=== PATIENT | female | born 1995 | race Caucasian/White ===

== ENCOUNTER 2023-03-01 12:13 | Emergency (ER) | payer OTHER ==
--- OUTSIDE RECORDS SUMMARY | 2023-03-01 12:23 | XMS REPORT | Continuity of Care Document ---
:1995 Author Organization [facility] t Address [address] [place] [address] [address] [place] [address] Care Team Providers Name Role Phone Mabel Cottrell CNM Primary Care Physician [phone] MEG BAIRD Attending Clinician Unavailable Nurse, [facility] Attending Clinician Unavailable Unknown, Attending Attending Clinician Unavailable Meg Hoover Attending Clinician UNKNOWN, ATTENDING Attending Clinician Unavailable CANDIDO GAYTAN Attending Clinician Unavailable Candido Gaytan PA-C Attending Clinician Doctor Unassigned, [place] Attending Clinician Unavailable Mabel Cottrell CNM Attending Clinician MABEL COTTRELL Attending Clinician Unavailable Myra Morales Attending Clinician ELIZABETH YOU Attending Clinician Unavailable Elizabeth Townsend Attending Clinician MYRA WOO Attending Clinician Unavailable GELACIO FINNEGAN Attending Clinician Unavailable MICHELLE HELLER Attending Clinician Unavailable MICHELLE HELLER Attending Clinician Unavailable Visit/Fp, [facility] Nurse Attending Clinician Unavailable Edda Nesbitt MD Attending Clinician [phone] Roshan Saldana MD Attending Clinician ROSHAN SALDANA Attending Clinician Unavailable ROSHAN SALDANA Attending Clinician Unavailable Jailene Ireland MD, Mary Attending Clinician [phone] Zuri Milligan DO Attending Clinician Abram Vance MD Attending Clinician EDDA NESBITT Attending Clinician Unavailable Henrietta CHILD WELFARE COUNSELOR, Kassy Attending Clinician KASSY SHRESTHA Attending Clinician Unavailable Ultrasound, Ang-Mfm Attending Clinician Unavailable Elier Phillips DO Attending Clinician APRIL GUERRA Attending Clinician Unavailable Charlie AKERS, April Jensen Attending Clinician Provider, [facility] Temp Attending Clinician Unavailable Lab, Ang - Db Attending Clinician Unavailable LYNDSAY LEE Attending Clinician Unavailable LYNDSAY LEE Attending Clinician Unavailable Tatum Barros RN Attending Clinician Unavailable HYACINTH ROMERO Attending Clinician Unavailable Hyacinth Romero DO Attending Clinician Leonid AKERS, Judit Attending Clinician JUDIT JAQUEZ Attending Clinician Unavailable GELACIO BHAGAT Attending Clinician Unavailable Gelacio Bhagat PA-C Attending Clinician Preet Santiago OD Attending Clinician PREET SANTIAGO Attending Clinician Unavailable Ultrasound, Adc Mfm Attending Clinician Unavailable MARY CRUMP Attending Clinician Unavailable Only, Ang Db Test Attending Clinician Unavailable Vinnie Ceron MD Attending Clinician VINNIE CERON Attending Clinician Unavailable ELIZABETH REEVES Attending Clinician Unavailable Elizabeth Hernandez Attending Clinician MADELIN CORTES Attending Clinician Unavailable Marquise Pratt Attending Clinician Madelin Cortes NP Attending Clinician Meghna Greenberg Attending Clinician MEGHNA BOSE Attending Clinician Unavailable Roshan Saldana MD Admitting Clinician ROSHAN SALDANA Admitting Clinician Unavailable EDDA NESBITT Admitting Clinician Unavailable Edda Nesbitt MD Admitting Clinician [phone] APRIL GUERRA Admitting Clinician Unavailable April Guerra MD Admitting Clinician MARQUISE STONE Admitting Clinician Unavailable Payers Payer Name Policy Type Policy Number Effective Date Expiration Date [facility] [id number] 2022 CHOICE [place] ST[place] 00:00:00 Problems Condition Condition Condition Status Onset Resolution Last Treating Co mments Source Name Details Category Date Date Treatment Clinician Date Severe Severe Disease Active 2021-09 Univers preeclamps preeclamps 1-28 it y [place] 00 [facility] 35 weeks 35 weeks Disease Active 2021-09 Unive rs gestation gestation 1-27 ity of of of 00:00: [place] 00 [facility] Obesity Obesity Disease Active 2021-09 Univers (BMI (BMI 1-22 ity of 30-39.9) 30-39.9) 00:00: [place] [facility] Other Other Disease Active 2021-09 Univers headache headache 1-21 ity of syndrome syndrome 00:00: [place] [facility] History of History of Disease Active 2021-09 U nivers gestationa gestationa 1-21 it y of l l 00:00: [place] hypertensi hypertensi 00 Me dical on on Branch Pre-existi Pre-existi Disease Active U nivmiriam ng ng 7-22 [place] of essential essential 00:[place] hypert[place] 00 Me dical on during on during Bran ch , , antepartum antepartum Unspecifie Unspecifie Disease Active U nivers d d 6-03 [place] [facility] High risk High risk Disease Active Uni vers , , 5-06 [place] y of antepartum ante[place] [facility] [place] History of History of Disease Active U nivers stillbirth stillbirth 5-06 it y of 00:00: [place] [facility] Nausea Nausea Disease Active 2022-0 Univers 5-06 ity of 00:00: [place] [address] Medical Branch Allergies, Adverse Reactions, Alerts Allergy Allergy Status Severity Reaction(s) Onset Inactive Treating Comm ents Source Name Type Date Date Clinician No Known DA Active U [facility] 01-26 [place] 00:[facility] [address] No Known DA Active U [facility] Allergie 01-26 [place] 00:[facility]: [facility] 00 are [facility] NO KNOWN Drug Active Univers ALLERGIE Class ity of S [facility] Social History Social Habit Start Date Stop Date Quantity Comments Source ASSERTION 2021-12-10 [place] of 00:00:00 [place] [facility] [place] History SDOH University o f Alcohol Frequency [place] [facility] History SDOH University o f Alcohol Std [place] [facility] Drinks [facility] History SDOH University o f Alcohol Binge [place] [facility] [place] History of Passive smoker University of tobacco use [facility] Alcohol intake 2023-02-28 2023-02-28 Ex-drinker [facility] 00:00:00 00:00:00 (finding) [facility] Exposure to 2023-01-18 2023-01-28 Not sure [facility] SARS-CoV-2 00:00:00 17:55:00 [facility] (event) Branch Tobacco use and 2022-08-05 2022-08-05 Smokeless tobacco Un iversity of exposure 00:00:00 00:00:00 non-user [facility] Tobacco Comment 2022-03-28 2022-03-28 quit 6y ago Universi ty of 00:00:00 00:00:00 [facility] Alcohol Comment 2022-01-10 2022-01-10 quit when found Univ ersity of 00:00:00 00:00:00 out was [facility] dical [place] Sex Ass[birth year] At [birth year] Universit y of 00:00:00 00:00:00 [facility] Smoking Status Start Date Stop Date Source Tobacco smoking [facility] [place] consumption unknown [facility] Bran [place] Ex-smoker 2022-08-05 00:00:00 2022-08-05 University o f [place] 00:00:00 Medical Branch Medications Ordered Filled Start Stop Current Ordering Indication Dosage Frequency Signature Comments Components Source Medication Medication Date Date Medication? Clinician (SIG) Name Name famotidine Yes [id number] 40mg Take 1 Univers 40 mg 5-24 tablet by ity of tablet 00:00: mouth in [place] 00 the Medical morning. Branch pantoprazol 2022-0 Yes [id number] 40mg Take 1 Univers e 5-24 tablet by ity of (PROTONIX) 00:00: mouth in [place] 40 mg EC 00 the Medical tablet morning. Branch bromphenira 3-0 Yes [id number] 5mL Take 5 mL Univers mine-pseudo 5-24 by mouth 3 it y of ephedrine-D 00:00: (three) [place] M (BROMFED 00 times Medical DM) 2-30-10 daily as Bran ch mg/5 mL needed for syrup Cough. famotidine 2022-0 Yes [id number] 40mg Take 1 Univers 40 mg 5-24 tablet by ity of tablet 00:00: mouth in [place] 00 the Medical morning. Branch pantoprazol 2022-0 Yes [id number] 40mg Take 1 Univers e 5-24 tablet by ity of (PROTONIX) 00:00: mouth in [place] 40 mg EC 00 the Medical tablet morning. Branch bromphenira 2022-0 Yes [id number] 5mL Take 5 mL Univers mine-pseudo 5-24 by mouth 3 it y of ephedrine-D 00:00: (three) [place] M (BROMFED 00 times Medical DM) 2-30-10 daily as Bran ch mg/5 mL needed for syrup Cough. famotidine 2022-0 Yes [id number] 40mg Take 1 Univers 40 mg 5-24 tablet by ity of tablet 00:00: mouth in [place] 00 the Medical morning. Branch pantoprazol 2022-0 Yes [id number] 40mg Take 1 Univers e 5-24 tablet by ity of (PROTONIX) 00:00: mouth in [place] 40 mg EC 00 the Medical tablet morning. Branch bromphenira 3-0 Yes [id number] 5mL Take 5 mL Univers mine-pseudo 5-24 by mouth 3 it y of ephedrine-D 00:00: (three) [place] M (BROMFED 00 times Medical DM) 2-30-10 daily as Bran ch mg/5 mL needed for syrup Cough. labetaloL 3-0 Yes [id number] 200mg Take 1 Univers 200 mg 1-18 tablet by ity of tablet 00:00: mouth [place] 00 every 12 Medical (twelve) Branch hours. 2022-0 Yes [id number] 1{tbl} Take 1 Univers vitamin 1-18 tablet by ity of w/FA tablet 00:00: mouth [place] 00 the Medical morning. Branch labetaloL 2022-0 Yes [id number] 200mg Take 1 Univers 200 mg 1-18 tablet by ity of tablet 00:00: mouth [place] 00 every 12 Medical (twelve) Branch hours. 2022-0 Yes [id number] 1{tbl} Take 1 Univers vitamin 1-18 tablet by ity of w/FA tablet 00:00: mouth [place] 00 the Medical morning. Branch buPROPion 2022-0 Yes [id number] 150mg Take 1 Univers XL 1-18 tablet by ity of (WELLBUTRIN 00:00: mouth [place] XL) 150 mg 00 every Medical 24 hr morning. Branch tablet labetaloL 2022-0 Yes [id number] 200mg Take 1 Univers 200 mg 1-18 tablet by ity of tablet 00:00: mouth [place] 00 every 12 Medical (twelve) Branch hours. 2022-0 Yes [id number] 1{tbl} Take 1 Univers vitamin 1-18 tablet by ity of w/FA tablet 00:00: mouth [place] 00 the Medical morning. Branch buPROPion 2022-0 Yes [id number] 150mg Take 1 Univers XL 1-18 tablet by ity of (WELLBUTRIN 00:00: mouth [place] XL) 150 mg 00 every Medical 24 hr morning. Branch tablet labetaloL 2022-0 Yes [id number] 200mg Take 1 Univers 200 mg 1-18 tablet by ity of tablet 00:00: mouth [place] 00 every 12 Medical (twelve) Branch hours. 2022-0 Yes [id number] 1{tbl} Take 1 Univers vitamin 1-18 tablet by ity of w/FA tablet 00:00: [place] 00 the Medical morning. Branch buPROPion 2022-0 Yes [id number] 150mg Take 1 Univers XL 1-18 tablet by ity of (WELLBUTRIN 00:00: mouth [place] XL) 150 mg 00 every Medical 24 hr morning. Branch tablet labetaloL 2022-0 Yes [id number] 200mg Take 1 Univers 200 mg 1-18 tablet by ity of tablet 00:00: mouth [place] 00 every 12 Medical (twelve) Branch hours. 2022-0 Yes [id number] 1{tbl} Take 1 Univers vitamin 1-18 tablet by ity of w/FA tablet 00:00: mouth [place] 00 the Medical morning. Branch buPROPion 2022-0 Yes [id number] 150mg Take 1 Univers XL 1-18 tablet by ity of (WELLBUTRIN 00:00: mouth [place] XL) 150 mg 00 every Medical 24 hr morning. Branch tablet labetaloL 2022-0 Yes [id number] 200mg Take 1 Univers 200 mg 1-18 tablet by ity of tablet 00:00: mouth [place] 00 every 12 Medical (twelve) Branch hours. 2022-0 Yes [id number] 1{tbl} Take 1 Univers vitamin 1-18 tablet by ity of w/FA tablet 00:00: mouth [place] 00 the Medical morning. Branch buPROPion 2022-0 Yes [id number] 150mg Take 1 Univers XL 1-18 tablet by ity of (WELLBUTRIN 00:00: mouth [place] XL) 150 mg 00 every Medical 24 hr morning. Branch tablet labetaloL 2022-0 Yes [id number] 200mg Take 1 Univers 200 mg 1-18 tablet by ity of tablet 00:00: mouth [place] 00 every 12 Medical (twelve) Branch hours. 2022-0 Yes [id number] 1{tbl} Take 1 Univers vitamin 1-18 tablet by ity of w/FA tablet 00:00: mouth [place] 00 the Medical morning. Branch buPROPion 2022-0 Yes [id number] 150mg Take 1 Univers XL 1-18 tablet by ity of (WELLBUTRIN 00:00: mouth [place] XL) 150 mg 00 every Medical 24 hr morning. Branch tablet labetaloL 2022-0 Yes [id number] 200mg Take 1 Univers 200 mg 1-18 tablet by ity of tablet 00:00: mouth [place] 00 every 12 Medical (twelve) Branch hours. 2022-0 Yes [id number] 1{tbl} Take 1 Univers vitamin 1-18 tablet by ity of w/FA tablet 00:00: mouth [place] 00 the Medical morning. Branch buPROPion 2022-0 Yes [id number] 150mg Take 1 Univers XL 1-18 tablet by ity of (WELLBUTRIN 00:00: mouth [place] XL) 150 mg 00 every Medical 24 hr morning. Branch tablet labetaloL 2022-0 Yes [id number] 200mg Take 1 Univers 200 mg 1-18 tablet by ity of tablet 00:00: mouth [place] 00 every 12 Medical (twelve) Branch hours. 2022-0 Yes [id number] 1{tbl} Take 1 Univers vitamin 1-18 tablet by ity of w/FA tablet 00:00: mouth [place] 00 the Medical morning. Branch buPROPion 2022-0 Yes [id number] 150mg Take 1 Univers XL 1-18 tablet by ity of (WELLBUTRIN 00:00: mouth [place] XL) 150 mg 00 every Medical 24 hr morning. Branch tablet labetaloL Yes [id number] 200mg Take 1 Univers 200 mg 1-18 tablet by ity of tablet 00:00: mouth [place] 00 every 12 Medical (twelve) Branch hours. 2022-0 Yes [id number] 1{tbl} Take 1 Univers vitamin 1-18 tablet by ity of w/FA tablet 00:00: mouth [place] 00 the Medical morning. Branch buPROPion Yes [id number] 150mg Take 1 Univers XL 1-18 tablet by ity of (WELLBUTRIN 00:00: mouth [place] XL) 150 mg 00 every Medical 24 hr morning. Branch tablet labetaloL 0 Yes [id number] 200mg Take 1 Univers 200 mg 1-18 tablet by ity of tablet 00:00: mouth [place] 00 every 12 Medical (twelve) Branch hours. 2022-0 Yes [id number] 1{tbl} Take 1 Univers vitamin 1-18 tablet by ity of w/FA tablet 00:00: mouth [place] 00 the Medical morning. Branch buPROPion 2022-0 Yes [id number] 150mg Take 1 Univers XL 1-18 tablet by ity of (WELLBUTRIN 00:00: mouth [place] XL) 150 mg 00 every Medical 24 hr morning. Branch tablet 2022-0 Yes [id number] 1{tbl} Take 1 Univers vitamin 1-18 tablet by ity of w/FA tablet 00:00: mouth [place] 00 the Medical morning. Branch 2022-0 Yes [id number] 1{tbl} Take 1 Univers vitamin 1-18 tablet by ity of w/FA tablet 00:00: mouth in [place] 00 the Medical morning. Branch [facility] Yes [id number] 1{tbl} Take 1 Univers vitamin 1-18 tablet by ity of w/FA tablet 00:00: mouth [place] 00 the Medical morning. Branch [facility] Yes [id number] 1{tbl} Take 1 Univers vitamin 1-18 tablet by ity of w/FA tablet 00:00: mouth in [place] 00 the Medical morning. Branch [facility] Yes [id number] 1{tbl} Take 1 Univers vitamin 1-18 tablet by ity of w/FA tablet 00:00: mouth in [place] 00 the Medical morning. Branch [facility] Yes [id number] 1{tbl} Take 1 Univers vitamin 1-18 tablet by ity of w/FA tablet 00:00: mouth [place] 00 the Medical morning. [facility] Yes [id number] 1{tbl} Take 1 Univers vitamin 1-18 tablet by ity of w/FA tablet 00:00: mouth [place] 00 the Medical morning. [facility] 0 Yes [id number] 1{tbl} Take 1 Univers vitamin 1-18 tablet by ity of w/FA tablet 00:00: mouth [place] 00 the Medical morning. [facility] Yes [id number] 1{tbl} Take 1 Univers vitamin 1-18 tablet by ity of w/FA tablet 00:00: mouth [place] 00 the Medical morning. Branch labetaloL 2022- No [id number] 200mg Take 1 Univers 200 mg 1-18 -28 tablet by ity of tablet 00:00: 00:00 mouth [place] 00 :00 every 12 Medical (twelve) Branch hours. buPROPion 2022- No [id number] 150mg Take 1 Univers XL 1-18 -28 tablet by ity of (WELLBUTRIN 00:00: 00:[place] XL[place] 150 mg 00 :00 every Medical 24 hr morning. Branch tablet labetaloL 2022- No [id number] 200mg Take 1 Univers 200 mg 1-18 -28 tablet by ity of tablet 00:00: 00:00 mouth [place] 00 :00 every 12 Medical (twelve) Branch hours. buPROPion 2022- No [id number] 150mg Take 1 Univers XL 09-24 tablet by ity of (WELLBUTRIN 00:00: 00:[place] XL[place] 150 mg 00 :00 every Medical 24 hr morning. [place] tablet labetaloL 2022- No [id number] 200mg Take 1 Univers 200 mg 09-24 tablet by ity of tablet 00:00: 00:00 mouth [place] 00 :00 every 12 Medical (twelve) Branch hours. buPROPion 2022- No [id number] 150mg Take 1 Univers XL 09-24 tablet by ity of (WELLBUTRIN 00:00: 00:[place] XL[place] 150 mg 00 :00 every Medical 24 hr morning. [place] tablet norethindro 2021-09 Yes [id number] 1{tbl} Take 1 Univers ne 0.35 mg 2-24 tablet by ity of tablet 00:00: mouth in [place] 00 the Medical morning. [place] norethindro 2021-09 Yes [id number] 1{tbl} Take 1 Univers ne 0.35 mg 2-24 tablet by ity of tablet 00:00: mouth in [place] 00 the Medical morning. Branch norethindro 2021-09 Yes [id number] 1{tbl} Take 1 Univers ne 0.35 mg 2-24 tablet by ity of tablet 00:00: mouth in [place] 00 the Medical morning. [place] norethindro 2021-09 Yes [id number] 1{tbl} Take 1 Univers ne 0.35 mg 2-24 tablet by ity of tablet 00:00: mouth in [place] 00 the Medical morning. [place] norethindro 2021-09 Yes [id number] 1{tbl} Take 1 Univers ne 0.35 mg 2-24 tablet by ity of tablet 00:00: mouth in [place] 00 the Medical morning. Branch norethindro 2021-09 Yes [id number] 1{tbl} Take 1 Univers ne 0.35 mg 2-24 tablet by ity of tablet 00:00: mouth in [place] 00 the Medical morning. [place] garciandro 2021-09 Yes [id number] 1{tbl} Take 1 Univers ne 0.35 mg 2-24 tablet by ity of tablet 00:00: mouth in [place] 00 the Medical morning. [place] colesro 2021-09 Yes [id number] 1{tbl} Take 1 Univers ne 0.35 mg 2-24 tablet by ity of tablet 00:00: mouth in [place] the Medical morning. [place] colesro 2021-09 Yes [id number] 1{tbl} Take 1 Univers ne 0.35 mg 2-24 tablet by ity of tablet 00:00: mouth in [place] 00 the Medical morning. [place] colesro 2021-09 Yes [id number] 1{tbl} Take 1 Univers ne 0.35 mg 2-24 tablet by ity of tablet 00:00: mouth in [place] the Medical morning. [place] colesro 2021-09 Yes [id number] 1{tbl} Take 1 Univers ne 0.35 mg 2-24 tablet by ity of tablet 00:00: mouth in [place] the Medical morning. [place] colesro 2021-09 Yes [id number] 1{tbl} Take 1 Univers ne 0.35 mg 2-24 tablet by ity of tablet 00:00: mouth in [place] the Medical morning. [place] colesro 2021-09 Yes [id number] 1{tbl} Take 1 Univers ne 0.35 mg 2-24 tablet by ity of tablet 00:00: mouth in [place] the Medical morning. [place] colesro 2021-09 Yes [id number] 1{tbl} Take 1 Univers ne 0.35 mg 2-24 tablet by ity of tablet 00:00: mouth in [place] the Medical morning. [place] garciandro 2021-09 Yes [id number] 1{tbl} Take 1 Univers ne 0.35 mg 2-24 tablet by ity of tablet 00:00: mouth in [place] 00 the Medical morning. [place] garciandro 2021-09 Yes [id number] 1{tbl} Take 1 Univers ne 0.35 mg 2-24 tablet by ity of tablet 00:00: mouth in [place] 00 the Medical morning. [place] garciandro 2021-09 Yes [id number] 1{tbl} Take 1 Univers ne 0.35 mg 2-24 tablet by ity of tablet 00:00: mouth in [place] 00 the Medical morning. Branch norethindro 2021-09 Yes [id number] 1{tbl} Take 1 Univers ne 0.35 mg 2-24 tablet by ity of tablet 00:00: mouth in [place] 00 the Medical morning. Branch norethindro 2021-09 Yes [id number] 1{tbl} Take 1 Univers ne 0.35 mg 2-24 tablet by ity of tablet 00:00: mouth in [place] 00 the Medical morning. Branch norethindro 2021-09 Yes [id number] 1{tbl} Take 1 Univers ne 0.35 mg 2-24 tablet by ity of tablet 00:00: mouth in [place] 00 the Medical morning. Branch norethindro 2021-09 Yes [id number] 1{tbl} Take 1 Univers ne 0.35 mg 2-24 tablet by ity of tablet 00:00: mouth in [place] 00 the Medical morning. Branch sulfamethox 2021-09- No [id number] 1{tbl} Take 1 Univers azole-trime 2-24 09-10 tablet by it y of thoprim 00:00: 05:59 mouth in [place] 800-160 mg 00 :00 the Medical per tablet morning Branch and 1 tablet in the evening. Do all this for 10 days. buPROPion 2021-09 Yes [id number] 150mg Take 1 Univers XL 2-15 tablet by ity of (WELLBUTRIN 00:00: mouth [place] XL) 150 mg 00 every Medical 24 hr morning. Branch tablet buPROPion 2021-09 Yes [id number] 150mg Take 1 Univers XL 2-15 tablet by ity of (WELLBUTRIN 00:00: mouth [place] XL) 150 mg 00 every Medical 24 hr morning. Branch tablet buPROPion 2021-09 Yes [id number] 150mg Take 1 Univers XL 2-15 tablet by ity of (WELLBUTRIN 00:00: mouth [place] XL) 150 mg 00 every Medical 24 hr morning. Branch tablet acetaminoph 2021-09- No Take by Nabor kumar en (TYLENOL 10-09 mouth. ity o f ORAL) 06:00: 00:00 [place] 12 :00 Medical Branch acetaminoph 2021-09- No Take by Un stacy en (TYLENOL 10-09 mouth. ity o f ORAL) 06:00: 00:00 [place] 12 :00 Medical Branch labetaloL 2021-09- No 40mg 40 mg, Unive rs (NORMODYNE) 10-09 Slow IV ity of injection 01:00: 00:15 [place], [place] 40 mg 00 :00 ONCE, 1 Medical dose, On Branch [facility] 08/07/22 at 1900, Routine labetaloL 2021-09 Yes 200mg 200 mg, Univ ers (NORMODYNE) 2- Oral, ity of tablet 200 00:45: Q12H, [place] mg 00 First dose Medical on [facility] 08/07/22 at 1845, Until Discontinu ed, Routine labetaloL 2021-09 Yes 200mg 200 mg, Univ ers (NORMODYNE) 2 Oral, ity of tablet 200 00:45: Q12H, [place] mg 00 First dose Medical on [facility] 08/07/22 at 1845, Until Discontinu ed, Routine labetaloL 2021-09- No 20mg 20 mg, Unive rs (NORMODYNE) 10-09 Slow IV ity of injection 00:15: 23:44 [place], [place] 20 mg 00 :00 ONCE, 1 Medical dose, On Branch [facility] 08/07/22 at 1815, Routine 2021-09 Yes [id number] 1{tbl} Take 1 Univers vitamin 2-02 tablet by ity of w/FA tablet 00:00: mouth [place] 00 the Medical morning. Branch docusate 2021-09 Yes [id number] 200mg Take 2 U nivers 100 mg 2-02 capsules ity of capsule 00:00: by mouth 00 once daily Medical as needed Branch for Constipati on. ferrous 2021-09 Yes [id number] 325mg Take 1 Un stacy sulfate 325 2-02 tablet by ity of mg (65 mg 00:00: mouth [place] iron) 00 the Medical tablet morning Branch and 1 tablet in the evening. ibuprofen 2021-09 Yes [id number] 600mg Take 1 Univers 600 mg 2-02 tablet by ity of tablet 00:00: mouth [place] 00 every 6 Medical (six) Branch hours as needed (Pain). Take with food or milk. 2021-09 Yes [id number] 1{tbl} Take 1 Univers vitamin 2-02 tablet by ity of w/FA tablet 00:00: mouth in [place] 00 the Medical morning. Branch docusate 2021-09 Yes [id number] 200mg Take 2 U nivers 100 mg 2-02 capsules ity of capsule 00:00: by mouth [place] 00 once daily Medical as needed Branch for Constipati on. ferrous 2021-09 Yes [id number] 325mg Take 1 Un stacy sulfate 325 2-02 tablet by ity of mg (65 mg 00:00: [place] iron) 00 the Medical tablet morning Branch and 1 tablet in the evening. ibuprofen 2021-09 Yes [id number] 600mg Take 1 Univers 600 mg 2-02 tablet by ity of tablet 00:00: mouth [place] 00 every 6 Medical (six) Branch hours as needed (Pain). Take with food or milk. 2021-09 Yes [id number] 1{tbl} Take 1 Univers vitamin 2-02 tablet by ity of w/FA tablet 00:00: mouth in [place] 00 the Medical morning. Branch docusate 2021-09 Yes [id number] 200mg Take 2 U nivers 100 mg 2-02 capsules ity of capsule 00:00: by mouth [place] 00 once daily Medical as needed Branch for Constipati on. ferrous 2021-09 Yes [id number] 325mg Take 1 Un stacy sulfate 325 2-02 tablet by ity of mg (65 mg 00:00: [place] iron) 00 the Medical tablet morning Branch and 1 tablet in the evening. ibuprofen 2021-09 Yes [id number] 600mg Take 1 Univers 600 mg 2-02 tablet by ity of tablet 00:00: mouth [place] 00 every 6 Medical (six) Branch hours as needed (Pain). Take with food or milk. 2021-09 Yes [id number] 1{tbl} Take 1 Univers vitamin 2-02 tablet by ity of w/FA tablet 00:00: mouth [place] 00 the Medical morning. Branch docusate 2021-09 Yes [id number] 200mg Take 2 U nivers 100 mg 2-02 capsules ity of capsule 00:00: by mouth [place] 00 once daily Medical as needed Branch for Constipati on. ferrous 2021-09 Yes [id number] 325mg Take 1 Un stacy sulfate 325 2-02 tablet by ity of mg (65 mg 00:00: [place] iron[place] 00 the Medical tablet morning Branch and 1 tablet in the evening. ibuprofen 2021-09 Yes [id number] 600mg Take 1 Univers 600 mg 2-02 tablet by ity of tablet 00:00: mouth [place] 00 every 6 Medical (six) Branch hours as needed (Pain). Take with food or milk. 2021-09 Yes [id number] 1{tbl} Take 1 Univers vitamin 2-02 tablet by ity of w/FA tablet 00:00: mouth in [place] 00 the Medical morning. Branch docusate 2021-09 Yes [id number] 200mg Take 2 U nivers 100 mg 2-02 capsules ity of capsule 00:00: by mouth [place] 00 once daily Medical as needed Branch for Constipati on. ferrous 2021-09 Yes [id number] 325mg Take 1 Un stacy sulfate 325 2-02 tablet by ity of mg (65 mg 00:00: [place] iron) 00 the Medical tablet morning Branch and 1 tablet in the evening. ibuprofen 2021-09 Yes [id number] 600mg Take 1 Univers 600 mg 2-02 tablet by ity of tablet 00:00: mouth [place] 00 every 6 Medical (six) Branch hours as needed (Pain). Take with food or milk. 2021-09 Yes [id number] 1{tbl} Take 1 [facility] vitamin 2-02 tablet by ity of w/FA tablet 00:00: mouth in [place] 00 the Medical morning. Branch docusate 2021-09 Yes [id number] 200mg Take 2 [facility] nivers 100 mg 2-02 capsules ity of capsule 00:00: by mouth [place] 00 once daily Medical as needed Branch for Constipati on. ferrous 2021-09 Yes [id number] 325mg Take 1 [facility] sulfate 325 2-02 tablet by ity of mg (65 mg 00:00: [place] iron[place] 00 the Medical tablet morning Branch and 1 tablet in the evening. ibuprofen 2021-09 Yes [id number] 600mg Take 1 [facility] 600 mg 2-02 tablet by ity of tablet 00:00: mouth [place] 00 every 6 Medical (six) Branch hours as needed (Pain). Take with food or milk. docusate 2021-09 Yes [id number] 200mg Take 2 [facility] nivers 100 mg 2-02 capsules ity of capsule 00:00: by mouth [place] 00 once daily Medical as needed Branch for Constipati on. ferrous 2021-09 Yes [id number] 325mg Take 1 [facility] sulfate 325 2-02 tablet by ity of mg (65 mg 00:00: [place] iron[place] 00 the Medical tablet morning Branch and 1 tablet in the evening. ibuprofen 2021-09 Yes [id number] 600mg Take 1 [facility] 600 mg 2-02 tablet by ity of tablet 00:00: mouth [place] 00 every 6 Medical (six) Branch hours as needed (Pain). Take with food or milk. docusate 2021-09 Yes [id number] 200mg Take 2 [facility] n[facility] 100 mg 2-02 capsules ity of capsule 00:00: by mouth [place] 00 once daily Medical as needed Branch for Constipati on. ferrous 2021-09 Yes [id number] 325mg Take 1 [facility] sulfate 325 2-02 tablet by ity of mg (65 mg 00:00: [place] iron[place] 00 the Medical tablet morning Branch and 1 tablet in the evening. ibuprofen 2021-09 Yes [id number] 600mg Take 1 [facility] 600 mg 2-02 tablet by ity of tablet 00:00: mouth [place] 00 every 6 Medical (six) Branch hours as needed (Pain). Take with food or milk. docusate 2021-09 Yes [id number] 200mg Take 2 [facility] nivers 100 mg 2-02 capsules ity of capsule 00:00: by mouth [place] 00 once daily Medical as needed Branch for Constipati on. ferrous 2021-09 Yes [id number] 325mg Take 1 [facility] sulfate 325 2-02 tablet by ity of mg (65 mg 00:00: [place] iron[place] 00 the Medical tablet morning Branch and 1 tablet in the evening. ibuprofen 2021-09 Yes [id number] 600mg Take 1 [facility] 600 mg 2-02 tablet by ity of tablet 00:00: mouth [place] 00 every 6 Medical (six) Branch hours as needed (Pain). Take with food or milk. docusate 2021-09 Yes [id number] 200mg Take 2 [facility] n[facility] 100 mg 2-02 capsules ity of capsule 00:00: by mouth [place] 00 once daily Medical as needed Branch for Constipati on. ferrous 2021-09 Yes [id number] 325mg Take 1 [facility] sulfate 325 2-02 tablet by [facility]y of mg (65 mg 00:00: [place] iron[place] 00 the Medical tablet morning Branch and 1 tablet in the evening. ibuprofen 2021-09 Yes [id number] 600mg Take 1 [facility] 600 mg 2-02 tablet by ity of tablet 00:00: mouth [place] 00 every 6 Medical (six) Branch hours as needed (Pain). Take with food or milk. docusate 2021-09 Yes [id number] 200mg Take 2 [facility] 100 mg 2-02 capsules ity of capsule 00:00: by mouth [place] 00 once daily Medical as needed Branch for Constipati on. ferrous 2021-09 Yes [id number] 325mg Take 1 [facility] sulfate 325 2-02 tablet by [facility] of mg (65 mg 00:00: [place] iron[place] 00 the Medical tablet morning Branch and 1 tablet in the evening. ibuprofen 2021-09 Yes [id number] 600mg Take 1 [facility] 600 mg 2-02 tablet by ity of tablet 00:00: mouth [place] 00 every 6 Medical (six) Branch hours as needed (Pain). Take with food or milk. docusate 2021-09 Yes [id number] 200mg Take 2 [facility] n[facility] 100 mg 2-02 capsules ity of capsule 00:00: by mouth [place] 00 once daily Medical as needed Branch for Constipati on. ferrous 2021-09 Yes [id number] 325mg Take 1 [facility] sulfate 325 2-02 tablet by [facility]y of mg (65 mg 00:00: [place] iron[place] 00 the Medical tablet morning Branch and 1 tablet in the evening. ibuprofen 2021-09 Yes [id number] 600mg Take 1 [facility] 600 mg 2-02 tablet by ity of tablet 00:00: mouth [place] 00 every 6 Medical (six) Branch hours as needed (Pain). Take with food or milk. docusate 2021-09 Yes [id number] 200mg Take 2 [facility] 100 mg 2-02 capsules ity of capsule 00:00: by mouth [place] 00 once daily Medical as needed Branch for Constipati on. ferrous 2021-09 Yes [id number] 325mg Take 1 [facility] sulfate 325 2-02 tablet by ity of mg (65 mg 00:00: [place] iron[place] 00 the Medical tablet morning Branch and 1 tablet in the evening. ibuprofen 2021-09 Yes [id number] 600mg Take 1 [facility] 600 mg 2-02 tablet by ity of tablet 00:00: mouth [place] 00 every 6 Medical (six) Branch hours as needed (Pain). Take with food or milk. docusate 2021-09 Yes [id number] 200mg Take 2 [facility] n[facility] 100 mg 2-02 capsules ity of capsule 00:00: by mouth [place] 00 once daily Medical as needed Branch for Constipati on. ferrous 2021-09 Yes [id number] 325mg Take 1 [facility] sulfate 325 2-02 tablet by [facility]y of mg (65 mg 00:00: [place] iron[place] 00 the Medical tablet morning Branch and 1 tablet in the evening. ibuprofen 2021-09 Yes [id number] 600mg Take 1 [facility] 600 mg 2-02 tablet by ity of tablet 00:00: mouth [place] 00 every 6 Medical (six) Branch hours as needed (Pain). Take with food or milk. docusate 2021-09 Yes [id number] 200mg Take 2 [facility] n[facility] 100 mg 2-02 capsules ity of capsule 00:00: by mouth [place] 00 once daily Medical as needed Branch for Constipati on. ferrous 2021-09 Yes [id number] 325mg Take 1 [facility] sulfate 325 2-02 tablet by [facility]y of mg (65 mg 00:00: [place] iron[place] 00 the Medical tablet morning Branch and 1 tablet in the evening. ibuprofen 2021-09 Yes [id number] 600mg Take 1 [facility] 600 mg 2-02 tablet by ity of tablet 00:00: mouth [place] 00 every 6 Medical (six) Branch hours as needed (Pain). Take with food or milk. docusate 2021-09 Yes [id number] 200mg Take 2 [facility] 100 mg 2-02 capsules ity of capsule 00:00: by mouth [place] 00 once daily Medical as needed Branch for Constipati on. ferrous 2021-09 Yes [id number] 325mg Take 1 [facility] sulfate 325 2-02 tablet by [facility]y of mg (65 mg 00:00: [place] iron[place] 00 the Medical tablet morning Branch and 1 tablet in the evening. ibuprofen 2021-09 Yes [id number] 600mg Take 1 [facility] 600 mg 2-02 tablet by ity of tablet 00:00: mouth [place] 00 every 6 Medical (six) Branch hours as needed (Pain). Take with food or milk. docusate 2021-09- No [id number] 200mg Take 2 [facility] 100 mg 2-02 04-26 capsules ity of capsule 00:00: 00:00 by mouth [place] 00 :00 once daily Medical as needed Branch for Constipati on. ferrous 2021-09- No [id number] 325mg Take 1 U nivers sulfate 325 -10 11-26 tablet by it y of mg (65 mg 00:00: 00:00 mouth in [place] iron) 00 :00 the Medical tablet morning Branch and 1 tablet in the evening. ibuprofen 2021-09- No [id number] 600mg Take 1 [facility] 600 mg 2- 04-26 tablet by ity of tablet 00:00: 00:00 mouth [place] 00 :00 every 6 Medical (six) Branch hours as needed (Pain). Take with food or milk. docusate 2021-09- No [id number] 200mg Take 2 [facility] 100 mg 2-02 -26 capsules ity of capsule 00:00: 00:00 by mouth [place] 00 :00 once daily Medical as needed Branch for Constipati on. ferrous 2021-09- No [id number] 325mg Take 1 U nivers sulfate 325 -10 11- tablet by it y of mg (65 mg 00:00: 00:00 mouth in [place] iron) 00 :00 the Medical tablet morning Branch and 1 tablet in the evening. ibuprofen 2021-09- No [id number] 600mg Take 1 [facility] 600 mg 2-02 04-26 tablet by ity of tablet 00:00: 00:00 mouth [place] 00 :00 every 6 Medical (six) Branch hours as needed (Pain). Take with food or milk. docusate 2021-09- No [id number] 200mg Take 2 [facility] 100 mg 2-02 04-26 capsules ity of capsule 00:00: 00:00 by mouth [place] 00 :00 once daily Medical as needed Branch for Constipati on. ferrous 2021-09- No [id number] 325mg Take 1 U nivers sulfate 325 10-09 tablet by it y of mg (65 mg 00:00: 00:00 mouth in [place] iron) 00 :00 the Medical tablet morning Branch and 1 tablet in the evening. ibuprofen 2021-09- No [id number] 600mg Take 1 [facility] 600 mg 10-09 tablet by ity of tablet 00:00: 00:00 mouth [place] 00 :00 every 6 Medical (six) Branch hours as needed (Pain). Take with food or milk. 2021-09- No [id number] 1{tbl} Take 1 [facility] vitamin -09-24 tablet by ity of w/FA tablet 00:00: 00:00 mouth in [place] 00 :00 the Medical morning. Branch labetaloL 2021-09- No [id number] 200mg Take 1 [facility] 200 mg 2- tablet by ity of tablet 00:00: 05:59 mouth [place] 00 :00 every 12 Medical (twelve) Branch hours for 30 days. labetaloL 2021-09- No [id number] 200mg Take 1 [facility] 200 mg 2-10 08- tablet by ity of tablet 00:00: 05:59 mouth [place] 00 :00 every 12 Medical (twelve) Branch hours for 30 days. labetaloL 2021-09- No [id number] 200mg Take 1 [facility] 200 mg 2-10 08- tablet by ity of tablet 00:00: 05:59 mouth [place] 00 :00 every 12 Medical (twelve) Branch hours for 30 days. labetaloL 2021-09- No [id number] 200mg Take 1 [facility] 200 mg 2-10 08- tablet by ity of tablet 00:00: 05:59 mouth [place] 00 :00 every 12 Medical (twelve) Branch hours for 30 days. labetaloL 2021-09- No [id number] 200mg Take 1 [facility] 200 mg 2-10 08- tablet by ity of tablet 00:00: 05:59 mouth [place] 00 :00 every 12 Medical (twelve) Branch hours for 30 days. labetaloL 2021-09- No [id number] 200mg Take 1 [facility] 200 mg 2- 01-02 tablet by ity of tablet 00:00: 05:59 mouth [place] 00 :00 every 12 Medical (twelve) Branch hours for 30 days. HYDROcodone 2021-09 No [id number] 1{tbl} Take 1 U nivers -acetaminop 10-0910 tablet by it y of hen 5-325 00:00: 05:59 mouth [place] mg tablet 00 :00 every 6 Medical (six) Branch hours as needed (Pain scale above 4) for up to 7 days. Do not exceed 3 grams of acetaminop hen in 24 hours. Indication s: acute pain bacitracin 2021-09 No [id number] Apply to [facility] 500 10-09 affected ity of unit/gram 00:00: 05:59 area(s) as [place] ointment 00 :00 needed for Medic al Rash for Branch up to 7 days. HYDROcodone 2021-09 No [id number] 1{tbl} Take 1 U nivers -acetaminop 10-0910 tablet by it y of hen 5-325 00:00: 05:59 mouth [place] mg tablet 00 :00 every 6 Medical (six) Branch hours as needed (Pain scale above 4) for up to 7 days. Do not exceed 3 grams of acetaminop hen in 24 hours. Indication s: acute pain bacitracin 2021-09 No [id number] Apply to [place] [address] 10-09 affected ity of unit/gram 00:00: 05:59 area(s) as [place] ointment 00 :00 needed for Medic al Rash for Branch up to 7 days. HYDROcodone 2021-09 No [id number] 1{tbl} Take 1 U nivers -acetaminop 10-0910 tablet by it y of hen 5-325 00:00: 05:59 mouth [place] mg tablet 00 :00 every 6 Medical (six) Branch hours as needed (Pain scale above 4) for up to 7 days. Do not exceed 3 grams of acetaminop hen in 24 hours. Indication s: acute pain bacitracin 2021-09 No [id number] Apply to [facility] 500 10-09 affected ity of unit/gram 00:00: 05:59 area(s) as [place] ointment 00 :00 needed for Medic al Rash for Branch up to 7 days. HYDROcodone 2021-09- No [id number] 1{tbl} Take 1 U nivers -acetaminop 10-09 tablet by it y of hen 5-325 00:00: 05:59 mouth [place] mg tablet 00 :00 every 6 Medical (six) Branch hours as needed (Pain scale above 4) for up to 7 days. Do not exceed 3 grams of acetaminop hen in 24 hours. Indication s: acute pain bacitracin 2021-09- No [id number] Apply to [facility] 500 10-09 affected ity of unit/gram 00:00: 05:59 area(s) as [place] ointment 00 :00 needed for Medic al Rash for Branch up to 7 days. metroNIDAZO 2021-09- No [id number] 500mg Take 2 [facility] LE 250 mg 10-09 tablets by ity of tablet 00:00: 05:59 mouth [place] 00 :00 every 12 Medical (twelve) Branch hours for 3 days. metroNIDAZO 2021-09- No [id number] 500mg Take 2 [facility] LE 250 mg 10-09 tablets by ity of tablet 00:00: 05:59 mouth [place] 00 :00 every 12 Medical (twelve) Branch hours for 3 days. bacitracin- 2021-09 Yes Topical Uni vers polymyxin 2-01 (Apply To ity o f b-nystatin- 16:07: Affected [place] zinc oxide 02 Areas), Medica l 1:1:1 PRN, Branch (COMPOUNDED Starting ) ointment on [place] 08/07/22 at 1007, Until Discontinu ed, Routine, Wound care bacitracin- 2021-09 Yes Topical Uni vers polymyxin 2-01 (Apply To ity o f b-nystatin- 16:07: Affected [place] zinc oxide 02 Areas), Medica l 1:1:1 PRN, Branch (COMPOUNDED Starting ) ointment on [facility] 08/07/22 at 1007, Until Discontinu ed, Routine, Wound care polyethylen 2021-09 Yes 17g 17 g, Unive rs e glycol 2-01 Oral, ity of 3350 powder 15:00: DAILY, [place] 17 g 00 First dose Medical on [facility] Branch 08/07/22 at 0900, Until Discontinu ed, Routine polyethylen 2021-09 Yes 17g 17 g, Unive rs e glycol 10-08 Oral, ity of 3350 powder 15:00: DAILY, [place] 17 g 00 First dose Medical on [facility] Branch 08/07/22 at 0900, Until Discontinu ed, Routine hydroCHLORO 2021-09- No 50mg 50 mg, Uni vers thiazide 10-08 Oral, ity of (ESIDRIX) 15:00: 16:05 DAILY, [place] tablet 50 00 :33 First dose Medi antonio mg on [facility] Branch 08/07/22 at 0900, Until Discontinu ed, Routine famotidine 2021-09 Yes 20mg 20 mg, Unive rs (PEPCID AC) 10-08 Oral, BID, it y of tablet 20 02:00: First dose [place] mg 00 on Thu [facility] 08/06/22 Branch at 2000, Until Discontinu ed, Routine famotidine 2021-09 Yes 20mg 20 mg, Unive rs (PEPCID AC) 2 Oral, BID, it y of tablet 20 02:00: First dose [place] mg 00 on Thu [facility] 08/06/22 Branch at 2000, Until Discontinu ed, Routine rho(D) 2021-09 Yes 300ug 300 mcg, Univer s immune 1-30 Intramuscu ity of globulin 18:02: lar, ONCE, [place] as (RHOGAM) 55 For 1 Medical syringe 300 dose, Branch mcg Conditiona l, Routine rho(D) 2021-09 Yes 300ug 300 mcg, Univer s immune -30 Intramuscu ity of globulin 18:02: lar, ONCE, [place] (RHOGAM) 55 For 1 Medical syringe 300 dose, Branch mcg Conditiona l, Routine diphenhydrA 2021-09 Yes 25mg 25 mg, Univ ers MINE 130 Slow IV ity of (BENADRYL) 18:02: Push, [place] injection 49 Q6HPRN, Medical 25 mg Starting Branch on Thu08/06/22 at 1202, Until Discontinu ed, Routine, Itching diphenhydrA 2021-09 Yes 25mg 25 mg, Univ ers MINE 1-30 Oral, ity of (BENADRYL) 18:02: Q6HPRN, [place] tablet 25 49 Starting Medica l mg on Wed Branch 08/06/22 at 1202, Until Discontinu ed, Routine, Sleep, Itching ondansetron 2021-09 Yes 4mg 4 mg, Slow Univers (ZOFRAN 1-30 IV Push, ity of (PF)) 18:02: Q8HPRN, [place] injection 4 49 Starting Medi antonio mg on Thu Branch 08/06/22 at 1202, Until Discontinu ed, Routine, Nausea and Vomiting (N/V) bisacodyL 2021-09 Yes 10mg 10 mg, Univer s (DULCOLAX) 1-30 Rectal, ity of suppository 18:02: QDAILYPRN, [place] 10 mg 49 Starting Medical on Thu Branch 08/06/22 at 1202, Until Discontinu ed, Routine, Constipati on docusate 2021-09 Yes 200mg 200 mg, Unive rs (COLACE) 1-30 Oral, ity of capsule 200 18:02: QDAILYPRN, [place] mg 49 Starting Medical on Thu Branch 08/06/22 at 1202, Until Discontinu ed, Routine, Constipati on magnesium 2021-09 Yes 30mL 30 mL, Univer s hydroxide 1-30 Oral, ity of (MILK OF 18:02: QDAILYPRN, [place] MAGNESIA) 49 Starting Medica l 400 mg/5 mL on Thu Branch suspension 08/06/22 30 mL at 1202, Until Discontinu ed, Routine, Constipati on lactated 2021-09 Yes 1000mL at 125 Unive rs ringers IV 1-30 mL/hr, ity of infusion 18:02: 1,000 mL, [place] 1,000 mL 49 IV Medical Infusion, Branch PRN, 1 dose, Starting on Thu08/06/22 at 1202, Until Discontinu ed, Routine diphenhydrA 2021-09 Yes 25mg 25 mg, Univ ers MINE 1-30 Slow IV ity of (BENADRYL) 18:02: Push, [place] injection 49 Q6HPRN, Medical 25 mg Starting Branch on Thu08/06/22 at 1202, Until Discontinu ed, Routine, Itching diphenhydrA 2021-09 Yes 25mg 25 mg, Univ ers MINE 1-30 Oral, ity of (BENADRYL) 18:02: Q6HPRN, [place] tablet 25 49 Starting Medica l mg on Thu Branch 08/06/22 at 1202, Until Discontinu ed, Routine, Sleep, Itching ondansetron 2021-09 Yes 4mg 4 mg, Slow Univers (ZOFRAN 1-30 IV Push, ity of (PF)) 18:02: Q8HPRN, [place] injection 4 49 Starting Medi antonio mg on Thu Branch 08/06/22 at 1202, Until Discontinu ed, Routine, Nausea and Vomiting (N/V) bisacodyL 2021-09 Yes 10mg 10 mg, Univer s (DULCOLAX) 1-30 Rectal, ity of suppository 18:02: QDAILYPRN, [place] 10 mg 49 Starting Medical on Thu Branch 08/06/22 at 1202, Until Discontinu ed, Routine, Constipati on docusate 2021-09 Yes 200mg 200 mg, Unive rs (COLACE) 1-30 Oral, ity of capsule 200 18:02: QDAILYPRN, [place] mg 49 Starting Medical on Thu Branch 08/06/22 at 1202, Until Discontinu ed, Routine, Constipati on magnesium 2021-09 Yes 30mL 30 mL, Univer s hydroxide 1-30 Oral, ity of (MILK OF 18:02: QDAILYPRN, [place] MAGNESIA) 49 Starting Medica l 400 mg/5 mL on Thu Branch suspension 08/06/22 30 mL at 1202, Until Discontinu ed, Routine, Constipati on lactated 2021-09 Yes 1000mL at 125 Unive rs ringers IV 1-30 mL/hr, ity of infusion 18:02: 1,000 mL, [place] 1,000 mL 49 IV Medical Infusion, Branch PRN, 1 dose, Starting on Thu08/06/22 at 1202, Until Discontinu ed, Routine ibuprofen 2021-09 Yes 600mg 600 mg, Univ ers (IBU) 1-30 Oral, Q6H, ity of tablet 600 12:00: First dose [place] mg 00 on Thu Medical 08/06/22 Branch at 0600, Until Discontinu ed, Routine ibuprofen 2021-09 Yes 600mg 600 mg, Univ ers (IBU) 1-30 Oral, Q6H, ity of tablet 600 12:00: First dose [place] mg 00 on Thu Medical 08/06/22 Branch at 0600, Until Discontinu ed, Routine HYDROcodone 2021-09 Yes 2{tbl} 2 tablet, [facility] -acetaminop 1-30 Oral, ity of hen (NORCO 11:32: Q6HPRN, [place] 5) 5-325 mg 21 Starting Medi antonio tablet 2 on Wed Branch tablet 08/06/22 at 0532, Until Discontinu ed, Routine, Pain (scale 7-10), Alternate with Ibuprofen HYDROcodone 2021-09 Yes 1{tbl} 1 tablet, Univers -acetaminop 1-30 Oral, ity of hen (NORCO 11:32: Q6HPRN, [place] 5) 5-325 mg 21 Starting Medi antonio tablet 1 on Thu Branch tablet 08/06/22 at 0532, Until Discontinu ed, Routine, Pain (scale 4-6), Alternate with Ibuprofen HYDROcodone 2021-09 Yes 2{tbl} 2 tablet, [facility] -acetaminop 1-30 Oral, ity of hen (NORCO 11:32: Q6HPRN, [place] 5) 5-325 mg 21 Starting Medi antonio tablet 2 on Thu Branch tablet 08/06/22 at 0532, Until Discontinu ed, Routine, Pain (scale 7-10), Alternate with Ibuprofen HYDROcodone 2021-09 Yes 1{tbl} 1 tablet, Univers -acetaminop 1-30 Oral, ity of hen (NORCO 11:32: Q6HPRN, [place] 5) 5-325 mg 21 Starting Medi antonio tablet 1 on Wed Branch tablet 08/06/22 at 0532, Until Discontinu ed, Routine, Pain (scale 4-6), Alternate with Ibuprofen simethicone 2021-09 Yes 160mg 160 mg, Un stacy (GAS RELIEF 1-30 Oral, ity of (SIMETHICON 07:55: PC+HSPRN, [place] E)) 49 Starting Medical chewable on Thu Branch tablet 160 08/06/22 mg at 0155, Until Discontinu ed, Routine, Gas simethicone 2021-09 Yes 160mg 160 mg, Un stacy (GAS RELIEF 1-30 Oral, ity of (SIMETHICON 07:55: PC+HSPRN, [place] E)) 49 Starting Medical chewable on Thu Branch tablet 160 08/06/22 mg at 0155, Until Discontinu ed, Routine, Gas ePHEDrine 2021-09- No Slow IV Univ ers (AKOVAZ) 10-05 Push, ONCE ity of injection 16:12: 16:13 INTRA [place] 00 :47 PROCEDURE, Medical Starting Branch on Thu08/05/22 at 1012, Until Thu08/05/22 at 1013, Routine, Intra-op ePHEDrine 2021-09- No Slow IV Univ ers (AKOVAZ) 10-05 Push, ONCE ity of injection 16:12: 16:13 INTRA [place] 00 :47 PROCEDURE, Medical Starting Branch on Thu08/05/22 at 1012, Until Thu08/05/22 at 1013, Routine, Intra-op ePHEDrine 2021-09- No Slow IV Univ ers (AKOVAZ) 10-05 Push, ONCE ity of injection 16:12: 16:13 INTRA [place] 00 :47 PROCEDURE, Medical Starting Branch on Thu08/05/22 at 1012, Until Thu08/05/22 at 1013, Routine, Intra-op ePHEDrine 2021-09- No Slow IV Univ ers (AKOVAZ) 10-05 Push, ONCE ity of injection 16:12: 16:13 INTRA [place] : PROCEDURE, Medical Starting Branch on Thu08/05/22 at 1012, Until Thu08/05/22 at 1013, Routine, Intra-op albumin 2021-09- No IV Univers (ALBUTEIN 5 10-05 Infusion, it y of %) 5 % 16:08: 16:13 CONTINUOUS [place] injection 00 :22 PRN, Medical Starting Branch on Thu08/05/22 at 1008, Until Thu08/05/22 at 1013, Intra-op albumin 2021-09- No IV Univers (ALBUTEIN 5 10-05 Infusion, it y of %) 5 % 16:08: 16:13 CONTINUOUS [place] injection 00 :22 PRN, Medical Starting Branch on Thu08/05/22 at 1008, Until Thu08/05/22 at 1013, Intra-op albumin 2021-09- No IV Univers (ALBUTEIN 5 10-05 Infusion, it y of %) 5 % 16:08: 16:13 CONTINUOUS [place] injection 00 :22 PRN, Medical Starting Branch on Thu08/05/22 at 1008, Until Thu08/05/22 at 1013, Intra-op albumin 2021-09- No IV Univers (ALBUTEIN 5 10-05 Infusion, it y of %) 5 % 16:08: 16:13 CONTINUOUS [place] injection 00 :22 PRN, Medical Starting Branch on Thu08/05/22 at 1008, Until Thu08/05/22 at 1013, Intra-op HYDROcodone 2021-09- No 1{tbl} 1 tablet, Univers -acetaminop 10-05 Oral, ity of hen (NORCO 16:01: 03:11 Q6HPRN, 1 [place] 5) 5-325 mg 20 :00 dose, Medical tablet 1 Starting Branch tablet on Thu08/05/22 at 1001, Until Discontinu ed, Routine, Pain (scale 4-6) oxytocin 2021-09- No 300mL/h 300 mL/hr, Univers (PITOCIN) 10-05 IV ity of 30 units in 16:01: 18:02 Infusion, [place] NS 500 mL 08 :51 SEE-INSTRU [facility] IV infusion CTIONS, Branc h Starting on Thu08/05/[address] art at 300 mL/hr for 1 hr then 150 mL/hr for 1 hr. & nbsp; For post delivery uterotonic
ondansetron 2021-09- No Slow IV Un stacy (ZOFRAN 10-05 Push, ONCE ity o f (PF)) 15:39: 16:03 INTRA [place] injection 00 :47 PROCEDURE, Medi antonio Starting Branch on Thu08/05/22 at 0939, Until Thu08/05/22 at 1003, Routine, Intra-op famotidine 2021-09- No Slow IV Uni vers (PEPCID 10-05 Push, ONCE ity o f (PF)) 15:39: 16:03 INTRA [place] injection 00 :47 PROCEDURE, Medi antonio Starting Branch on e 08/05/22 at 0939, Until Thu08/05/22 at 1003, Routine, Intra-op dexamethaso 2021-09- No IV Push, U nivers ne 10-05 ONCE INTRA ity of (DECADRON 15:39: 16:03 PROCEDURE, [place] PHOSPHATE) 00 :47 Starting Medic al injection on Tue Branch 08/05/22 at 0939, Until 08/05/22 at 1003, Routine, Intra-op ondansetron 2021-09- No Slow IV Un stacy (ZOFRAN 10-05 Push, ONCE ity o f (PF)) 15:39: 16:03 INTRA [place] injection 00 :47 PROCEDURE, Medi antonio Starting Branch on e 08/05/22 at 0939, Until Thu08/05/22 at 1003, Routine, Intra-op famotidine 2021-09- No Slow IV Uni vers (PEPCID 10-05 Push, ONCE ity o f (PF)) 15:39: 16:03 INTRA [place] injection 00 :47 PROCEDURE, Medi antonio Starting Branch on e 08/05/22 at 0939, Until Thu08/05/22 at 1003, Routine, Intra-op dexamethaso 2021-09- No IV Push, U nivers ne 10-05 ONCE INTRA ity of (DECADRON 15:39: 16:03 PROCEDURE, [place] PHOSPHATE) 00 :47 Starting Medic al injection on Tue Branch 08/05/22 at 0939, Until 08/05/22 at 1003, Routine, Intra-op ondansetron 2021-09- No Slow IV Un stacy (ZOFRAN 10-05 Push, ONCE ity o f (PF)) 15:39: 16:03 INTRA [place] injection 00 :47 PROCEDURE, Medi antonio Starting Branch on e 08/05/22 at 0939, Until Thu08/05/22 at 1003, Routine, Intra-op famotidine 2021-09- No Slow IV Uni vers (PEPCID 10-05 Push, ONCE ity o f (PF)) 15:39: 16:03 INTRA [place] injection 00 :47 PROCEDURE, Medi antonio Starting Branch on e 08/05/22 at 0939, Until Thu08/05/22 at 1003, Routine, Intra-op dexamethaso 2021-09- No IV Push, U nivers ne 10-05 ONCE INTRA ity of (DECADRON 15:39: 16:03 PROCEDURE, [place] PHOSPHATE) 00 :47 Starting Medic al injection on Tue Branch 08/05/22 at 0939, Until 08/05/22 at 1003, Routine, Intra-op ondansetron 2021-09- No Slow IV Un stacy (ZOFRAN 10-05 Push, ONCE ity o f (PF)) 15:39: 16:03 INTRA [place] injection 00 :47 PROCEDURE, Medi antonio Starting Branch on e 08/05/22 at 0939, Until Thu08/05/22 at 1003, Routine, Intra-op famotidine 2021-09- No Slow IV Uni vers (PEPCID 10-05 Push, ONCE ity o f (PF)) 15:39: 16:03 INTRA [place] injection 00 :47 PROCEDURE, Medi antonio Starting Branch on e 08/05/22 at 0939, Until Thu08/05/22 at 1003, Routine, Intra-op dexamethaso 2021-09- No IV Push, U nivers ne 10-05 ONCE INTRA ity of (DECADRON 15:39: 16:03 PROCEDURE, [place] PHOSPHATE) 00 :47 Starting Medic al injection on Tue Branch 08/05/22 at 0939, Until 08/05/22 at 1003, Routine, Intra-op morpHINE PF 2021-09- No Epidural, Univers (DURAMORPH- 10-05 ONCE INTRA i ty of PF) 15:17: 16:03 PROCEDURE, [place] injection 00 :47 Starting Medica l on Tue Branch 08/05/22 at 0917, Until Thu08/05/22 at 1003, Routine, Intra-op morpHINE PF 2021-09- No Epidural, Univers (DURAMORPH- 10-05 ONCE INTRA i ty of PF) 15:17: 16:03 PROCEDURE, [place] injection 00 :47 Starting Medica l on Tue Branch 08/05/22 at 0917, Until Thu08/05/22 at 1003, Routine, Intra-op morpHINE PF 2021-09- No Epidural, Univers (DURAMORPH- 10-05 ONCE INTRA i ty of PF) 15:17: 16:03 PROCEDURE, [place] injection 00 :47 Starting Medica l on Tue Branch 08/05/22 at 0917, Until Thu08/05/22 at 1003, Routine, Intra-op morpHINE PF 2021-09- No Epidural, Univers (DURAMORPH- 10-05 ONCE INTRA i ty of PF) 15:17: 16:03 PROCEDURE, [place] injection 00 :47 Starting Medica l on Tue Branch 08/05/22 at 0917, Until Thu08/05/22 at 1003, Routine, Intra-op FENTanyl PF 2021-09- No Intravenou Univers (SUBLIMAZE - 11-29 s, ONCE ity o f (PF)) 15:16: 16:03 INTRA [place] injection 00 :47 PROCEDURE, Medi antonio Starting Branch on Thu08/05/22 at 0916, Until Thu08/05/22 at 1003, Routine, Intra-op FENTanyl PF 2021-09- No Intravenou Univers (SUBLIMAZE - 11-29 s, ONCE ity o f (PF)) 15:16: 16:03 INTRA [place] injection 00 :47 PROCEDURE, Medi antonio Starting Branch on Thu08/05/22 at 0916, Until Thu08/05/22 at 1003, Routine, Intra-op FENTanyl PF 2021-2021- No Intravenou Univers (SUBLIMAZE 1- 11-29 s, ONCE ity o f (PF)) 15:16: 16:03 INTRA [place] injection 00 :47 PROCEDURE, Medi antonio Starting Branch on Thu08/05/22 at 0916, Until Thu08/05/22 at 1003, Routine, Intra-op FENTanyl PF 2021-09- No Intravenou Univers (SUBLIMAZE 10-05 s, ONCE ity o f (PF)) 15:16: 16:03 INTRA [place] injection 00 :47 PROCEDURE, [facility] Starting Branch on Thu08/05/22 at 0916, Until Thu08/05/22 at 1003, Routine, Intra-op phenylephri 2021-09- No Intravenou Univers ne 10-05 s, ity of (VAZCULEP) 15:14: 16:03 CONTINUOUS [place] injection 00 :47 PRN, Medical Starting Branch on Thu08/05/22 at 0914, Until Thu08/05/22 at 1003, Routine, Intra-op phenylephri 2021-09- No Intravenou Univers ne 10-05 s, ity of (VAZCULEP) 15:14: 16:03 CONTINUOUS [place] injection 00 :47 PRN, Medical Starting Branch on Thu08/05/22 at 0914, Until Thu08/05/22 at 1003, Routine, Intra-op phenylephri 2021-09- No Intravenou Univers ne 10-05 s, ity of (VAZCULEP) 15:14: 16:03 CONTINUOUS [place] injection 00 :47 PRN, Medical Starting Branch on Thu08/05/22 at 0914, Until Thu08/05/22 at 1003, Routine, Intra-op phenylephri 2021-09- No Intravenou Univers ne 10-05 s, ity of (VAZCULEP) 15:14: 16:03 CONTINUOUS [place] injection 00 :47 PRN, Medical Starting Branch on Thu08/05/22 at 0914, Until Thu08/05/22 at 1003, Routine, Intra-op lidocaine-e 2021-09- No Epidural, Univers pinephrine 10-05 ONCE INTRA it y of (XYLOCAINE 15:11: 16:03 PROCEDURE, [place] W/EPINEPHRI 00 :[address] [facility] NE) 2 on Thu %-1:200,000 08/05/22 injection at 0911, Until Thu08/05/22 at 1003, Routine, Intra-op lidocaine-e 2021-09- No Epidural, Univers pinephrine 10-05 ONCE INTRA it y of (XYLOCAINE 15:11: 16:03 PROCEDURE, [place] W/EPINEPHRI 00 :47 Starting Medi antonio NE) 2 on Tue Branch %-1:200,000 08/05/22 injection at 0911, Until Thu08/05/22 at 1003, Routine, Intra-op lidocaine-e 2021-09- No Epidural, Univers pinephrine 10-05 ONCE INTRA it y of (XYLOCAINE 15:11: 16:03 PROCEDURE, [place] W/EPINEPHRI 00 :47 Starting [facility] antonio NE) 2 on Tue Branch %-1:200,000 08/05/22 injection at 0911, Until Thu08/05/22 at 1003, Routine, Intra-op lidocaine-e 2021-09- No Epidural, Univers pinephrine 10-05 ONCE INTRA it y of (XYLOCAINE 15:11: 16:03 PROCEDURE, [place] W/EPINEPHRI 00 :47 Starting [facility] antonio NE) 2 on Tue Branch %-1:200,000 08/05/22 injection at 0911, Until Thu08/05/22 at 1003, Routine, Intra-op ePHEDrine 2021-09- No Slow IV Univ ers 25 mg/5 mL 10-05 Push, ONCE it y of (5 mg/mL) 15:08: 16:03 INTRA [place] syringe 00 :47 PROCEDURE, Medica l Starting Branch on Thu08/05/22 at 0908, Until Thu08/05/22 at 1003, Routine, Intra-op ePHEDrine 2021-09- No Slow IV Univ ers 25 mg/5 mL 10-05 Push, ONCE it y of (5 mg/mL) 15:08: 16:03 INTRA [place] syringe 00 :47 PROCEDURE, Medica l Starting Branch on Thu08/05/22 at 0908, Until Thu08/05/22 at 1003, Routine, Intra-op ePHEDrine 2021-09- No Slow IV Univ ers 25 mg/5 mL 10-05 Push, ONCE it y of (5 mg/mL) 15:08: 16:03 INTRA [place] syringe 00 :47 PROCEDURE, Medica l Starting Branch on Thu08/05/22 at 0908, Until Thu08/05/22 at 1003, Routine, Intra-op ePHEDrine 2021-09- No Slow IV Univ ers 25 mg/5 mL 10-05 Push, ONCE it y of (5 mg/mL) 15:08: 16:03 INTRA [place] syringe 00 :47 PROCEDURE, Medica l Starting Branch on Thu08/05/22 at 0908, Until Thu08/05/22 at 1003, Routine, Intra-op chloroproca 2021-09- No Caudal Uni vers ine 10-05 Block, ity of (NESACAINE- 15:03: 16:03 ONCE INTRA [place] MPF) 30 00 :47 PROCEDURE, Medica l mg/mL (3 %) Starting Bran ch injection on Thu08/05/22 at 0903, Until Thu08/05/22 at 1003, Routine, Intra-op chloroproca 2021-09- No Caudal Uni vers ine 10-05 Block, ity of (NESACAINE- 15:03: 16:03 ONCE INTRA [place] MPF) 30 00 :47 PROCEDURE, Medica l mg/mL (3 %) Starting Bran ch injection on Thu08/05/22 at 0903, Until Thu08/05/22 at 1003, Routine, Intra-op chloroproca 2021-09- No Caudal Uni vers ine 10-05 Block, ity of (NESACAINE- 15:03: 16:03 ONCE INTRA [place] MPF) 30 00 :47 PROCEDURE, Medica l mg/mL (3 %) Starting Bran ch injection on Thu08/05/22 at 0903, Until Thu08/05/22 at 1003, Routine, Intra-op chloroproca 2021-09- No Caudal Uni vers ine 10-05 Block, ity of (NESACAINE- 15:03: 16:03 ONCE INTRA [place] MPF) 30 00 :47 PROCEDURE, Medica l mg/mL (3 %) Starting Bran ch injection on Thu08/05/22 at 0903, Until Thu08/05/22 at 1003, Routine, Intra-op azithromyci 2021-09- No 500mg 500 mg, IV Univers n 10-05 Piggyback, ity of (ZITHROMAX) 15:02: 15:01 O.R. [place] 500 mg in 43 :43 HOLDING Medical NaCl 0.9% ONCE, Branch (NS) 250 mL Starting VIAL-MATE on Tue IV 08/05/22 piggyback at 0902, Until Thu08/06/22 at 09, Administer over 60 Minutes, 250 mL
Reas on for Anti-Infec tive: Surgical Prophylaxi s
Epps rgical Prophylaxi s: PHOTOGRAPHER AERIAL
Duration of therapy: within 24 hours of surgery
Reason for Anti-Infec tive: Surgical Prophylaxi s azithromyci 2021-09- No 500mg 500 mg, IV Univers n 10-05 Piggyback, ity of (ZITHROMAX) 15:02: 15:01 O.R. [place] 500 mg in 43 :43 HOLDING Medical NaCl 0.9% ONCE, Branch (NS) 250 mL Starting VIAL-MATE on Tue IV 08/05/22 piggyback at 0902, Until Thu08/06/22 at 0901, Administer over 60 Minutes, 250 mL
Reas on for Anti-Infec tive: Surgical Prophylaxi s
Epps rgical Prophylaxi s: PHOTOGRAPHER AERIAL
Duration of therapy: within 24 hours of surgery
Reason for Anti-Infec tive: Surgical Prophylaxi s azithromyci 2021-09- No 500mg 500 mg, IV Univers n 10-05 Piggyback, ity of (ZITHROMAX) 15:02: 15:01 O.R. [place] 500 mg in 43 :43 HOLDING Medical NaCl 0.9% ONCE, Branch (NS) 250 mL Starting VIAL-MATE on Tue IV 08/05/22 piggyback at 0902, Until Thu08/06/22 at 0901, Administer over 60 Minutes, 250 mL
Reas on for Anti-Infec tive: Surgical Prophylaxi s
Epps rgical Prophylaxi s: PHOTOGRAPHER AERIAL
Duration of therapy: within 24 hours of surgery
Reason for Anti-Infec tive: Surgical Prophylaxi s azithromyci 2021-09 No 500mg 500 mg, IV Univers n 10-05 Piggyback, ity of (ZITHROMAX) 15:02: 15:01 O.R. [place] 500 mg in 43 :43 HOLDING Medical NaCl 0.9% ONCE, Branch (NS) 250 mL Starting VIAL-MATE on Thu IV 08/05/22 piggyback at 0902, Until Thu08/06/22 at 0901, Administer over 60 Minutes, 250 mL
Reas on for Anti-Infec tive: Surgical Prophylaxi s
Peps rgical Prophylaxi s: PHOTOGRAPHER AERIAL
Duration of therapy: within 24 hours of surgery
Reason for Anti-Infec tive: Surgical Prophylaxi s ceFAZolin 2021-09 No 2000mg 2 g (2,000 Univers in 0.9% 10-05 mg), IV ity of sodium 15:02: 15:01 [place]back, [place] chloride 28 :28 O.R. Medical (ANCEF) 2 HOLDING Branch gram/100 mL ONCE, RTU 2 g Starting on Thu08/05/22 at 0902, Until Thu08/06/22 at 0901, Administer over 30 Minutes, 100 mL
Reas on for Anti-Infec tive: Surgical Prophylaxi s
Surgi antonio Prophylaxi s: PHOTOGRAPHER AERIAL
Duration of therapy: within 24 hours of surgery ceFAZolin 2021-09 No 2000mg 2 g (2,000 Univers in 0.9% 10-05 1130 mg), IV ity of sodium 15:02: 15:01 [place]back, [place] chloride 28 :28 O.[facility]. Medical (ANCEF) 2 HOLDING Branch gram/100 mL ONCE, RTU 2 g Starting on Thu08/05/22 at 0902, Until Thu08/06/22 at 0901, Administer over 30 Minutes, 100 mL
Reas on for Anti-Infec tive: Surgical Prophylaxi s
Surgi antonio Prophylaxi s: PHOTOGRAPHER AERIAL
Duration of therapy: within 24 hours of surgery ceFAZolin 2022-1 2022- No 2000mg 2 g (2,000 Univers in 0.9% 10-05 11-30 mg), IV ity of sodium 15:02: 15:01 [place]back, [place] chloride 28 :28 O.[facility]. Medical (ANCEF) 2 HOLDING Branch gram/100 mL ONCE, RTU 2 g Starting on Thu08/05/22 at 0902, Until Thu08/06/22 at 0901, Administer over 30 Minutes, 100 mL
Reas on for Anti-Infec tive: Surgical Prophylaxi s
Surgi antonio Prophylaxi s: PHOTOGRAPHER AERIAL
Duration of therapy: within 24 hours of surgery ceFAZolin 2021-09- No 2000mg 2 g (2,000 Univers in 0.9% 10-05 11-30 mg), IV ity of sodium 15:02: 15:01 Piggyback, [place] chloride 28 :28 O[facility]. Medical (ANCEF) 2 HOLDING Branch gram/100 mL ONCE, RTU 2 g Starting on Thu08/05/22 at 0902, Until Thu08/06/22 at 0901, Administer over 30 Minutes, 100 mL
Reas on for Anti-Infec tive: Surgical Prophylaxi s
Surgi antonio Prophylaxi s: PHOTOGRAPHER AERIAL
Duration of therapy: within 24 hours of surgery lactated 2021-09- No IV Univers ringers IV 10-05 Infusion, ity of infusion 15:00: 16:03 CONTINUOUS [place] 00 :[place] PRN, Medical Starting Branch on Thu08/05/22 at 0900, Until Thu08/05/22 at 1003, Routine, Intra-op lactated 2021-09- No IV Univers ringers IV 10-05 Infusion, ity of infusion 15:00: 16:03 CONTINUOUS [place] 00 :47 PRN, Medical Starting Branch on Thu08/05/22 at 0900, Until Thu08/05/22 at 1003, Routine, Intra-op lactated 2021-09- No IV Univers ringers IV 10-05 Infusion, ity of infusion 15:00: 16:03 CONTINUOUS [place] 00 :47 PRN, Medical Starting Branch on Thu08/05/22 at 0900, Until Thu08/05/22 at 1003, Routine, Intra-op lactated 2021-09- No IV Univers ringers IV 10-05 Infusion, ity of infusion 15:00: 16:03 CONTINUOUS [place] 00 :[place] PRN, Medical Starting Branch on Thu08/05/22 at 0900, Until Thu08/05/22 at 1003, Routine, Intra-op ropivacaine 2021-09- No Epidural, Univers 0.2 % 10-05 CONTINUOUS ity of (NAROPIN 13:31: 16:03 PRN, [place] ()) 00 :47 Starting Medical epidural on Tue Branch infusion 08/05/22 at 0731, Until Thu08/05/22 at 1003, Routine, Intra-op ropivacaine 2021-09- No Epidural, Univers 0.2 % 10-05 CONTINUOUS ity of (NAROPIN 13:31: 16:03 PRN, [place] ()) 00 :47 Starting Medical epidural on Tue Branch infusion 08/05/22 at 0731, Until Thu08/05/22 at 1003, Routine, Intra-op ropivacaine 2021-09- No Epidural, Univers 0.2 % 10-05 CONTINUOUS ity of (NAROPIN 13:31: 16:03 PRN, [place] ()) 00 :47 Starting Medical epidural on Tue Branch infusion 08/05/22 at 0731, Until Thu08/05/22 at 1003, Routine, Intra-op ropivacaine 2021-09- No Epidural, Univers 0.2 % 10-05 CONTINUOUS ity of (NAROPIN 13:31: 16:03 PRN, [place] ()) 00 :47 Starting Medical epidural on Tue Branch infusion 08/05/22 at 0731, Until Thu08/05/22 at 1003, Routine, Intra-op lidocaine-e 2021-09- No Intraderma Univers pinephrine 10-05 l, ONCE ity o f (XYLOCAINE 13:29: 16:03 INTRA [place] W/EPINEPHRI 00 :47 PROCEDURE, Pr dical NE) 1.5 Starting Branch %-1:200,000 on e injection 08/05/22 at 0729, Until 08/05/22 at 1003, Routine, Intra-op lidocaine-e 2021-09- No Intraderma Univers pinephrine 10-05 l, ONCE ity o f (XYLOCAINE 13:29: 16:03 INTRA [place] W/EPINEPHRI 00 :47 PROCEDURE, Me dical NE) 1.5 Starting Branch %-1:200,000 on Tue injection 08/05/22 at 0729, Until 08/05/22 at 1003, Routine, Intra-op lidocaine-e 2021-09- No Intraderma Univers pinephrine 10-05 l, ONCE ity o f (XYLOCAINE 13:29: 16:03 INTRA [place] W/EPINEPHRI 00 :47 PROCEDURE, Me dical NE) 1.5 Starting Branch %-1:200,000 on Tue injection 08/05/22 at 0729, Until 08/05/22 at 1003, Routine, Intra-op lidocaine-e 2021-09- No Intraderma Univers pinephrine 10-05 l, ONCE ity o f (XYLOCAINE 13:29: 16:03 INTRA [place] W/EPINEPHRI 00 :47 PROCEDURE, Me dical NE) 1.5 Starting Branch %-1:200,000 on Tue injection 08/05/22 at 0729, Until 08/05/22 at 1003, Routine, Intra-op lactated 2021-09- No 500mL at 999 Unive rs ringers IV 10-05 mL/hr, 500 it y of infusion 12:45: 13:05 mL, IV [place] 500 mL 00 :03 Infusion, Medical ONCE, 1 Branch dose, On 08/05/22 at 0645, Routine sodium 2021-09- No 30mL 30 mL, Univers citrate-cit 10-05 Oral, ity of charles acid 11:58: 12:43 PRE-PROCED [place] (BICITRA) 45 :00 URE ONCE, Medic al 500-334 1 dose, Branch mg/5 mL Starting solution 30 on Tue mL 08/05/22 at 0558, Until 08/05/22 at 0643, Routine, Surgery/Pr ocedure ondansetron 2021-09 No 4mg 4 mg, Slow Univers (ZOFRAN 10-05 IV Push, ity of (PF)) 11:38: 11:47 ONCE, On [place] injection 4 00 :00 Tue Medical mg 08/05/22 Branch at 0545, For 1 dose
Do ses of ondansetro n 16 mg and above need to be administer ed via IV piggyback. For Dose >=24mg ECG monitoring is advisable.
famotidine 2021-09 No 20mg 20 mg, Univ ers (PEPCID AC) 10-05 Oral, ity of tablet 20 11:26: 11:34 ONCE, 1 [place] mg 00 :00 dose, On [facility] 08/05/22 at 0530, Routine butorphanol 2021-09 No 1mg 1 mg, Univ ers (STADOL) 10-05 Intravenou ity of injection 1 09:30: 08:36 s, ONCE, 1 [place] mg 00 :00 dose, On [facility] 08/05/22 at 0330, Routine ondansetron 2021-09 No 4mg 4 mg, Slow Univers (ZOFRAN 10-05 IV Push, ity of (PF)) 05:45: 04:56 ONCE, On [place] injection 4 00 :00 [facility] Medical mg 08/04/22 Branch at 2345, For 1 dose
Do ses of ondansetro n 16 mg and above need to be administer ed via IV piggyback. For Dose >=24mg ECG monitoring is advisable.
oxytocin 2021-09 Yes 2mU/min at 2-40 Uni vers (PITOCIN) 1-29 mL/hr, IV ity o f 30 units in 02:30: Infusion, [place] NS 500 mL 57 TITRATE, Medica l IV infusion Starting Bran ch on Thu08/04/22 at 2030, Until Discontinu ed, TEVIN oxytocin 2021-09 Yes 2mU/min at 2-40 Uni vers (PITOCIN) 1-29 mL/hr, IV ity o f 30 units in 02:30: Infusion, [place] NS 500 mL 57 TITRATE, Medica l IV infusion Starting Bran ch on Thu08/04/22 at 2030, Until Discontinu ed, TEVIN oxytocin 2021-09 Yes 2mU/min at 2-40 Uni vers (PITOCIN) 1-29 mL/hr, IV ity o f 30 units in 02:30: Infusion, [place] NS 500 mL 57 TITRATE, Medica l IV infusion Starting Bran ch on Thu08/04/22 at 2030, Until Discontinu ed, TEVIN oxytocin 2021-09 Yes 2mU/min at 2-40 Uni vers (PITOCIN) 1-29 mL/hr, IV ity o f 30 units in 02:30: Infusion, [place] NS 500 mL 57 TITRATE, Medica l IV infusion Starting Bran ch on Thu08/04/22 at 2030, Until Discontinu ed, TEVIN oxytocin 2021-09- No 2mU/min at 2-40 Un stacy (PITOCIN) 10-05 11-30 mL/hr, IV ity of 30 units in 02:30: 18:02 Infusion, [place] NS 500 mL 57 :51 TITRATE, Medica l IV infusion Starting Bran ch on Thu08/04/22 at 2030, Until Thu08/06/22 at 1202, TEVIN D5W 0.45% 2021-09- No 1000mL at 75 Univ ers NaCl 10-05 11-30 mL/hr, ity of (1/2NS) IV 01:30: 18:02 1,000 mL, [place] infusion 00 :51 IV Medical 1,000 mL Infusion, Branch CONTINUOUS , Starting on Thu08/04/22 at 1930, Until Thu08/06/22 at 1202, TEVIN magnesium 2021-09- No 2g/h 2 g/hr (50 U nivers sulfate in 10-05 11-30 mL/hr), IV it y of water for 01:30: 18:02 Infusion, [place] injection 00 :51 CONTINUOUS Medi antonio 20 gram/500 , Starting Br anch mL (4 %) IV on Thu infusion 08/04/22 at 1930, Until Thu08/06/22 at 1202, TEVIN ondansetron 2021-09- No 4mg 4 mg, Univ ers (ZOFRAN) 1-28 11-28 Oral, ity of tablet 4 mg 21:00: 20:44 ONCE, 1 [place] 00 :00 dose, On Medical [facility] Branch 08/04/22 at 1500, Routine caffeine 2021-09 No 200mg 200 mg, Univ ers tablet 200 10-04 Oral, ity of mg 19:45: 19:03 ONCE, 1 [place] 00 :00 dose, On Medical [facility] Branch 08/04/22 at 1345, Routine acetaminoph 2021-09 No 1000mg 1,000 mg, Univers en 10-04 Oral, ity of (TYLENOL) 19:30: 19:03 ONCE, 1 [place] tablet 00 :00 dose, On Medical 1,[address] [facility] 08/04/22 at 1330, Routine ondansetron 2021-09 No 4mg 4 mg, Slow Univers (ZOFRAN 10-04 IV Push, ity of (PF)) 15:15: 14:52 ONCE, On [place] injection 4 00 :00 [facility] Medical mg 08/04/22 Branch at 0915, For 1 dose
Do ses of ondansetro n 16 mg and above need to be administer ed via IV piggyback. For Dose >=24mg ECG monitoring is advisable.
magnesium 2021-09 No 2g 2 g, IV Univ ers sulfate in 10-04 Piggyback, it y of water 2 15:00: 16:00 Administer Eduard as gram/50 mL 00 :00 over 60 Medica l (4 %) Minutes, Branch infusion 2 ONCE, 1 g dose, On Thu08/04/22 at 0900, Routine metroNIDAZO 2021-09 No 500mg 500 mg, U nivers LE (FLAGYL) 10-04 12 Oral, ity of tablet 500 14:00: 13:59 Q12H, 14 [place] mg 00 :00 doses, Medical First dose Branch on Thu08/04/22 at 0800, Last dose on [place] 08/10/22 at 2000, Routine
Reason for Anti-Infec tive: Documented Infection< br>Documen abhi Infection Site: Pelvic
Duration of Therapy: 7 days metroNIDAZO 2022-1 2022- No 500mg 500 mg, U nivers ALVERTO (FLAGYL) 10-04 1205 Oral, ity of tablet 500 14:00: 13:59 Q12H, 14 [place] mg 00 :00 doses, Medical First dose Branch on [facility] 08/04/22 at 0800, Last dose on [place] 08/10/22 at 2000, Routine
Reason for Anti-Infec tive: Documented Infection< br>Documen abhi Infection Site: Pelvic
Duration of Therapy: 7 days proCHLORper 2021-09- No 10mg 10 mg, Uni vers azine 10-04 Oral, ity of (COMPAZINE) 06:03: 06:43 ONCE, 1 [place] tablet 10 00 :00 dose, On Medica l mg [facility] 08/04/22 at 0015, Routine metoclopram 2021-09 No 10mg 10 mg, Uni vers ana cristina HCl 10-04 Oral, ity of (REGLAN) 02:30: 01:55 ONCE, 1 [place] tablet 10 00 :00 dose, On Medica l mg [facility] 08/03/22 at 2030, Routine diphenhydrA 2021-09- No 25mg 25 mg, Uni vers MINE 10-04 Oral, ity of (BENADRYL) 02:30: 01:55 ONCE, 1 [place] tablet 25 00 :00 dose, On Medica l mg [facility] 08/03/22 at 2030, Routine caffeine 2021-09 No 200mg 200 mg, Univ ers tablet 200 10-04 Oral, ity of mg 01:45: 00:35 ONCE, 1 [place] 00 :00 dose, On Medical [facility] 08/03/22 at 1945, Routine acetaminoph 2021-09- No 1000mg 1,000 mg, Univers en 10-04 Oral, ity of (TYLENOL) 00:45: 23:55 ONCE, 1 [place] tablet 00 :00 dose, On Medical 1,000 mg [facility] 08/03/22 at 1845, Routine acetaminoph 2021-09 Yes Take by Uni vers en (TYLENOL 10-03 mouth. ity of ORAL) 19:41: [place] 09 [facility] acetaminoph 2021-09 Yes Take by Uni vers en (TYLENOL 1-27 mouth. ity of ORAL) 19:41: [place] [facility] acetaminoph 2021-09 Yes Take by Uni vers en (TYLENOL 1-27 mouth. ity of ORAL) 19:41: [place] [facility] acetaminoph 2021-09 Yes Take by Uni vers en (TYLENOL 1-27 mouth. ity of ORAL) 19:41: [address] metoclopram 2021-09- No 10mg 10 mg, IV Univers ana cristina HCl 09-27 Piggyback, ity o f (REGLAN) 10 20:35: 00:11 ONCE, 1 [place] mg in NaCl 00 :22 dose, On Medic al 0.9% (NS) [facility] piggyback 07/28/22 at 1445, 50 mL diphenhydrA 2021-09- No 25mg 25 mg, Uni vers MINE 09-27 Intravenou ity of (BENADRYL) 20:35: 21:02 s, ONCE, 1 [place] injection 00 :00 dose, On Medica l [address] [facility] 07/28/22 at 1445, Routine lactated 2021-09- No 500mL at 999 Unive rs ringers IV 09-27 1121 mL/hr, 500 it y of infusion 20:34: 21:01 mL, [place] 500 mL 00 :41 Intravenou Medical s, ONCE, 1 Branch dose, On 07/28/22 at 1445, Routine acetaminoph 2021-09 Yes Take by Uni vers en (TYLENOL 1-21 mouth. ity of ORAL) 18:48: [address] acetaminoph 2021-09 Yes Take by Uni vers en (TYLENOL 1-21 mouth. ity of ORAL) 13:13: [place] 20 [facility] acetaminoph 2021-09 Yes Take by Uni vers en (TYLENOL 1-21 mouth. ity of ORAL) 13:13: [address] metroNIDAZO 2021-09- No [id number] 500mg Take 2 Univers LE 250 mg 09-27 tablets by ity of tablet 00:00: 00:00 mouth [place] 00 :00 every 12 Medical ([facility]) Branch hours for 7 days. metroNIDAZO 2021-09- No [id number] 500mg Take 2 Univers LE 250 mg 1-21 12-02 tablets by ity of tablet 00:00: 00:00 mouth [place] 00 :00 every 12 Medical (twelve) Branch hours for 7 days. metroNIDAZO 2021-09- No [id number] 500mg Take 2 Univers LE 250 mg 1-21 11-29 tablets by ity of tablet 00:00: 05:59 mouth [place] 00 :00 every 12 Medical (twelve) Branch hours for 7 days. Budesonide 2021-09 Yes [id number] 1{spray Use 1 Univers (RHINOCORT 1-11 } [place] in ity o f ALLERGY) 32 00:00: each [place] mcg/actuati 00 nostril in Me dical on nasal the Branch spray morning. dextrometho 2021-09 Yes [id number] 5mL Take 5 mL Univers rphan-guaif 1-11 by mouth ity of enesin 00:00: every 6 [place] 10-100 mg/5 00 (six) Medical mL solution hours as Bran ch needed for Cough. Budesonide 2021-09 Yes [id number] 1{spray Use 1 Univers (RHINOCORT 1-11 } [place] in ity o f ALLERGY) 32 00:00: each [place] mcg/actuati 00 nostril in Me dical on nasal the Branch spray morning. dextrometho 2021-09 Yes [id number] 5mL Take 5 mL Univers rphan-guaif 1-11 by mouth ity of enesin 00:00: every 6 [place] 10-100 mg/5 00 (six) Medical mL solution hours as Bran ch needed for Cough. Budesonide 2021-09 Yes [id number] 1{spray Use 1 Univers (RHINOCORT 1-11 } [place] in ity o f ALLERGY) 32 00:00: each [place] mcg/actuati 00 nostril in Me dical on nasal the Branch spray morning. dextrometho 2021-09 Yes [id number] 5mL Take 5 mL Univers rphan-guaif 1-11 by mouth ity of enesin 00:00: every 6 [place] 10-100 mg/5 00 (six) Medical mL solution hours as Bran ch needed for Cough. Budesonide 2021-09 Yes [id number] 1{spray Use 1 Univers (RHINOCORT 1-11 } [place] in ity o f ALLERGY) 32 00:00: each [place] mcg/actuati 00 nostril in Me dical on nasal the Branch spray morning. dextrometho 2021-09 Yes [id number] 5mL Take 5 mL Univers rphan-guaif 1-11 by mouth ity of enesin 00:00: every 6 [place] 10-100 mg/5 00 (six) Medical mL solution hours as Bran ch needed for Cough. Budesonide 2021-09 Yes [id number] 1{spray Use 1 Univers (RHINOCORT 1-11 } [place] in ity o f ALLERGY) 32 00:00: each [place] mcg/actuati 00 nostril in Me dical on nasal the Branch spray morning. dextrometho 2021-09 Yes [id number] 5mL Take 5 mL Univers rphan-guaif 1-11 by mouth ity of enesin 00:00: every 6 [place] 10-100 mg/5 00 (six) Medical mL solution hours as Bran ch needed for Cough. Budesonide 2021-09 Yes [id number] 1{spray Use 1 Univers (RHINOCORT 1-11 } [place] in ity o f ALLERGY) 32 00:00: each [place] mcg/actuati 00 nostril in Me dical on nasal the Branch spray morning. dextrometho 2021-09 Yes [id number] 5mL Take 5 mL Univers rphan-guaif 1-11 by mouth ity of enesin 00:00: every 6 [place] 10-100 mg/5 00 (six) Medical mL solution hours as Bran ch needed for Cough. Budesonide 2021-09 Yes [id number] 1{spray Use 1 Univers (RHINOCORT 1-11 } [place] in ity o f ALLERGY) 32 00:00: each [place] mcg/actuati 00 nostril in Me dical on nasal the Branch spray morning. dextrometho 2021-09 Yes [id number] 5mL Take 5 mL Univers rphan-guaif 1-11 by mouth ity of enesin 00:00: every 6 [place] 10-100 mg/5 00 (six) Medical mL solution hours as Bran ch needed for Cough. Budesonide 2021-09 Yes [id number] 1{spray Use 1 Univers (RHINOCORT 1-11 } [place] in ity o f ALLERGY) 32 00:00: each [place] mcg/actuati 00 nostril in Me dical on nasal the [place] spray morning. dextrometho 2021-09 Yes [id number] 5mL Take 5 mL [facility] 1-11 by mouth ity of enesin 00:00: every 6 [place] 10-100 mg/5 00 (six) Medical mL solution hours as Bran ch needed for Cough. Budesonide 2021-09 Yes [id number] 1{spray Use 1 [facility] (RHINOCORT 1-11 } [place] in ity o f ALLERGY) 32 00:00: each [place] mcg/actuati 00 nostril in Me dical on nasal the [place] spray morning. dextrometho 2021-09 Yes [id number] 5mL Take 5 mL [facility] 1-11 by mouth ity of enesin 00:00: every 6 [place] 10-100 mg/5 00 (six) Medical mL solution hours as Bran ch needed for Cough. Budesonide 2021-09 Yes [id number] 1{spray Use 1 [facility] (RHINOCORT 1-11 } [place] in ity o f ALLERGY) 32 00:00: each [place] mcg/actuati 00 nostril in Me dical on nasal the [place] spray morning. dextrometho 2021-09 Yes [id number] 5mL Take 5 mL [facility] 1-11 by mouth ity of enesin 00:00: every 6 [place] 10-100 mg/5 00 (six) Medical mL solution hours as Bran ch needed for Cough. Budesonide 2021-09 Yes [id number] 1{spray Use 1 [facility] (RHINOCORT 1-11 } [place] in ity o f ALLERGY) 32 00:00: each [place] mcg/actuati 00 nostril in Me dical on nasal the Branch spray morning. dextrometho 2021-09 Yes [id number] 5mL Take 5 mL [facility] rphan-guaif 1-11 by mouth ity of enesin 00:00: every 6 [place] 10-100 mg/5 00 (six) Medical mL solution hours as Bran ch needed for Cough. Budesonide 2021-09 Yes [id number] 1{spray Use 1 [facility] (RHINOCORT 1-11 } [place] in ity o f ALLERGY) 32 00:00: each [place] mcg/actuati 00 nostril in Me dical on nasal the Branch spray morning. dextrometho 2021-09 Yes [id number] 5mL Take 5 mL [facility] rphan-[facility] 1-11 by mouth ity of enesin 00:00: every 6 [place] 10-100 mg/5 00 (six) Medical mL solution hours as Bran ch needed for Cough. Budesonide 2021-09 Yes [id number] 1{spray Use 1 [facility] (RHINOCORT 1-11 } [place] in ity o f ALLERGY) 32 00:00: each [place] mcg/actuati 00 nostril in Me dical on nasal the Branch spray morning. dextrometho 2021-09 Yes [id number] 5mL Take 5 mL [facility] rphan-[facility]aif 1-11 by mouth ity of enesin 00:00: every 6 [place] 10-100 mg/5 00 (six) Medical mL solution hours as Bran ch needed for Cough. Budesonide 2021-09 Yes [id number] 1{spray Use 1 [facility] (RHINOCORT 1-11 } [place] ity o f ALLERGY) 32 00:00: each [place] mcg/actuati 00 nostril in Me dical on nasal the Branch spray morning. dextrometho 2021-09 Yes [id number] 5mL Take 5 mL [facility] rphan-[facility] 1-11 by mouth ity of enesin 00:00: every 6 [place] 10-100 mg/5 00 (six) Medical mL solution hours as Bran ch needed for Cough. Budesonide 2021-09 Yes [id number] 1{spray Use 1 [facility] (RHINOCORT 1-11 } [place] in ity o f ALLERGY) 32 00:00: each [place] mcg/actuati 00 nostril in Me dical on nasal the Branch spray morning. dextrometho 2021-09 Yes [id number] 5mL Take 5 mL [facility] rphan-[facility] 1-11 by mouth ity of enesin 00:00: every 6 [place] 10-100 mg/5 00 (six) Medical mL solution hours as Bran ch needed for Cough. Budesonide 2021-09 Yes [id number] 1{spray Use 1 [facility] (RHINOCORT 1-11 } [place] in ity o f ALLERGY) 32 00:00: each [place] mcg/actuati 00 nostril in Me dical on nasal the Branch spray morning. dextrometho 2021-09 Yes [id number] 5mL Take 5 mL [facility] rphan-[facility] 1-11 by mouth ity of enesin 00:00: every 6 [place] 10-100 mg/5 00 (six) Medical mL solution hours as Bran ch needed for Cough. Budesonide 2021-09 Yes [id number] 1{spray Use 1 [facility] (RHINOCORT 1-11 } [place] in ity o f ALLERGY) 32 00:00: each [place] mcg/actuati 00 nostril in Me dical on nasal the Branch spray morning. dextrometho 2021-09 Yes [id number] 5mL Take 5 mL [facility] rphan[facility] 1-11 by mouth ity of enesin 00:00: every 6 [place] 10-100 mg/5 00 (six) Medical mL solution hours as Bran ch needed for Cough. Budesonide 2021-09 Yes [id number] 1{spray Use 1 [facility] (RHINOCORT 1-11 } [place] in ity o f ALLERGY) 32 00:00: each [place] mcg/actuati 00 nostril in Me dical on nasal the Branch spray morning. dextrometho 2021-09 Yes [id number] 5mL Take 5 mL [facility] rphan[facility] 1-11 by mouth ity of enesin 00:00: every 6 [place] 10-100 mg/5 00 (six) Medical mL solution hours as Bran ch needed for Cough. Budesonide 2021-09 Yes [id number] 1{spray Use 1 [facility] (RHINOCORT 1-11 } [place] in ity o f ALLERGY) 32 00:00: each [place] mcg/actuati 00 nostril in Me dical on nasal the Branch spray morning. dextrometho 2021-09 Yes [id number] 5mL Take 5 mL [facility] rphan[facility] 1-11 by mouth ity of enesin 00:00: every 6 [place] 10-100 mg/5 00 (six) Medical mL solution hours as Bran ch needed for Cough. Budesonide 2021-09 Yes [id number] 1{spray Use 1 [facility] (RHINOCORT 1-11 } [place] in ity o f ALLERGY) 32 00:00: each [place] mcg/actuati 00 nostril in Me dical on nasal the Branch spray morning. dextrometho 2021-09 Yes [id number] 5mL Take 5 mL [facility] rphan-[facility] 1-11 by mouth ity of enesin 00:00: every 6 [place] 10-100 mg/5 00 (six) Medical mL solution hours as Bran ch needed for Cough. Budesonide 2021-09 Yes [id number] 1{spray Use 1 [facility] (RHINOCORT 1-11 } [place] in ity o f ALLERGY) 32 00:00: each [place] mcg/actuati 00 nostril in Me dical on nasal the Branch spray morning. dextrometho 2021-09 Yes [id number] 5mL Take 5 mL [facility] rphan[facility] 1-11 by mouth ity of enesin 00:00: every 6 [place] 10-100 mg/5 00 (six) Medical mL solution hours as Bran ch needed for Cough. Budesonide 2021-09 Yes [id number] 1{spray Use 1 [facility] (RHINOCORT 1-11 } [place] in ity o f ALLERGY) 32 00:00: each [place] mcg/actuati 00 nostril in Me dical on nasal the Branch spray morning. dextrometho 2021-09 Yes [id number] 5mL Take 5 mL [facility] rphan[facility] 1-11 by mouth ity of enesin 00:00: every 6 [place] 10-100 mg/5 00 (six) Medical mL solution hours as Bran ch needed for Cough. Budesonide 2021-09 Yes [id number] 1{spray Use 1 [facility] (RHINOCORT 1-11 } [place] in ity o f ALLERGY) 32 00:00: each [place] mcg/actuati 00 nostril in Me dical on nasal the Branch spray morning. dextrometho 2021-09 Yes [id number] 5mL Take 5 mL [facility] rphan[facility] 1-11 by mouth ity of enesin 00:00: every 6 [place] 10-100 mg/5 00 (six) Medical mL solution hours as Bran ch needed for Cough. Budesonide 2021-09 Yes [id number] 1{spray Use 1 [facility] (RHINOCORT 1-11 } [place] in ity o f ALLERGY) 32 00:00: each [place] mcg/actuati 00 nostril in Me dical on nasal the Branch spray morning. dextrometho 2021-09 Yes [id number] 5mL Take 5 mL [facility] rphan-[facility] -11 by mouth ity of enesin 00:00: every 6 [place] 10-100 mg/5 00 (six) Medical mL solution hours as Bran ch needed for Cough. Budesonide 2021-09- No [id number] 1{spray Use 1 [facility] (RHINOCORT 09-17 } [place] ity of ALLERGY) 32 00:00: 00:00 each [place] mcg/actuati 00 :00 nostril in Me dical on nasal the Branch spray morning. dextrometho 2021-09- No [id number] 5mL Take 5 mL [facility] rphan[facility] 09-17 by mouth ity of enesin 00:00: 00:00 every 6 [place] 10-100 mg/5 00 :00 (six) Medical mL solution hours as Bran ch needed for Cough. Budesonide 2021-09- No [id number] 1{spray Use 1 [facility] (RHINOCORT 09-17 } [place] ity of ALLERGY) 32 00:00: 00:00 each [place] mcg/actuati 00 :00 nostril in Me dical on nasal the Branch spray morning. dextrometho 2021-09- No [id number] 5mL Take 5 mL [facility] rphan[facility] 09-17 by mouth ity of enesin 00:00: 00:00 every 6 [place] 10-100 mg/5 00 :00 (six) Medical mL solution hours as Bran ch needed for Cough. Budesonide 2021-09- No [id number] 1{spray Use 1 [facility] (RHINOCORT 09-17 } [place] in ity of ALLERGY) 32 00:00: 00:00 each [place] mcg/actuati 00 :00 nostril in Me dical on nasal the Branch spray morning. dextrometho 2021-09- No [id number] 5mL Take 5 mL [facility] rphan[facility] 09-17 by mouth ity of enesin 00:00: 00:00 every 6 [place] 10-100 mg/5 00 :00 (six) Medical mL solution hours as Bran ch needed for Cough. oseltamivir 2021-09- No [id number] 75mg Take 1 [facility] (TAMIFLU) 09-15 capsule by ity of 75 mg 00:00: 05:59 mouth in [place] capsule 00 :00 the Medical morning Branch and 1 capsule in the evening. Do all this for 5 days. oseltamivir 2021-09- No [id number] 75mg Take 1 [facility] (TAMIFLU) 09-15 capsule by ity of 75 mg 00:00: 05:59 mouth in [place] capsule 00 :00 the [facility] morning Branch and 1 capsule in the evening. Do all this for 5 days. oseltamivir 2021-09- No [id number] 75mg Take 1 [facility] (TAMIFLU) 09-15 capsule by ity of 75 mg 00:00: 05:59 mouth in [place] capsule 00 :00 the [facility] morning [place] and 1 capsule in the evening. Do all this for 5 days. acetaminoph 2021-09 Yes Take by Uni vers en (TYLENOL 0-29 mouth. ity of ORAL) 13:24: [address] acetaminoph 2021-09 Yes Take by Uni vers en (TYLENOL 0-29 mouth. ity of ORAL) 13:24: [address] acetaminoph 2021-09 Yes Take by [facility] vers en (TYLENOL 0-29 mouth. ity of ORAL) 13:24: [address] acetaminoph 2021-09 Yes Take by [facility] vers en (TYLENOL 0-29 mouth. ity of ORAL) 13:24: [address] acetaminoph 2021-09 Yes Take by Uni vers en (TYLENOL 0-29 mouth. ity of ORAL) 13:24: [address] fluconazole 2021-09- No [id number] 150mg Take 1 [facility] (DIFLUCAN) 0-13 10-14 tablet by ity of 150 mg 00:00: 04:59 mouth [place] tablet 00 :00 now for 1 Medical dose. Branch fluconazole 2021-09- No [id number] 150mg Take 1 [facility] (DIFLUCAN) 0-13 10-14 tablet by ity of 150 mg 00:00: 04:59 mouth [place] tablet 00 :00 now for 1 Medical dose. [place] PNV 67-iron Yes 1{capsu Take 1 U nivers ps-folate 9-27 le} capsule by ity of no.1-dha 00:00: mouth at [place] (VITAFOL 00 bedtime. Medical ULTRA) 29 Branch mg iron- 1 mg-200 mg Cap PNV 67-iron 2022-0 Yes 1{capsu Take 1 U nivers ps-folate 9-27 le} capsule by ity of no.1-dha 00:00: mouth at [place] (VITAFOL 00 bedtime. Medical ULTRA) 29 Branch mg iron- 1 mg-200 mg Cap PNV 67-iron 2022-0 Yes 1{capsu Take 1 U nivers ps-folate 9-27 le} capsule by ity of no.1-dha 00:00: mouth at [place] (VITAFOL bedtime. Medical ULTRA) 29 Branch mg iron- 1 mg-200 mg Cap PNV 67-iron 2-0 Yes 1{capsu Take 1 U nivers ps-folate 9-27 le} capsule by ity of no.1-dha 00:00: mouth at [place] (VITAFOL bedtime. Medical ULTRA) 29 Branch mg iron- 1 mg-200 mg Cap PNV 67-iron 2-0 Yes 1{capsu Take 1 U nivers ps-folate 9-27 le} capsule by ity of no.1-dha 00:00: mouth at [place] (VITAFOL bedtime. Medical ULTRA) 29 Branch mg iron- 1 mg-200 mg Cap PNV 67-iron 2-0 Yes 1{capsu Take 1 U nivers ps-folate 9-27 le} capsule by ity of no.1-dha 00:00: mouth at [place] (VITAFOL 00 bedtime. Medical ULTRA) 29 Branch mg iron- 1 mg-200 mg Cap PNV 67-iron 2-0 Yes 1{capsu Take 1 U nivers ps-folate 9-27 le} capsule by ity of no.1-dha 00:00: mouth at [place] (VITAFOL 00 bedtime. Medical ULTRA) 29 Branch mg iron- 1 mg-200 mg Cap PNV 67-iron 2022-0 Yes 1{capsu Take 1 U nivers ps-folate 9-27 le} capsule by ity of no.1-dha 00:00: mouth at [place] (VITAFOL 00 bedtime. Medical ULTRA) 29 Branch mg iron- 1 mg-200 mg Cap PNV 67-iron 2022-0 Yes 1{capsu Take 1 U nivers ps-folate 9-27 le} capsule by ity of no.1-dha 00:00: mouth at [place] (VITAFOL 00 bedtime. Medical ULTRA) 29 Branch mg iron- 1 mg-200 mg Cap PNV 67-iron 2022-0 Yes 1{capsu Take 1 U nivers ps-folate 9-27 le} capsule by ity of no.1-dha 00:00: mouth at [place] (VITAFOL 00 bedtime. Medical ULTRA) 29 Branch mg iron- 1 mg-200 mg Cap PNV 67-iron 2022-0 Yes 1{capsu Take 1 U nivers ps-folate 9-27 le} capsule by ity of no.1-dha 00:00: mouth at [place] (VITAFOL 00 bedtime. Medical ULTRA) 29 Branch mg iron- 1 mg-200 mg Cap PNV 67-iron 2022-0 Yes 1{capsu Take 1 U nivers ps-folate 9-27 le} capsule by ity of no.1-dha 00:00: mouth at [place] (VITAFOL 00 bedtime. Medical ULTRA) 29 Branch mg iron- 1 mg-200 mg Cap PNV 67-iron 2-0 Yes 1{capsu Take 1 U nivers ps-folate 9-27 le} capsule by ity of no.1-dha 00:00: mouth at [place] (VITAFOL 00 bedtime. Medical ULTRA) 29 Branch mg iron- 1 mg-200 mg Cap PNV 67-iron 2022-0 Yes 1{capsu Take 1 U nivers ps-folate 9-27 le} capsule by ity of no.1-dha 00:00: mouth at [place] (VITAFOL 00 bedtime. Medical ULTRA) 29 Branch mg iron- 1 mg-200 mg Cap PNV 67-iron 2022-0 Yes 1{capsu Take 1 U nivers ps-folate 9-27 le} capsule by ity of no.1-dha 00:00: mouth at [place] (VITAFOL 00 bedtime. Medical ULTRA) 29 Branch mg iron- 1 mg-200 mg Cap PNV 67-iron 2022-0 Yes 1{capsu Take 1 U nivers ps-folate 9-27 le} capsule by ity of no.1-dha 00:00: mouth at [place] (VITAFOL 00 bedtime. Medical ULTRA) 29 Branch mg iron- 1 mg-200 mg Cap PNV 67-iron Yes 1{capsu Take 1 U nivers ps-folate 06-03 le} capsule by ity of no.1-dha 00:00: mouth at [place] (VITAFOL 00 bedtime. Medical ULTRA) 29 Branch mg iron- 1 mg-200 mg Cap PNV 67-iron 2021- No 1{capsu Take 1 Univers ps-folate 06-03 le} capsule by ity of no.1-dha 00:00: 00:00 mouth at [facility] (VITAFOL 00 :00 bedtime. Medical ULTRA) 29 Branch mg iron- 1 mg-200 mg Cap PNV 67-iron 2021- No 1{capsu Take 1 Univers ps-folate 06-03 le} capsule by ity of no.1-dha 00:00: 00:00 mouth at [facility] (VITAFOL 00 :00 bedtime. Medical ULTRA) 29 Branch mg iron- 1 mg-200 mg Cap magnesium 2021- No 2g 2 g, IV Univ ers sulfate in 05-20 Piggyback, it y of water 2 02:45: 03:51 Administer Eduard as gram/50 mL 00 :00 over 60 Medica l (4 %) Minutes, Branch infusion 2 ONCE, 1 g dose, On 05/19/22 at 2145, TEVIN proMETHazin 0 2021- No 25mg 25 mg, Uni vers e 05-20 Oral, ity of (PHENERGAN) 00:15: 00:07 [place]CE, [place] 25 00 :00 dose, On Medica l mg Mon Branch 05/19/22 at 1915, TEVIN proMETHazin 2021-0 Yes [id number] 25mg Take 1 Univers e 25 mg 9-12 tablet by ity of tablet 00:00: mouth [place] 00 every 6 Medical (six) Branch hours as needed for Nausea and Vomiting (N/V). proMETHazin 2021-0 Yes [id number] 25mg Take 1 Univers e 25 mg 9-12 tablet by ity of tablet 00:00: mouth [place] 00 every 6 Medical (six) Branch hours as needed for Nausea and Vomiting (N/V). proMETHazin 2022-0 Yes [id number] 25mg Take 1 Univers e 25 mg 9-12 tablet by ity of tablet 00:00: mouth [place] 00 every 6 Medical (six) Branch hours as needed for Nausea and Vomiting (N/V). proMETHazin 2022-0 Yes [id number] 25mg Take 1 Univers e 25 mg 9-12 tablet by ity of tablet 00:00: mouth [place] 00 every 6 Medical (six) Branch hours as needed for Nausea and Vomiting (N/V). proMETHazin 2022-0 Yes [id number] 25mg Take 1 Univers e 25 mg 9-12 tablet by ity of tablet 00:00: mouth [place] 00 every 6 Medical (six) Branch hours as needed for Nausea and Vomiting (N/V). proMETHazin 2022-0 Yes [id number] 25mg Take 1 Univers e 25 mg 9-12 tablet by ity of tablet 00:00: mouth [place] 00 every 6 Medical (six) Branch hours as needed for Nausea and Vomiting (N/V). proMETHazin 2022-0 Yes [id number] 25mg Take 1 Univers e 25 mg 9-12 tablet by ity of tablet 00:00: mouth [place] 00 every 6 Medical (six) Branch hours as needed for Nausea and Vomiting (N/V). proMETHazin 2022-0 Yes [id number] 25mg Take 1 Univers e 25 mg 9-12 tablet by ity of tablet 00:00: mouth [place] 00 every 6 Medical (six) Branch hours as needed for Nausea and Vomiting (N/V). proMETHazin 2022-0 Yes [id number] 25mg Take 1 Univers e 25 mg 9-12 tablet by ity of tablet 00:00: mouth [place] 00 every 6 Medical (six) Branch hours as needed for Nausea and Vomiting (N/V). proMETHazin 2022-0 Yes [id number] 25mg Take 1 Univers e 25 mg 9-12 tablet by ity of tablet 00:00: mouth [place] 00 every 6 Medical (six) Branch hours as needed for Nausea and Vomiting (N/V). proMETHazin 2022-0 Yes [id number] 25mg Take 1 Univers e 25 mg 9-12 tablet by ity of tablet 00:00: mouth [place] 00 every 6 Medical (six) Branch hours as needed for Nausea and Vomiting (N/V). proMETHazin 2021-0 Yes [id number] 25mg Take 1 Univers e 25 mg 9-12 tablet by ity of tablet 00:00: mouth [place] 00 every 6 Medical (six) Branch hours as needed for Nausea and Vomiting (N/V). proMETHazin 2021-0 Yes [id number] 25mg Take 1 Univers e 25 mg 9-12 tablet by ity of tablet 00:00: mouth [place] 00 every 6 Medical (six) Branch hours as needed for Nausea and Vomiting (N/V). proMETHazin 2021-0 Yes [id number] 25mg Take 1 Univers e 25 mg 9-12 tablet by ity of tablet 00:00: mouth [place] 00 every 6 Medical (six) Branch hours as needed for Nausea and Vomiting (N/V). proMETHazin 2021-0 Yes [id number] 25mg Take 1 Univers e 25 mg 9-12 tablet by ity of tablet 00:00: mouth [place] 00 every 6 Medical (six) Branch hours as needed for Nausea and Vomiting (N/V). proMETHazin 2021-0 Yes [id number] 25mg Take 1 Univers e 25 mg 9-12 tablet by ity of tablet 00:00: mouth [place] 00 every 6 Medical (six) Branch hours as needed for Nausea and Vomiting (N/V). proMETHazin 2021-0 Yes [id number] 25mg Take 1 Univers e 25 mg 9-12 tablet by ity of tablet 00:00: mouth [place] 00 every 6 Medical (six) Branch hours as needed for Nausea and Vomiting (N/V). proMETHazin 2021-0 Yes [id number] 25mg Take 1 Univers e 25 mg 9-12 tablet by ity of tablet 00:00: mouth [place] 00 every 6 Medical (six) Branch hours as needed for Nausea and Vomiting (N/V). proMETHazin 2-0 202- No [id number] 25mg Take 1 Univers e 25 mg 9-12 12-02 tablet by ity of tablet 00:00: 00:00 mouth [place] 00 :00 every 6 Medical (six) Branch hours as needed for Nausea and Vomiting (N/V). proMETHazin 2021-0 2022- No [id number] 25mg Take 1 Univers e 25 mg 9-12 12-02 tablet by ity of tablet 00:00: 00:00 mouth [place] 00 :00 every 6 Medical (six) Branch hours as needed for Nausea and Vomiting (N/V). PNV 2021-0 2021- No Take by Univers no.95/radha 05-09 mouth. ity o f us 09:39: 00:00 [place] fum/folic 15 :00 Medical ac Branch ( ORAL) silver 2021-0 Yes [id number] Apply to Uni vers sulfADIAZIN 9-01 area(s) 2 ity of E 00:00: (two) [place] (SILVADENE) 00 times Medical 1 % cream daily. Branch silver 2022-0 Yes [id number] Apply to Uni vers sulfADIAZIN 9-01 area(s) 2 ity of E 00:00: (two) [place] (SILVADENE) 00 times Medical 1 % cream daily. Branch silver 2022-0 Yes [id number] Apply to Uni vers sulfADIAZIN 9-01 area(s) 2 ity of E 00:00: (two) [place] (SILVADENE) 00 times Medical 1 % cream daily. Branch silver 2022-0 Yes [id number] Apply to Uni vers sulfADIAZIN 9-01 area(s) 2 ity of E 00:00: (two) [place] (SILVADENE) 00 times Medical 1 % cream daily. Branch silver 2022-0 Yes [id number] Apply to Uni vers sulfADIAZIN 9-01 area(s) 2 ity of E 00:00: (two) [place] (SILVADENE) 00 times Medical 1 % cream daily. Branch silver 2022-0 Yes [id number] Apply to Uni vers sulfADIAZIN 9-01 area(s) 2 ity of E 00:00: (two) [place] (SILVADENE) 00 times Medical 1 % cream daily. Branch silver 2022-0 Yes [id number] Apply to Uni vers sulfADIAZIN 9-01 area(s) 2 ity of E 00:00: (two) [place] (SILVADENE) 00 times Medical 1 % cream daily. Branch silver 2022-0 Yes [id number] Apply to Uni vers sulfADIAZIN 9-01 area(s) 2 ity of E 00:00: (two) [place] (SILVADENE) 00 times Medical 1 % cream daily. Branch silver 2022-0 Yes [id number] Apply to Uni vers sulfADIAZIN 9- area(s) 2 ity of E 00:00: (two) [place] (SILVADENE) 00 times Medical 1 % cream daily. Branch silver Yes [id number] Apply to Uni vers sulfADIAZIN - area(s) 2 ity of E 00:00: (two) [place] (SILVADENE) 00 times Medical 1 % cream daily. Branch silver 2021- No [id number] Apply to Un stacy sulfADIAZIN 05-08- area(s) 2 it y of E 00:00: 00:00 (two) [place] (SILVADENE) 00 :00 times Medical 1 % cream daily. Branch PNV Yes Take by Univers no.95/radha 8-01 mouth. ity of us 22:41: [address] ( ORAL) acetaminoph Yes Take by Uni vers en (TYLENOL 8-01 mouth. ity of ORAL) 22:41: [address] PNV Yes Take by Univers no.95/radha 8-01 mouth. ity of us 22:41: [address] Branch ( ORAL) acetaminoph Yes Take by Uni vers en (TYLENOL 8-01 mouth. ity of ORAL) 22:41: [address] acetaminoph Yes Take by Uni vers en (TYLENOL 8-01 mouth. ity of ORAL) 22:41: [address] acetaminoph Yes Take by Uni vers en (TYLENOL 8-01 mouth. ity of ORAL) 22:41: [address] acetaminoph Yes Take by Uni vers en (TYLENOL 8-01 mouth. ity of ORAL) 22:41: [address] acetaminoph Yes Take by Uni vers en (TYLENOL 8-01 mouth. ity of ORAL) 22:41: [address] acetaminoph Yes Take by Uni vers en (TYLENOL 8-01 mouth. ity of ORAL) 22:41: [address] acetaminoph Yes Take by Uni vers en (TYLENOL 8-01 mouth. ity of ORAL) 22:41: [address] acetaminoph Yes Take by Uni vers en (TYLENOL 8-01 mouth. ity of ORAL) 22:41: [address] Branch acetaminoph Yes Take by Uni vers en (TYLENOL 8-01 mouth. ity of ORAL) 22:41: [address] acetaminoph Yes Take by Uni vers en (TYLENOL 8-01 mouth. ity of ORAL) 22:41: [address] Branch metroNIDAZO Yes [id number] 500mg Take 1 Univers LE (FLAGYL) 8- tablet by ity of 500 mg 00:00: mouth [place] tablet 00 every 12 Medical (twelve) Branch hours. metroNIDAZO Yes [id number] 500mg Take 1 [facility] LE (FLAGYL) 8- tablet by ity of 500 mg 00:00: mouth [place] tablet 00 every 12 Medical (twelve) Branch hours. metroNIDAZO 2021- No [id number] 500mg Take 1 [facility] LE (FLAGYL) 8-05-09 tablet by it y of 500 mg 00:00: 00:00 mouth [place] tablet 00 :00 every 12 Medical (twelve) Branch hours. VITAFOL 2021- No 1{capsu Take 1 Univ ers ULTRA 29 mg 03-31 le} capsule by i ty of iron- 1 00:00: 00:00 mouth at [place] mg-200 mg 00 :00 bedtime. Medica l Cap Branch PNV Yes [id number] Take 1 Univers 102-iron-fo - TAB-CAP/M2 it y of late-dha 00:00: by mouth [place] (VITAFOL FE 00 at Medical PLUS) 90 mg bedtime. Bran ch iron- 1 mg-200 mg Cap PNV Yes [id number] Take 1 [facility] 102-iron-fo - TAB-CAP/M2 it y of late-dha 00:00: by mouth [place] (VITAFOL FE 00 at Medical PLUS) 90 mg bedtime. Bran ch iron- 1 mg-200 mg Cap PNV 2021- No [id number] Take 1 Univer s 102-iron-fo 03-28 TAB-CAP/M2 i ty of late-dha 00:00: 00:00 [place] (VITAFOL FE 00 :00 at Medical PLUS) 90 mg bedtime. Bran ch iron- 1 mg-200 mg Cap polycarboph 2021-0 Yes [id number] 625mg Take 1 Univers il 6-27 tablet by ity of (FIBERCON) 00:00: mouth [place] 625 mg 00 daily. Medical tablet Branch sennosides 2021-0 Yes [id number] 8.6mg Take 1 Univers (SENNA LAX) 6-27 tablet by ity of 8.6 mg 00:00: mouth [place] tablet 00 daily. Medical Branch polyethylen 2021-0 Yes [id number] 17g Take 17 g Univers e glycol 6-27 by mouth ity of 3350 17 00:00: daily. [place] gram/dose 00 Medical powder Branch polycarboph 2021-0 Yes [id number] 625mg Take 1 Univers il 6-27 tablet by ity of (FIBERCON) 00:00: mouth [place] 625 mg 00 daily. Medical tablet Branch sennosides 2021-0 Yes [id number] 8.6mg Take 1 Univers (SENNA LAX) 6-27 tablet by ity of 8.6 mg 00:00: mouth [place] tablet 00 daily. Medical Branch polyethylen 2021-0 Yes [id number] 17g Take 17 g Univers e glycol 6-27 by mouth ity of 3350 17 00:00: daily. [place] gram/dose 00 Medical powder Branch polycarboph 2021-0 Yes [id number] 625mg Take 1 Univers il 6-27 tablet by ity of (FIBERCON) 00:00: mouth [place] 625 mg 00 daily. Medical tablet Branch sennosides 2021-0 Yes [id number] 8.6mg Take 1 Univers (SENNA LAX) 6-27 tablet by ity of 8.6 mg 00:00: mouth [place] tablet 00 daily. Medical Branch polyethylen 2021-0 Yes [id number] 17g Take 17 g Univers e glycol 6-27 by mouth ity of 3350 17 00:00: daily. [place] gram/dose 00 Medical powder Branch polycarboph 2021-0 Yes [id number] 625mg Take 1 Univers il 6-27 tablet by ity of (FIBERCON) 00:00: mouth [place] 625 mg 00 daily. Medical tablet Branch sennosides 2021-0 Yes [id number] 8.6mg Take 1 Univers (SENNA LAX) 6-27 tablet by ity of 8.6 mg 00:00: mouth [place] tablet 00 daily. Medical Branch polyethylen 2021-0 Yes [id number] 17g Take 17 g Univers e glycol 6-27 by mouth ity of 3350 17 00:00: daily. [place] gram/dose 00 Medical powder Branch polycarboph 2021-0 Yes [id number] 625mg Take 1 Univers il 6-27 tablet by ity of (FIBERCON) 00:00: mouth [place] 625 mg 00 daily. Medical tablet Branch sennosides 2021-0 Yes [id number] 8.6mg Take 1 Univers (SENNA LAX) 6-27 tablet by ity of 8.6 mg 00:00: mouth [place] tablet 00 daily. Medical Branch polyethylen 0 Yes [id number] 17g Take 17 g Univers e glycol 6-27 by mouth ity of 3350 17 00:00: daily. [place] gram/dose 00 Medical powder Branch polycarboph 2021-0 Yes [id number] 625mg Take 1 Univers il 6-27 tablet by ity of (FIBERCON) 00:00: mouth [place] 625 mg 00 daily. Medical tablet Branch sennosides Yes [id number] 8.6mg Take 1 Univers (SENNA LAX) 6-27 tablet by ity of 8.6 mg 00:00: mouth [place] tablet 00 daily. Medical Branch polyethylen 2021-0 Yes [id number] 17g Take 17 g Univers e glycol 6-27 by mouth ity of 3350 17 00:00: daily. [place] gram/dose 00 Medical powder Branch polycarboph 2021-0 Yes [id number] 625mg Take 1 Univers il 6-27 tablet by ity of (FIBERCON) 00:00: mouth [place] 625 mg 00 daily. Medical tablet Branch sennosides 2021-0 Yes [id number] 8.6mg Take 1 Univers (SENNA LAX) 6-27 tablet by ity of 8.6 mg 00:00: mouth [place] tablet 00 daily. Medical Branch polyethylen 2021-0 Yes [id number] 17g Take 17 g Univers e glycol 6-27 by mouth ity of 3350 17 00:00: daily. [place] gram/dose 00 Medical powder Branch polycarboph 2021-0 Yes [id number] 625mg Take 1 Univers il 6-27 tablet by ity of (FIBERCON) 00:00: mouth [place] 625 mg 00 daily. Medical tablet Branch sennosides 0 Yes [id number] 8.6mg Take 1 Univers (SENNA LAX) 6-27 tablet by ity of 8.6 mg 00:00: mouth [place] tablet 00 daily. Medical Branch polyethylen 0 Yes [id number] 17g Take 17 g Univers e glycol 6-27 by mouth ity of 3350 17 00:00: daily. [place] gram/dose 00 Medical powder Branch polycarboph 2021-0 Yes [id number] 625mg Take 1 Univers il 6-27 tablet by ity of (FIBERCON) 00:00: mouth [place] 625 mg 00 daily. Medical tablet Branch sennosides Yes [id number] 8.6mg Take 1 Univers (SENNA LAX) 6-27 tablet by ity of 8.6 mg 00:00: mouth [place] tablet 00 daily. Medical Branch polyethylen 0 Yes [id number] 17g Take 17 g Univers e glycol 6-27 by mouth ity of 3350 17 00:00: daily. [place] gram/dose 00 Medical powder Branch polycarboph Yes [id number] 625mg Take 1 [facility] 6-27 tablet by ity of (FIBERCON) 00:00: mouth [place] 625 mg 00 daily. Medical tablet Branch sennosides Yes [id number] 8.6mg Take 1 Univers (SENNA LAX) 6-27 tablet by ity of 8.6 mg 00:00: mouth [place] tablet 00 daily. Medical Branch polyethylen 2021-0 Yes [id number] 17g Take 17 g Univers e glycol 6-27 by mouth ity of 3350 17 00:00: daily. [place] gram/dose 00 Medical powder Branch polycarboph 0 Yes [id number] 625mg Take 1 [facility] 6-27 tablet by ity of (FIBERCON) 00:00: mouth [place] 625 mg 00 daily. Medical tablet Branch sennosides 0 Yes [id number] 8.6mg Take 1 Univers (SENNA LAX) 6-27 tablet by ity of 8.6 mg 00:00: mouth [place] tablet 00 daily. Medical Branch polyethylen 2021-0 Yes [id number] 17g Take 17 g Univers e glycol 6-27 by mouth ity of 3350 17 00:00: daily. [place] gram/dose 00 Medical powder Branch polycarboph 2021- No [id number] 625mg Take 1 [facility] il 6-27 10-29 tablet by ity of (FIBERCON) 00:00: 00:00 mouth [place] 625 mg 00 :00 daily. Medical tablet Branch sennosides 2021- No [id number] 8.6mg Take 1 Univers (SENNA LAX) 6-27 10-29 tablet by it y of 8.6 mg 00:00: 00:00 mouth [place] tablet 00 :00 daily. Medical Branch polyethylen 2021- No [id number] 17g Take 17 g Univers e glycol 6-27 10-29 by mouth ity of 3350 17 00:00: 00:00 daily. [place] gram/dose 00 :00 Medical powder Branch metoclopram Yes [id number] 10mg Take 1 Univers ana cristina HCl 10 6-03 tablet by ity of mg tablet 00:00: mouth [place] 00 every 6 Medical (six) Branch hours as needed for Nausea and Vomiting (N/V). metoclopram Yes [id number] 10mg Take 1 [facility] ana cristina HCl 10 6-03 tablet by ity of mg tablet 00:00: mouth [place] 00 every 6 Medical (six) Branch hours as needed for Nausea and Vomiting (N/V). metoclopram 2021- No [id number] 10mg Take 1 [facility] ana cristina HCl 10 6-03 09-02 tablet by ity of mg tablet 00:00: 00:00 mouth [place] 00 :00 every 6 Medical (six) Branch hours as needed for Nausea and Vomiting (N/V). pyridoxine, Yes [id number] 25mg Take 1 Univers VITAMIN 5-06 tablet by ity of B-6, 00:00: mouth [place] (VITAMIN 00 every 6 Medical B-6) 25 mg (six) Branch tablet hours as needed for Nausea and Vomiting (N/V). pyridoxine, Yes [id number] 25mg Take 1 [facility] VITAMIN 5-06 tablet by ity of B-6, 00:00: mouth [place] (VITAMIN 00 every 6 Medical B-6) 25 mg (six) Branch tablet hours as needed for Nausea and Vomiting (N/V). pyridoxine, Yes [id number] 25mg Take 1 [facility] VITAMIN 5-06 tablet by ity of B-6, 00:00: mouth [place] (VITAMIN 00 every 6 Medical B-6) 25 mg (six) Branch tablet hours as needed for Nausea and Vomiting (N/V). pyridoxine, 0 Yes [id number] 25mg Take 1 [facility] VITAMIN 5-06 tablet by ity of B-6, 00:00: mouth [place] (VITAMIN 00 every 6 Medical B-6) 25 mg (six) Branch tablet hours as needed for Nausea and Vomiting (N/V). pyridoxine, 0 Yes [id number] 25mg Take 1 [facility] VITAMIN 5-06 tablet by ity of B-6, 00:00: mouth [place] (VITAMIN 00 every 6 Medical B-6) 25 mg (six) Branch tablet hours as needed for Nausea and Vomiting (N/V). pyridoxine, Yes [id number] 25mg Take 1 [facility] VITAMIN 5-06 tablet by ity of B-6, 00:00: mouth [place] (VITAMIN 00 every 6 Medical B-6) 25 mg (six) Branch tablet hours as needed for Nausea and Vomiting (N/V). pyridoxine, Yes [id number] 25mg Take 1 [facility] VITAMIN 5-06 tablet by ity of B-6, 00:00: mouth [place] (VITAMIN 00 every 6 Medical B-6) 25 mg (six) Branch tablet hours as needed for Nausea and Vomiting (N/V). pyridoxine, Yes [id number] 25mg Take 1 [facility] VITAMIN 5-06 tablet by ity of B-6, 00:00: mouth [place] (VITAMIN 00 every 6 Medical B-6) 25 mg (six) Branch tablet hours as needed for Nausea and Vomiting (N/V). pyridoxine, 0 Yes [id number] 25mg Take 1 [facility] VITAMIN 5-06 tablet by ity of B-6, 00:00: mouth [place] (VITAMIN 00 every 6 Medical B-6) 25 mg (six) Branch tablet hours as needed for Nausea and Vomiting (N/V). pyridoxine, Yes [id number] 25mg Take 1 [facility] VITAMIN 5-06 tablet by ity of B-6, 00:00: mouth [place] (VITAMIN 00 every 6 Medical B-6) 25 mg (six) Branch tablet hours as needed for Nausea and Vomiting (N/V). pyridoxine, 0 Yes [id number] 25mg Take 1 [facility] VITAMIN 5-06 tablet by ity of B-6, 00:00: mouth [place] (VITAMIN 00 every 6 Medical B-6) 25 mg (six) Branch tablet hours as needed for Nausea and Vomiting (N/V). pyridoxine, 0 Yes [id number] 25mg Take 1 [facility] VITAMIN 5-06 tablet by ity of B-6, 00:00: mouth [place] (VITAMIN 00 every 6 Medical B-6) 25 mg (six) Branch tablet hours as needed for Nausea and Vomiting (N/V). pyridoxine, Yes [id number] 25mg Take 1 [facility] VITAMIN 5-06 tablet by ity of B-6, 00:00: mouth [place] (VITAMIN 00 every 6 Medical B-6) 25 mg (six) Branch tablet hours as needed for Nausea and Vomiting (N/V). pyridoxine, Yes [id number] 25mg Take 1 Univers VITAMIN 5-06 tablet by ity of B-6, 00:00: mouth [place] (VITAMIN 00 every 6 Medical B-6) 25 mg (six) Branch tablet hours as needed for Nausea and Vomiting (N/V). pyridoxine, Yes [id number] 25mg Take 1 Univers VITAMIN 5-06 tablet by ity of B-6, 00:00: mouth [place] (VITAMIN 00 every 6 Medical B-6) 25 mg (six) Branch tablet hours as needed for Nausea and Vomiting (N/V). doxylamine Yes [id number] 25mg Take 1 Univers (UNISOM, 5-06 tablet by ity of DOXYLAMINE, 00:00: [place] 25 mg 00 bedtime as Medica l tablet needed for Branch Nausea and Vomiting (N/V). pyridoxine, Yes [id number] 25mg Take 1 [facility] VITAMIN 5-06 tablet by ity of B-6, 00:00: mouth [place] (VITAMIN 00 every 6 Medical B-6) 25 mg (six) Branch tablet hours as needed for Nausea and Vomiting (N/V). doxylamine 0 Yes [id number] 25mg Take 1 [facility] (UNISOM, 5-06 tablet by ity of DOXYLAMINE, 00:[place]: [place] 25 mg 00 bedtime as Medica l tablet needed for Branch Nausea and Vomiting (N/V). pyridoxine, 0 Yes [id number] 25mg Take 1 [facility] VITAMIN 5-06 tablet by ity of B-6, 00:00: mouth [place] (VITAMIN 00 every 6 Medical B-6) 25 mg (six) Branch tablet hours as needed for Nausea and Vomiting (N/V). pyridoxine, 0 Yes [id number] 25mg Take 1 [facility] VITAMIN 5-06 tablet by ity of B-6, 00:00: mouth [place] (VITAMIN 00 every 6 Medical B-6) 25 mg (six) Branch tablet hours as needed for Nausea and Vomiting (N/V). pyridoxine, 0 Yes [id number] 25mg Take 1 Univers VITAMIN 5-06 tablet by ity of B-6, 00:00: mouth [place] (VITAMIN 00 every 6 Medical B-6) 25 mg (six) Branch tablet hours as needed for Nausea and Vomiting (N/V). pyridoxine, 0 Yes [id number] 25mg Take 1 Univers VITAMIN 5-06 tablet by ity of B-6, 00:00: mouth [place] (VITAMIN 00 every 6 Medical B-6) 25 mg (six) Branch tablet hours as needed for Nausea and Vomiting (N/V). pyridoxine, 0 Yes [id number] 25mg Take 1 Univers VITAMIN 5-06 tablet by ity of B-6, 00:00: mouth [place] (VITAMIN 00 every 6 Medical B-6) 25 mg (six) Branch tablet hours as needed for Nausea and Vomiting (N/V). pyridoxine, 0 Yes [id number] 25mg Take 1 Univers VITAMIN 5-06 tablet by ity of B-6, 00:00: mouth [place] (VITAMIN 00 every 6 Medical B-6) 25 mg (six) Branch tablet hours as needed for Nausea and Vomiting (N/V). pyridoxine, 0 Yes [id number] 25mg Take 1 Univers VITAMIN 5-06 tablet by ity of B-6, 00:00: mouth [place] (VITAMIN 00 every 6 Medical B-6) 25 mg (six) Branch tablet hours as needed for Nausea and Vomiting (N/V). pyridoxine, 2021- No [id number] 25mg Take 1 Univers VITAMIN 01-10 tablet by ity of B-6, 00:00: 00:00 mouth [place] (VITAMIN 00 :00 every 6 Medical B-6) 25 mg (six) Branch tablet hours as needed for Nausea and Vomiting (N/V). pyridoxine, 2021- No [id number] 25mg Take 1 Univers VITAMIN 01-10 tablet by ity of B-6, 00:00: 00:00 mouth [place] (VITAMIN 00 :00 every 6 Medical B-6) 25 mg (six) Branch tablet hours as needed for Nausea and Vomiting (N/V). doxylamine 2021- No [id number] 25mg Take 1 Univers (UNISOM, 01-10 tablet by ity o f DOXYLAMINE, 00:00: 00:00 [place] 25 mg 00 :00 bedtime as Medica l tablet needed for Branch Nausea and Vomiting (N/V). Immunizations Ordered Filled Immunization Date Status Comments [facility] e Immunization Name Name TDAP 2022-07-03 Completed University of 00:00:00 [facility] TDAP 2022-07-03 Completed University of 00:00:00 [facility] TDAP 2022-07-03 Completed University of 00:00:00 [facility] TDAP 2022-07-03 Completed University of 00:00:00 [facility] TDAP 2022-07-03 Completed University of 00:00:00 [facility] TDAP 2022-07-03 Completed University of 00:00:00 [facility] TDAP 2022-07-03 Completed University of 00:00:00 [facility] TDAP 2022-07-03 Completed University of 00:00: [facility] TDAP 2022-07-03 Completed University of 00:00:00 [facility] TDAP 2022-07-03 Completed University of 00:00:00 [facility] TDAP 2022-07-03 Completed University of 00:00:00 [facility] TDAP 2022-07-03 Completed [facility] of 00:00:00 [place] [facility] TDAP 2022-07-03 Completed University of 00:00:00 [facility] TDAP 2022-07-03 Completed University of 00:00:00 [place] [facility] TDAP 2022-07-03 Completed University of 00:00:00 [place] [facility] TDAP 2022-07-03 Completed University of 00:00:00 [facility] TDAP 2022-07-03 Completed University of 00:00:00 [place] [facility] TDAP 2022-07-03 Completed University of 00:00:00 [place] [facility] TDAP 2022-07-03 Completed University of 00:00:00 [place] [facility] TDAP 2022-07-03 Completed University of 00:00:00 [place] [facility] TDAP 2022-07-03 Completed University of 00:00:00 [place] [facility] TDAP 2022-07-03 Completed University of 00:00:00 [facility] Branch TDAP 2022-07-03 Completed University of 00:00:00 [facility] TDAP 2022-07-03 Completed University of 00:00:00 [facility] TDAP 2022-07-03 Completed University of 00:00:00 [facility] TDAP 2022-07-03 Completed University of 00:00:00 [facility] TDAP 2022-07-03 Completed University of 00:00:00 [facility] TDAP 2022-07-03 Completed University of 00:00:00 [facility] TDAP 2022-07-03 Completed University of 00:00:00 [facility] TDAP 2022-07-03 Completed University of 00:00:00 [facility] Branch TDAP 2022-07-03 Completed University of 00:00:00 [facility] Branch TDAP 2022-07-03 Completed University of 00:00:00 [facility] TDAP 2022-07-03 Completed University of 00:00:00 [facility] Branch TDAP 2022-07-03 Completed University of 00:00:00 [place] [facility] TDAP 2022-07-03 Completed University of 00:00:00 [facility] TDAP 2022-07-03 Completed University of 00:00:00 [facility] TDAP 2022-07-03 Completed [facility] of 00:00:00 [place] [facility] [place] TDAP 2022-07-03 Completed University of 00:00: [facility] TDAP 2022-07-03 Completed University of :00: [facility] TDAP 2022-07-03 Completed University of :00:00 [facility] Vital Signs Vital Name Observation Time Observation Value Comments Source Systolic blood 2023-02-28 117 mm[Hg] University of pressure 23:50:00 [facility] Diastolic blood 2023-02-28 80 mm[Hg] University o f pressure 23:50:00 [facility] Heart rate 2023-02-28 87 /min University of :50:00 [facility] Body temperature 2023-02-28 36.44 [place] University of :50:00 [facility] Respiratory rate 2023-02-28 14 /min University of :50:00 [facility] Body height 2023-02-28 160 cm University of :50:00 [facility] Body weight 2023-02-28 91.627 kg University of :50:00 [facility] BMI 2023-02-28 35.78 kg/m2 University of 23:50:00 [facility] Oxygen saturation 2023-02-28 96 /min University of in Arterial blood 23:50:00 [place] [facility] [place] by Pulse oximetry Branch Systolic blood 2023-01-28 128 mm[Hg] University of pressure 23:09:00 [facility] Diastolic blood 2023-01-28 101 mm[Hg] University o f pressure 23:09:00 [facility] Heart rate 2023-01-28 92 /min University of :01:00 [facility] Body temperature 2023-01-28 36.78 [place] University of 23:01:00 [facility] Respiratory rate 2023-01-28 18 /min University of 23:01:00 [facility] Body height 2023-01-28 160 cm University of 23:01:00 [facility] Body weight 2023-01-28 91.627 kg University of 23:01:00 [facility] BMI 2023-01-28 35.78 kg/m2 University of 23:01:00 [facility] Oxygen saturation 2023-01-28 97 /min University of in Arterial blood 23:01:00 [place] [facility] by Pulse oximetry Branch Systolic blood 2022-12-31 130 mm[Hg] University of pressure 14:55:00 [facility] Diastolic blood 2022-12-31 90 mm[Hg] University o f pressure 14:55:00 [facility] Heart rate 2022-12-31 84 /min University of 14:55:00 [facility] Body temperature 2022-12-31 36.83 [place] University of 14:54:00 [facility] Respiratory rate 2022-12-31 18 /min University of 14:54:00 [facility] Body height 2022-12-31 157.5 cm University of 14:54:00 [facility] Body weight 2022-12-31 90.861 kg University of 14:54:00 [facility] BMI 2022-12-31 36.64 kg/m2 University of 14:54:00 [facility] Systolic blood 2022-11-23 108 mm[Hg] University of pressure 18:08:00 [facility] Diastolic blood 2022-11-23 76 mm[Hg] University o f pressure 18:08:00 [facility] Heart rate 2022-11-23 99 /min University of 18:08:00 [facility] Body temperature 2022-11-23 37.06 [place] University of 18:08:00 [facility] Respiratory rate 2022-11-23 17 /min University of 18:08:00 [facility] Body weight 2022-11-23 91.037 kg University of 18:08:00 [facility] BMI 2022-11-23 36.71 kg/m2 University of 18:08:00 [facility] Oxygen saturation 2022-11-23 97 /min [facility] in Arterial blood 18:08:00 [facility] Pulse oximetry [place] Systolic blood 2022-08-29 127 mm[Hg] University of pressure 21:15:00 [facility] Diastolic blood 2022-08-29 73 mm[Hg] University o f pressure 21:15:00 [facility] Heart rate 2022-08-29 84 /min University of 21:15:00 [facility] Body temperature 2022-08-29 35.22 [place] University of 21:15:00 [facility] Body height 2022-08-29 157.5 cm University of 21:15:00 [facility] Body weight 2022-08-29 86.456 kg University of 21:15:00 [facility] BMI 2022-08-29 34.86 kg/m2 University of 21:15:00 [facility] Systolic blood 2022-08-21 126 mm[Hg] University of pressure 15:36:00 [facility] Diastolic blood 2022-08-21 84 mm[Hg] University o f pressure 15:36:00 [facility] Heart rate 2022-08-21 83 /min University of 15:36:00 [facility] Body temperature 2022-08-21 35.78 [place] University of 15:36:00 [facility] Respiratory rate 2022-08-21 18 /min University of 15:36:00 [facility] Body height 2022-08-21 157.5 cm University of 15:36:00 [facility] Body weight 2022-08-21 85.503 kg University of 15:36:00 [facility] BMI 2022-08-21 34.48 kg/m2 University of 15:36:00 [facility] Systolic blood 2022-08-12 132 mm[Hg] University of pressure 15:30:00 [facility] Diastolic blood 2022-08-12 88 mm[Hg] University o f pressure 15:30:00 [facility] Heart rate 2022-08-12 76 /min University of 15:24:00 [facility] Body temperature 2022-08-12 36.56 [place] [facility] of 15:24:00 [facility] Respiratory rate 2022-08-12 18 /min University of 15:24:00 [facility] Body height 2022-08-12 157.5 cm University of 15:24:00 [facility] Body weight 2022-08-12 88.089 kg University of 15:24:00 [facility] BMI 2022-08-12 35.52 kg/m2 University of 15:24:00 [facility] Systolic blood 2022-08-08 153 mm[Hg] Dr. Da Silva at University of pressure 22:12:00 bedside [facility] Diastolic blood 2022-08-08 105 mm[Hg] Dr. Da Silva at [place] o f pressure 22:12:00 bedside [facility] Heart rate 2022-08-08 84 /min University of 22:12:00 [facility] Oxygen saturation 2022-08-08 97 /min [facility] in Arterial blood 22:12:00 [facility] by Pulse oximetry [place] Body temperature 2022-08-08 36.72 [place] University of 17:50:00 [facility] Respiratory rate 2022-08-08 18 /min University of 17:50:00 [place] [facility] Body weight 2022-08-04 93.895 kg University of 20:00:00 [facility] BMI 2022-08-04 36.68 kg/m2 University of 20:00:00 [facility] Body height 2022-08-03 160 cm University of 23:45:00 [facility] Branch Systolic blood 2022-08-05 124 mm[Hg] University of pressure 23:15:00 [facility] Branch Diastolic blood 2022-08-05 72 mm[Hg] University o f pressure 23:15:00 [facility] Branch Heart rate 2022-08-05 104 /min University of 23:15:00 [facility] Oxygen saturation 2022-08-05 100 /min University of in Arterial blood 23:15:00 [facility] antonio by Pulse oximetry Branch Body temperature 2022-08-05 36.28 [place] University of 23:02:00 [facility] Respiratory rate 2022-08-05 20 /min University of 23:02:00 [facility] Body weight 2022-08-04 93.895 kg University of 20:00:00 [facility] BMI 2022-08-04 36.68 kg/m2 University of 20:00:00 [facility] Body height 2022-08-03 160 cm University of 23:45:00 [facility] Heart rate 2022-07-29 91 /min University of 00:27:00 [facility] Oxygen saturation 2022-07-29 99 /min University of in Arterial blood 00:27:00 [place] [facility] by Pulse oximetry Branch Systolic blood 2022-07-29 131 mm[Hg] University of pressure 00:00:00 [place] [facility] Diastolic blood 2022-07-29 78 mm[Hg] University o f pressure 00:00:00 [facility] Body temperature 2022-07-28 36.89 [place] University of 19:33:00 [facility] Respiratory rate 2022-07-28 18 /min University of 19:33:00 [facility] Body weight 2022-07-28 93.9 kg University of 19:00:00 [facility] BMI 2022-07-28 36.67 kg/m2 University of 19:00:00 [facility] Systolic blood 2022-07-19 133 mm[Hg] University of pressure 16:22:00 [place] [facility] Diastolic blood 2022-07-19 84 mm[Hg] University o f pressure 16:22:00 [facility] Branch Heart rate 2022-07-19 90 /min University of 16:21:00 [place] [facility] Body temperature 2022-07-19 37 [place] [facility] of 16:21:00 [place] [facility] Respiratory rate 2022-07-19 17 /min University of 16:21:00 [facility] Branch Body height 2022-07-19 160 cm University of 16:21:00 [place] [facility] Body weight 2022-07-19 93.94 kg University of 16:21:00 [facility] Branch BMI 2022-07-19 36.69 kg/m2 University of 16:21:00 [facility] Branch Oxygen saturation 2022-07-19 100 /min University of in Arterial blood 16:21:00 [place] [facility] by Pulse oximetry Branch Systolic blood 2022-07-18 120 mm[Hg] University of pressure 19:43:00 [facility] Branch Diastolic blood 2022-07-18 79 mm[Hg] University o f pressure 19:43:00 [facility] Heart rate 2022-07-18 85 /min University of 19:43:00 [facility] Body temperature 2022-07-18 36.22 [place] [facility] of 19:43:00 [facility] Body height 2022-07-18 160 cm University of 19:43:00 [facility] Body weight 2022-07-18 92.897 kg University of 19:43:00 [facility] BMI 2022-07-18 36.28 kg/m2 University of 19:43:00 [facility] Heart rate 2022-07-05 84 /min University of 18:00:00 [place] [facility] Oxygen saturation 2022-07-05 100 /min University of in Arterial blood 18:00:00 [place] [facility] by Pulse oximetry Branch Systolic blood 2022-07-05 117 mm[Hg] b/p cuff changed Universit y of pressure 17:00:00 to appropriate [place] [facility] cuff Branch Diastolic blood 2022-07-05 64 mm[Hg] b/p cuff changed Universi ty of pressure 17:00:00 to appropriate [place] [facility] cuff Branch Body temperature 2022-07-05 36.89 [place] [facility] of 17:00:00 [facility] Respiratory rate 2022-07-05 17 /min University of 17:00:00 [place] [facility] Body height 2022-07-05 160 cm University of 16:02:00 [facility] Body weight 2022-07-05 92.307 kg University of 16:02:00 [facility] BMI 2022-07-05 36.05 kg/m2 University of 16:02:00 [facility] Systolic blood 2022-07-03 137 mm[Hg] University of pressure 18:32:00 [facility] Branch Diastolic blood 2022-07-03 88 mm[Hg] University o f pressure 18:32:00 [facility] Heart rate 2022-07-03 89 /min University of 18:32:00 [facility] Body temperature 2022-07-03 36.61 [place] University of 18:32:00 [facility] Respiratory rate 2022-07-03 16 /min University of 18:32:00 [facility] Body height 2022-07-03 160 cm University of 18:32:00 [facility] Body weight 2022-07-03 92.352 kg University of 18:32:00 [facility] BMI 2022-07-03 36.07 kg/m2 University of 18:32:00 [facility] Systolic blood 2022-06-19 123 mm[Hg] University of pressure 19:04:00 [facility] Diastolic blood 2022-06-19 69 mm[Hg] University o f pressure 19:04:00 [facility] Heart rate 2022-06-19 90 /min University of 19:04:00 [facility] Body temperature 2022-06-19 36.17 [place] [facility] of 19:04:00 [facility] Body height 2022-06-19 160 cm University of 19:04:00 [facility] Body weight 2022-06-19 91.627 kg University of 19:04:00 [facility] BMI 2022-06-19 35.78 kg/m2 University of 19:04:00 [facility] Systolic blood 2022-05-20 130 mm[Hg] University of pressure 03:15:08 [facility] Branch Diastolic blood 2022-05-20 80 mm[Hg] University o f pressure 03:15:08 [facility] Heart rate 2022-05-20 88 /min University of 03:15:08 [facility] Respiratory rate 2022-05-20 16 /min University of 03:15:08 [facility] Oxygen saturation 2022-05-20 100 /min [place] of in Arterial blood 03:15:08 [facility] by Pulse oximetry Branch Body temperature 2022-05-19 37.11 [place] [facility] of 22:46:00 [place] [facility] [place] Body height 2022-05-19 160 cm University of 22:46:00 [facility] Body weight 2022-05-19 90.719 kg University of 22:46:00 [facility] BMI 2022-05-19 35.43 kg/m2 University of 22:46:00 [facility] Systolic blood 2022-05-19 120 mm[Hg] University of pressure 22:52:00 [facility] Diastolic blood 2022-05-19 88 mm[Hg] University o f pressure 22:52:00 [facility] Heart rate 2022-05-19 95 /min University of 22:52:00 [facility] Body temperature 2022-05-19 37.06 [place] University of 22:52:00 [facility] Respiratory rate 2022-05-19 18 /min University of 22:52:00 [facility] Body height 2022-05-19 160 cm University of 22:52:00 [facility] Body weight 2022-05-19 90.765 kg University of 22:52:00 [facility] BMI 2022-05-19 35.45 kg/m2 University of 22:52:00 [facility] Oxygen saturation 2022-05-19 98 /min [place] of in Arterial blood 22:52:00 [facility] by Pulse oximetry Branch Systolic blood 2022-05-09 107 mm[Hg] University of pressure 14:37:00 [facility] Diastolic blood 2022-05-09 71 mm[Hg] University o f pressure 14:37:00 [facility] Heart rate 2022-05-09 76 /min University of 14:37:00 [facility] Body temperature 2022-05-09 36.89 Lata University of 14:37:00 [facility] Respiratory rate 2022-05-09 18 /min University of 14:37:00 [facility] Body height 2022-05-09 160 cm University of 14:37:00 [facility] Body weight 2022-05-09 89.313 kg University of 14:37:00 [facility] BMI 2022-05-09 34.88 kg/m2 University of 14:37:00 [facility] Oxygen saturation 2022-05-09 99 /min [facility] in Arterial blood 14:37:00 [facility] by Pulse oximetry Branch Systolic blood 2022-05-08 124 mm[Hg] University of pressure 21:11:00 [facility] Diastolic blood 2022-05-08 84 mm[Hg] [place] o f pressure 21:11:00 [facility] Heart rate 2022-05-08 77 /min [facility] 21:11:00 [facility] Body temperature 2022-05-08 36.94 Lata [facility] 21:11:00 [facility] Respiratory rate 2022-05-08 20 /min University 21:11:00 [facility] Body height 2022-05-08 160 cm [facility] 21:11:00 [facility] Body weight 2022-05-08 89.858 kg [facility] 21:11:00 [facility] BMI 2022-05-08 35.09 kg/m2 [facility] 21:11:00 [facility] Oxygen saturation 2022-05-08 99 /min [facility] in Arterial blood 21:11:00 [facility] by Pulse oximetry [place] Body weight 2022-05-01 87.091 kg [facility] 19:57:00 [facility] BMI 2022-05-01 34.01 kg/m2 [facility] 19:57:00 [facility] Procedures Procedure Date / Time Performing Clinician Source Performed ASSIGNMENT OF BENEFITS 2023-01-28 22:56:18 Doctor Unassigned, [facility] [place] [facility] AUTHORIZATION FOR RELEASE 2023-01-02 05:01:00 Doctor Unassigned, [facility] [place] [facility] POCT MOLECULAR STREP 2022-11-23 18:05:00 Unknown, Attending [facility] MEDICATION CORRESPONDENCE 2022-11-10 06:01:00 Doctor Lalyigned, [facility] [place] [facility] SGOT (ASPARTATE AMINO 2022-08-08 00:34:00 [facility] Medical Branch CREATININE 2022-08-08 00:34:00 Azra Eugene [facility] ALANINE AMINO 2022-08-08 00:34:00 Azra Eugene [facility] TRANSFERASE(SGPT Medical [place] LACTATE DEHYDROGENASE 2022-08-08 00:34:00 [facility] URIC ACID 2022-08-08 00:34:00 Azra Eugene [facility] CBC WITH DIFF 2022-08-08 00:34:00 Azra Eugene [facility] SGOT (ASPARTATE AMINO 2022-08-08 00:34:00 Azra Eugene [facility] TRANSFER) Medical Branch CREATININE 2022-08-08 00:34:00 Azra Eugene [facility] ALANINE AMINO 2022-08-08 00:34:00 Azra Eugene [facility] TRANSFERASE(SGPT [facility] LACTATE DEHYDROGENASE 2022-08-08 00:34:00 [facility] URIC ACID 2022-08-08 00:34:00 Azra Eugene [facility] CBC WITH DIFF 2022-08-08 00:34:00 Valorie Azra [facility] CBC WITH DIFF 2022-08-06 11:23:00 [facility] WITH DIFF 2022-08-06 11:23:00 [facility] HEMOGLOBIN 2022-08-05 17:49:00 Trevor [facility] HEMOGLOBIN 2022-08-05 17:49:00 Trevor [facility] VENOUS CORD GAS 2022-08-05 15:20:00 Jai [facility] VENOUS CORD GAS 2022-08-05 15:20:00 Stacy Vergarashua [facility] SECTION 2022-08-05 14:48:00 Jailene Ireland [facility] SECTION 2022-08-05 14:48:00 Jailene Ireland [facility] CREATININE 2022-08-05 14:46:00 Brandi Espinal [facility] MAGNESIUM 2022-08-05 14:46:00 Brandi Espinal [facility] CREATININE 2022-08-05 14:46:00 Brandi Espinal [facility] MAGNESIUM 2022-08-05 14:46:00 Brandi Espinal [facility] CENTRAL NEURAXIAL BLOCK 2022-08-05 13:31:[address] [facility] URINALYSIS 2022-08-05 04:09:00 [facility]22-08-05 04:09:00 Jose [facility] SGOT (ASPARTATE AMINO 2022-08-05 03:05:00 Radha Garcia [facility]) Medical Branch CREATININE 2022-08-05 03:05:00 Jose [facility] ALANINE AMINO 2022-08-05 03:05[facility]00 [facility] LACTATE DEHYDROGENASE 2022-08-05 03:05:00 [facility] 2022-08-05 03:05:00 Jose [facility] CBC WITH DIFF 2022-08-05 03:05:00 Jose [facility] HEPATITIS B SURFACE 2022-08-05 03:05:00 Radha Garcia [facility] ANTIGEN [facility] HIV 1/2 AG-AB WITH REFLEX 2022-08-05 03:05:00 Radha Garcia [facility] GALV ONLY - SYPHILIS 2022-08-05 03:05:00 Radha Garcia [facility] IGG/IGM Medical Branch SGOT (ASPARTATE AMINO 2022-08-05 03:05:00 Radha Garcia [facility]) Medical Branch CREATININE 2022-08-05 03:05:00 Radha Garcia [facility] ALANINE AMINO 2022-08-05 03:05:00 Jose [facility] TRANSFERASE([facility] LACTATE DEHYDROGENASE 2022-08-05 03:05:00 Jose Radha [facility] URIC ACID 2022-08-05 03:05:00 Jose Radha [facility] CBC WITH DIFF 2022-08-05 03:05:00 Radha Garcia [facility] HEPATITIS B SURFACE 2022-08-05 03:05:00 Radha Garcia [facility] ANTIGEN Medical Branch HIV 1/2 AG-AB WITH REFLEX 2022-08-05 03:05:00 Radha Garcia Un [facility] GALV ONLY - SYPHILIS 2022-08-05 03:05:00 Radha Garcia [facility] IGG/IGM Medical [place] NON-STRESS TEST 2022-08-04 19:56:30 Antonio Hearn [facility] GALV ONLY - INFLUENZA A B 2022-08-04 00:38:00 Leona Pérez Un [facility] RSV PCR [facility] GALV ONLY - INFLUENZA A B 2022-08-04 00:38:00 Leona Pérez Un [facility] RSV PCR [facility] SGOT (ASPARTATE AMINO 2022-08-04 00:03:00 Rogelio [facility]) Medical Branch CREATININE 2022-08-04 00:03:00 Rogelio [facility] ALANINE AMINO 2022-08-04 00:03:00 Rogelio [facility] TRANSFERASE([facility] Medical [place] LACTATE DEHYDROGENASE 2022-08-04 00:03:00 Rogelio [facility] URIC ACID 2022-08-04 00:03:00 [facility] WITH DIFF 2022-08-04 00:03:00 Rogelio [facility] URINALYSIS 2022-08-04 00:03:00 Rogelio [facility] PROTEIN CREAT RATIO URINE 2022-08-04 00:03:00 Pinky Mercado [facility] RANDOM [facility] SGOT (ASPARTATE AMINO 2022-08-04 00:03:00 Rogelio [facility] TRANSFER) Medical Branch CREATININE 2022-08-04 00:03:00 Rogelio [facility] ALANINE AMINO 2022-08-04 00:03:00 Rogelio [facility] TRANSFERASE([facility] Medical [place] LACTATE DEHYDROGENASE 2022-08-04 00:03:00 Rogelio [facility] URIC ACID 2022-08-04 00:03:00 Pinky Mercado [facility] CBC WITH DIFF 2022-08-04 00:03:00 Rogelio [facility] URINALYSIS 2022-08-04 00:03:00 Rogelio [facility] PROTEIN CREAT RATIO URINE 2022-08-04 00:03:00 Pinky Mercado [facility] HB ABO GROUPING 2022-08-03 23:56:00 Rogelio [facility] RHO (D) IMMUNE GLOBULIN 2022-08-03 23:56:00 [facility] 2022-08-03 23:56:00 Rogelio [facility] RHO (D) IMMUNE GLOBULIN 2022-08-03 23:56:00 [facility] SGOT (ASPARTATE AMINO 2022-07-28 19:45:00 Avinash Roman [facility] TRANSFER) [facility] CREATININE 2022-07-28 19:45:00 Abel [facility] ALANINE AMINO 2022-07-28 19:45:00 Abel [facility] TRANSFERASE(PT [facility] LACTATE DEHYDROGENASE 2022-07-28 19:45:00 Abel [facility] URIC ACID 2022-07-28 19:45:00 Abel [facility] CBC WITH DIFF 2022-07-28 19:45:00 Abel [facility] URINALYSIS 2022-07-28 19:45:00 Abel [facility] PROTEIN CREAT RATIO URINE 2022-07-28 19:45:00 Avinash Roman [facility] HB ABO GROUPING 2022-07-28 19:42:00 Abel [facility] CONSENT/REFUSAL FOR 2022-07-28 06:01:00 Doctor Unassigned, [facility] DIAGNOSIS AND TREATMENT [place] [facility] CONSENT/REFUSAL FOR 2022-07-28 06:01:00 Doctor [facility]avia [facility] DIAGNOSIS AND TREATMENT [place] [facility] [place] POCT MOLECULAR FLU 2022-07-19 16:31:00 Unknown, [facility]ending [facility] POCT URINALYSIS GLUCOSE & 2022-07-18 19:45:00 Michelle Heller [facility] PROTEIN [facility] CONSENT/REFUSAL FOR 2022-07-05 15:50:20 Doctor Tavia [facility] DIAGNOSIS AND TREATMENT [place] [facility] [place] ASSIGNMENT OF BENEFITS 2022-07-05 15:50:07 Doctor T[facility], [facility] [place] TDAP VACCINE, >11 YRS, IM 2022-07-03 18:53:15 Michelle Heller [facility] POCT URINALYSIS GLUCOSE & 2022-07-03 18:36:00 Michelle Heller [facility] CONSENT/REFUSAL FOR 2022-05-19 22:24:50 Doctor Squires [facility] DIAGNOSIS AND TREATMENT [place] [facility] POCT URINALYSIS W/O 2022-05-09 00:00:00 April Guerra [facility] SPECIFIC GRAVITY Medical Branch L&D VISIT (NON-DELIVERED) 2022-04-07 05:01:00 Doctor Squires [facility] [place] [facility] [place] CPS / APS / FPS 2022-01-02 05:01:00 Doctor Squires, [facility] [place] [facility] Encounters Start End Encounter Admission Attending Care Care Encounter Source Date/Time Date/Time Type Type Clinicians Facility Department ID 2021-01-26 Inpatient HCANW HCANW [id number] [facility] 22:33:41 92 [facility] are [facility] 2023-02-28 2023-02-28 Outpatient R SALMA BAIRD [facility] [id number] Univers 18:15:00 18:33:57 MEG carter [facility] Medical Branch 2023-02-28 2023-02-28 Nurse Nurse, [facility] 1.2.840.114 [id number] Univers 18:15:00 18:33:57 Visit Unknown, Attending [place] [id number] Meg Burr 4.2.7.2.686 [place] HILARIO?BLEA [phone] [address] MEDICAL OFFICE [facility] 2023-02-28 2023-02-28 Outpatient R UNKNOWN, [facility] [id number] Univers 18:00:00 18:00:00 ATTENDING ity [facility] 2023-01-28 2023-01-28 Outpatient R LUCILA [facility] [id number] Univers 17:40:00 18:33:58 CANDIDO ity [facility] 2023-01-28 2023-01-28 Urgent Lucila [facility] 1.2.840.11 [id number] Univers 17:40:00 18:33:58 Care Unknown, Attending HEALTH 350.1.13.10 ity of [place] 4.2.7.2.686 Eduard as HILARIO?BLEA [phone] [address] OFFICE [facility] 2023-01-28 2023-01-28 Orders Doctor GELACIO 1.2.840.114 [id number] Univers 00:00:00 00:00:00 Only Unassigned, SAMUEL 350.1.13.10 ity of [place] [facility] 4.2.7.2.686 Eduard as [phone] [address] 2023-01-28 2023-01-28 [facility] 1.2.790.729 [id number] Univers 00:00:00 00:00:00 [facility] 350.1.13.10 it y of [place] 4.2.7.2.686 Eduard as HILARIO?BLEA [phone] [address] MEDICAL OFFICE [facility] 2023-01-05 2023-01-05 Telephone [facility] 1.2.840.114 [id number] Univers 00:00:00 00:00:00 Mabel Ahn PHOTOGRAPHER AERIAL 350.1.13.10 i ty of [facility] 4.2.7.2.686 Eduard as MATERNAL [phone] Med ical & CHILD [address] [place] [address] 2023-01-02 2023-01-[address] [facility] 1.2.840.114 [id number] Univers 00:00:00 00:00:00 Mabel A PHOTOGRAPHER AERIAL 350.1.13.10 i ty of REGIONAL 4.2.7.2.686 Eduard as MATERNAL [phone] [facility] ical & CHILD [address] [place] [address] 2023-01-02 2023-01-02 Orders Doctor GELACIO 1.2.840.114 [id number] Univers 00:00:00 00:00:00 Only Unassigned, SAMUEL 350.1.13.10 ity of [place] [facility] 4.2.7.2.686 Eduard as [phone] [address] 2022-12-31 2022-12-31 Outpatient R RONIT [facility] [id number] Univers 09:30:00 10:16:59 MABEL ity [facility] 2022-12-31 2022-12-[address] [facility] 1.2.840.114 [id number] Univers 09:30:00 10:16:59 Visit Mabel Ahn PHOTOGRAPHER AERIAL 350.1.13.10 i ty of [facility] 4.2.7.2.686 Eduard as MATERNAL [phone] [facility] & CHILD [address] [place] [address] 2022-12-18 2022-12-18 Telephone CARLTON Woo 1.2.840.114 [id number] Univers 00:00:00 00:00:00 [facility] 350.1.13.10 i ty of [phone] [address] 2022-12-16 2022-12-16 Refill CARLTON Woo 1.2.657.512 [id number] Univers 00:00:00 00:00:00 Myra Y HEALTH 350.1.13.10 i ty [place] [id number] [address] 2022-12-03 2022-12-03 Telephone CARLTON Woo 1.2.840.114 [id number] Univers 00:00:00 00:00:00 Myra Y HEALTH 350.1.13.10 i ty of [place] [id number] [facility] 113 Branch 2022-11-23 2022-11-23 Outpatient R KEMAL [facility] [id number] Univers 13:00:00 13:22:57 ELIZABETH ity [facility] 2022-11-23 2022-11-23 Urgent Kemal Elizabeth [facility] 1.2.840.114 1 [id number] Univers 13:00:00 13:22:57 Care Unknown, Attending HEALTH 350.1.13.10 ity of [place] 4.2.7.2.686 Eduard as HILARIO?BLEA [phone] Pr dical [address] MEDICAL OFFICE BUILDING 2022-11-10 2022-11-10 Telephone CARLTON Woo 1.2.840.114 [id number] Univers 00:00:00 00:00:00 [facility] 350.1.13.10 i ty of [facility] 4.2.7.2.[place] [id number] [facility] 113 Branch 2022-11-10 2022-11-10 Orders Doctor GELACIO 1.2.840.114 [id number] Univers 00:00:00 00:00:00 Only Unassigned, SAMUEL 350.1.13.10 ity of [place] [facility] 4.2.7.2.686 Eduard as [phone] [facility] 009 Branch 2022-09-24 2022-09-24 Refill GELACIO Woo 1.2.840.114 [id number] Univers 00:00:00 00:00:00 [facility] SAMUEL 350.1.13.10 it y of HOSPITAL 4.2.7.2.686 Eduard as [id number] [facility] 044 Branch 2022-09-19 2022-09-19 Outpatient R CHILO [facility] [id number] Univers 14:30:00 15:03:34 MYRA ity [facility] 2022-08-29 2022-08-29 Outpatient R CHILO [facility] [id number] Univers 15:15:00 16:16:09 MYRA ity [facility] 2022-08-29 2022-08-29 Routine CARLTON Woo 1.2.846.875 [id number] Univers 15:15:00 16:16:09 Myra Esquivel [facility] 350.1.13.10 ity of Visit CLINICS [place] [id number] [address] 2022-08-21 2022-08-21 Outpatient R MICHELLE HELLER [facility] [id number] Univers 09:45:00 10:25:52 MICHELLE HELLER emma [facility] 2022-08-21 2022-08-21 Routine Jason [facility] 1.2.840.114 [id number] Univers 09:45:00 10:25:52 Michelle Bradshaw [facility] 350.1.13.10 ity of Visit CLINICS [place] [id number] [address] 2022-08-15 2022-08-15 Telephone SNEHA Heller 1.2.840.114 [id number] Univers 00:00:00 00:00:00 Michelle Esquivel [facility] 350.1.13.10 ity of CL[place] [id number] [address] 2022-08-12 2022-08-12 Nurse Visit/Fp, [facility] Nurse UNIVERSI T 1.2.840.114 [id number] Univers 09:30:00 10:33:47 Visit Myra Woo [facility] 350.1.13.10 ity of CL[place] [id number] [address] 2022-08-12 2022-08-12 [facility] [id number] Univers 09:30:00 09:30:00 [facility] 2022-08-03 2022-08-08 Hospital Edda Nesbitt 1 .2.840.114 [id number] Univers 17:29:00 18:17:00 Encounter Roshan Saldana 350.1.13.10 ity of HOSPITAL 4.2.7.2.686 Eduard as [id number] [place] [address] Branch 2022-08-03 2022-08-08 Inpatient P ROSHAN SALDANA [facility] HODAN 1 [id number] Univers 17:29:00 18:17:00 ROSHAN SALDANA ity [facility] 2022-08-05 2022-08-05 Surgery Lopez GELACIO 1.2.840.114 [id number] Univers 15:15:00 17:47:00 Parkernimisha BAKER 350.1.13.10 ity [facility] 4.2.7.2.686 Eduard as [id number] [facility] 013 [place] 2022-08-05 2022-08-05 Anesthesia MilliganJose lathamupa GELACIO 1.2.840.11 [id number] Univers 06:44:00 10:00:00 Event Pinky Breecharly [facility]13.10 [facility] 4.2.7.2.686 Eduard as [id number] [address] 2022-07-29 2022-07-29 [facility] [id number] Univers 14:00:00 14:00:00 [facility] 2022-07-28 2022-07-28 Outpatient X [facility] HODAN [id number] Univers 13:13:00 18:48:00 [facility] 2022-07-28 2022-07-28 [facility] GELACIO Nesbitt 1.2.840.114 [id number] Univers 13:13:00 18:48:00 Encounter Edda BAKER 350.1.13.10 [facility] 4.2.7.2.686 [place] [id number] [facility] 140 Branch 2022-07-28 2022-07-28 Telephone Chilo [facility] 1.2.840.114 [id number] Univers 00:00:00 00:00:00 Myra HEALTH 350.1.13.10 i ty [facility] [place]2.7.2.[place] [id number] [facility] 113 Branch 2022-07-28 2022-07-28 Telephone CARLTON Woo 1.2.840.114 [id number] Univers 00:00:00 00:00:00 Myra Y HEALTH 350.1.13.10 i ty of [place] [id number] [address] 2022-07-19 2022-07-19 Urgent K[address] Shrestha [facility] 1.2.840.11 [id number] Univers 10:20:00 10:40:00 Care Unknown, Attending HEALTH 350.1.13.10 ity of [place] 4.2.7.2.686 Eduard as HILARIO?BLEA [id number] [address] MEDICAL OFFICE BUILDING 2022-07-19 2022-07-19 Outpatient R HENRIETTA [facility] [id number] Univers 10:20:00 10:20:00 KASSY carter [facility] 2022-07-18 2022-07-18 Outpatient R MICHELLE HELLER [facility] [id number] Univers 13:15:00 14:38:09 MICHELLE HELLER [facility] 2022-07-18 2022-07-18 Routine Jason [facility] 1.2.840.114 [id number] Univers 13:15:00 14:38:09 Michelle Esquivel [facility] 350.1.13.10 ity of Visit CLINICS [place] [id number] [address] 2022-07-16 2022-07-16 Telephone SNEHA HellerIT 1.2.840.114 [id number] Univers 00:00:00 00:00:00 Michelle Esquivel [facility] 350.1.13.10 ity of CLINICS 4[place] [id number] [address] 2022-07-07 2022-07-07 Squeezer Operator Ultrasound, Ang[facility] 1.2 .840.114 [id number] Univers 14:00:00 14:30:00 Visit Elier Phillips PHOTOGRAPHER AERIAL 350.1.13.10 ity of REGIONAL 4.2.7.2.686 Eduard as MATERNAL [id number] Med ical & CHILD [address] [place] [address] 2022-07-07 2022-07-07 Outpatient Haroldo PHILLIPS [facility] [id number] Univers 14:00:00 14:00:00 ELIER ity of [facility] 2022-07-05 2022-07-05 Outpatient X APRIL GUERRA [facility] HODAN [id number] Univers 11:08:00 13:10:00 ity of [facility] 2022-07-05 2022-07-05 Emergency April Guerra [facility] 1.2.840.114 [id number] Univers 11:08:00 13:10:00 Cam [facility] 350.1.13.10 i ty of [place] 4.2.7.2.[place] [id number] [facility] 083 Branch 2022-07-05 2022-07-05 Orders Doctor GELACIO 1.2.840.114 [id number] Univers 00:00:00 00:00:00 Only Unassigned, SAMUEL 350.1.13.10 ity of [place] [facility] 4.2.7.2.686 Eduard as [id number] [facility] 009 Branch 2022-07-03 2022-07-03 Outpatient R MICHELLE HELLER [facility] [id number] Univers 13:15:00 14:03:33 MICHELLE HELLER [facility] 2022-07-03 2022-07-03 Routine Provider, [facility]IVERS[facility] 1.2.840.114 [id number] Univers 13:15:00 14:03:33 Michelle Heller . [facility] 350.1.13.1 0 ity of Visit CLINICS 4[place].2.[place] [id number] [facility] 113 Branch 2022-06-19 2022-06-19 Outpatient R CHILO [facility] [id number] Univers 14:00:00 14:46:46 MYRA ity [facility] 2022-06-19 2022-06-19 Routine SNEHA WooIT 1.2.434.499 [id number] Univers 14:00:00 14:46:46 Myra Y HEALTH 350.1.13.10 ity of Visit CLINICS 4[place] [id number] [facility] 113 Branch 2022-06-18 2022-06-18 Squeezer Operator Lab, Ang - Db [facility] 1.2.840.1 14 [id number] Univers 08:30:00 09:02:54 Visit April Guerra [facility] 350.1.13.10 ity [facility] 4.2.7.2.686 Eduard as HILARIO?BLEA [id number] Pr dical KNEY [address] MEDICAL OFFICE BUILDING 2022-06-18 2022-06-18 Outpatient R APRIL UGERRA [facility] [id number] Univers 08:30:00 08:30:00 ity [facility] 2022-06-09 2022-06-09 Outpatient R [facility] B [id number] Univers 10:30:00 10:30:00 LYNDSAY LEE [facility] 2022-06-06 2022-06-06 Outpatient R [facility] [id number] Univers 11:00:00 11:00:00 [facility] 2022-06-03 2022-06-[address] [facility] 1.2.840.114 [id number] Univers 00:00:00 00:00:00 Secure Msg Tatum [place] [id number] [id number] [facility] [id number] Pr dicsandra [facility] 134 [facility] 2022-05-19 2022-05-19 Emergency X [facility] ERT [id number] Univers 17:48:00 23:08:00 HYACINTH [facility] 2022-05-19 2022-05-19 [facility] [id number] Univers 17:48:00 23:08:00 Hyacinth [place] [id number] i ty [facility] [id number] [id number] [facility] [address] [place] 2022-05-19 2022-05-19 Nurse Nurse, [facility] [id number] Univers 17:15:00 17:35:00 Visit Judit Jaquez [facility] [facility] 350.1.13.10 ity of [place] 4.2.7.2.686 Eduard as HILARIO?BLEA [phone] [address] MEDICAL OFFICE [facility] 2022-05-19 2022-05-19 Outpatient R LEONID [facility] [id number] Univers 17:15:00 17:15:00 [facility] 2022-05-19 2022-05-19 Outpatient R LEONID [facility] [id number] Univers 16:40:00 16:40:00 JUDITSSM [facility] 2022-05-09 2022-05-09 Outpatient R APRIL GUERRA [facility] [id number] Univers 09:15:00 10:03:30 ity [facility] 2022-05-09 2022-05-09 Routine Charlie [facility] 1.2.840.114 [id number] Univers 09:15:00 10:03:30 Cam G[place] 350.1.13.10 i ty of [place] [id number] [address] 2022-05-09 2022-05-09 Outpatient R CHARLIE APRIL [facility] [id number] Univers 09:15:[facility] 2022-05-08 Outpatient R OLAYINKA [facility] [id number] Univers 16:00:00 16:52:29 GELACIO [facility] 2022-05-08 2022-05-08 [facility] 1.2.840.114 [id number] Univers 16:00:00 16:52:29 Care [facility] 350.1.13.10 it y of [place] 4.2.7.2.686 Eduard as HILARIO?BLEA [phone] [address] MEDICAL OFFICE [facility] 2022-05-01 2022-05-01 Office [facility] 1.2.840.114 [id number] Univers 14:45:00 15:00:00 Visit Preet BENZ 350.1.13.10 ity [facility] [place] [phone] [facility] PRIMARY & [address] SPECIALTY CARE 2022-05-01 2022-05-01 Outpatient R PAMELA [facility] [id number] Univers 14:45:00 14:45:00 PREET milanboo [facility] 2022-04-11 2022-04-11 Outpatient R JEANNIETRISTONKIMMIELYDIA LYNDSAY [facility] B [id number] Univers 13:00:00 13:32:02 JESUS LYNDSAY carter [facility] 2022-04-11 2022-04-11 Routine [facility] 1.2.840.114 [id number] Univers 13:00:00 13:32:02 Lyndsay GARHT 350.1.13.10 i ty of Visit WOMEN'S 4.2.7.2.686 [facility] [id number] [place] [address] [address] 2022-04-11 2022-04-11 Telephone [facility] 1.2.840.11 [id number] Univers 00:00:00 00:00:00 Lyndsay LIANG 350.1.13.10 it y [place] [facility] [id number] [place] [address] [address] 2022-04-08 2022-04-08 Squeezer Operator Ultrasound, [facility] 1.2 .840.114 [id number] Univers 13:00:00 14:00:00 Visit aMry Crump 350.1 .13.10 ity [facility] 4.2.7.2.686 [facility] PROFESS [id number] Pr dical [place] [address] [address] [facility] 2022-04-08 2022-04-08 Outpatient P JAILENE [facility] [id number] Univers 13:00:00 13:00:00 KERVIN it y of MARY Mcgowan [facility] 2022-04-07 2022-04-07 Outpatient X APRIL GUERRA [facility] HODAN [id number] Univers 17:50:00 20:33:00 ity [facility] 2022-04-07 2022-04-07 Emergency April Guerra [facility] 1.2.840.114 [id number] Univers 17:50:00 20:33:00 Cam KIANNA 350.1.13.10 i ty of [place] 4.2.7.2.686 [facility] [id number] [facility] [address] 2022-04-07 2022-04-07 Orders Doctor GELACIO 1.2.840.114 [id number] Univers 00:00:00 00:00:00 Only Unassigned, SAMUEL 350.1.13.10 ity of [place] [facility] 4.2.7.2.686 Eduard [id number] [facility] [address] 2022-03-28 2022-03-28 Outpatient R APRIL GUERRA [facility] [id number] Univers 09:30:00 09:47:29 ity of [facility] 2022-03-28 2022-03-28 Routine April Guerra [facility] 1.2.840.114 [id number] Univers 09:30:00 09:47:29 Cam [place] 350.1.13.10 i ty of Visit [facility] 4.2.7.2.686 [facility] [id number] [facility] [address] 2022-03-28 2022-03-28 Telephone April Guerra [facility] 1.2.840.114 [id number] Univers 00:00:00 00:00:00 Mikey HUTCHISON 350.1.13.10 i ty of [place] 4.2.7.2.686 [facility] PROFESSIO [phone] Pr dical NAL [address] [place] [address] 2022-03-28 2022-03-[address] [facility] 1.2.840.114 [id number] Univers 00:00:00 00:00:00 Secure Msg Tatum KIANNA 350.1.13.10 ity of [place].2.[place] [id number] Pr dical NAL [address] [place] [address] 2022-03-14 2022-03-14 Squeezer Operator Lab, [place] - Juma [facility] 1.2.840.1 14 [id number] Univers 13:45:00 14:00:00 Visit Lyndsay Lee [facility] 350.1.13.1 0 ity of April Guerra 4.2.7.2.686 [place] HILARIO?BLEA [id number] Me zenaida KELLEY [address] MEDICAL OFFICE [facility] 2022-03-14 2022-03-14 Outpatient R APRIL GUERRA [facility] [id number] Univers 12:15:00 13:15:17 ity of [facility] 2022-03-14 2022-03-14 Routine April Guerra [facility] 1.2.840.114 [id number] Univers 12:15:00 13:15:17 Cam [place] 350.1.13.10 i ty of [place] [id number] [address] 2022-03-14 2022-03-14 Outpatient R APRIL GUERRA [facility] [id number] Univers 11:00:00 11:00:00 ity of [facility] 2022-03-14 2022-03-14 [facility] [id number] Univers 11:00:00 11:00:00 ity of [facility] 2022-03-14 2022-03-14 [facility] 1.2.840.11 4 [id number] Univers 00:00:00 00:00:00 Lyndsay LIANG 350.1.13.10 it y [place] [id number] [address] 2022-03-03 2022-03-03 Laboratory Only, Ang Db Test [facility] 1.2.8 40.114 [id number] Univers 12:30:00 12:45:00 Only Lyndsay Lee HEALTH 350.1.13.1 0 ity of [place] 4.2.7.2.686 Eduard as HILARIO?BLEA [id number] Pr zenaida KELLEY [address] MEDICAL OFFICE [facility] 2022-03-03 2022-03-03 Outpatient R LYNDSAY LEE [facility] B [id number] Univers 11:30:00 12:03:49 TRILYNDSAY LANG ity of [facility] 2022-03-03 2022-03-03 Routine [facility] 1.2.840.114 [id number] Univers 11:30:00 12:03:49 Lyndsay LIANG 350.1.13.10 i ty of [place] [id number] [facility] [address] 2022-03-03 2022-03-03 Outpatient R JEANNIELYNDSAY LANG [facility] B [id number] Univers 11:30:00 12:03:49 [facility] ity of [facility] 2022-03-03 2022-03-[address] [facility] 1.2.840.114 [id number] Univers 00:00:00 00:00:00 Secure Msg Tatum KIANNA 350.1.13.10 ity of [place].2.[place].2.[place] [id number] Pr zenaida [facility] 2022-02-25 2022-02-25 Squeezer Operator Lab, Ang - Db [facility] 1.2.840.1 14 [id number] Univers 10:45:00 11:00:00 Visit GuerraApril [facility] 350.1.13.10 ity of [place] 4.2.7.2.686 Eduard as HILARIO?BLEA [id number] Pr dical [facility] [address] MEDICAL OFFICE BUILDING 2022-02-25 2022-02-25 Outpatient R APRIL GUERRA [facility] [id number] Univers 10:45:00 10:45:00 ity of [facility] 2022-02-25 2022-02-25 Outpatient R [facility] [id number] Univers 10:30:00 10:30:00 ity of [facility] 2022-02-25 2022-02-25 Orders Doctor BRIZUELA 1.2.840.114 [id number] Univers 00:00:00 00:00:00 Only Unassigned, SAMUEL 350.1.13.10 ity of [place] [facility] 4.2.7.2.686 Eduard as [id number] [facility] [address] 2022-02-24 2022-02-24 Squeezer Operator Lab, Ang - Db [facility] 1.2.840.1 14 [id number] Univers 09:30:00 09:45:00 Visit Vinnie Ceron [facility] 350.1.13.10 ity [facility] 4.2.7.2.686 [place] as HILARIO?BLEA [id number] Pr zenaida MORRISON [address] MEDICAL OFFICE [facility] 2022-02-24 2022-02-24 Outpatient R CERON [facility] [id number] Univers 09:30:00 09:30:00 VINNIE carter [facility] 2022-02-24 2022-02-24 Telephone April Guerra [facility] 1.2.840.114 [id number] Univers 00:00:00 00:00:00 Mikey LIANG 350.1.13.10 it y [place] [id number] [address] 2022-02-22 2022-02-22 Outpatient R LALA [facility] [id number] Univers 20:20:00 20:56:22 ELIZABETH carter o f [facility] 2022-02-22 2022-02-22 Urgent Elizabeth Reeves [facility] 1.2.840 .114 [id number] Univers 20:20:00 20:56:22 Care Meg Baird [facility] 350.1.13.10 ity of [place] 4.2.7.2.686 Eduard as HILARIO?BLEA [id number] Pr lupillosandra [facility] [address] MEDICAL OFFICE [facility] 2022-02-07 2022-02-07 Routine Jesus [facility] 1.2.840.114 [id number] Univers 13:30:00 13:59:23 Lyndsay LIANG 350.1.13.10 i ty of [place].2.[place] [id number] [address] 2022-02-07 2022-02-07 Outpatient R LYNDSAY LEE [facility] B [id number] Univers 13:30:00 13:59:23 LYNDSAY LEE itboo [facility] 2022-02-07 2022-02-07 Outpatient R LYNDSAY LEE [facility] B [id number] Univers 13:30:00 13:30:00 LYNDSAY LEE boo [facility] 2022-01-19 2022-01-19 Emergency X SEBASTIAN [facility] ERT [id number] Univers 20:34:00 23:51:00 MADELIN ity [facility] 2022-01-19 2022-01-19 Emergency Marquise Stone S [facility] 1.2.840.1 14 [id number] Univers 20:34:00 23:51:00 Madelin Cortes KIANNA 350.1.13.10 ity of [place] 4.2.7.2.686 [facility] [id number] [address] 2022-01-14 2022-01-14 Emergency [facility] 1.2.232.404 [id number] Univers 11:59:00 14:57:00 Meghna HUTCHISON 350.1.13.10 i ty of [place] 4.2.7.2.686 [facility] [id number] [address] 2022-01-14 2022-01-14 Emergency X [facility] ERT [id number] Univers 11:59:00 14:57:00 MEGHNA [facility] 2022-01-14 2022-01-14 Squeezer Operator Lab, Ang - Juma [facility] 1.2.840.1 14 [id number] Univers 09:00:00 10:21:55 Visit April Guerra [facility] 350.1.13.10 [facility] 4.2.7.2.686 [place] as HILARIO?BLEA [id number] [facility] [address] MEDICAL OFFICE BUILDING 2022-01-14 2022-01-14 Outpatient R [facility] [id number] Univers 09:00:00 [facility] 2022-01-14 Outpatient R APRIL GUERRA [facility] [id number] Univers 09:00:00 09:00[facility] 2022-[facility]-14 2022-01-14 Telephone April Guerra [facility] 1.2.840.114 [id number] Univers 00:00:00 00:00:00 Mikey LIANG 350.1.13.10 it y [place] [id number] [address] 2022-01-12 2022-01-12 RICARDO Rodriguez 1.2.947.496 [id number] Univers 00:00:00 00:00:00 Management Candido PEDIATRIC 350.1.13.10 [place].2.[place] [id number] [address] 2022-01-10 2022-01-10 Outpatient Gilbert GUERRA [facility] [id number] Univers 11:00:00 12:14:47 ity [facility] 2022-01-10 2022-01-10 Outpatient Gilbert GUERRA [facility] [id number] Univers 11:00:00 12:14:47 ity [facility] 2022-01-10 2022-01-10 Initial Charlie [facility] 1.2.840.114 [id number] Univers 11:00:00 12:14:47 Mikey LIANG 350.1.13.10 i ty of Visit [place] 4[place].2.[place] [id number] [address] 2022-01-10 2022-01-10 Orders Doctor GELACIO 1.2.840.114 [id number] Univers 00:00:00 00:00:00 Only Unassigned, SAMUEL 350.1.13.10 ity of [place] [facility] 4.2.7.2.686 Eduard as [id number] [address] 2022-01-02 2022-01-02 Orders Doctor GELACIO 1.2.840.114 [id number] Univers 00:00:00 00:00:00 Only Unassigned, SAMUEL 350.1.13.10 ity of [place] [facility] 4.2.7.2.686 Eduard as [id number] [address] Results Test Description Test Time Test Comments Results Result Comments Source POCT MOLECULAR STREP 2022-11-23 18:12:21 Test Item Value Reference Range Interpretation Comme nts POCT Molecular Strep (test code = 82848-2) Negative Negative Lab Interpretation (test code = 22652-8) Normal [facility] Eyuqnsvhvldca0273-02-21 01:28:17 Test Item Value Reference Range Interpretation Comments LDH (test code = 2764323397) 252 U/L 120-246 H Lab Interpretation (test code = Abnormal 51058-8) [facility] Uavnoepwvzsny0266-58-48 01:28:17 Test Item Value Reference Range Interpretation Comments LDH (test code = 5454312505) 252 U/L 120-246 H Lab Interpretation (test code = Abnormal 01970-0) [facility] Ipagh8336-31-39 01:27:37 Test Item Value Reference Range Interpretation Comments URIC ACID (test code = 7511832532) 3.7 mg/dL 2.9-6.0 Lab Interpretation (test code = Normal 61906-6) [facility] (Asparate Amino Transfer)2022-08-08 01:27:37 Test Item Value Reference Range Interpretation Comments AST(SGOT) (test code = 0898125298) 34 U/L 13-40 Lab Interpretation (test code = Normal 79561-6) [facility] Dxhte4616-10-50 01:27:37 Test Item Value Reference Range Interpretation Comments URIC ACID (test code = 1061006885) 3.7 mg/dL 2.9-6.0 Lab Interpretation (test code = Normal 08163-0) [facility] (Asparate Amino Transfer)2022-08-08 01:27:37 Test Item Value Reference Range Interpretation Comments AST(SGOT) (test code = 9926993039) 34 U/L 13-40 Lab Interpretation (test code = Normal 96589-6) [facility] Grqkrhyyfs0138-09-27 01:27:36 Test Item Value Reference Range Interpretation Comments CREATININE (test code 0.56 mg/dL 0.50-1.04 = 3803976890) eGFR (test code = mL/min/1.73m2 3917008727) REBECCA (test code = REBECCA) Association of Glomerular Filtration Rate (GFR) and Staging of Kidney Disease* + + +- +| GFR (mL/min/1.73 m2) ?| With Kidney Damage ?| ?Without Kidney Damage+ ------+ ----+ ------+| ?>90 ?| ?Stage one ?| ? Normal ?+ -+ + -+| ?60-89 ?| ?Stage two ?| ? Decreased GFR ? + + +- +| ?30-59 ?| ?Stage three ?| ? Stage three ? + + +- +| ?15-29 ?| ?Stage four ? | ? Stage four ?+ -+ + -+| ?<15 (or dialysis) ? ?| ?Stage five ? | ? Stage five ?+ -+ + -+ *Each stage assumes the associated GFR level has been in effect for at least three months. ?Stages 1 to 5, with or without kidney disease, indicate chronic kidney disease. Notes: Determination of stages one and two (with eGFR >59mL/min/1.73 m2) requires estimation of kidney damage for at least three months as defined by structural or functional abnormalities of the kidney, manifested by either:Pathological abnormalities or Markers of kidney damage (including abnormalities in the composition of the blood or urine or abnormalities in imaging tests). [facility] Dallas[facility] Amino Transferase (SGPT)2022-08-08 01:27:36 Test Item Value Reference Range Interpretation Comments ALTv (test code = 1742-6) 20 U/L 5-35 Lab Interpretation (test code = Normal 79799-1) [facility] Vhjkaildfq9432-56-44 01:27:36 Test Item Value Reference Range Interpretation Comments CREATININE (test code 0.56 mg/dL 0.50-1.04 = 9799031071) eGFR (test code = mL/min/1.73m2 8348709753) REBECCA (test code = REBECCA) Association of Glomerular Filtration Rate (GFR) and Staging of Kidney Disease* + + +- +| GFR (mL/min/1.73 m2) ?| With Kidney Damage ?| ?Without Kidney Damage+ ------+ ----+ ------+| ?>90 ?| ?Stage one ?| ? Normal ?+ -+ + -+| ?60-89 ?| ?Stage two ?| ? Decreased GFR ? + + +- +| ?30-59 ?| ?Stage three ?| ? Stage three ? + + +- +| ?15-29 ?| ?Stage four ? | ? Stage four ?+ -+ + -+| ?<15 (or dialysis) ? ?| ?Stage five ? | ? Stage five ?+ -+ + -+ *Each stage assumes the associated GFR level has been in effect for at least three months. ?Stages 1 to 5, with or without kidney disease, indicate chronic kidney disease. Notes: Determination of stages one and two (with eGFR >59mL/min/1.73 m2) requires estimation of kidney damage for at least three months as defined by structural or functional abnormalities of the kidney, manifested by either:Pathological abnormalities or Markers of kidney damage (including abnormalities in the composition of the blood or urine or abnormalities in imaging tests). [facility] Amino Transferase (SGPT)2022-08-08 01:27:36 Test Item Value Reference Range Interpretation Comments ALTv (test code = 1742-6) 20 U/L 5-35 Lab Interpretation (test code = Normal 32953-8) [facility] with Ixqqruuiannc2905-69-62 01:16:35 Test Item Value Reference Range Interpretation Comments WBC (test code = See_Comment [Automated 7890-2) message] The sy stem which generated this result transmitted reference range : 4.30 - 11.10 10*3/?L. The reference range was not used to interpret this result as normal/abnormal . RBC (test code = See_Comment L [Automated 863-8) message] The sy stem which generated this result transmitted reference range : 3.93 - 5.25 10*6/?L. The reference range was not used to interpret this result as normal/abnormal . HGB (test code = 10.8 g/dL 11.6-15.0 L 718-7) HCT (test code = 31.2 % 35.7-45.2 L 4544-3) MCV (test code = 87.9 fL 80.6-95.5 787-2) MCH (test code = 30.4 pg 25.9-32.8 785-6) MCHC (test code = 34.6 g/dL 31.6-35.1 786-4) RDW-SD (test code = 41.1 fL 39.0-49.9 40062-4) RDW-CV (test code = 13.0 % 12.0-15.5 788-0) PLT (test code = See_Comment [Automated 777-3) message] The sy stem which generated this result transmitted reference range : 166 - 358 10*3/ ?L. The reference r janet was not used to interpret this result as normal/abnormal . MPV (test code = 9.2 fL 9.5-12.9 L 38332-8) NRBC/100 WBC (test See_Comment [Automat ed code = 6561764665) message] The system which generated this result transmitted reference range : 0.0 - 10.0 /100 WBCs. The refer ence range was not u sed to interpret th is result as normal/abnormal . NRBC x10^3 (test code See_Comment [Auto mated = 3935360699) message] The s ystem which generated this result transmitted reference range : 10*3/?L. The reference range was not used to interpret this result as normal/abnormal . GRAN MAT (NEUT) % 62.6 % (test code = 770-8) IMM GRAN % (test code 0.40 % = 3195552987) LYMPH % (test code = 31.2 % 736-9) MONO % (test code = 4.5 % 5905-5) EOS % (test code = 0.9 % 713-8) BASO % (test code = 0.4 % 706-2) GRAN MAT x10^3(ANC) 4.85 10*3/uL 1.88-7.09 (test code = 5355001794) IMM GRAN x10^3 (test 0.03 10*3/uL 0.00-0.06 code = 5720076864) LYMPH x10^3 (test code 2.42 10*3/uL 1.32-3.29 = 731-0) MONO x10^3 (test code 0.35 10*3/uL 0.33-0.92 = 742-7) EOS x10^3 (test code = 0.07 10*3/uL 0.03-0.39 711-2) BASO x10^3 (test code 0.03 10*3/uL 0.01-0.07 = 704-7) Lab Interpretation Abnormal (test code = 16691-7) [facility] with Ebuywiytzvki3248-24-83 01:16:35 Test Item Value Reference Range Interpretation Comments WBC (test code = See_Comment [Automated 6690-2) message] The sy stem which generated this result transmitted reference range : 4.30 - 11.10 10*3/?L. The reference range was not used to interpret this result as normal/abnormal . RBC (test code = See_Comment L [Automated 789-8) message] The sy stem which generated this result transmitted reference range : 3.93 - 5.25 10*6/?L. The reference range was not used to interpret this result as normal/abnormal . HGB (test code = 10.8 g/dL 11.6-15.0 L 718-7) HCT (test code = 31.2 % 35.7-45.2 L 4544-3) MCV (test code = 87.9 fL 80.6-95.5 787-2) MCH (test code = 30.4 pg 25.9-32.8 785-6) MCHC (test code = 34.6 g/dL 31.6-35.1 786-4) RDW-SD (test code = 41.1 fL 39.0-49.9 65297-4) RDW-CV (test code = 13.0 % 12.0-15.5 788-0) PLT (test code = See_Comment [Automated 777-3) message] The sy stem which generated this result transmitted reference range : 166 - 358 10*3/ ?L. The reference r janet was not used to interpret this result as normal/abnormal . MPV (test code = 9.2 fL 9.5-12.9 L 92422-8) NRBC/100 WBC (test See_Comment [Automat ed code = 7639407870) message] The system which generated this result transmitted reference range : 0.0 - 10.0 /100 WBCs. The refer ence range was not u sed to interpret th is result as normal/abnormal . NRBC x10^3 (test code See_Comment [Auto mated = 8695302650) message] The s ystem which generated this result transmitted reference range : 10*3/?L. The reference range was not used to interpret this result as normal/abnormal . GRAN MAT (NEUT) % 62.6 % (test code = 770-8) IMM GRAN % (test code 0.40 % = 1024909240) LYMPH % (test code = 31.2 % 736-9) MONO % (test code = 4.5 % 5905-5) EOS % (test code = 0.9 % 713-8) BASO % (test code = 0.4 % 706-2) GRAN MAT x10^3(ANC) 4.85 10*3/uL 1.88-7.09 (test code = 1511489675) IMM GRAN x10^3 (test 0.03 10*3/uL 0.00-0.06 code = 5274652345) LYMPH x10^3 (test code 2.42 10*3/uL 1.32-3.29 = 731-0) MONO x10^3 (test code 0.35 10*3/uL 0.33-0.92 = 742-7) EOS x10^3 (test code = 0.07 10*3/uL 0.03-0.39 711-2) BASO x10^3 (test code 0.03 10*3/uL 0.01-0.07 = 704-7) Lab Interpretation Abnormal (test code = 61172-8) [facility] (D) IMMUNE [id number] 18:04:09 Test Item Value Reference Range Interpretation Comments RHIG CANDIDATE? No- see comment Patient i s not a (test code = candidate for R hIg- 5055) Patient is Rh Positive.Perfor med at [facility] Laboratory Services - [facility] Blood [address] [place] [id number] Free: [phone] A No. [id number] [facility] (D) IMMUNE [id number] 18:04:09 Test Item Value Reference Range Interpretation Comments RHIG CANDIDATE? No- see comment Patient i s not a (test code = candidate for R hIg- 5055) Patient is Rh Positive.Perfor med at [facility] Laboratory Services - [facility] Blood [address] [place], [place] [address]boo [place], [place] [id number] Free: [phone] A No. [id number] [facility] 18:01:13 Test Item Value Reference Range Interpretation Comments HGB (test code = 718-7) 10.9 g/dL 11.6-15.0 L Lab Interpretation (test code = Abnormal 26063-3) [facility] 18:01:13 Test Item Value Reference Range Interpretation Comments HGB (test code = 718-7) 10.9 g/dL 11.6-15.0 L Lab Interpretation (test code = Abnormal 24865-6) [facility] Cord [id number] 15:39:58 Test Item Value Reference Range Interpretation Comments VENOUS BASE EXCESS, CORD mEq/L (test code = 2997825294) VENOUS PH, CORD (test 7.25-7.45 code = 1162958913) VENOUS PC02, CORD (test See_Comment [Au tomated message] code = 7504741048) The syste m which generated this result transmitted ref erence range: 27 - 49 mmHg. The reference r janet was not used to interpret this result as normal/abnor mal. VENOUS PO2, CORD (test See_Comment L [Aut omated message] code = [id number]) The syste m which generated this result transmitted ref erence range: 17 - 41 mmHg. The reference r janet was not used to interpret this result as normal/abnor mal. VENOUS BICARBONATE, CORD See_Comment [A utomated message] (test code = 1666060949) The system which generated this result transmitted ref erence range: 12 - 29 mEq/L. The reference r janet was not used to interpret this result as normal/abnor mal. Lab Interpretation (test Abnormal code = 28581-0) [facility] Cord [id number] 15:39:58 Test Item Value Reference Range Interpretation Comments VENOUS BASE EXCESS, CORD mEq/L (test code = 3239457916) VENOUS PH, CORD (test 7.25-7.45 code = 6894874740) VENOUS PC02, CORD (test See_Comment [Au tomated message] code = 1538709203) The syste m which generated this result transmitted ref erence range: 27 - 49 mmHg. The reference r janet was not used to interpret this result as normal/abnor mal. VENOUS PO2, CORD (test See_Comment L [Aut omated message] code = 9832900163) The syste m which generated this result transmitted ref erence range: 17 - 41 mmHg. The reference r janet was not used to interpret this result as normal/abnor mal. VENOUS BICARBONATE, CORD See_Comment [A utomated message] (test code = 2764016684) The system which generated this result transmitted ref erence range: 12 - 29 mEq/L. The reference r janet was not used to interpret this result as normal/abnor mal. Lab Interpretation (test Abnormal code = 06933-1) [facility] Test Item Value Reference Range Interpretation Comments MAGNESIUM (test code = 7.2 mg/dL 1.7-2.4 H Sligh t hemolysis 7717699282) Lab Interpretation (test Abnormal code = 46859-0) [facility]2022-11-29 15:39:43 Test Item Value Reference Range Interpretation Comments MAGNESIUM (test code = 7.2 mg/dL 1.7-2.4 H Sligh t hemolysis 4033443120) Lab Interpretation (test Abnormal code = 31800-5) [facility] ONLY - SYPHILIS [id number] 15:38:51 Test Item Value Reference Range Interpretation Comments Syphilis IgG/IgM (test Non-reactive Non-reactive code = 39607-6) REBECCA (test code = REBECCA) Non-reactive - No serologic evidence of T. pallidum infection. Cannot exclude incubating or early syphilis. Submit a second specimen in 2-4 weeks if syphilis is clinically suspected. Equivocal - Further testing to follow. Reactive - Further testing to follow. Lab Interpretation (test Normal code = 69847-3) [facility] ONLY - SYPHILIS [id number] 15:38:51 Test Item Value Reference Range Interpretation Comments Syphilis IgG/IgM (test Non-reactive Non-reactive code = 00263-3) REBECCA (test code = REBECCA) Non-reactive - No serologic evidence of T. pallidum infection. Cannot exclude incubating or early syphilis. Submit a second specimen in 2-4 weeks if syphilis is clinically suspected. Equivocal - Further testing to follow. Reactive - Further testing to follow. Lab Interpretation (test Normal code = 47178-8) [facility] Cord [id number] 15:37:29 Test Item Value Reference Range Interpretation Comments BASE EXCESS, CORD mEq/L (test code = 9666626451) AC PH, CORD (BEAKER) 7.18-7.38 (test code = 8998824845) PC02, CORD (test code See_Comment [Auto mated message] The = 4998975522) system which g enerated this result transmit bahi reference range : 32 - 66 mmHg. The refer ence range was not used to interpret this result as normal/abnormal . PO2, CORD (test code See_Comment [Autom ated message] The = 3141434008) system which g enerated this result transmit abhi reference range : 10 - 30 mmHg. The refer ence range was not used to interpret this result as normal/abnormal . BICARBONATE, CORD See_Comment [Automate d message] The (test code = system which ge nerated this 8937939318) result transmit abhi reference range : 17 - 27 mEq/L. The refe rence range was not used to interpret this result as normal/abnormal . [facility] Cord [id number] 15:37:29 Test Item Value Reference Range Interpretation Comments BASE EXCESS, CORD mEq/L (test code = 3748978138) AC PH, CORD (BEAKER) 7.18-7.38 (test code = 1243189129) PC02, CORD (test code See_Comment [Auto mated message] The = 1861968403) system which g enerated this result transmit abhi reference range : 32 - 66 mmHg. The refer ence range was not used to interpret this result as normal/abnormal . PO2, CORD (test code See_Comment [Autom ated message] The = 2056680062) system which g enerated this result transmit abhi reference range : 10 - 30 mmHg. The refer ence range was not used to interpret this result as normal/abnormal . BICARBONATE, CORD See_Comment [Automate d message] The (test code = system which ge nerated this 9080949338) result transmit abhi reference range : 17 - 27 mEq/L. The refe rence range was not used to interpret this result as normal/abnormal . [facility] Test Item Value Reference Range Interpretation Comments CREATININE (test code 0.60 mg/dL 0.50-1.04 = 0207578756) eGFR (test code = mL/min/1.73m2 6820363564) REBECCA (test code = REBECCA) Association of Glomerular Filtration Rate (GFR) and Staging of Kidney Disease* + + +- +| GFR (mL/min/1.73 m2) ?| With Kidney Damage ?| ?Without Kidney Damage+ ------+ ----+ ------+| ?>90 ?| ?Stage one ?| ? Normal ?+ -+ + -+| ?60-89 ?| ?Stage two ?| ? Decreased GFR ? + + +- +| ?30-59 ?| ?Stage three ?| ? Stage three ? + + +- +| ?15-29 ?| ?Stage four ? | ? Stage four ?+ -+ + -+| ?<15 (or dialysis) ? ?| ?Stage five ? | ? Stage five ?+ -+ + -+ *Each stage assumes the associated GFR level has been in effect for at least three months. ?Stages 1 to 5, with or without kidney disease, indicate chronic kidney disease. Notes: Determination of stages one and two (with eGFR >59mL/min/1.73 m2) requires estimation of kidney damage for at least three months as defined by structural or functional abnormalities of the kidney, manifested by either:Pathological abnormalities or Markers of kidney damage (including abnormalities in the composition of the blood or urine or abnormalities in imaging tests). [facility] 15:21[facility]07 Test Item Value Reference Range Interpretation Comments CREATININE (test code 0.60 mg/dL 0.50-1.04 = 2403937168) eGFR (test code = mL/min/1.73m2 7478226581) REBECCA (test code = REBECCA) Association of Glomerular Filtration Rate (GFR) and Staging of Kidney Disease* + + +- +| GFR (mL/min/1.73 m2) ?| With Kidney Damage ?| ?Without Kidney Damage+ ------+ ----+ ------+| ?>90 ?| ?Stage one ?| ? Normal ?+ -+ + -+| ?60-89 ?| ?Stage two ?| ? Decreased GFR ? + + +- +| ?30-59 ?| ?Stage three ?| ? Stage three ? + + +- +| ?15-29 ?| ?Stage four ? | ? Stage four ?+ -+ + -+| ?<15 (or dialysis) ? ?| ?Stage five ? | ? Stage five ?+ -+ + -+ *Each stage assumes the associated GFR level has been in effect for at least three months. ?Stages 1 to 5, with or without kidney disease, indicate chronic kidney disease. Notes: Determination of stages one and two (with eGFR >59mL/min/1.73 m2) requires estimation of kidney damage for at least three months as defined by structural or functional abnormalities of the kidney, manifested by either:Pathological abnormalities or Markers of kidney damage (including abnormalities in the composition of the blood or urine or abnormalities in imaging tests). [facility] 1/2 AG-AB WITH [id number] 05:44:06 Test Item Value Reference Range Interpretation Comments HIV Negative Negative Semi-quantitative (test code = 78120-5) REBECCA (test code = Non-reactive for HIV-1 REBECCA) antigen and HIV-1/HIV-2 antibodies. ?No laboratory evidence of HIV infection. ?Repeat in 2-4 weeks if acute HIV infection is suspected. [facility] 1/2 AG-AB WITH [id number] 05:44:06 Test Item Value Reference Range Interpretation Comments HIV Negative Negative Semi-quantitative (test code = 22113-8) REBECCA (test code = Non-reactive for HIV-1 REBECCA) antigen and HIV-1/HIV-2 antibodies. ?No laboratory evidence of HIV infection. ?Repeat in 2-4 weeks if acute HIV infection is suspected. [facility] B SURFACE [id number] 04:32:36 Test Item Value Reference Range Interpretation Comments HBsAg Semi-Quantitative (test code = Negative Negative 5195-3) [facility] B SURFACE [id number] 04:32:36 Test Item Value Reference Range Interpretation Comments HBsAg Semi-Quantitative (test code = Negative Negative 5195-3) [facility]2022-08-05 04:00:53 Test Item Value Reference Range Interpretation Comments LDH (test code = 8475312537) 181 U/L 120-246 Lab Interpretation (test code = Normal 96662-8) [facility]2022-08-05 04:00:53 Test Item Value Reference Range Interpretation Comments LDH (test code = 1249762618) 181 U/L 120-246 Lab Interpretation (test code = Normal 57743-8) [facility] Dallas[facility] [id number] 03:57:36 Test Item Value Reference Range Interpretation Comments URIC ACID (test code = 6683365437) 3.2 mg/dL 2.9-6.0 Lab Interpretation (test code = Normal 75098-1) [facility] Dallas[facility] Fzskm8379-22-67 03:57:36 Test Item Value Reference Range Interpretation Comments CREATININE (test code 0.58 mg/dL 0.50-1.04 = 2816881290) eGFR (test code = mL/min/1.73m2 5721659128) REBECCA (test code = REBECCA) Association of Glomerular Filtration Rate (GFR) and Staging of Kidney Disease* + + +- +| GFR (mL/min/1.73 m2) ?| With Kidney Damage ?| ?Without Kidney Damage+ ------+ ----+ ------+| ?>90 ?| ?Stage one ?| ? Normal ?+ -+ + -+| ?60-89 ?| ?Stage two ?| ? Decreased GFR ? + + +- +| ?30-59 ?| ?Stage three ?| ? Stage three ? + + +- +| ?15-29 ?| ?Stage four ? | ? Stage four ?+ -+ + -+| ?<15 (or dialysis) ? ?| ?Stage five ? | ? Stage five ?+ -+ + -+ *Each stage assumes the associated GFR level has been in effect for at least three months. ?Stages 1 to 5, with or without kidney disease, indicate chronic kidney disease. Notes: Determination of stages one and two (with eGFR >59mL/min/1.73 m2) requires estimation of kidney damage for at least three months as defined by structural or functional abnormalities of the kidney, manifested by either:Pathological abnormalities or Markers of kidney damage (including abnormalities in the composition of the blood or urine or abnormalities in imaging tests). [facility] (Asparate Amino Transfer)2022-08-05 03:57:36 Test Item Value Reference Range Interpretation Comments AST(SGOT) (test code = 1148061507) 24 U/L 13-40 Lab Interpretation (test code = Normal 49044-1) [facility] Dallas[facility] Acid Usnlh1468-98-93 03:57:36 Test Item Value Reference Range Interpretation Comments URIC ACID (test code = 1469725250) 3.2 mg/dL 2.9-6.0 Lab Interpretation (test code = Normal 53597-0) [facility] Dallas[facility] Vqlws4661-81-08 03:57:36 Test Item Value Reference Range Interpretation Comments CREATININE (test code 0.58 mg/dL 0.50-1.04 = 6640792094) eGFR (test code = mL/min/1.73m2 5680302318) REBECCA (test code = REBECCA) Association of Glomerular Filtration Rate (GFR) and Staging of Kidney Disease* + + +- +| GFR (mL/min/1.73 m2) ?| With Kidney Damage ?| ?Without Kidney Damage+ ------+ ----+ ------+| ?>90 ?| ?Stage one ?| ? Normal ?+ -+ + -+| ?60-89 ?| ?Stage two ?| ? Decreased GFR ? + + +- +| ?30-59 ?| ?Stage three ?| ? Stage three ? + + +- +| ?15-29 ?| ?Stage four ? | ? Stage four ?+ -+ + -+| ?<15 (or dialysis) ? ?| ?Stage five ? | ? Stage five ?+ -+ + -+ *Each stage assumes the associated GFR level has been in effect for at least three months. ?Stages 1 to 5, with or without kidney disease, indicate chronic kidney disease. Notes: Determination of stages one and two (with eGFR >59mL/min/1.73 m2) requires estimation of kidney damage for at least three months as defined by structural or functional abnormalities of the kidney, manifested by either:Pathological abnormalities or Markers of kidney damage (including abnormalities in the composition of the blood or urine or abnormalities in imaging tests). [facility] (Asparate Amino Transfer)2022-08-05 03:57:36 Test Item Value Reference Range Interpretation Comments AST(SGOT) (test code = 9459742386) 24 U/L 13-40 Lab Interpretation (test code = Normal 51576-9) [facility] Dallas[facility]anine Amino Transferase (SGPT)2022-08-05 03:57:35 Test Item Value Reference Range Interpretation Comments ALTv (test code = 1742-6) 19 U/L 5-35 Lab Interpretation (test code = Normal 71783-2) [facility] Dallas[facility] Amino Transferase (SGPT)2022-08-05 03:57:35 Test Item Value Reference Range Interpretation Comments ALTv (test code = 1742-6) 19 U/L 5-35 Lab Interpretation (test code = Normal 73574-2) [facility] with [id number] 03:29:13 Test Item Value Reference Range Interpretation Comments WBC (test code = See_Comment [Automated 9157-2) message] The sy stem which generated this result transmitted reference range : 4.30 - 11.10 10*3/?L. The reference range was not used to interpret this result as normal/abnormal . RBC (test code = See_Comment [Automated 705-4) message] The sy stem which generated this result transmitted reference range : 3.93 - 5.25 10*6/?L. The reference range was not used to interpret this result as normal/abnormal . HGB (test code = 12.4 g/dL 11.6-15.0 718-7) HCT (test code = 35.8 % 35.7-45.2 4544-3) MCV (test code = 88.0 fL 80.6-95.5 787-2) MCH (test code = 30.5 pg 25.9-32.8 785-6) MCHC (test code = 34.6 g/dL 31.6-35.1 786-4) RDW-SD (test code = 41.1 fL 39.0-49.9 79765-0) RDW-CV (test code = 12.9 % 12.0-15.5 788-0) PLT (test code = See_Comment [Automated 777-3) message] The sy stem which generated this result transmitted reference range : 166 - 358 10*3/ ?L. The reference r janet was not used to interpret this result as normal/abnormal . MPV (test code = 9.6 fL 9.5-12.9 55633-3) NRBC/100 WBC (test See_Comment [Automat ed code = 7177008553) message] The system which generated this result transmitted reference range : 0.0 - 10.0 /100 WBCs. The refer ence range was not u sed to interpret th is result as normal/abnormal . NRBC x10^3 (test code See_Comment [Auto mated = 9410629077) message] The s ystem which generated this result transmitted reference range : 10*3/?L. The reference range was not used to interpret this result as normal/abnormal . GRAN MAT (NEUT) % 60.5 % (test code = 770-8) IMM GRAN % (test code 0.30 % = 5269408763) LYMPH % (test code = 33.6 % 736-9) MONO % (test code = 5.0 % 5905-5) EOS % (test code = 0.3 % 713-8) BASO % (test code = 0.3 % 706-2) GRAN MAT x10^3(ANC) 4.46 10*3/uL 1.88-7.09 (test code = 0315117364) IMM GRAN x10^3 (test 0.00-0.06 code = 6559851641) LYMPH x10^3 (test code 2.48 10*3/uL 1.32-3.29 = 731-0) MONO x10^3 (test code 0.37 10*3/uL 0.33-0.92 = 742-7) EOS x10^3 (test code = 0.03-0.39 L 711-2) BASO x10^3 (test code 0.01-0.07 = 704-7) Lab Interpretation Abnormal (test code = 29183-0) [facility] with Iyfwvxgjuiqm5622-69-30 03:29:13 Test Item Value Reference Range Interpretation Comments WBC (test code = See_Comment [Automated 6690-2) message] The sy stem which generated this result transmitted reference range : 4.30 - 11.10 10*3/?L. The reference range was not used to interpret this result as normal/abnormal . RBC (test code = See_Comment [Automated 789-8) message] The sy stem which generated this result transmitted reference range : 3.93 - 5.25 10*6/?L. The reference range was not used to interpret this result as normal/abnormal . HGB (test code = 12.4 g/dL 11.6-15.0 718-7) HCT (test code = 35.8 % 35.7-45.2 4544-3) MCV (test code = 88.0 fL 80.6-95.5 787-2) MCH (test code = 30.5 pg 25.9-32.8 785-6) MCHC (test code = 34.6 g/dL 31.6-35.1 786-4) RDW-SD (test code = 41.1 fL 39.0-49.9 97575-6) RDW-CV (test code = 12.9 % 12.0-15.5 788-0) PLT (test code = See_Comment [Automated 777-3) message] The sy stem which generated this result transmitted reference range : 166 - 358 10*3/ ?L. The reference r janet was not used to interpret this result as normal/abnormal . MPV (test code = 9.6 fL 9.5-12.9 50953-5) NRBC/100 WBC (test See_Comment [Automat ed code = 8716469499) message] The system which generated this result transmitted reference range : 0.0 - 10.0 /100 WBCs. The refer ence range was not u sed to interpret th is result as normal/abnormal . NRBC x10^3 (test code See_Comment [Auto mated = 5295778475) message] The s ystem which generated this result transmitted reference range : 10*3/?L. The reference range was not used to interpret this result as normal/abnormal . GRAN MAT (NEUT) % 60.5 % (test code = 770-8) IMM GRAN % (test code 0.30 % = 2691026696) LYMPH % (test code = 33.6 % 736-9) MONO % (test code = 5.0 % 5905-5) EOS % (test code = 0.3 % 713-8) BASO % (test code = 0.3 % 706-2) GRAN MAT x10^3(ANC) 4.46 10*3/uL 1.88-7.09 (test code = 0894185250) IMM GRAN x10^3 (test 0.00-0.06 code = 4786238396) LYMPH x10^3 (test code 2.48 10*3/uL 1.32-3.29 = 731-0) MONO x10^3 (test code 0.37 10*3/uL 0.33-0.92 = 742-7) EOS x10^3 (test code = 0.03-0.39 L 711-2) BASO x10^3 (test code 0.01-0.07 = 704-7) Lab Interpretation Abnormal (test code = 01009-9) [facility] Isxyn3650-72-46 00:56:23 Test Item Value Reference Range Interpretation Comments URIC ACID (test code = 0653722987) 2.8 mg/dL 2.9-6.0 L Lab Interpretation (test code = Abnormal 40714-1) [facility] Dallas[facility]um Coogyuhdem5137-19-12 00:56:23 Test Item Value Reference Range Interpretation Comments CREATININE (test code = 0.47 mg/dL 0.50-1.04 L 4285061427) eGFR (test code = mL/min/1.73m2 6219119539) REBECCA (test code = REBECCA) Association of Glomerular Filtration Rate (GFR) and Staging of Kidney Disease* + --+ --+ ------+| GFR (mL/min/1.73 m2) ?| With Kidney Damage ?| ?Without Kidney Damage+ --------+ --------+ +| ?>90 ?| ?Stage one ?| ? Normal ?+ ---+ ---+ -------+| ?60-89 ?| ?Stage two ?| ? Decreased GFR ? + --+ --+ ------+| ?30-59 ?| ?Stage three ?| ? Stage three ? + --+ --+ ------+| ?15-29 ?| ?Stage four ? | ? Stage four ?+ ---+ ---+ -------+| ?<15 (or dialysis) ? ?| ?Stage five ? | ? Stage five ?+ ---+ ---+ -------+ *Each stage assumes the associated GFR level has been in effect for at least three months. ?Stages 1 to 5, with or without kidney disease, indicate chronic kidney disease. Notes: Determination of stages one and two (with eGFR >59mL/min/1.73 m2) requires estimation of kidney damage for at least three months as defined by structural or functional abnormalities of the kidney, manifested by either:Pathological abnormalities or Markers of kidney damage (including abnormalities in the composition of the blood or urine or abnormalities in imaging tests). Lab Interpretation Abnormal (test code = 42166-8) [facility] (Asparate Amino Transfer)2022-08-04 00:56:23 Test Item Value Reference Range Interpretation Comments AST(SGOT) (test code = 6459060288) 25 U/L 13-40 Lab Interpretation (test code = Normal 33384-2) [facility] DallasAlanine Amino Transferase (SGPT)2022-08-04 00:56:23 Test Item Value Reference Range Interpretation Comments ALTv (test code = 1742-6) 19 U/L 5-35 Lab Interpretation (test code = Normal 87467-8) [facility] DallasLactate Qbozvjbubtzsi2885-18-78 00:56:23 Test Item Value Reference Range Interpretation Comments LDH (test code = 7790324235) 298 U/L 120-246 H Slight hemolysis Lab Interpretation (test Abnormal code = 87165-4) [facility] Guanl5380-03-67 00:56:23 Test Item Value Reference Range Interpretation Comments URIC ACID (test code = 9780846689) 2.8 mg/dL 2.9-6.0 L Lab Interpretation (test code = Abnormal 01288-0) [facility] Agkkngomte9828-96-94 00:56:23 Test Item Value Reference Range Interpretation Comments CREATININE (test code = 0.47 mg/dL 0.50-1.04 L 0016916297) eGFR (test code = mL/min/1.73m2 2233813438) REBECCA (test code = REBECCA) Association of Glomerular Filtration Rate (GFR) and Staging of Kidney Disease* + --+ --+ ------+| GFR (mL/min/1.73 m2) ?| With Kidney Damage ?| ?Without Kidney Damage+ --------+ --------+ +| ?>90 ?| ?Stage one ?| ? Normal ?+ ---+ ---+ -------+| ?60-89 ?| ?Stage two ?| ? Decreased GFR ? + --+ --+ ------+| ?30-59 ?| ?Stage three ?| ? Stage three ? + --+ --+ ------+| ?15-29 ?| ?Stage four ? | ? Stage four ?+ ---+ ---+ -------+| ?<15 (or dialysis) ? ?| ?Stage five ? | ? Stage five ?+ ---+ ---+ -------+ *Each stage assumes the associated GFR level has been in effect for at least three months. ?Stages 1 to 5, with or without kidney disease, indicate chronic kidney disease. Notes: Determination of stages one and two (with eGFR >59mL/min/1.73 m2) requires estimation of kidney damage for at least three months as defined by structural or functional abnormalities of the kidney, manifested by either:Pathological abnormalities or Markers of kidney damage (including abnormalities in the composition of the blood or urine or abnormalities in imaging tests). Lab Interpretation Abnormal (test code = 99590-5) [facility]Asparate Amino Transfer)2022-08-04 00:56:23 Test Item Value Reference Range Interpretation Comments AST(SGOT) (test code = 1866350703) 25 U/L 13-40 Lab Interpretation (test code = Normal 34751-2) [facility] DallasAl[facility] Amino Transferase (SGPT)2022-08-04 00:56:23 Test Item Value Reference Range Interpretation Comments ALTv (test code = 1742-6) 19 U/L 5-35 Lab Interpretation (test code = Normal 74851-5) [facility] DallasLactate Aolybmdkfcmrl3573-57-66 00:56:23 Test Item Value Reference Range Interpretation Comments LDH (test code = 4668111264) 298 U/L 120-246 H Slight hemolysis Lab Interpretation (test Abnormal code = 39944-4) [facility] DallasType and Screen - ONCE NLPU2990-53-98 00:46:44 Test Item Value Reference Range Interpretation Comments ABO & RH (test code B POSITIVE Performe d at [facility] = 20) [facility] [place] [address]39[address]Kbik Free: [phone] A No. [id number] IAT (test code = Negative Performed a t [facility] 1185) [facility] [address] [place] [address] s [address]Lycf Free: [phone] A No. [id number] [facility] DallasType [facility] Screen - ONCE AYVK9173-38-32 00:46:44 Test Item Value Reference Range Interpretation Comments ABO & RH (test code B POSITIVE Performe d at [facility] = 20) [facility] [address] [place] [address] s 47[address]Uglp Free: [phone] A No. [id number] IAT (test code = Negative Performed a t [facility] 1185) [facility] [address] [place] [address] s [address]Tzhy Free: [phone] A No. [id number] [facility] DallasCBC with Qvimnpyonetq3963-35-43 00:30:21 Test Item Value Reference Range Interpretation Comments WBC (test code = See_Comment [Automated 6690-2) message] The sy stem which generated this result transmitted reference range : 4.30 - 11.10 10*3/?L. The reference range was not used to interpret this result as normal/abnormal . RBC (test code = See_Comment [Automated 789-8) message] The sy stem which generated this result transmitted reference range : 3.93 - 5.25 10*6/?L. The reference range was not used to interpret this result as normal/abnormal . HGB (test code = 13.4 g/dL 11.6-15.0 718-7) HCT (test code = 39.6 % 35.7-45.2 4544-3) MCV (test code = 88.6 fL 80.6-95.5 787-2) MCH (test code = 30.0 pg 25.9-32.8 785-6) MCHC (test code = 33.8 g/dL 31.6-35.1 786-4) RDW-SD (test code = 41.1 fL 39.0-49.9 25354-5) RDW-CV (test code = 12.9 % 12.0-15.5 788-0) PLT (test code = See_Comment [Automated 777-3) message] The sy stem which generated this result transmitted reference range : 166 - 358 10*3/ ?L. The reference r janet was not used to interpret this result as normal/abnormal . MPV (test code = 9.6 fL 9.5-12.9 67490-9) NRBC/100 WBC (test See_Comment [Automat ed code = 5658603643) message] The system which generated this result transmitted reference range : 0.0 - 10.0 /100 WBCs. The refer ence range was not u sed to interpret th is result as normal/abnormal . NRBC x10^3 (test code See_Comment [Auto mated = [id number]) message] The s ystem which generated this result transmitted reference range : 10*3/?L. The reference range was not used to interpret this result as normal/abnormal . GRAN MAT (NEUT) % 67.8 % (test code = 770-8) IMM GRAN % (test code 0.50 % = 2973008089) LYMPH % (test code = 27.5 % 736-9) MONO % (test code = 3.9 % 5905-5) EOS % (test code = 0.1 % 713-8) BASO % (test code = 0.2 % 706-2) GRAN MAT x10^3(ANC) 5.62 10*3/uL 1.88-7.09 (test code = 9450866338) IMM GRAN x10^3 (test 0.04 10*3/uL 0.00-0.06 code = 2158063830) LYMPH x10^3 (test code 2.28 10*3/uL 1.32-3.29 = 731-0) MONO x10^3 (test code 0.32 10*3/uL 0.33-0.92 L = 742-7) EOS x10^3 (test code = 0.03-0.39 L 711-2) BASO x10^3 (test code 0.01-0.07 = 704-7) Lab Interpretation Abnormal (test code = 87218-0) [facility] with [id number] 00:30:21 Test Item Value Reference Range Interpretation Comments WBC (test code = See_Comment [Automated 8290-2) message] The sy stem which generated this result transmitted reference range : 4.30 - 11.10 10*3/?L. The reference range was not used to interpret this result as normal/abnormal . RBC (test code = See_Comment [Automated 979-8) message] The sy stem which generated this result transmitted reference range : 3.93 - 5.25 10*6/?L. The reference range was not used to interpret this result as normal/abnormal . HGB (test code = 13.4 g/dL 11.6-15.0 718-7) HCT (test code = 39.6 % 35.7-45.2 4544-3) MCV (test code = 88.6 fL 80.6-95.5 787-2) MCH (test code = 30.0 pg 25.9-32.8 785-6) MCHC (test code = 33.8 g/dL 31.6-35.1 786-4) RDW-SD (test code = 41.1 fL 39.0-49.9 34378-5) RDW-CV (test code = 12.9 % 12.0-15.5 788-0) PLT (test code = See_Comment [Automated 777-3) message] The sy stem which generated this result transmitted reference range : 166 - 358 10*3/ ?L. The reference r janet was not used to interpret this result as normal/abnormal . MPV (test code = 9.6 fL 9.5-12.9 24160-2) NRBC/100 WBC (test See_Comment [Automat ed code = 7727671666) message] The system which generated this result transmitted reference range : 0.0 - 10.0 /100 WBCs. The refer ence range was not u sed to interpret th is result as normal/abnormal . NRBC x10^3 (test code See_Comment [Auto mated = 8245390318) message] The s ystem which generated this result transmitted reference range : 10*3/?L. The reference range was not used to interpret this result as normal/abnormal . GRAN MAT (NEUT) % 67.8 % (test code = 770-8) IMM GRAN % (test code 0.50 % = 3088366794) LYMPH % (test code = 27.5 % 736-9) MONO % (test code = 3.9 % 5905-5) EOS % (test code = 0.1 % 713-8) BASO % (test code = 0.2 % 706-2) GRAN MAT x10^3(ANC) 5.62 10*3/uL 1.88-7.09 (test code = 1672621261) IMM GRAN x10^3 (test 0.04 10*3/uL 0.00-0.06 code = 7591284470) LYMPH x10^3 (test code 2.28 10*3/uL 1.32-3.29 = 731-0) MONO x10^3 (test code 0.32 10*3/uL 0.33-0.92 L = 742-7) EOS x10^3 (test code = 0.03-0.39 L 711-2) BASO x10^3 (test code 0.01-0.07 = 704-7) Lab Interpretation Abnormal (test code = 95705-6) [facility] - ONCE [id number] 20:31:10 Test Item Value Reference Range Interpretation Comments ABO & RH (test code B POSITIVE Performe d at [facility] = 20) Laboratory Serv [facility] [address]Ykni Free: [phone] A No. [id number] IAT (test code = Negative Performed a t [facility] 1185) [facility] [address]Kutu Free: [phone] A No. [id number] [facility] DallasU[facility] Acid [id number] 20:29:13 Test Item Value Reference Range Interpretation Comments URIC ACID (test code = 1791525056) 3.2 mg/dL 2.9-6.0 Lab Interpretation (test code = Normal 60873-4) [facility] [id number] 20:29:13 Test Item Value Reference Range Interpretation Comments CREATININE (test code 0.53 mg/dL 0.50-1.04 = 5743480699) eGFR (test code = mL/min/1.73m2 7809874014) REBECCA (test code = REBECCA) Association of Glomerular Filtration Rate (GFR) and Staging of Kidney Disease* + + +- +| GFR (mL/min/1.73 m2) ?| With Kidney Damage ?| ?Without Kidney Damage+ ------+ ----+ ------+| ?>90 ?| ?Stage one ?| ? Normal ?+ -+ + -+| ?60-89 ?| ?Stage two ?| ? Decreased GFR ? + + +- +| ?30-59 ?| ?Stage three ?| ? Stage three ? + + +- +| ?15-29 ?| ?Stage four ? | ? Stage four ?+ -+ + -+| ?<15 (or dialysis) ? ?| ?Stage five ? | ? Stage five ?+ -+ + -+ *Each stage assumes the associated GFR level has been in effect for at least three months. ?Stages 1 to 5, with or without kidney disease, indicate chronic kidney disease. Notes: Determination of stages one and two (with eGFR >59mL/min/1.73 m2) requires estimation of kidney damage for at least three months as defined by structural or functional abnormalities of the kidney, manifested by either:Pathological abnormalities or Markers of kidney damage (including abnormalities in the composition of the blood or urine or abnormalities in imaging tests). [facility] DallasSGOT (Asparate Amino Transfer)2022-07-28 20:29:13 Test Item Value Reference Range Interpretation Comments AST(SGOT) (test code = 6022981847) 17 U/L 13-40 Lab Interpretation (test code = Normal 17159-5) [facility] DallasAlanine Amino Transferase (SGPT)2022-07-28 20:29:13 Test Item Value Reference Range Interpretation Comments ALTv (test code = 1742-6) 15 U/L 5-35 Lab Interpretation (test code = Normal 84315-8) [facility] DallasLactate Rmndckziclicc2083-07-07 20:28:32 Test Item Value Reference Range Interpretation Comments LDH (test code = 6099083292) 175 U/L 120-246 Lab Interpretation (test code = Normal 46544-3) [facility] DallasCBC with [id number] 20:13:32 Test Item Value Reference Range Interpretation Comments WBC (test code = See_Comment [Automated 1690-2) message] The sy stem which generated this result transmitted reference range : 4.30 - 11.10 10*3/?L. The reference range was not used to interpret this result as normal/abnormal . RBC (test code = See_Comment [Automated 009-8) message] The sy stem which generated this result transmitted reference range : 3.93 - 5.25 10*6/?L. The reference range was not used to interpret this result as normal/abnormal . HGB (test code = 12.3 g/dL 11.6-15.0 718-7) HCT (test code = 35.9 % 35.7-45.2 4544-3) MCV (test code = 89.3 fL 80.6-95.5 787-2) MCH (test code = 30.6 pg 25.9-32.8 785-6) MCHC (test code = 34.3 g/dL 31.6-35.1 786-4) RDW-SD (test code = 41.1 fL 39.0-49.9 71321-3) RDW-CV (test code = 12.6 % 12.0-15.5 788-0) PLT (test code = See_Comment [Automated 777-3) message] The sy stem which generated this result transmitted reference range : 166 - 358 10*3/ ?L. The reference r janet was not used to interpret this result as normal/abnormal . MPV (test code = 9.5 fL 9.5-12.9 58861-6) NRBC/100 WBC (test See_Comment [Automat ed code = 3369873153) message] The system which generated this result transmitted reference range : 0.0 - 10.0 /100 WBCs. The refer ence range was not u sed to interpret th is result as normal/abnormal . NRBC x10^3 (test code See_Comment [Auto mated = 1596535968) message] The s ystem which generated this result transmitted reference range : 10*3/?L. The reference range was not used to interpret this result as normal/abnormal . GRAN MAT (NEUT) % 70.6 % (test code = 770-8) IMM GRAN % (test code 0.60 % = 9218569112) LYMPH % (test code = 25.2 % 736-9) MONO % (test code = 3.5 % 5905-5) EOS % (test code = 0.0 % 713-8) BASO % (test code = 0.1 % 706-2) GRAN MAT x10^3(ANC) 4.84 10*3/uL 1.88-7.09 (test code = 0150251263) IMM GRAN x10^3 (test 0.04 10*3/uL 0.00-0.06 code = 5066529435) LYMPH x10^3 (test code 1.73 10*3/uL 1.32-3.29 = 731-0) MONO x10^3 (test code 0.24 10*3/uL 0.33-0.92 L = 742-7) EOS x10^3 (test code = 0.03-0.39 L 711-2) BASO x10^3 (test code 0.01-0.07 = 704-7) Lab Interpretation Abnormal (test code = 25778-7) [facility] MOLECULAR [id number] 16:43:05 Test Item Value Reference Range Interpretation Comments POCT Molecular FluA (test code = Negative Negative 82720-0) POCT Molecular FluB (test code = Negative Negative 05000-6) Lab Interpretation (test code = Normal 52788-1) [facility] URINALYSIS GLUCOSE & PROTEIN 2022-07-18 19:45:00 Test Item Value Reference Range Interpretation Comments POCT U PROT (test code = 3259) trace Negative - Negative POCT U GLU (test code = 3256) negative Negative - Negative Lab Interpretation (test code = Abnormal 55071-5) [facility] URINALYSIS GLUCOSE & PROTEIN 2022-07-03 18:36:00 Test Item Value Reference Range Interpretation Comments POCT U PROT (test code = 3259) trace Negative - Negative POCT U GLU (test code = 3256) negative Negative - Negative Lab Interpretation (test code = Abnormal 03471-7) [facility] URINALYSIS W/O SPECIFIC [id number] 14:44:00 Test Item Value Reference Range Interpretation Comments POCT PH U (test code = 3254) n/a 5-8 POCT U LEUK EST (test code = n/a Negative - Negative 3263) POCT U NIT (test code = 3262) n/a Negative - Negative POCT U PROT (test code = 3259) negative Negative - Negative POCT U GLU (test code = 3256) negative Negative - Negative POCT U KETONE (test code = 3258) n/a Negative - Negative POCT U BLD (test code = 3257) n/a Negative - Negative [facility] DallasCoron[facility] 2018 nCoV [id number] 03:56:00 Test Item Value Reference Range Interpretation Comments Coronavirus 2019 Negative Negative This test h as been nCoV Bedside (test authorize d by FDA under code = [id number]) an EUA for use byauthorized laboratories. T his test has been author ized only for the detecti on ofnucleic acid from SARS-CoV-2, not for any other viruses orpathogens. Th is test is only authorized for the duration of thedeclaration that circumstances e xist justifying theauthorizatio n of emergency use o f in vitro diagnostic test sfor the detection and/o r diagnosis of CO VID-19 under Acqsrzl32 4(b)(1) of the Act, 21 U.S .C 360bbb-3(b)(1), unless theauthorizatio n is terminated or r evoked sooner. Specime n Source: Nasopharyngeal (HAT BRIM AND CROWN LAMINATING OPERATOR) Swab This test has b een authorized by Gladis HENRY under an EUA for use by[facility] [facility] laboratories. T his test has been author ized only for the detecti on ofnucleic acid (PCR) from SARS-CoV-2, not from any other viruses o r pathogens. This test is only authorized for the duration of thedeclaration that circumstances e xist justifying theauthorizatio n of emergency use o f in vitro diagnostic test sfor the detection and/o r diagnosis of CO VID-19 under Ocgurdu29 4(b)(1) of the Act, 21 U.S .C 360bbb-3(b)(1), unless theauthorizatio n is terminated or r evoked sooner. Spec Comments: UBASIC METABOLIC [id number] 02:17:00 Test Item Value Reference Range Interpretation Comments SODIUM (test code 135 mmol/L 135-145 N = NA) POTASSIUM (test 3.5 mmol/L 3.6-5.0 L code = K) CHLORIDE (test 103 mmol/L 101-111 N code = CL) CARBON DIOXIDE 23 mmol/L 21-31 N (test code = CO2) GLUCOSE (test code 96 mg/dl 70-100 N = GLU) BLOOD UREA 13 mg/dl 6-20 N NITROGEN (test code = BUN) GLOMERULAR >=60 max >60 The estimated FILTRATION RATE estimate glomerular (test code = GFR) filtration rate is computed usingpatient ra ce, age (>18), sex, and serum creatinin e. If anyof the neede d data elements a re missing the Laboratory edwina ot compute an estimation of t he glomerular filtration rate . CREATININE (test 0.73 mg/dL 0.44-1.03 N code = CREAT) CALCIUM (test code 8.7 mg/dL 8.5-10.5 N = CA) LIVER FUNCTION [id number] 02:17:00 Test Item Value Reference Range Interpretation Comments TOTAL PROTEIN (test code = PROT) 7.8 g/dL 6.7-8.2 N ALBUMIN (test code = ALB) 4.6 g/dL 3.2-5.5 N BILIRUBIN TOTAL (test code = 0.70 mg/dL 0.2-1.3 N BILT) BILIRUBIN DIRECT (test code = < 0.1 mg/dL 0.00-0.20 N BILD) SGOT/AST (test code = AST) 21 U/L 10-42 N SGPT/ALT (test code = ALT) 24 U/L 10-60 N ALKALINE PHOSPHATASE (test code = 32 U/L 42-121 L ALKP) [id number] 02:17:00 Test Item Value Reference Range Interpretation Comments LIPASE (test code = LIP) 34 IU/L 22-51 N HCG [id number] 02:17:00 Test Item Value Reference Range Interpretation Comments HCG SERUM (test < 0.5 mIU/ml Interpretive Data:HCG code = HCG) Quant BhCG Refe rence Ranges <5.0 mIU /ml Non- Ap prox. Gestational Age Reference Range (hCG in mIU/mL) 0.2-1.0 weeks 5-50 1-2 weeks 50-500 2-3 weeks 100-5 ,000 3-4 weeks 500-10,00 0 4-5 weeks 1,000-50, 000 5-6 weeks 10,000-1 00,000 6-8 weeks 15,00 0-200,000 8-12 weeks 10,000-100,000 A test result that is inconsistent wi th the clinical pictur eand patient history should be interpreted with caution. This t est is not intended fo r use as a surrogate mar anibal jeter in e diagnosis of mo nitoring the treatment o fcancer patients UA RFLX MICR CULT IF [id number] 02:12:00 Test Item Value Reference Range Interpretation Comments UA COLOR (test code = YELLOW YELLOW COLU) UA APPEARANCE (test HAZY CLEAR code = APPU) UA GLUCOSE DIPSTICK NEGATIVE NEGATIVE (test code = DGLUU) UA BILIRUBIN DIPSTICK NEGATIVE NEGATIVE (test code = BILU) UA KETONE DIPSTICK NEGATIVE NEGATIVE (test code = KETU) UA SPECIFIC GRAVITY 1.013 1.001-1.030 (test code = SGU) UA BLOOD DIPSTICK (test 2+ NEGATIVE code = KIP) UA PH DIPSTICK (test 7.0 5.0-9.0 code = KENN) UA PROTEIN DIPSTICK NEGATIVE NEGATIVE (test code = PROU) UA UROBILINOGEN 2.0 See_Comment A [Automated message] DIPSTICK (test code = The sy stem which URO) generated this result transmitted ref erence range: <=1.0. T he reference range was not used to int erpret this result as normal/abnormal . UA NITRITE DIPSTICK NEGATIVE NEGATIVE (test code = BARRY) UA ASCORBIC ACID NEGATIVE DIPSTICK (test code = AAU) UA LEUKOCYTE ESTERASE 1+ NEGATIVE A DIPSTICK (test code = LEUU) UA WBC (test code = 0-5 /HPF 0-5 WBCUR) UA RBC (test code = 0-5 /HPF 0-5 RBCU) UA EPITHELIAL CELLS FEW /LPF NONE-FEW (test code = EPIU) UA BACTERIA (test code None /HPF NONE SEEN = BACU) UA MUCUS (test code = 1+ /LPF NONE SEEN MUCU) UA AMORPHOUS SEDIMENT FEW /HPF NONE SEEN (test code = AMORU) Indication for culture: Suprapubic PainSpecimen Description: CLEAN CATCHBASIC METABOLIC [id number] 02:06:00 Test Item Value Reference Range Interpretation Comments SODIUM (test code 135 mmol/L 135-145 N = NA) POTASSIUM (test 3.5 mmol/L 3.6-5.0 L code = K) CHLORIDE (test 103 mmol/L 101-111 N code = CL) CARBON DIOXIDE 23 mmol/L 21-31 N (test code = CO2) GLUCOSE (test code 96 mg/dl 70-100 N = GLU) BLOOD UREA 13 mg/dl 6-20 N NITROGEN (test code = BUN) GLOMERULAR >=60 max >60 The estimated FILTRATION RATE estimate glomerular (test code = GFR) filtration rate is computed usingpatient ra ce, age (>18), sex, and serum creatinin e. If anyof the neede d data elements a re missing the Laboratory edwina ot compute an estimation of t he glomerular filtration rate . CREATININE (test 0.73 mg/dL 0.44-1.03 N code = CREAT) CALCIUM (test code 8.7 mg/dL 8.5-10.5 N = CA) LIVER FUNCTION [id number] 02:06:00 Test Item Value Reference Range Interpretation Comments TOTAL PROTEIN (test code = PROT) 7.8 g/dL 6.7-8.2 N ALBUMIN (test code = ALB) 4.6 g/dL 3.2-5.5 N BILIRUBIN TOTAL (test code = BILT) mg/dL 0.2-1.3 BILIRUBIN DIRECT (test code = BILD) mg/dL 0.00-0.20 SGOT/AST (test code = AST) U/L 10-42 SGPT/ALT (test code = ALT) U/L 10-60 ALKALINE PHOSPHATASE (test code = U/L 42-121 ALKP) [id number] 02:06:00 Test Item Value Reference Range Interpretation Comments LIPASE (test code = LIP) 34 IU/L 22-51 N BASIC METABOLIC [id number] 02:05:00 Test Item Value Reference Range Interpretation Comments SODIUM (test code 135 mmol/L 135-145 N = NA) POTASSIUM (test 3.5 mmol/L 3.6-5.0 L code = K) CHLORIDE (test 103 mmol/L 101-111 N code = CL) CARBON DIOXIDE 23 mmol/L 21-31 N (test code = CO2) GLUCOSE (test code 96 mg/dl 70-100 N = GLU) BLOOD UREA 13 mg/dl 6-20 N NITROGEN (test code = BUN) GLOMERULAR >=60 max >60 The estimated FILTRATION RATE estimate glomerular (test code = GFR) filtration rate is computed usingpatient ra ce, age (>18), sex, and serum creatinin e. If anyof the neede d data elements a re missing the Laboratory edwina ot compute an estimation of t he glomerular filtration rate . CREATININE (test 0.73 mg/dL 0.44-1.03 N code = CREAT) CALCIUM (test code 8.7 mg/dL 8.5-10.5 N = CA) LIVER FUNCTION [id number] 02:05:00 Test Item Value Reference Range Interpretation Comments TOTAL PROTEIN (test code = PROT) g/dL 6.7-8.2 ALBUMIN (test code = ALB) g/dL 3.2-5.5 BILIRUBIN TOTAL (test code = BILT) mg/dL 0.2-1.3 BILIRUBIN DIRECT (test code = BILD) mg/dL 0.00-0.20 SGOT/AST (test code = AST) U/L 10-42 SGPT/ALT (test code = ALT) U/L 10-60 ALKALINE PHOSPHATASE (test code = U/L 42-121 ALKP) [id number] 02:05:00 Test Item Value Reference Range Interpretation Comments LIPASE (test code = LIP) IU/L 22-51 HCG SERUM [id number] 02:05:00 Test Item Value Reference Range Interpretation Comments HCG SERUM QUAL NEGATIVE NEGATIVE This is a milo litative (test code = HCGQL) screenin g test.The quantitative Bh cg may be helpful.Weakly positive results should be repeated in 48 hours. CBC W/AUTO [id number] 02:00:00 Test Item Value Reference Range Interpretation Comments WHITE BLOOD CELL (test code = 10.5 x10 3/uL 3.2-11.5 N WBC) RED BLOOD CELL (test code = 4.58 x10(6)/m 3.70-5.10 N RBC) HEMOGLOBIN (test code = HGB) 13.9 g/dL 12.0-15.0 N HEMATOCRIT (test code = HCT) 42.8 % 35.7-44.8 N MEAN CELL VOLUME (test code = 93 fL 80-100 N MCV) MEAN CELL HGB (test code = MCH) 30.3 pg 26.2-33.8 N MEAN CELL HGB CONCENTRATION 32.5 g/dL 30.0-34.0 N (test code = MCHC) RED CELL DISTRIBUTION WIDTH 11.4 % 11.3-14.5 N (test code = RDW) PLATELET COUNT (test code = 312 x10 3/uL 130-408 N PLT) MEAN PLATELET VOLUME (test code 9.1 fL 8.6-12.6 N = MPV) NEUTROPHIL % (test code = NT%) 62.4 % 40.0-70.0 N IMMATURE GRANULOCYTE % (test 0.3 % 0.0-2.0 N code = IG%) LYMPHOCYTE % (test code = LY%) 31.6 % 20-40 N MONOCYTE % (test code = MO%) 4.9 % 1-10 N EOSINOPHIL % (test code = EO%) 0.4 % 0.0-5.0 N BASOPHIL % (test code = BA%) 0.4 % 0.0-1.0 N NUCLEATED RBC % (test code = 0.0 % 0.0-0.9 N NRBC%) NEUTROPHIL # (test code = NT#) 6.6 x10 3/uL 1.6-7.2 N LYMPHOCYTE # (test code = LY#) 3.33 x10 3/uL 1.1-2.7 H MONOCYTE # (test code = MO#) 0.5 x10 3/uL 0.3-0.8 N EOSINOPHIL # (test code = EO#) 0.0 x10 3/uL 0.0-0.5 N BASOPHIL # (test code = BA#) 0.0 x10 3/uL 0.0-0.1 N - XR CHEST 1 [id number] 01:57:00 [facility] 1995 Sex: FPatient Name: ISAMAR SHWA Unit No: [id number] EXAMS: CPT: [id number] XR CHEST 1 V 56831 PA CHEST, 01/27/2021. Comparison: None. CLINICAL: Dizziness. COMMENT: The heart, mediastinum, hilar regions and pulmonary vasculature appear within normal limits. The lungs are free of active disease. The bony thorax is intact. IMPRESSION: No evidence to suggest active cardiopulmonary disease. 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[employer] [address] : 1995 Age: 26 Sex: F [place] [address] Loc: N.ERS Exam Date: 01/27/2021 Status: REG ER PH: FAX: PAGE 1 Signed ReportCBC W/AUTO [id number] 01:53:00 Test Item Value Reference Range Interpretation Comments WHITE BLOOD CELL (test code = 10.5 x10 3/uL 3.2-11.5 N WBC) RED BLOOD CELL (test code = 4.58 x10(6)/m 3.70-5.10 N RBC) HEMOGLOBIN (test code = HGB) 13.9 g/dL 12.0-15.0 N HEMATOCRIT (test code = HCT) 42.8 % 35.7-44.8 N MEAN CELL VOLUME (test code = 93 fL 80-100 N MCV) MEAN CELL HGB (test code = MCH) 30.3 pg 26.2-33.8 N MEAN CELL HGB CONCENTRATION 32.5 g/dL 30.0-34.0 N (test code = MCHC) RED CELL DISTRIBUTION WIDTH % 11.3-14.5 (test code = RDW) PLATELET COUNT (test code = x10 3/uL 130-408 PLT) MEAN PLATELET VOLUME (test code 9.1 fL 8.6-12.6 N = MPV) NEUTROPHIL % (test code = NT%) % 40.0-70.0 LYMPHOCYTE % (test code = LY%) % 20-40 MONOCYTE % (test code = MO%) % 1-10 EOSINOPHIL % (test code = EO%) % 0.0-5.0 BASOPHIL % (test code = BA%) % 0.0-1.0 NUCLEATED RBC % (test code = % 0.0-0.9 NRBC%) NEUTROPHIL # (test code = NT#) x10 3/uL 1.6-7.2 LYMPHOCYTE # (test code = LY#) x10 3/uL 1.1-2.7 MONOCYTE # (test code = MO#) x10 3/uL 0.3-0.8 EOSINOPHIL # (test code = EO#) x10 3/uL 0.0-0.5 Notes Date/Time Note Provider Source 2021-01-27 02:18:00-00:00 [facility] ([facility]) EMERGENCY PROVIDER REPORT REPORT#:[id number] REPORT STATUS: Signed DATE:01/27/21 TIME: 217 PATIENT: ISAMAR SHAW UNIT #: [id number] ROOM: BED: AGE: 26 SEX: F PCP PHYS: No Primary or Family Ph ysician SERVICE AUTHOR: Annita Christian NP * ALL edits or amendments must be made on the [facility] document * HPI-General Illness General Confirmed Patient Yes Patient Type New patient Initial Greet Date/Time 01/26/212040 Presentation Chief Complaint Abdominal pain Hx Obtained From Patient Sudden in Onset? No Free Text HPI Notes Free Text HPI Notes 26-year-old female who believes she may be pregn ant presents to the ER with complaints of vaginal bleeding, generalized body aches and dizziness. Patient states her symptoms started a few days ago, stat es she has been putting out clots. Patient denies the possibility of sexuall y transmitted disease, no diffuse abdominal pain some cramping but she localizes at the suprapubic area. No fever, no headache, no shortness of breath or pain. Review of Systems ROS Statements Complete sys rev neg except as marked. Free Text ROS Notes Free Text ROS Notes All systems reviewed and negative except as kojo ed. 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 Allergies Coded Allergies: No Known Allergies (01/26/21) Smoking status: Smoking status for patients 13 years old or old er: Unknown,if ever smoked Physical Exam Vital Signs Vital Signs First Documented: Result Date Time Pulse Ox 99 01/26 2041 B/P 148/90 01/26 2041 B/P Mean 109 01/26 2041 O2 Delivery Room air 01/26 2041 Temp 36.8 01/26 2041 Pulse 96 01/26 2041 Resp 18 01/26 2041 Last Documented: Result Date Time Pulse Ox 100 01/27 331 B/P 153/114 01/27 331 B/P Mean 127.3 01/27 331 Pulse 80 01/27 331 Temp 36.7 01/27 134 Resp 16 01/27 134 O2 Delivery Room air 01/26 2041 Review of Vital Signs Reviewed Free Text PE Notes Free Text PE Notes General: Awake, NAD Head: Atraumatic and normocephalic Eyes: EOMI, no periorbital swelling, no periorbi christian redness Throat: Moist mucous membranes, pharynx normal, Neck: Full ROM, supple, nontender CV: Regular rhythm, warm and well perfused, Respiratory: CTAB, no respiratory distress, No r ales GI: Soft, nontender, nondistended. No rebound or guarding : Deferred MSK Back: Full ROM, no CVAT, No spinal tendernes s, Extremities: Neurovascularly intact, no deformit ies, no swelling Neuro: Aaox4, cranial nerves grossly intact, mov ing all extremities, gait normal Skin: warm, dry, no rashes, No erythema. Psych: Anxious Interpretation Diagnostics Lab Results Interpretation Results Laboratory Tests 01/27/21 0129: [Embedded Image Not Available] Laboratory Tests: 01/27 01/27 01/27 0129 0129 0129 Chemistry Sodium (135 - 145 mmol/L) 135 Potassium (3.6 - 5.0 mmol/L) 3.5 L Chloride (101 - 111 mmol/L) 103 Carbon Dioxide (21 - 31 mmol/L) 23 BUN (6 - 20 mg/dl) 13 Creatinine (0.44 - 1.03 mg/dL) 0.73 Glomerular Filtr Rate (>60) >=60 max estimate Glucose (70 - 100 mg/dl) 96 Calcium (8.5 - 10.5 mg/dL) 8.7 Total Bilirubin (0.2 - 1.3 mg/dL) 0.70 Direct Bilirubin (0.00 - 0.20 mg/dL) < 0.1 AST (10 - 42 U/L) 21 ALT (10 - 60 U/L) 24 Total Alk Phosphatase (42 - 121 U/L) 32 L Total Protein (6.7 - 8.2 g/dL) 7.8 Albumin (3.2 - 5.5 g/dL) 4.6 Lipase (22 - 51 IU/L) 34 Serum HCG, Qual (NEGATIVE) NEGATIVE HCG, Quant (mIU/ml) < 0.5 Hematology WBC (3.2 - 11.5 x10 3/uL) 10.5 RBC (3.70 - 5.10 x10(6)/m) 4.58 Hgb (12.0 - 15.0 g/dL) 13.9 Hct (35.7 - 44.8 %) 42.8 MCV (80 - 100 fL) 93 MCH (26.2 - 33.8 pg) 30.3 MCHC (30.0 - 34.0 g/dL) 32.5 RDW (11.3 - 14.5 %) 11.4 Plt Count (130 - 408 x10 3/uL) 312 MPV (8.6 - 12.6 fL) 9.1 Neut % (Auto) (40.0 - 70.0 %) 62.4 Lymph % (Auto) (20 - 40 %) 31.6 [place] % (Auto) (1 - 10 %) 4.9 Eos % (Auto) (0.0 - 5.0 %) 0.4 Baso % (Auto) (0.0 - 1.0 %) 0.4 Neut # (Auto) (1.6 - 7.2 x10 3/uL) 6.6 Lymph # (Auto) (1.1 - 2.7 x10 3/uL) 3.33 H [place] # (Auto) (0.3 - 0.8 x10 3/uL) 0.5 Eos # (Auto) (0.0 - 0.5 x10 3/uL) 0.0 Baso # (Auto) (0.0 - 0.1 x10 3/uL) 0.0 Immature Gran % (0.0 - 2.0 %) 0.3 Nucleated RBC % (0.0 - 0.9 %) 0.0 Urines Urine Color (YELLOW) YELLOW Urine Appearance (CLEAR) HAZY Urine pH (5.0 - 9.0) 7.0 Ur Specific [place] (1.001 - 1.030) 1.013 Urine Protein (NEGATIVE) NEGATIVE Urine Glucose (UA) (NEGATIVE) NEGATIVE Urine Ketones (NEGATIVE) NEGATIVE Urine Blood (NEGATIVE) 2+ Urine Nitrite (NEGATIVE) NEGATIVE Urine Bilirubin (NEGATIVE) NEGATIVE Urine Urobilinogen (<=1.0) 2.0 H Ur Leukocyte Esterase (NEGATIVE) 1+ H Urine RBC (0 - 5 /HPF) 0-5 Urine WBC (0 - 5 /HPF) 0-5 Ur Epithelial Cells (NONE - FEW /LPF) FEW Amorphous Sediment (NONE SEEN /HPF) FEW Urine Bacteria (NONE SEEN /HPF) None Urine Mucus (NONE SEEN /LPF) 1+ Urine Ascorbic Acid NEGATIVE 01/27 0330 Serology SARS CoV-2 RNA Rapid KRISTINE (Negative) Negative Recent Impressions: RADIOLOGY - XR CHEST 1 V 01/27 0150 Report Impression - Status: SIGNED Entered: 01/27/2021 0200 IMPRESSION: No evidence to suggest active cardio pulmonary disease. Impression By: [email or web address] - Javon Noel MD Re-Evaluation MDM Free Text MDM Notes Free Text MDM Notes On reevaluation the patient reports significant pain control. Her abdomen is soft and nontender, no guarding, lab work unreve aling. Low clinical suspicion for acute abdominal process the patient has no fever, no white count, nontoxic- appearing. Patient will be d ischarged home with strict return precautions given to her and she acknowledges understanding. Re-Evaluation/Progress #1 Re-Eval Status Improved Eval Following Treatment Pt. feels better, Condi tion improved, Tolerating liquids, no N/ Pain Re-Evaluation Denies pain Exam Post Tx - General Alert, Appears non-toxic, Appears well Exam Post Tx - Sys Review Lungs clear, Abdomen s oft, Abdomen nontender Plan Post Re-Eval Plan discharge Tissue Perfusion Reassessment Patient tissue perfusion reassessment completed. ED Course Medication(s) Ordered Medication(s) Ordered: Electrolytic, Caloric, And Kevin Sig/Juan Start time Last Medication Dose Route Stop Time Status Admin Sodium Chloride 1,000 ML X1ED STA 01/27 0136 DC IV 01/27 137 Differential Diagnosis Differential Diagnosis Abdominal pain, Depressio n, Influenza, Mood disorder Patient Discharge Departure Vital Signs/Condition Vital Signs First Documented: Result Date Time Pulse Ox 99 01/26 2041 B/P 148/90 01/26 2041 B/P Mean 109 01/26 2041 O2 Delivery Room air 01/26 2041 Temp 36.8 01/26 2041 Pulse 96 01/26 2041 Resp 18 01/26 2041 Last Documented: Result Date Time Pulse Ox 100 01/27 331 B/P 153/114 01/27 331 B/P Mean 127.3 01/27 331 Pulse 80 01/27 331 Temp 36.7 01/27 134 Resp 16 01/27 134 O2 Delivery Room air 01/26 2041 All vital signs available at the time of this en try have been reviewed. Condition Stable Clinical Impression Clinical Impression Primary Impression: Body aches Secondary Impressions: Dizziness Time of Impression 220 Disposition Decision Discharge )( Discharged to Home Yes )( Time 219 )( Date 01/27/21 Discharge/Care Plan Counseled Regarding Diagnosis, Need for follow-u p, When to return to ED (Auto) Prescriptions Current Visit Scripts Meclizine (Antivert) 25 MG PO TID PRN PRN VERTIG O/DIZZINESS Meclizine (Antivert) 25 MG PO TID PRN PRN VERTI GO/DIZZINESS #15 TABS Patient Instructions ED Dizziness, Uncertain Cau se, ED Dysfunctional Uterine Bleeding, ED Viral Syndrome (Adult) Referrals Yu Plummer MD Discharge Note I have spoken with the patie nt and/or caregivers. I have explained the patient's condition, diagnoses and navarro atment plan based on the information available to me at this time. I have answered the patient's and/ or caregiver's questions and addressed any concerns. The patient and/or careg stacy have as good an understanding of the patient 's diagnosis, condition and treatment plan as can be expected at this point. The vital signs have bee n stable. The patient's condition is stable and appr opriate for discharge from the emergency department. The patient will pursue further outpatient evalu ation with the primary care physician or other designated or consulting phys ician as outlined in the discharge instructions. The patient and/or caregivers are agreeable to this plan of care and follow-up instructions have been exp lained in detail. The patient and/or caregivers have received these instructio ns in written format and have expressed an understanding of the discharge inst ructions. The patient and/or caregivers are aware that any significant change in condition or worsening of symptoms should prompt an immediate return to [facility] or the closest emergency department or a call to 911. at [phone] RPT #:[id number] END OF REPORT 2021-01-27 02:18:00-00:00 [facility] ([facility]) EMERGENCY PROVIDER REPORT REPORT#:[id number] REPORT STATUS: Signed DATE:01/27/21 TIME: 217 PATIENT: ISAMAR SHAW UNIT #: [id number] ROOM: BED: AGE: 26 SEX: F PCP PHYS: No Primary or Family Ph ysician SERVICE AUTHOR: Annita Christian NP * ALL edits or amendments must be made on the [facility] document * HPI-General Illness General Confirmed Patient Yes Patient Type New patient Initial Greet Date/Time 01/26/212040 Presentation Chief Complaint Abdominal pain Hx Obtained From Patient Sudden in Onset? No Free Text HPI Notes Free Text HPI Notes 26-year-old female who believes she may be pregn ant presents to the ER with complaints of vaginal bleeding, generalized body aches and dizziness. Patient states her symptoms started a few days ago, stat es she has been putting out clots. Patient denies the possibility of sexuall y transmitted disease, no diffuse abdominal pain some cramping but she localizes at the suprapubic area. No fever, no headache, no shortness of breath or pain. Review of Systems ROS Statements Complete sys rev neg except as marked. Free Text ROS Notes Free Text ROS Notes All systems reviewed and negative except as kojo ed. 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 Allergies Coded Allergies: No Known Allergies (01/26/21) Smoking status: Smoking status for patients 13 years old or old er: Unknown,if ever smoked Physical Exam Vital Signs Vital Signs First Documented: Result Date Time Pulse Ox 99 01/26 2041 B/P 148/90 01/26 2041 B/P Mean 109 01/26 2041 O2 Delivery Room air 01/26 2041 Temp 36.8 01/26 2041 Pulse 96 01/26 2041 Resp 18 01/26 2041 Last Documented: Result Date Time Pulse Ox 100 01/27 331 B/P 153/114 01/27 331 B/P Mean 127.3 01/27 331 Pulse 80 01/27 331 Temp 36.7 01/27 134 Resp 16 01/27 134 O2 Delivery Room air 01/26 2041 Review of Vital Signs Reviewed Free Text PE Notes Free Text PE Notes General: Awake, NAD Head: Atraumatic and normocephalic Eyes: EOMI, no periorbital swelling, no periorbi christian redness Throat: Moist mucous membranes, pharynx normal, Neck: Full ROM, supple, nontender CV: Regular rhythm, warm and well perfused, Respiratory: CTAB, no respiratory distress, No r ales GI: Soft, nontender, nondistended. No rebound or guarding : Deferred MSK Back: Full ROM, no CVAT, No spinal tendernes s, Extremities: Neurovascularly intact, no deformit ies, no swelling Neuro: Aaox4, cranial nerves grossly intact, mov ing all extremities, gait normal Skin: warm, dry, no rashes, No erythema. Psych: Anxious Interpretation Diagnostics Lab Results Interpretation Results Laboratory Tests 01/27/21 012: [Embedded Image Not Available] Laboratory Tests: 01/27 0129 0129 Chemistry Sodium (135 - 145 mmol/L) 135 Potassium (3.6 - 5.0 mmol/L) 3.5 L Chloride (101 - 111 mmol/L) 103 Carbon Dioxide (21 - 31 mmol/L) 23 BUN (6 - 20 mg/dl) 13 Creatinine (0.44 - 1.03 mg/dL) 0.73 Glomerular Filtr Rate (>60) >=60 max estimate Glucose (70 - 100 mg/dl) 96 Calcium (8.5 - 10.5 mg/dL) 8.7 Total Bilirubin (0.2 - 1.3 mg/dL) 0.70 Direct Bilirubin (0.00 - 0.20 mg/dL) < 0.1 AST (10 - 42 U/L) 21 ALT (10 - 60 U/L) 24 Total Alk Phosphatase (42 - 121 U/L) 32 L Total Protein (6.7 - 8.2 g/dL) 7.8 Albumin (3.2 - 5.5 g/dL) 4.6 Lipase (22 - 51 IU/L) 34 Serum HCG, Qual (NEGATIVE) NEGATIVE HCG, Quant (mIU/ml) < 0.5 Hematology WBC (3.2 - 11.5 x10 3/uL) 10.5 RBC (3.70 - 5.10 x10(6)/m) 4.58 Hgb (12.0 - 15.0 g/dL) 13.9 Hct (35.7 - 44.8 %) 42.8 MCV (80 - 100 fL) 93 MCH (26.2 - 33.8 pg) 30.3 MCHC (30.0 - 34.0 g/dL) 32.5 RDW (11.3 - 14.5 %) 11.4 Plt Count (130 - 408 x10 3/uL) 312 MPV (8.6 - 12.6 fL) 9.1 Neut % (Auto) (40.0 - 70.0 %) 62.4 Lymph % (Auto) (20 - 40 %) 31.6 [place] % (Auto) (1 - 10 %) 4.9 Eos % (Auto) (0.0 - 5.0 %) 0.4 Baso % (Auto) (0.0 - 1.0 %) 0.4 Neut # (Auto) (1.6 - 7.2 x10 3/uL) 6.6 Lymph # (Auto) (1.1 - 2.7 x10 3/uL) 3.33 H [place] # (Auto) (0.3 - 0.8 x10 3/uL) 0.5 Eos # (Auto) (0.0 - 0.5 x10 3/uL) 0.0 Baso # (Auto) (0.0 - 0.1 x10 3/uL) 0.0 Immature Gran % (0.0 - 2.0 %) 0.3 Nucleated RBC % (0.0 - 0.9 %) 0.0 Urines Urine Color (YELLOW) YELLOW Urine Appearance (CLEAR) HAZY Urine pH (5.0 - 9.0) 7.0 Ur Specific [place] (1.001 - 1.030) 1.013 Urine Protein (NEGATIVE) NEGATIVE Urine Glucose (UA) (NEGATIVE) NEGATIVE Urine Ketones (NEGATIVE) NEGATIVE Urine Blood (NEGATIVE) 2+ Urine Nitrite (NEGATIVE) NEGATIVE Urine Bilirubin (NEGATIVE) NEGATIVE Urine Urobilinogen (<=1.0) 2.0 H Ur Leukocyte Esterase (NEGATIVE) 1+ H Urine RBC (0 - 5 /HPF) 0-5 Urine WBC (0 - 5 /HPF) 0-5 Ur Epithelial Cells (NONE - FEW /LPF) FEW Amorphous Sediment (NONE SEEN /HPF) FEW Urine Bacteria (NONE SEEN /HPF) None Urine Mucus (NONE SEEN /LPF) 1+ Urine Ascorbic Acid NEGATIVE 01/27 0330 Serology SARS CoV-2 RNA Rapid KRISTINE (Negative) Negative Recent Impressions: RADIOLOGY - XR CHEST 1 V 01/27 0150 Report Impression - Status: SIGNED Entered: 01/27/2021 0200 IMPRESSION: No evidence to suggest active cardio pulmonary disease. Impression By: [email or web address] - Javon Noel MD Re-Evaluation MDM Free Text MDM Notes Free Text MDM Notes On reevaluation the patient reports significant pain control. Her abdomen is soft and nontender, no guarding, lab work unreve aling. Low clinical suspicion for acute abdominal process the patient has no fever, no white count, nontoxic- appearing. Patient will be d ischarged home with strict return precautions given to her and she acknowledges understanding. Re-Evaluation/Progress #1 Re-Eval Status Improved Eval Following Treatment Pt. feels better, Condi tion improved, Tolerating liquids, no N/ Pain Re-Evaluation Denies pain Exam Post Tx - General Alert, Appears non-toxic, Appears well Exam Post Tx - Sys Review Lungs clear, Abdomen s oft, Abdomen nontender Plan Post Re-Eval Plan discharge Tissue Perfusion Reassessment Patient tissue perfusion reassessment completed. ED Course Medication(s) Ordered Medication(s) Ordered: Electrolytic, Caloric, And Kevin Sig/Juan Start time Last Medication Dose Route Stop Time Status Admin Sodium Chloride 1,000 ML X1ED STA 01/28 136 DC IV 01/27 137 Differential Diagnosis Differential Diagnosis Abdominal pain, Depressio n, Influenza, Mood disorder Patient Discharge Departure Vital Signs/Condition Vital Signs First Documented: Result Date Time Pulse Ox 99 01/26 2041 B/P 148/90 01/26 2041 B/P Mean 109 01/26 2041 O2 Delivery Room air 01/26 2041 Temp 36.8 01/26 2041 Pulse 96 01/26 2041 Resp 18 01/26 2041 Last Documented: Result Date Time Pulse Ox 100 01/27 331 B/P 153/114 01/27 331 B/P Mean 127.3 01/27 331 Pulse 80 01/27 331 Temp 36.7 01/27 134 Resp 16 01/27 134 O2 Delivery Room air 01/26 2041 All vital signs available at the time of this en try have been reviewed. Condition Stable Clinical Impression Clinical Impression Primary Impression: Body aches Secondary Impressions: Dizziness Time of Impression 220 Disposition Decision Discharge )( Discharged to Home Yes )( Time 219 )( Date 01/27/21 Discharge/Care Plan Counseled Regarding Diagnosis, Need for follow-u p, When to return to ED (Auto) Prescriptions Current Visit Scripts Meclizine (Antivert) 25 MG PO TID PRN PRN VERTIG O/DIZZINESS Meclizine (Antivert) 25 MG PO TID PRN PRN VERTI GO/DIZZINESS #15 TABS Patient Instructions ED Dizziness, Uncertain Cau se, ED Dysfunctional Uterine Bleeding, ED Viral Syndrome (Adult) Referrals Yu Plummer MD Discharge Note I have spoken with the patie nt and/or caregivers. I have explained the patient's condition, diagnoses and navarro atment plan based on the information available to me at this time. I have answered the patient's and/ or caregiver's questions and addressed any concerns. The patient and/or careg stacy have as good an understanding of the patient 's diagnosis, condition and treatment plan as can be expected at this point. The vital signs have bee n stable. The patient's condition is stable and appr opriate for discharge from the emergency department. The patient will pursue further outpatient evalu ation with the primary care physician or other designated or consulting phys ician as outlined in the discharge instructions. The patient and/or caregivers are agreeable to this plan of care and follow-up instructions have been exp lained in detail. The patient and/or caregivers have received these instructio ns in written format and have expressed an understanding of the discharge inst ructions. The patient and/or caregivers are aware that any significant change in condition or worsening of symptoms should prompt an immediate return to [facility] or the closest emergency department or a call to 911. at [phone] at [phone] RPT #:[id number] END OF REPORT"
[2023-03-01 12:44] LABS: Hematocrit 40.1 % (36.0-45.0); Lymphocytes % 27.9 % (15.3-44.8); MCV 88.9 fL (80-100); RBC Red Blood Cell Count 4.51 M/uL (3.86-4.86)
[2023-03-01 12:58] LABS: Specific Gravity 1.009 (1.005-1.030)
[2023-03-01] MEDS ORDERED: ONDANSETRON 4 MG/2 ML VIAL ONE ×2 (12:59→13:50)
[2023-03-01] MEDS ORDERED: FAMOTIDINE 20 MG/2 ML VIAL IV ONE (12:59)
[2023-03-01] MEDS ORDERED: MORPHINE 4 MG/ML SYR ONE (12:59)
[2023-03-01] MEDS ORDERED: NA CHLORIDE 0.9% 1,000 ML ONE (13:00)
[2023-03-01 13:01] LABS: Specific Gravity 1.009 (1.005-1.030); Urine Bacteria None Seen /HPF (<20); Urine Bilirubin NEGATIVE (Negative); Urine Blood 2+ (Negative); Urine Clarity Clear (Clear); Urine Color Light-Yellow (Yellow); Urine Glucose NEGATIVE (Negative); Urine Protein NEGATIVE (Negative); Urine RBC <5 /HPF (None Seen); Urine Urobilinogen Normal (Normal); Urine pH 6.5 (5.0-7.0)
[2023-03-01 13:02] LABS: Albumin 3.7 g/dL (3.4-5.0); Bilirubin Total 0.3 mg/dL (0.2-1.0); Potassium 3.6 mEq/L (3.5-5.1); Protein, Total 7.6 g/dL (6.4-8.2)
--- NOTE | 2023-03-01 13:33 | RAD REPORT ---
EXAM DESCRIPTION: CTAbdomen Pelvis W Contrast - 03/01/2023 1:23 pm CLINICAL HISTORY: Abdominal pain. ABD PAIN COMPARISON: No comparisons TECHNIQUE: Biphasic CT imaging of the abdomen and pelvis was performed with 100 ml non-ionic IV cont rast. All CT scans are performed using dose optimization technique as appropriate and may include automated exposure control or mA/KV adjustment according to patient size. FINDINGS: The lung bases are clear. The liver, spleen, pancreas, adrenal glands and kidneys are within normal limits. No bowel obstruction, free air, free fluid or abscess. The appendix is normal. No evidence of signi ficant lymphadenopathy. Small fat containing umbilical hernia. Mild lumbosacral degenerative changes. IMPRESSION: No acute intra-abdominal or pelvic finding.
[2023-03-01] MEDS ORDERED: HYDROMORPHONE HCL 1 MG/ML INJ ONE (13:49)
--- NOTE | 2023-03-01 14:32 | RAD REPORT ---
EXAM DESCRIPTION: US - Abdomen Exam Limited - 03/01/2023 2:22 pm CLINICAL HISTORY: ABD PAIN COMPARISON: No comparisons FINDINGS: The gallbladder demonstrates no gallstones. No pericholecystic fluid or gallbladder wall t hickening. The common bile duct is normal measuring 4 mm. The liver demonstrates no findings of intrahepatic biliary dilatation. IMPRESSION: Unremarkable examination.
--- NOTE | 2023-03-01 15:25 | EDPHYS ---
Physician Documentation [facility] Name: Nicole Zamora Age: 28 yrs Sex: Female : 1995 Arrival Date: 03/01/2023 Time: 12:13 Bed 5 Private MD: JAYNA Physician Elier Call HPI: 03/01 14:01 This 28 yrs old Female presents to ER via Ambulatory with complaints of collins Abdominal Pain. 14:01 The patient presents with abdominal pain in the epigastric area, in the upper abdomen, collins abdominal distention in the upper abdomen, in the lower abdomen. Onset: The symptoms/episode began/occurred 14 day(s) ago. The patient presents to the emergency department with nausea, vomiting, diarrhea, abdominal pain, of the right upper quadrant and left upper quadrant. Onset: The symptoms/episode began/occurred 14 day(s) ago. Possible causes: unknown. The symptoms are aggravated by nothing. The symptoms are alleviated by nothing. The symptoms do not radiate. Associated signs and symptoms: Pertinent positives: abdominal pain, diarrhea, vomiting. Associated signs and symptoms: none. The symptoms are described as crampy, intermittent. Modifying factors: The symptoms are alleviated by nothing, the symptoms are aggravated by food, movement. Severity of pain: At its worst the pain was moderate in the emergency department the pain is unchanged. Severity of symptoms: At their worst the symptoms were mild in the emergency department the symptoms are unchanged. Historical: - Allergies: 12:55 Morphine (Itching); nj1 - PMHx: 12:25 None; ll1 - PSHx: 12:25 section; D\T\C x 2; ll1 - Immunization history:: Client reports having NOT received the Covid vaccine. - Social history:: Smoking status: Patient denies any tobacco usage or history of. - Family history:: not pertinent. ROS: 14:01 Constitutional: Negative for fever, chills, and weight loss, Eyes: Negative for injury, collins pain, redness, and discharge, ENT: Negative for injury, pain, and discharge, Neck: Negative for injury, pain, and swelling, Cardiovascular: Negative for chest pain, palpitations, and edema, Respiratory: Negative for shortness of breath, cough, wheezing, and pleuritic chest pain, Back: Negative for injury and pain, : Negative for injury, bleeding, discharge, and swelling, MS/Extremity: Negative for injury and deformity, Skin: Negative for injury, rash, and discoloration, Neuro: Negative for headache, weakness, numbness, tingling, and seizure. 14:01 Abdomen/GI: Positive for abdominal pain, nausea and vomiting, diarrhea, abdominal cramps, abdominal distension, of the right upper quadrant and left upper quadrant. Exam: 14:01 Constitutional: This is a well developed, well nourished patient who is awake, alert, collins and in no acute distress. Head/Face: Normocephalic, atraumatic. Eyes: Pupils equal round and reactive to light, extra-ocular motions intact. Lids and lashes normal. Conjunctiva and sclera are non-icteric and not injected. Cornea within normal limits. Periorbital areas with no swelling, redness, or edema. ENT: Nares patent. No nasal discharge, no septal abnormalities noted. Tympanic membranes are normal and external auditory canals are clear. Oropharynx with no redness, swelling, or masses, exudates, or evidence of obstruction, uvula midline. Mucous membranes moist. Neck: Trachea midline, no thyromegaly or masses palpated, and no cervical lymphadenopathy. Supple, full range of motion without nuchal rigidity, or vertebral point tenderness. No Meningismus. Chest/axilla: Normal chest wall appearance and motion. Nontender with no deformity. No lesions are appreciated. Cardiovascular: Regular rate and rhythm with a normal S1 and S2. No gallops, murmurs, or rubs. Normal PMI, no JVD. No pulse deficits. Respiratory: Lungs have equal breath sounds bilaterally, clear to auscultation and percussion. No rales, rhonchi or wheezes noted. No increased work of breathing, no retractions or nasal flaring. Back: No spinal tenderness. No costovertebral tenderness. Full range of motion. Female : Normal external genitalia. Skin: Warm, dry with normal turgor. Normal color with no rashes, no lesions, and no evidence of cellulitis. MS/ Extremity: Pulses equal, no cyanosis. Neurovascular intact. Full, normal range of motion. Neuro: Awake and alert, GCS 15, oriented to person, place, time, and situation. Cranial nerves II-XII grossly intact. Motor strength 5/5 in all extremities. Sensory grossly intact. Cerebellar exam normal. Normal gait. Psych: Awake, alert, with orientation to person, place and time. Behavior, mood, and affect are within normal limits. 14:01 Abdomen/GI: Inspection: abdomen appears normal, Bowel sounds: normal, Palpation: mild abdominal tenderness, moderate abdominal tenderness, in the epigastric area, right upper quadrant and left upper quadrant, Liver: no appreciated palpable abnormalities, Hernia: not appreciated. Vital Signs: 12:24 BP 146 / 96; Pulse 80; Resp 17; Temp 97.7; Pulse Ox 98% ; Weight 91.63 kg; Height 5 ft. ll1 3 in. ; Pain 4/10; 12:55 BP 127 / 81; Pulse 75; Resp 16; Pulse Ox 98% on R/A; Pain 5/10; nj1 13:44 BP 133 / 90; Pulse 94; Resp 16; Pulse Ox 100% ; Pain 7/10; nj1 14:15 BP 110 / 47; Pulse 67; Resp 16; Pulse Ox 97% on R/A; Pain 3/10; nj1 15:31 BP 148 / 95; Pulse 70; Resp 16; Pulse Ox 99% on R/A; nj1 15:50 BP 144 / 86; Pulse 78; Resp 16; Pulse Ox 100% ; Pain 3/10; nj1 12:24 Body Mass Index 35.78 (91.63 kg, 160.02 cm) ll1 12:24 Pain Scale: Adult ll1 12:55 Pain Scale: Adult nj1 13:44 Pain Scale: Adult nj1 14:15 Pain Scale: Adult nj1 15:50 Pain Scale: Adult nj1 MDM: 12:19 Patient medically screened. [facility] 14:06 Differential diagnosis: Nonspecific abd pain, gastritis, cholecystitis, pancreatitis, collins appendicitis, diverticulitis, viral gastroenteritis, gastroenteritis, appendicitis, bowel obstruction, diverticulitis, gastroesophageal reflux disease, non-specific abd pain, Peptic Ulcer Disease. Data reviewed: vital signs, nurses notes, lab test result(s), radiologic studies, CT scan, ultrasound. Consideration of Admission/Observation Escalation of care including admission/observation considered. I considered the following discharge prescriptions or medication management in the emergency department Medications were administered in the Emergency Department. See MAR. Test considered but Not performed: Other Details NO HIDA SCAN. Care significantly affected by the following chronic conditions: ABD PAIN. 03/01 12:31 Order name: CBC with Diff; Complete Time: 13:15 [facility] 03/01 12:31 Order name: CMP; Complete Time: 13:15 [facility] 03/01 12:31 Order name: Lipase; Complete Time: 13:15 [facility] 03/01 12:31 Order name: Test, Urine; Complete Time: 13:15 [facility] 03/01 12:31 Order name: Urinalysis w/ reflexes; Complete Time: 13:15 [facility] 03/01 12:31 Order name: CT Abd/Pelvis - IV Contrast Only; Complete Time: 13:51 [facility] 03/01 12:42 Order name: US Abdomen Limited; Complete Time: 15:24 [facility] 03/01 12:31 Order name: IV Saline Lock; Complete Time: 12:40 [facility] 03/01 12:31 Order name: Labs collected and sent; Complete Time: 12:40 [facility] Administered Medications: 12:57 Drug: NS 0.9% IV 1000 ml Route: IV; Rate: 1 bolus; Site: right antecubital; nj1 16:50 Follow up: Response: No adverse reaction; IV Status: Completed infusion; IV Intake: nj1 1000ml 12:58 Drug: Ondansetron IVP 4 mg Route: IVP; Site: right antecubital; nj1 13:44 Follow up: Response: No adverse reaction; Nausea unchanged nj1 13:00 Drug: Famotidine IVP 20 mg Route: IVP; Site: right antecubital; nj1 13:47 Follow up: Response: No adverse reaction nj1 13:15 Not Given (Duplicate Order): morphine IVP or IV 4 mg IVP once over 4 mins [facility] 13:44 Drug: HYDROmorphone IVP 0.5 mg Route: IVP; Site: right antecubital; nj1 14:15 Follow up: Response: No adverse reaction; Pain is decreased nj1 13:44 Drug: Ondansetron IVP 4 mg Route: IVP; Site: right antecubital; nj1 14:15 Follow up: Response: No adverse reaction nj1 15:46 Drug: Promethazine IM 25 mg Route: IM; Site: right gluteus; nj1 16:50 Follow up: Response: No adverse reaction; Nausea is decreased nj1 Disposition Summary: 03/01/23 15:24 Discharge Ordered Location: Home collins Problem: new collins Symptoms: have improved collins Condition: Stable collins Diagnosis - Epigastric abdominal tenderness collins - Vomiting collins - Diarrhea, unspecified collins - Functional dyspepsia collins Followup: collins - With: Private Physician - When: 2 - 3 days - Reason: Recheck today's complaints, Continuance of care, Re-evaluation by your physician Followup: collins - With: - When: 2 - 3 days - Reason: Recheck today's complaints, Re-evaluation by your physician Followup: collins - With: - When: 2 - 3 days - Reason: Recheck today's complaints, Re-evaluation by your physician Discharge Instructions: - Discharge Summary Sheet collins - Abdominal Pain, Adult collins - Food Choices to Help Relieve Diarrhea, Adult collins - Diarrhea, Adult collins - Abdominal Pain, Adult, [id number] collins - Diarrhea, Adult, [id number] collins - Vomiting, Adult collins Forms: - Medication Reconciliation Form collins - Thank You Letter collins - Antibiotic Education collins - Prescription Opioid Use [facility] Prescriptions: - Pepcid 20 mg Oral Tablet - take 1 tablet by ORAL route every 12 hours for 21 days; 42 tablet; Refills: 0, [facility] Product Selection Permitted - Zofran 4 mg Oral Tablet - take 1 tablet by ORAL route every 8 hours As needed; 24 tablet; Refills: 0, [facility] Product Selection Permitted - dicyclomine 20 mg Oral Tablet - take 1 tablet by ORAL route 4 times per day; 28 tablet; Refills: 0, Product [facility] Selection Permitted Signatures: Dispatcher [employer] Elier Torres MD MD cha Lewis, Lynsay, RN RN ll1 Maylin Ferrara RN RN nj1 Corrections: (The following items were deleted from the chart) 13:05 12:25 Allergies: No Known Allergies; eli nj1
--- NOTE | 2023-03-01 15:25 | ER ---
Nurse's Notes [facility] Name: Nicole Zamora Age: 28 yrs Sex: Female : 1995 Arrival Date: 03/01/2023 Time: 12:13 Bed 5 Private MD: Diagnosis: Epigastric abdominal tenderness;Vomiting;Diarrhea, unspecified;Functional dyspepsia Presentation: 03/01 12:24 Chief complaint: Patient states: Abdominal pain for 2 weeks, worse for the past 4 days. ll1 + N/V/D. No fever. Coronavirus screen: Vaccine status: Patient reports being unvaccinated. Client denies travel out of the [place] in the last 14 days. At this time, the client does not indicate any symptoms associated with coronavirus-19. Ebola Screen: Patient denies travel to an Ebola-affected area in the 21 days before illness onset. Initial Sepsis Screen: Does the patient meet any 2 criteria? No. Patient's initial sepsis screen is negative. Does the patient have a suspected source of infection? Yes: Acute abdominal pain. Risk Assessment: Do you want to hurt yourself or someone else? Patient reports no desire to harm self or others. Onset of symptoms was February 15, 2023. 12:24 Method Of Arrival: Ambulatory ll1 12:24 Acuity: ULISES 3 ll1 Triage Assessment: 12:26 General: Appears uncomfortable, Behavior is calm, cooperative, appropriate for age. ll1 Pain: Complains of pain in abdomen Pain currently is 4 out of 10 on a pain scale. Quality of pain is described as aching. GI: Reports lower abdominal pain, upper abdominal pain, cramping, diarrhea, nausea, vomiting. Historical: - Allergies: 12:55 Morphine (Itching); nj1 - PMHx: 12:25 None; ll1 - PSHx: 12:25 section; D\T\C x 2; ll1 - Immunization history:: Client reports having NOT received the Covid vaccine. - Social history:: Smoking status: Patient denies any tobacco usage or history of. - Family history:: not pertinent. Screenin:43 [facility] ED Fall Risk Assessment (Adult) History of falling in the last 3 months, iw including since admission No falls in past 3 months (0 pts). Abuse screen: Denies threats or abuse. Denies injuries from another. Nutritional screening: No deficits noted. Tuberculosis screening: No symptoms or risk factors identified. Assessment: 12:42 General: Appears in no apparent distress. Behavior is calm, cooperative. Pain: iw Complains of pain in epigastric area. Neuro: Level of Consciousness is awake, alert, obeys commands, Oriented to person, place, time, situation. Respiratory: Respiratory effort is even, unlabored, Respiratory pattern is regular. GI: Abdomen is Reports epigastric pain. Derm: Skin is intact, is healthy with good turgor. 14:15 Reassessment: Patient appears in no apparent distress at this time. Patient and/or nj1 family updated on plan of care and expected duration. Pain level reassessed. Patient is alert, oriented x 3, equal unlabored respirations, skin warm/dry/pink. 15:50 Reassessment: Patient appears in no apparent distress at this time. Patient and/or nj1 family updated on plan of care and expected duration. Pain level reassessed. Patient is alert, oriented x 3, equal unlabored respirations, skin warm/dry/pink. IV fluids infusing. GI: Reports nausea. 16:50 Reassessment: Patient appears in no apparent distress at this time. Patient and/or nj1 family updated on plan of care and expected duration. Pain level reassessed. Patient is alert, oriented x 3, equal unlabored respirations, skin warm/dry/pink. Patient states feeling better. Vital Signs: 12:24 BP 146 / 96; Pulse 80; Resp 17; Temp 97.7; Pulse Ox 98% ; Weight 91.63 kg; Height 5 ft. ll1 3 in. ; Pain 4/10; 12:55 BP 127 / 81; Pulse 75; Resp 16; Pulse Ox 98% on R/A; Pain 5/10; nj1 13:44 BP 133 / 90; Pulse 94; Resp 16; Pulse Ox 100% ; Pain 7/10; nj1 14:15 BP 110 / 47; Pulse 67; Resp 16; Pulse Ox 97% on R/A; Pain 3/10; nj1 15:31 BP 148 / 95; Pulse 70; Resp 16; Pulse Ox 99% on R/A; nj1 15:50 BP 144 / 86; Pulse 78; Resp 16; Pulse Ox 100% ; Pain 3/10; nj1 12:24 Body Mass Index 35.78 (91.63 kg, 160.02 cm) ll1 12:24 Pain Scale: Adult ll1 12:55 Pain Scale: Adult nj1 13:44 Pain Scale: Adult nj1 14:15 Pain Scale: Adult nj1 15:50 Pain Scale: Adult nj1 ED Course: 12:16 Patient arrived in ED. im 12:18 Elier Call MD is Attending Physician. collins 12:25 Triage completed. ll1 12:26 Arm band placed on Patient placed in an exam room, on a stretcher. ll1 12:28 Maylin Ferrara, PAYTON is Primary Nurse. nj1 12:32 Initial lab(s) drawn, by me, sent to lab. Inserted saline lock: 20 gauge in right iw antecubital area, using aseptic technique. Blood collected. 12:43 CMP Sent. iw 12:43 CBC with Diff Sent. iw 12:43 Lipase Sent. iw 12:49 Test, Urine Sent. rs5 12:49 Urinalysis w/ reflexes Sent. rs5 13:14 Patient has correct armband on for positive identification. iw 13:25 CT Abd/Pelvis - IV Contrast Only In Process Unspecified. EDMS 14:24 US Abdomen Limited In Process Unspecified. EDMS 15:24 Doug Linder MD is Referral Physician. collins 15:24 Tish Zamarripa MD is Referral Physician. collins 16:50 IV discontinued, intact, bleeding controlled. nj1 16:55 No provider procedures requiring assistance completed. nj1 Administered Medications: 12:57 Drug: NS 0.9% IV 1000 ml Route: IV; Rate: 1 bolus; Site: right antecubital; nj1 16:50 Follow up: Response: No adverse reaction; IV Status: Completed infusion; IV Intake: nj1 1000ml 12:58 Drug: Ondansetron IVP 4 mg Route: IVP; Site: right antecubital; nj1 13:44 Follow up: Response: No adverse reaction; Nausea unchanged nj1 13:00 Drug: Famotidine IVP 20 mg Route: IVP; Site: right antecubital; nj1 13:47 Follow up: Response: No adverse reaction nj1 13:15 Not Given (Duplicate Order): morphine IVP or IV 4 mg IVP once over 4 mins collins 13:44 Drug: HYDROmorphone IVP 0.5 mg Route: IVP; Site: right antecubital; nj1 14:15 Follow up: Response: No adverse reaction; Pain is decreased nj1 13:44 Drug: Ondansetron IVP 4 mg Route: IVP; Site: right antecubital; nj1 14:15 Follow up: Response: No adverse reaction nj1 15:46 Drug: Promethazine IM 25 mg Route: IM; Site: right gluteus; nj1 16:50 Follow up: Response: No adverse reaction; Nausea is decreased nj1 Medication: 12:43 VIS not applicable for this client. iw Intake: 16:50 IV: 1000ml; Total: 1000ml. nj1 Outcome: 15:24 Discharge ordered by . collins 16:50 Discharged to home ambulatory, with family. nj1 16:50 Condition: stable 16:50 Discharge instructions given to patient, Instructed on discharge instructions, follow up and referral plans. medication usage, Demonstrated understanding of instructions, follow-up care, medications, Prescriptions given X 3. 16:56 Patient left the ED. nj1 Signatures: Dispatcher [employer] EDUT Elier Call MD MD cha Williams, Irene, RN PAYTON Jayda Jaffe RN RN ll1 Jimmy Iraheta rs5 Maylin Ferrara RN RN nj1 Rose Mata Corrections: (The following items were deleted from the chart) 13:05 12:25 Allergies: No Known Allergies; [facility] nj
[2023-03-01] MEDS ORDERED: PROMETHAZINE INJ 25 MG/ML AMP ONE (15:53)
[2023-03-01 17:01] VITALS: TEMP 97.7
[2023-03-01 17:10] VITALS: BP 144/86; O2SAT 100
== END 2023-03-01 16:56 | disposition home or self-care (01) ==
LOC: ER 12:13
DX: K30 Functional dyspepsia (principal); R11.10 Vomiting, unspecified; R19.7 Diarrhea, unspecified; Z88.5 Allergy status to narcotic agent
CPT/HCPCS: 96361; 85025; 81001; 36415; 81025; 83690; 80053; 74177; 76705; 96375; 96372; 96374; 99284; Q9967; J2550; J1170; J2405 ×2; J7030

== ENCOUNTER 2024-09-21 21:08 | Emergency (ER) | payer OTHER ==
--- OUTSIDE RECORDS SUMMARY | 2024-09-21 21:18 | XMS REPORT | Continuity of Care Document ---
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 No [id number] 9.4mCi 9.4 millicurie , Intravenou s, ONCE, 1 dose, On Thu03/16/23 at 1115, Routine [facility] ondansetron 4 mg tablet 03-02 00:00: 00 11-15 00:00 :00 No 4mg Take 1 tablet by mouth as needed. [facility] famotidine 20 mg tablet 03-02 00:00: 00 05-04 00:00 :00 No 20mg Take 1 tablet by mouth as needed. [facility] famotidine 40 mg tablet 01-28 00:00: 00 03-05 00:00 :00 No [id number] 40mg Take 1 tablet by mouth in the morning. [facility] pantoprazol e (PROTONIX) 40 mg EC tablet 24 00:00: 00 03-05 00:00 :00 No [id number] 40mg Take 1 tablet by mouth in the morning. [facility] bromphenira mine-pseudo ephedrine-D M (BROMFED DM) 2-30-10 mg/5 mL syrup 5-24 00:00: 00 03-05 00:00 :00 No [id number] 5mL Take 5 mL by mouth 3 (three) times daily as needed for Cough. [facility] vitamin w/FA tablet 09-24 00:00: 00 Yes [id number] 1{tbl} Take 1 tablet by mouth in the morning. [facility] vitamin w/FA tablet 09-24 00:00: 00 06-10 00:00 :00 No [id number] 1{tbl} Take 1 tablet by mouth in the morning. [facility] labetaloL 200 mg tablet 09-24 00:00: 00 01-02 00:00 :00 No [id number] 200mg Take 1 tablet by mouth every 12 (twelve) hours. [facility] buPROPion XL (WELLBUTRIN XL) 150 mg 24 hr tablet 09-24 00:00: 00 01-02 00:00 :00 No [id number] 150mg Take 1 tablet by mouth every morning. [facility] norethindro ne 0.35 mg tablet 2021-09 00:00: 00 03-05 00:00 :00 No [id number] 1{tbl} Take 1 tablet by mouth in the morning. [facility] sulfamethox azole-trime thoprim 800-160 mg per tablet 2021-09 00:00: 00 09-10 05:59 :00 No [id number] 1{tbl} Take 1 tablet by mouth in the morning and 1 tablet in the evening. Do all this for 10 days. [facility] buPROPion XL (WELLBUTRIN XL) 150 mg 24 hr tablet 2021-09 00:00: 00 Yes [id number] 150mg Take 1 tablet by mouth every morning. [facility] acetaminoph en (TYLENOL ORAL) 2021-09 06:00: 08-08 00:00 :00 No Take by mouth. [facility] labetaloL (NORMODYNE) injection 40 mg 2021-09 01:00: 00 08-08 00:15 :00 No 40mg 40 mg, Slow IV Push, ONCE, 1 dose, On [facility] 08/07/22 at 1900, Routine [facility] labetaloL (NORMODYNE) tablet 200 mg 2021-09 00:45: 00 Yes 200mg 200 mg, Oral, Q12H, First dose on Lucy 08/07/22 at 1845, Until Discontinu ed, Routine [facility] labetaloL (NORMODYNE) injection 20 mg 2021-09 00:15: 00 08-07 23:44 :00 No 20mg 20 mg, Slow IV Push, ONCE, 1 dose, On [facility] 08/07/22 at 1815, Routine [facility] docusate 100 mg capsule 2021-09 00:00: 00 12-31 00:00 :00 No [id number] 200mg Take 2 capsules by mouth once daily as needed for Constipati on. [facility] ferrous sulfate 325 mg (65 mg iron) tablet 2021-09 00:00: 00 12-31 00:00 :00 No [id number] 325mg Take 1 tablet by mouth in the morning and 1 tablet in the evening. [facility] ibuprofen 600 mg tablet 2021-09 00:00: 00 12-31 00:00 :00 No [id number] 600mg Take 1 tablet by mouth every 6 (six) hours as needed (Pain). Take with food or milk. [facility] vitamin w/FA tablet 2021-09 00:00: 00 09-24 00:00 :00 No [id number] 1{tbl} Take 1 tablet by mouth in the morning. [facility] labetaloL 200 mg tablet 2021-09 00:00: 00 09-08 05:59 :00 No [id number] 200mg Take 1 tablet by mouth every 12 (twelve) hours for 30 days. [facility] HYDROcodone -acetaminop hen 5-325 mg tablet 2021-09 00:00: 00 08-16 05:59 :00 No [id number] 1{tbl} Take 1 tablet by mouth every 6 (six) hours as needed (Pain scale above 4) for up to 7 days. Do not exceed 3 grams of acetaminop hen in 24 hours. Indication s: acute pain [facility] bacitracin 500 unit/gram ointment 2021-09 00:00: 00 08-16 05:59 :00 No [id number] Apply to affected area(s) as needed for Rash for up to 7 days. [facility] metroNIDAZO LE 250 mg tablet 2021-09 00:00: 00 08-12 05:59 :00 No [id number] 500mg Take 2 tablets by mouth every 12 (twelve) hours for 3 days. [facility] bacitracin- polymyxin b-nystatin- zinc oxide 1:1:1 (COMPOUNDED ) ointment 2021-09 16:07: 02 Yes Topical (Apply To Affected Areas), PRN, Starting on Thu08/07/22 at 1007, Until Discontinu ed, Routine, Wound care [facility] polyethylen e glycol 3350 powder 17 g 2021-09 15:00: 00 Yes 17g 17 g, Oral, DAILY, First dose on Thu08/07/22 at 0900, Until Discontinu ed, Routine [facility] hydroCHLORO thiazide (ESIDRIX) tablet 50 mg 2021-09 15:00: 00 08-07 16:05 :33 No 50mg 50 mg, Oral, DAILY, First dose on Thu08/07/22 at 0900, Until Discontinu ed, Routine [facility] famotidine (PEPCID AC) tablet 20 mg 2021-09 02:00: 00 Yes 20mg 20 mg, Oral, BID, First dose on Thu08/06/22 at 2000, Until Discontinu ed, Routine [facility] rho(D) immune globulin (RHOGAM) syringe 300 mcg 2021-09 18:02: 55 Yes 300ug 300 mcg, Intramuscu lar, ONCE, For 1 dose, Conditiona l, Routine [facility] diphenhydrA MINE (BENADRYL) injection 25 mg 2021-09 18:02: 49 Yes 25mg 25 mg, Slow IV Push, Q6HPRN, Starting on Thu08/06/22 at 1202, Until Discontinu ed, Routine, Itching [facility] diphenhydrA MINE (BENADRYL) tablet 25 mg 2021-09 18:02: 49 Yes 25mg 25 mg, Oral, Q6HPRN, Starting on Thu08/06/22 at 1202, Until Discontinu ed, Routine, Sleep, Itching [facility] ondansetron (ZOFRAN (PF)) injection 4 mg 2021-09 18:02: 49 Yes 4mg 4 mg, Slow IV Push, Q8HPRN, Starting on Thu08/06/22 at 1202, Until Discontinu ed, Routine, Nausea and Vomiting (N/V) [facility] bisacodyL (DULCOLAX) suppository 10 mg 2021-09 18:02: 49 Yes 10mg 10 mg, Rectal, QDAILYPRN, Starting on Thu08/06/22 at 1202, Until Discontinu ed, Routine, Constipati on [facility] docusate (COLACE) capsule 200 mg 2021-09 18:02: 49 Yes 200mg 200 mg, Oral, QDAILYPRN, Starting on Thu08/06/22 at 1202, Until Discontinu ed, Routine, Constipati on [facility] magnesium hydroxide (MILK OF MAGNESIA) 400 mg/5 mL suspension 30 mL 2021-09 18:02: 49 Yes 30mL 30 mL, Oral, QDAILYPRN, Starting on Thu08/06/22 at 1202, Until Discontinu ed, Routine, Constipati on [facility] lactated ringers IV infusion 1,000 mL 2021-09 18:02: 49 Yes 1000mL at 125 mL/hr, 1,000 mL, IV Infusion, PRN, 1 dose, Starting on Thu08/06/22 at 1202, Until Discontinu ed, Routine [facility] ibuprofen (IBU) tablet 600 mg 2021-09 12:00: 00 Yes 600mg 600 mg, Oral, Q6H, First dose on Thu08/06/22 at 0600, Until Discontinu ed, Routine [facility] HYDROcodone -acetaminop hen (NORCO 5) 5-325 mg tablet 2 tablet 2021-09 11:32: 21 Yes 2{tbl} 2 tablet, Oral, Q6HPRN, Starting on Thu08/06/22 at 0532, Until Discontinu ed, Routine, Pain (scale 7-10), Alternate with Ibuprofen [facility] HYDROcodone -acetaminop hen (NORCO 5) 5-325 mg tablet 1 tablet 2021-09 11:32: 21 Yes 1{tbl} 1 tablet, Oral, Q6HPRN, Starting on Thu08/06/22 at 0532, Until Discontinu ed, Routine, Pain (scale 4-6), Alternate with Ibuprofen [facility] simethicone (GAS RELIEF (SIMETHICON E)) chewable tablet 160 mg 2021-09 07:55: 49 Yes 160mg 160 mg, Oral, PC+HSPRN, Starting on Thu08/06/22 at 0155, Until Discontinu ed, Routine, Gas [facility] ePHEDrine (AKOVAZ) injection 2021-09 16:12: 00 08-05 16:13 :47 No Slow IV Push, ONCE INTRA PROCEDURE, Starting on Thu08/05/22 at 1012, Until Thu08/05/22 at 1013, Routine, Intra-op [facility] albumin (ALBUTEIN 5 %) 5 % injection 2021-09 16:08: 00 08-05 16:13 :22 No IV Infusion, CONTINUOUS PRN, Starting on Thu08/05/22 at 1008, Until Thu08/05/22 at 1013, Intra-op [facility] HYDROcodone -acetaminop hen (NORCO 5) 5-325 mg tablet 1 tablet 2021-09 16:01: 20 08-06 03:11 :00 No 1{tbl} 1 tablet, Oral, Q6HPRN, 1 dose, Starting on Thu08/05/22 at 1001, Until Discontinu ed, Routine, Pain (scale 4-6) [facility] oxytocin (PITOCIN) 30 units in NS 500 mL IV infusion 2021-09 16:01: 08 08-06 18:02 :51 No 300mL/h 300 mL/hr, IV Infusion, SEE-INSTRU CTIONS, Starting on Thu08/05/[address] at 300 mL/hr for 1 hr then 150 mL/hr for 1 hr. & nbsp; For post delivery uterotonic
[facility] ondansetron (ZOFRAN (PF)) injection 2021-09 15:39: 00 08-05 16:03 :47 No Slow IV Push, ONCE INTRA PROCEDURE, Starting on Thu08/05/22 at 0939, Until Thu08/05/22 at 1003, Routine, Intra-op [facility] famotidine (PEPCID (PF)) injection 2021-09 15:39: 00 08-05 16:03 :47 No Slow IV Push, ONCE INTRA PROCEDURE, Starting on Thu08/05/22 at 0939, Until Thu08/05/22 at 1003, Routine, Intra-op [facility] dexamethaso ne (DECADRON PHOSPHATE) injection 2021-09 15:39: 00 08-05 16:03 :47 No IV Push, ONCE INTRA PROCEDURE, Starting on Thu08/05/22 at 0939, Until Thu08/05/22 at 1003, Routine, Intra-op [facility] morpHINE PF (DURAMORPH- PF) injection 2021-09 15:17: 00 08-05 16:03 :47 No Epidural, ONCE INTRA PROCEDURE, Starting on Thu08/05/22 at 0917, Until Thu08/05/22 at 1003, Routine, Intra-op [facility] FENTanyl PF (SUBLIMAZE (PF)) injection 2021-09 15:16: 00 08-05 16:03 :47 No Intravenou s, ONCE INTRA PROCEDURE, Starting on Thu08/05/22 at 0916, Until Thu08/05/22 at 1003, Routine, Intra-op [facility] phenylephri ne (VAZCULEP) injection 2021-09 15:14: 00 08-05 16:03 :47 No Intravenou s, CONTINUOUS PRN, Starting on Thu08/05/22 at 0914, Until Thu08/05/22 at 1003, Routine, Intra-op [facility] lidocaine-e pinephrine (XYLOCAINE W/EPINEPHRI NE) 2 %-1:200,000 injection 2021-09 15:11: 00 08-05 16:03 :47 No Epidural, ONCE INTRA PROCEDURE, Starting on Thu08/05/22 at 0911, Until Thu08/05/22 at 1003, Routine, Intra-op [facility] ePHEDrine 25 mg/5 mL (5 mg/mL) syringe 2021-09 15:08: 00 08-05 16:03 :47 No Slow IV Push, ONCE INTRA PROCEDURE, Starting on Thu08/05/22 at 0908, Until Thu08/05/22 at 1003, Routine, Intra-op [facility] chloroproca ine (NESACAINE- MPF) 30 mg/mL (3 %) injection 2021-09 15:03: 00 08-05 16:03 :47 No Caudal Block, ONCE INTRA PROCEDURE, Starting on Thu08/05/22 at 0903, Until Thu08/05/22 at 1003, Routine, Intra-op [facility] azithromyci n (ZITHROMAX) 500 mg in NaCl 0.9% (NS) 250 mL VIAL-MATE IV piggyback 2021-09 15:02: 43 08-06 15:01 :43 No 500mg 500 mg, IV Piggyback, O.R. HOLDING ONCE, Starting on Thu08/05/22 at 0902, Until Thu08/06/22 at 0901, Administer over 60 Minutes, 250 mL
Reas on for Anti-Infec tive: Surgical Prophylaxi s
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
Duration of therapy: within 24 hours of surgery
Reason for Anti-Infec tive: Surgical Prophylaxi s [facility] ceFAZolin in 0.9% sodium chloride (ANCEF) 2 gram/100 mL RTU 2 g 2021-09 15:02: 28 08-06 15:01 :28 No 2000mg 2 g (2,000 mg), IV Piggyback, O.R. HOLDING ONCE, Starting on Thu08/05/22 at 0902, Until Thu08/06/22 at 0901, Administer over 30 Minutes, 100 mL
Reas on for Anti-Infec tive: Surgical Prophylaxi s
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
Duration of therapy: within 24 hours of surgery [facility] lactated ringers IV infusion 2021-09 15:00: 00 08-05 16:03 :47 No IV Infusion, CONTINUOUS PRN, Starting on Thu08/05/22 at 0900, Until Thu08/05/22 at 1003, Routine, Intra-op [facility] ropivacaine 0.2 % (NAROPIN (PF)) epidural infusion 2021-09 13:31: 00 08-05 16:03 :47 No Epidural, CONTINUOUS PRN, Starting on Thu08/05/22 at 0731, Until Thu08/05/22 at 1003, Routine, Intra-op [facility] lidocaine-e pinephrine (XYLOCAINE W/EPINEPHRI NE) 1.5 %-1:200,000 injection 2021-09 13:29: 00 08-05 16:03 :47 No Intraderma l, ONCE INTRA PROCEDURE, Starting on Thu08/05/22 at 0729, Until Thu08/05/22 at 1003, Routine, Intra-op [facility] lactated ringers IV infusion 500 mL 2021-09 12:45: 00 08-05 13:05 :03 No 500mL at 999 mL/hr, 500 mL, IV Infusion, ONCE, 1 dose, On Thu08/05/22 at 0645, Routine [facility] sodium citrate-cit charles acid (BICITRA) 500-334 mg/5 mL solution 30 mL 2021-09 11:58: 45 08-05 12:43 :00 No 30mL 30 mL, Oral, PRE-PROCED URE ONCE, 1 dose, Starting on Thu08/05/22 at 0558, Until Thu08/05/22 at 0643, Routine, Surgery/Pr ocedure [facility] ondansetron (ZOFRAN (PF)) injection 4 mg 2021-09 11:38: 00 08-05 11:47 :00 No 4mg 4 mg, Slow IV Push, ONCE, On Thu08/05/22 at 0545, For 1 dose
Do ses of ondansetro n 16 mg and above need to be administer ed via IV piggyback. For Dose >=24mg ECG monitoring is advisable.
[facility] famotidine (PEPCID AC) tablet 20 mg 2021-09 11:26: 00 08-05 11:34 :00 No 20mg 20 mg, Oral, ONCE, 1 dose, On Thu08/05/22 at 0530, Routine [facility] butorphanol (STADOL) injection 1 mg 2021-09 09:30: 00 08-05 08:36 :00 No 1mg 1 mg, Intravenou s, ONCE, 1 dose, On Thu08/05/22 at 0330, Routine [facility] ondansetron (ZOFRAN (PF)) injection 4 mg 2021-09 05:45: 00 08-05 04:56 :00 No 4mg 4 mg, Slow IV Push, ONCE, On Thu08/04/22 at 2345, For 1 dose
Do ses of ondansetro n 16 mg and above need to be administer ed via IV piggyback. For Dose >=24mg ECG monitoring is advisable.
[facility] oxytocin (PITOCIN) 30 units in NS 500 mL IV infusion 2021-09 02:30: 57 08-06 18:02 :51 No 2mU/min at 2-40 mL/hr, IV Infusion, TITRATE, Starting on Thu08/04/22 at 2030, Until Thu08/06/22 at 1202, [facility] D5W 0.45% NaCl (1/2NS) IV infusion 1,000 mL 2021-09 01:30: 00 08-06 18:02 :51 No 1000mL at 75 mL/hr, 1,000 mL, IV Infusion, CONTINUOUS , Starting on Thu08/04/22 at 1930, Until Thu08/06/22 at 1202, [facility] magnesium sulfate in water for injection 20 gram/500 mL (4 %) IV infusion 2021-09 01:30: 00 08-06 18:02 :51 No 2g/h 2 g/hr (50 mL/hr), IV Infusion, CONTINUOUS , Starting on Thu08/04/22 at 1930, Until Thu08/06/22 at 1202, [facility] ondansetron (ZOFRAN) tablet 4 mg 2021-09 21:00: 00 08-04 20:44 :00 No 4mg 4 mg, Oral, ONCE, 1 dose, On Thu08/04/22 at 1500, Routine [facility] caffeine tablet 200 mg 2021-09 19:45: 00 08-04 19:03 :00 No 200mg 200 mg, Oral, ONCE, 1 dose, On Thu08/04/22 at 1345, Routine [facility] acetaminoph en (TYLENOL) tablet 1,000 mg 2021-09 19:30: 00 08-04 19:03 :00 No 1000mg 1,000 mg, Oral, ONCE, 1 dose, On Thu08/04/22 at 1330, Routine [facility] ondansetron (ZOFRAN (PF)) injection 4 mg 2021-09 15:15: 00 08-04 14:52 :00 No 4mg 4 mg, Slow IV Push, ONCE, On Thu08/04/22 at 0915, For 1 dose
Do ses of ondansetro n 16 mg and above need to be administer ed via IV piggyback. For Dose >=24mg ECG monitoring is advisable.
[facility] magnesium sulfate in water 2 gram/50 mL (4 %) infusion 2 g 2021-09 15:00: 00 08-04 16:00 :00 No 2g 2 g, IV Piggyback, Administer over 60 Minutes, ONCE, 1 dose, On Thu08/04/22 at 0900, Routine [facility] metroNIDAZO LE (FLAGYL) tablet 500 mg 2021-09 14:00: 00 08-11 13:59 :00 No 500mg 500 mg, Oral, Q12H, 14 doses, First dose on Thu08/04/22 at 0800, Last dose on 08/10/22 at 2000, Routine
Reason for Anti-Infec tive: Documented Infection< br>Documen abhi Infection Site: Pelvic
Duration of Therapy: 7 days [facility] proCHLORper azine (COMPAZINE) tablet 10 mg 2021-09 06:03: 00 08-04 06:43 :00 No 10mg 10 mg, Oral, ONCE, 1 dose, On Thu08/04/22 at 0015, Routine [facility] metoclopram ana cristina HCl (REGLAN) tablet 10 mg 2021-09 02:30: 00 08-04 01:55 :00 No 10mg 10 mg, Oral, ONCE, 1 dose, On 08/03/22 at 2030, Routine [facility] diphenhydrA MINE (BENADRYL) tablet 25 mg 2021-09 02:30: 00 08-04 01:55 :00 No 25mg 25 mg, Oral, ONCE, 1 dose, On 08/03/22 at 2030, Routine [facility] caffeine tablet 200 mg 2021-09 01:45: 00 08-04 00:35 :00 No 200mg 200 mg, Oral, ONCE, 1 dose, On Thu08/03/22 at 1945, Routine [facility] acetaminoph en (TYLENOL) tablet 1,000 mg 2021-09 00:45: 00 08-03 23:55 :00 No 1000mg 1,000 mg, Oral, ONCE, 1 dose, On 08/03/22 at 1845, Routine [facility] acetaminoph en (TYLENOL ORAL) 2021-09 19:41: 09 Yes Take by mouth. [facility] metoclopram ana cristina HCl (REGLAN) 10 mg in NaCl 0.9% (NS) piggyback 2021-09 20:35: 00 07-29 00:11 :22 No 10mg 10 mg, IV Piggyback, ONCE, 1 dose, On Thu07/28/22 at 1445, 50 mL [facility] diphenhydrA MINE (BENADRYL) injection 25 mg 2021-09 20:35: 00 07-28 21:02 :00 No 25mg 25 mg, Intravenou s, ONCE, 1 dose, On Thu07/28/22 at 1445, Routine [facility] lactated ringers IV infusion 500 mL 2021-09 20:34: 00 07-28 21:01 :41 No 500mL at 999 mL/hr, 500 mL, Intravenou s, ONCE, 1 dose, On Thu07/28/22 at 1445, Routine [facility] acetaminoph en (TYLENOL ORAL) 2021-09 18:48: 44 Yes Take by mouth. [facility] acetaminoph en (TYLENOL ORAL) 2021-09 13:13: 20 Yes Take by mouth. [facility] metroNIDAZO LE 250 mg tablet 2021-09 00:00: 00 08-08 00:00 :00 No [id number] 500mg Take 2 tablets by mouth every 12 (twelve) hours for 7 days. [facility] Budesonide (RHINOCORT ALLERGY) 32 mcg/actuati on nasal spray 2021-09 00:00: 00 12-31 00:00 :00 No [id number] 1{spray } Use 1 [place] in each nostril in the morning. [facility] dextrometho rphan-guaif enesin 10-100 mg/5 mL solution 2021-09 00:00: 00 12-31 00:00 :00 No [id number] 5mL Take 5 mL by mouth every 6 (six) hours as needed for Cough. [facility] oseltamivir (TAMIFLU) 75 mg capsule 2021-09 00:00: 00 07-22 05:59 :00 No [id number] 75mg Take 1 capsule by mouth in the morning and 1 capsule in the evening. Do all this for 5 days. [facility] acetaminoph en (TYLENOL ORAL) 2021-09 13:24: 03 Yes Take by mouth. [facility] fluconazole (DIFLUCAN) 150 mg tablet 2021-09 00:00: 00 06-20 04:59 :00 No [id number] 150mg Take 1 tablet by mouth once now for 1 dose. [facility] PNV 67-iron ps-folate no.1-dha (VITAFOL ULTRA) 29 mg iron- 1 mg-200 mg Cap 06-03 00:00: 00 08-08 00:00 :00 No 1{capsu le} Take 1 capsule by mouth at bedtime. [facility] magnesium sulfate in water 2 gram/50 mL (4 %) infusion 2 g 05-20 02:45: 00 05-20 03:51 :00 No 2g 2 g, IV Piggyback, Administer over 60 Minutes, ONCE, 1 dose, On Thu05/19/22 at 2145, TEVIN [facility] proMETHazin e (PHENERGAN) tablet 25 mg 05-20 00:15: 00 05-20 00:07 :00 No 25mg 25 mg, Oral, ONCE, 1 dose, On Thu05/19/22 at 1915, TEVIN [facility] proMETHazin e 25 mg tablet 05-19 00:00: 00 08-08 00:00 :00 No [id number] 25mg Take 1 tablet by mouth every 6 (six) hours as needed for Nausea and Vomiting (N/V). [facility] PNV no.95/radha us fum/folic ac ( ORAL) 05-09 09:39: 15 05-09 00:00 :00 No Take by mouth. [facility] silver sulfADIAZIN E (SILVADENE) 1 % cream 05-08 00:00: 00 07-05 00:00 :00 No [id number] Apply to area(s) 2 (two) times daily. [facility] PNV no.95/radha us fum/folic ac ( ORAL) 04-07 22:41: 36 Yes Take by mouth. [facility] metroNIDAZO LE (FLAGYL) 500 mg tablet 04-07 00:00: 00 05-09 00:00 :00 No [id number] 500mg Take 1 tablet by mouth every 12 (twelve) hours. [facility] VITAFOL ULTRA 29 mg iron- 1 mg-200 mg Cap 03-31 00:00: 00 05-09 00:00 :00 No 1{capsu le} Take 1 capsule by mouth at bedtime. [facility] 102-iron-fo late-dha (VITAFOL FE PLUS) 90 mg iron- 1 mg-200 mg Cap 03-28 00:00: 00 05-09 00:00 :00 No [id number] Take 1 TAB-CAP/M2 by mouth at bedtime. [facility] polycarboph il (FIBERCON) 625 mg tablet 03-03 00:00: 00 07-05 00:00 :00 No [id number] 625mg Take 1 tablet by mouth daily. [facility] sennosides (SENNA LAX) 8.6 mg tablet 03-03 00:00: 00 07-05 00:00 :00 No [id number] 8.6mg Take 1 tablet by mouth daily. [facility] polyethylen e glycol 3350 17 gram/dose powder 03-03 00:00: 00 07-05 00:00 :00 No [id number] 17g Take 17 g by mouth daily. [facility] metoclopram ana cristina HCl 10 mg tablet 02-07 00:00: 00 05-09 00:00 :00 No [id number] 10mg Take 1 tablet by mouth every 6 (six) hours as needed for Nausea and Vomiting (N/V). [facility] metroNIDAZO LE 500 mg tablet 01-12 00:00: 00 03-03 00:00 :00 No [id number] 500mg Take 1 tablet by mouth every 12 (twelve) hours. [facility] pyridoxine, VITAMIN B-6, (VITAMIN B-6) 25 mg tablet 01-10 00:00: 08-08 00:00 :00 No [id number] 25mg Take 1 tablet by mouth every 6 (six) hours as needed for Nausea and Vomiting (N/V). [facility] doxylamine (UNISOM, DOXYLAMINE, ) 25 mg tablet 01-10 00:00: 00 05-09 00:00 :00 No [id number] 25mg Take 1 tablet by mouth at bedtime as needed for Nausea and Vomiting (N/V). [facility] Immunizations Ordered Immunization Name Filled Immunization Name Date Status Comments Source TDAP 2024-09-13 00:00:00 Completed [facility] RSV, Bivalent Protein Subunit RSVprdF 2024-09-13 00:00:00 Completed TDAP 2022-07-03 00:00:00 Completed [facility] TDAP 2022-07-03 00:00:00 Completed [facility] TDAP 2022-07-03 00:00:00 Completed [facility] TDAP 2022-07-03 00:00:00 Completed [facility] TDAP 2022-07-03 00:00:00 Completed [facility] TDAP 2022-07-03 00:00:00 Completed [facility] TDAP 2022-07-03 00:00:00 Completed [facility] TDAP 2022-07-03 00:00:00 Completed [facility] TDAP 2022-07-03 00:00:00 Completed [facility] TDAP 2022-07-03 00:00:00 Completed [facility] TDAP 2022-07-03 00:00:00 Completed [facility] TDAP 2022-07-03 00:00:00 Completed [facility] TDAP 2022-07-03 00:00:00 Completed [facility] TDAP 2022-07-03 00:00:00 Completed [facility] TDAP 2022-07-03 00:00:00 Completed [facility] TDAP 2022-07-03 00:00:00 Completed [facility] TDAP 2022-07-03 00:00:00 Completed [facility] TDAP 2022-07-03 00:00:00 Completed [facility] TDAP 2022-07-03 00:00:00 Completed [facility] TDAP 2022-07-03 00:00:00 Completed [facility] TDAP 2022-07-03 00:00:00 Completed [facility] TDAP 2022-07-03 00:00:00 Completed [facility] TDAP 2022-07-03 00:00:00 Completed [facility] TDAP 2022-07-03 00:00:00 Completed [facility] TDAP 2022-07-03 00:00:00 Completed [facility] TDAP 2022-07-03 00:00:00 Completed [facility] TDAP 2022-07-03 00:00:00 Completed [facility] TDAP 2022-07-03 00:00:00 Completed [facility] TDAP 2022-07-03 00:00:00 Completed [facility] TDAP 2022-07-03 00:00:00 Completed [facility] TDAP 2022-07-03 00:00:00 Completed [facility] TDAP 2022-07-03 00:00:00 Completed [facility] TDAP 2022-07-03 00:00:00 Completed [facility] TDAP 2022-07-03 00:00:00 Completed [facility] TDAP 2022-07-03 00:00:00 Completed [facility] TDAP 2022-07-03 00:00:00 Completed [facility] TDAP 2022-07-03 00:00:00 Completed [facility] TDAP 2022-07-03 00:00:00 Completed [facility] TDAP 2022-07-03 00:00:00 Completed [facility] TDAP 2022-07-03 00:00:00 Completed [facility] TDAP 2022-07-03 00:00:00 Completed [facility] TDAP 2022-07-03 00:00:00 Completed [facility] TDAP 2022-07-03 00:00:00 Completed [facility] TDAP 2022-07-03 00:00:00 Completed [facility] TDAP Unknown Completed [facility] TDAP Unknown Completed [facility] TDAP Unknown Completed [facility] TDAP Unknown Completed [facility] TDAP Unknown Completed [facility] TDAP Unknown Completed [facility] TDAP Unknown Completed [facility] TDAP Unknown Completed [facility] TDAP Unknown Completed [facility] TDAP Unknown Completed [facility] TDAP Unknown Completed [facility] TDAP Unknown Completed [facility] TDAP Unknown Completed [facility] TDAP Unknown Completed [facility] TDAP Unknown Completed [facility] TDAP Unknown Completed [facility] TDAP Unknown Completed [facility] TDAP Unknown Completed [facility] TDAP Unknown Completed [facility] TDAP Unknown Completed [facility] TDAP Unknown Completed [facility] TDAP Unknown Completed [facility] TDAP Unknown Completed [facility] TDAP Unknown Completed [facility] TDAP Unknown Completed [facility] TDAP Unknown Completed [facility] TDAP Unknown Completed [facility] TDAP Unknown Completed [facility] TDAP Unknown Completed [facility] TDAP Unknown Completed [facility] TDAP Unknown Completed [facility] TDAP Unknown Completed [facility] TDAP Unknown Completed [facility] TDAP Unknown Completed [facility] TDAP Unknown Completed [facility] TDAP Unknown Completed [facility] TDAP Unknown Completed [facility] TDAP Unknown Completed [facility] TDAP Unknown Completed [facility] TDAP Unknown Completed [facility] TDAP Unknown Completed [facility] TDAP Unknown Completed [facility] TDAP Unknown Completed [facility] TDAP Unknown Completed [facility] TDAP Unknown Completed [facility] TDAP Unknown Completed [facility] TDAP Unknown Completed [facility] TDAP Unknown Completed [facility] TDAP Unknown Completed [facility] TDAP Unknown Completed [facility] TDAP Unknown Completed [facility] Vital Signs Vital Name Observation Time Observation Value Comments S ource Systolic blood pressure 2024-09-13 14:26:00 135 mm[Hg] [facility] Diastolic blood pressure 2024-09-13 14:26:00 88 mm[Hg] [facility] Heart rate 2024-09-13 14:26:00 86 /min [facility] Respiratory rate 2024-09-13 14:26:00 18 /min [facility] Body height 2024-09-13 14:26:00 160 cm [facility] Body weight 2024-09-13 14:26:00 92.851 kg [facility] BMI 2024-09-13 14:26:00 36.26 kg/m2 [facility] Systolic blood pressure 2024-08-25 15:47:00 109 mm[Hg] [facility] Diastolic blood pressure 2024-08-25 15:47:00 74 mm[Hg] [facility] Heart rate 2024-08-25 15:47:00 85 /min [facility] Body height 2024-08-25 15:47:00 160 cm [facility] Body weight 2024-08-25 15:47:00 90.719 kg [facility] BMI 2024-08-25 15:47:00 35.43 kg/m2 [facility] Oxygen saturation in Arterial blood by Pulse oximetry 2024-08-25 15:47:00 98 /min [facility] Systolic blood pressure 2024-08-24 17:32:00 133 mm[Hg] [facility] Diastolic blood pressure 2024-08-24 17:32:00 84 mm[Hg] [facility] Heart rate 2024-08-24 17:32:00 93 /min [facility] Body temperature 2024-08-24 17:32:00 36.67 Lata [facility] Respiratory rate 2024-08-24 17:32:00 18 /min [facility] Body height 2024-08-24 17:32:00 157.5 cm [facility] Body weight 2024-08-24 17:32:00 90.992 kg [facility] BMI 2024-08-24 17:32:00 36.69 kg/m2 [facility] Systolic blood pressure 2024-08-20 23:30:00 147 mm[Hg] [facility] Diastolic blood pressure 2024-08-20 23:30:00 89 mm[Hg] [facility] Heart rate 2024-08-20 23:30:00 85 /min [facility] Oxygen saturation in Arterial blood by Pulse oximetry 2024-08-20 23:30:00 99 /min [facility] Body temperature 2024-08-20 23:00:00 36.78 Lata [facility] Respiratory rate 2024-08-20 23:00:00 16 /min [facility] Body height 2024-08-20 14:10:00 160 cm [facility] Body weight 2024-08-20 14:10:00 92.534 kg [facility] BMI 2024-08-20 14:10:00 36.15 kg/m2 [facility] Systolic blood pressure 2024-08-12 20:42:00 127 mm[Hg] [facility] Diastolic blood pressure 2024-08-12 20:42:00 77 mm[Hg] [facility] Heart rate 2024-08-12 20:41:00 83 /min [facility] Body temperature 2024-08-12 20:41:00 36.61 Lata [facility] Respiratory rate 2024-08-12 20:41:00 18 /min [facility] Body height 2024-08-12 20:41:00 160 cm [facility] Body weight 2024-08-12 20:41:00 92.08 kg [facility] BMI 2024-08-12 20:41:00 35.96 kg/m2 [facility] Systolic blood pressure 2024-07-21 14:36:00 124 mm[Hg] [facility] Diastolic blood pressure 2024-07-21 14:36:00 82 mm[Hg] [facility] Heart rate 2024-07-21 14:23:00 84 /min [facility] Body temperature 2024-07-21 14:23:00 36.56 Lata [facility] Respiratory rate 2024-07-21 14:23:00 18 /min [facility] Body height 2024-07-21 14:23:00 160 cm [facility] Body weight 2024-07-21 14:23:00 91.173 kg [facility] BMI 2024-07-21 14:23:00 35.61 kg/m2 [facility] Systolic blood pressure 2024-07-08 15:27:00 128 mm[Hg] [facility] Diastolic blood pressure 2024-07-08 15:27:00 86 mm[Hg] [facility] Heart rate 2024-07-08 15:27:00 92 /min [facility] Body temperature 2024-07-08 15:27:00 36.56 Lata [facility] Respiratory rate 2024-07-08 15:27:00 18 /min [facility] Body height 2024-07-08 15:27:00 160 cm [facility] Body weight 2024-07-08 15:27:00 89.812 kg [facility] BMI 2024-07-08 15:27:00 35.07 kg/m2 [facility] Heart rate 2024-07-05 16:00:00 93 /min [facility] Oxygen saturation in Arterial blood by Pulse oximetry 2024-07-05 16:00:00 99 /min [facility] Systolic blood pressure 2024-07-05 15:00:00 134 mm[Hg] [facility] Diastolic blood pressure 2024-07-05 15:00:00 68 mm[Hg] [facility] Respiratory rate 2024-07-05 13:01:00 18 /min [facility] Body temperature 2024-07-04 23:48:00 36.61 Lata [facility] Body height 2024-07-04 23:48:00 160 cm [facility] Body weight 2024-07-04 23:48:00 91.944 kg [facility] BMI 2024-07-04 23:48:00 35.91 kg/m2 [facility] Systolic blood pressure 2024-06-24 15:13:00 123 mm[Hg] [facility] Diastolic blood pressure 2024-06-24 15:13:00 78 mm[Hg] [facility] Heart rate 2024-06-24 15:13:00 84 /min [facility] Respiratory rate 2024-06-24 15:13:00 18 /min [facility] Body height 2024-06-24 15:13:00 160 cm [facility] Body weight 2024-06-24 15:13:00 89.812 kg [facility] BMI 2024-06-24 15:13:00 35.07 kg/m2 [facility] Systolic blood pressure 2024-06-10 14:32:00 138 mm[Hg] [facility] Diastolic blood pressure 2024-06-10 14:32:00 83 mm[Hg] [facility] Heart rate 2024-06-10 14:32:00 80 /min [facility] Body temperature 2024-06-10 14:32:00 36.83 Lata [facility] Respiratory rate 2024-06-10 14:32:00 18 /min [facility] Body height 2024-06-10 14:32:00 160 cm [facility] Body weight 2024-06-10 14:32:00 88.678 kg [facility] BMI 2024-06-10 14:32:00 34.63 kg/m2 [facility] Body temperature 2024-05-22 17:15:49 36.78 Lata [facility] Systolic blood pressure 2024-05-22 17:00:00 129 mm[Hg] [facility] Diastolic blood pressure 2024-05-22 17:00:00 76 mm[Hg] [facility] Heart rate 2024-05-22 17:00:00 99 /min [facility] Respiratory rate 2024-05-22 17:00:00 18 /min [facility] Oxygen saturation in Arterial blood by Pulse oximetry 2024-05-22 17:00:00 98 /min [facility] Body height 2024-05-22 15:59:00 160 cm [facility] Systolic blood pressure 2024-05-12 14:39:00 120 mm[Hg] [facility] Diastolic blood pressure 2024-05-12 14:39:00 76 mm[Hg] [facility] Heart rate 2024-05-12 14:33:00 84 /min [facility] Body temperature 2024-05-12 14:33:00 36.72 Lata [facility] Respiratory rate 2024-05-12 14:33:00 19 /min [facility] Body height 2024-05-12 14:33:00 160 cm [facility] Body weight 2024-05-12 14:33:00 88.587 kg [facility] BMI 2024-05-12 14:33:00 34.60 kg/m2 [facility] Systolic blood pressure 2024-04-15 14:42:00 135 mm[Hg] [facility] Diastolic blood pressure 2024-04-15 14:42:00 80 mm[Hg] [facility] Heart rate 2024-04-15 14:42:00 83 /min [facility] Body temperature 2024-04-15 14:37:00 36.44 Lata [facility] Respiratory rate 2024-04-15 14:37:00 18 /min [facility] Body height 2024-04-15 14:37:00 160 cm [facility] Body weight 2024-04-15 14:37:00 88.14 kg [facility] BMI 2024-04-15 14:37:00 34.42 kg/m2 [facility] Systolic blood pressure 2024-04-08 00:52:00 128 mm[Hg] [facility] Diastolic blood pressure 2024-04-08 00:52:00 90 mm[Hg] [facility] Heart rate 2024-04-08 00:52:00 85 /min [facility] Body temperature 2024-04-08 00:52:00 36.61 Lata [facility] Respiratory rate 2024-04-08 00:52:00 18 /min [facility] Body height 2024-04-08 00:52:00 160 cm [facility] Body weight 2024-04-08 00:52:00 88.508 kg [facility] BMI 2024-04-08 00:52:00 34.56 kg/m2 [facility] Oxygen saturation in Arterial blood by Pulse oximetry 2024-04-08 00:52:00 99 /min [facility] Systolic blood pressure 2024-03-25 14:59:00 113 mm[Hg] [facility] Diastolic blood pressure 2024-03-25 14:59:00 72 mm[Hg] [facility] Heart rate 2024-03-25 14:59:00 79 /min [facility] Body temperature 2024-03-25 14:57:00 36.67 Lata [facility] Respiratory rate 2024-03-25 14:57:00 18 /min [facility] Body height 2024-03-25 14:57:00 160 cm [facility] Body weight 2024-03-25 14:57:00 87.232 kg [facility] BMI 2024-03-25 14:57:00 34.07 kg/m2 [facility] Systolic blood pressure 2024-03-04 14:30:00 148 mm[Hg] [facility] Diastolic blood pressure 2024-03-04 14:30:00 94 mm[Hg] [facility] Heart rate 2024-03-04 14:26:00 79 /min [facility] Body temperature 2024-03-04 14:26:00 36.72 Lata [facility] Respiratory rate 2024-03-04 14:26:00 18 /min [facility] Body height 2024-03-04 14:26:00 160 cm [facility] Body weight 2024-03-04 14:26:00 87.544 kg [facility] BMI 2024-03-04 14:26:00 34.19 kg/m2 [facility] Systolic blood pressure 2024-01-06 22:37:00 146 mm[Hg] [facility] Diastolic blood pressure 2024-01-06 22:37:00 116 mm[Hg] [facility] Heart rate 2024-01-06 22:36:00 94 /min [facility] Body temperature 2024-01-06 22:36:00 37.11 Lata [facility] Respiratory rate 2024-01-06 22:36:00 16 /min [facility] Body weight 2024-01-06 22:36:00 86.183 kg [facility] BMI 2024-01-06 22:36:00 33.66 kg/m2 [facility] Oxygen saturation in Arterial blood by Pulse oximetry 2024-01-06 22:36:00 96 /min [facility] Systolic blood pressure 2023-11-17 16:01:00 116 mm[Hg] [facility] Diastolic blood pressure 2023-11-17 16:01:00 74 mm[Hg] [facility] Heart rate 2023-11-17 16:01:00 72 /min [facility] Body temperature 2023-11-17 16:01:00 37 Lata [facility] Respiratory rate 2023-11-17 16:01:00 16 /min [facility] Body height 2023-11-17 16:01:00 160 cm [facility] Body weight 2023-11-17 16:01:00 88.451 kg [facility] BMI 2023-11-17 16:01:00 34.54 kg/m2 [facility] Oxygen saturation in Arterial blood by Pulse oximetry 2023-11-17 16:01:00 99 /min [facility] Systolic blood pressure 2023-11-16 18:45:00 128 mm[Hg] [facility] Diastolic blood pressure 2023-11-16 18:45:00 84 mm[Hg] [facility] Heart rate 2023-11-16 18:45:00 71 /min [facility] Respiratory rate 2023-11-16 18:45:00 17 /min [facility] Oxygen saturation in Arterial blood by Pulse oximetry 2023-11-16 18:45:00 100 /min [facility] Body temperature 2023-11-16 18:07:00 36.11 Lata [facility] Body height 2023-11-16 17:24:00 160 cm [facility] Body weight 2023-11-16 17:24:00 86.183 kg [facility] BMI 2023-11-16 17:24:00 33.66 kg/m2 [facility] Systolic blood pressure 2023-11-16 18:30:00 121 mm[Hg] [facility] Diastolic blood pressure 2023-11-16 18:30:00 84 mm[Hg] [facility] Heart rate 2023-11-16 18:30:00 76 /min [facility] Respiratory rate 2023-11-16 18:30:00 14 /min [facility] Oxygen saturation in Arterial blood by Pulse oximetry 2023-11-16 18:30:00 100 /min [facility] Body temperature 2023-11-16 18:07:00 36.11 Lata [facility] Body height 2023-11-16 17:24:00 160 cm [facility] Body weight 2023-11-16 17:24:00 86.183 kg [facility] BMI 2023-11-16 17:24:00 33.66 kg/m2 [facility] Systolic blood pressure 2023-10-29 14:50:00 120 mm[Hg] [facility] Diastolic blood pressure 2023-10-29 14:50:00 86 mm[Hg] [facility] Heart rate 2023-10-29 14:50:00 84 /min [facility] Body temperature 2023-10-29 14:50:00 36.56 Lata [facility] Respiratory rate 2023-10-29 14:50:00 18 /min [facility] Body height 2023-10-29 14:50:00 160 cm [facility] Body weight 2023-10-29 14:50:00 89.132 kg [facility] BMI 2023-10-29 14:50:00 34.81 kg/m2 [facility] Systolic blood pressure 2023-10-27 16:30:00 146 mm[Hg] [facility] Diastolic blood pressure 2023-10-27 16:30:00 100 mm[Hg] [facility] Heart rate 2023-10-27 16:30:00 87 /min [facility] Body temperature 2023-10-27 16:30:00 36.67 Lata [facility] Respiratory rate 2023-10-27 16:30:00 22 /min [facility] Body height 2023-10-27 16:30:00 160 cm [facility] Body weight 2023-10-27 16:30:00 81.647 kg [facility] BMI 2023-10-27 16:30:00 31.89 kg/m2 [facility] Oxygen saturation in Arterial blood by Pulse oximetry 2023-10-27 16:30:00 98 /min [facility] Systolic blood pressure 2023-10-10 16:39:00 114 mm[Hg] [facility] Diastolic blood pressure 2023-10-10 16:39:00 73 mm[Hg] [facility] Heart rate 2023-10-10 16:39:00 89 /min [facility] Body temperature 2023-10-10 16:39:00 37 Lata [facility] Respiratory rate 2023-10-10 16:39:00 16 /min [facility] Body height 2023-10-10 16:39:00 160 cm [facility] Body weight 2023-10-10 16:39:00 89.858 kg [facility] BMI 2023-10-10 16:39:00 35.09 kg/m2 [facility] Oxygen saturation in Arterial blood by Pulse oximetry 2023-10-10 16:39:00 97 /min [facility] Systolic blood pressure 2023-10-07 04:18:00 147 mm[Hg] [facility] Diastolic blood pressure 2023-10-07 04:18:00 109 mm[Hg] [facility] Heart rate 2023-10-07 04:18:00 90 /min [facility] Body temperature 2023-10-07 04:18:00 37 Lata [facility] Respiratory rate 2023-10-07 04:18:00 18 /min [facility] Body height 2023-10-07 04:18:00 160 cm [facility] Body weight 2023-10-07 04:18:00 81.647 kg [facility] BMI 2023-10-07 04:18:00 31.89 kg/m2 [facility] Oxygen saturation in Arterial blood by Pulse oximetry 2023-10-07 04:18:00 100 /min [facility] Systolic blood pressure 2023-09-15 19:25:00 127 mm[Hg] [facility] Diastolic blood pressure 2023-09-15 19:25:00 87 mm[Hg] [facility] Heart rate 2023-09-15 19:25:00 83 /min [facility] Body temperature 2023-09-15 19:25:00 36.56 Lata [facility] Respiratory rate 2023-09-15 19:25:00 18 /min [facility] Body height 2023-09-15 19:25:00 160 cm [facility] Body weight 2023-09-15 19:25:00 90.493 kg [facility] BMI 2023-09-15 19:25:00 35.34 kg/m2 [facility] Oxygen saturation in Arterial blood by Pulse oximetry 2023-09-15 19:25:00 100 /min [facility] Systolic blood pressure 2023-05-04 20:55:00 110 mm[Hg] [facility] Diastolic blood pressure 2023-05-04 20:55:00 73 mm[Hg] [facility] Body temperature 2023-05-04 20:55:00 36.11 Lata [facility] Respiratory rate 2023-05-04 20:55:00 12 /min [facility] Oxygen saturation in Arterial blood by Pulse oximetry 2023-05-04 20:55:00 97 /min [facility] Heart rate 2023-05-04 20:30:00 67 /min [facility] Body height 2023-05-01 14:00:00 160 cm [facility] Body weight 2023-05-01 14:00:00 91.627 kg [facility] BMI 2023-05-01 14:00:00 35.78 kg/m2 [facility] Systolic blood pressure 2023-05-04 19:45:00 134 mm[Hg] [facility] Diastolic blood pressure 2023-05-04 19:45:00 81 mm[Hg] [facility] Heart rate 2023-05-04 19:45:00 77 /min [facility] Respiratory rate 2023-05-04 19:45:00 18 /min [facility] Oxygen saturation in Arterial blood by Pulse oximetry 2023-05-04 19:45:00 100 /min [facility] Body temperature 2023-05-04 19:00:00 35.94 Lata [facility] Body height 2023-05-01 14:00:00 160 cm [facility] Body weight 2023-05-01 14:00:00 91.627 kg [facility] BMI 2023-05-01 14:00:00 35.78 kg/m2 [facility] Systolic blood pressure 2023-04-21 14:35:00 136 mm[Hg] [facility] Diastolic blood pressure 2023-04-21 14:35:00 101 mm[Hg] [facility] Heart rate 2023-04-21 14:31:00 81 /min [facility] Body temperature 2023-04-21 14:31:00 36.22 Lata [facility] Body height 2023-04-21 14:31:00 160 cm [facility] Body weight 2023-04-21 14:31:00 92.08 kg [facility] BMI 2023-04-21 14:31:00 35.96 kg/m2 [facility] Oxygen saturation in Arterial blood by Pulse oximetry 2023-04-21 14:31:00 97 /min [facility] Systolic blood pressure 2023-03-26 15:08:00 139 mm[Hg] [facility] Diastolic blood pressure 2023-03-26 15:08:00 89 mm[Hg] [facility] Heart rate 2023-03-26 15:08:00 75 /min [facility] Body height 2023-03-26 15:08:00 160 cm [facility] Body weight 2023-03-26 15:08:00 90.266 kg [facility] BMI 2023-03-26 15:08:00 35.25 kg/m2 [facility] Oxygen saturation in Arterial blood by Pulse oximetry 2023-03-26 15:08:00 98 /min [facility] Systolic blood pressure 2023-03-05 16:00:00 138 mm[Hg] [facility] Diastolic blood pressure 2023-03-05 16:00:00 86 mm[Hg] [facility] Heart rate 2023-03-05 16:00:00 86 /min [facility] Respiratory rate 2023-03-05 16:00:00 18 /min [facility] Body height 2023-03-05 16:00:00 160 cm [facility] Body weight 2023-03-05 16:00:00 91.627 kg [facility] BMI 2023-03-05 16:00:00 35.78 kg/m2 [facility] Oxygen saturation in Arterial blood by Pulse oximetry 2023-03-05 16:00:00 98 /min [facility] Systolic blood pressure 2023-02-28 23:50:00 117 mm[Hg] [facility] Diastolic blood pressure 2023-02-28 23:50:00 80 mm[Hg] [facility] Heart rate 2023-02-28 23:50:00 87 /min [facility] Body temperature 2023-02-28 23:50:00 36.44 Lata [facility] Respiratory rate 2023-02-28 23:50:00 14 /min [facility] Body height 2023-02-28 23:50:00 160 cm [facility] Body weight 2023-02-28 23:50:00 91.627 kg [facility] BMI 2023-02-28 23:50:00 35.78 kg/m2 [facility] Oxygen saturation in Arterial blood by Pulse oximetry 2023-02-28 23:50:00 96 /min [facility] Heart rate 2023-02-28 23:05:00 87 /min [facility] Body temperature 2023-02-28 23:05:00 36.44 Lata [facility] Body weight 2023-02-28 23:05:00 91.627 kg [facility] BMI 2023-02-28 23:05:00 35.78 kg/m2 [facility] Oxygen saturation in Arterial blood by Pulse oximetry 2023-02-28 23:05:00 96 /min [facility] Systolic blood pressure 2023-01-28 23:09:00 128 mm[Hg] [facility] Diastolic blood pressure 2023-01-28 23:09:00 101 mm[Hg] [facility] Heart rate 2023-01-28 23:01:00 92 /min [facility] Body temperature 2023-01-28 23:01:00 36.78 Lata [facility] Respiratory rate 2023-01-28 23:01:00 18 /min [facility] Body height 2023-01-28 23:01:00 160 cm [facility] Body weight 2023-01-28 23:01:00 91.627 kg [facility] BMI 2023-01-28 23:01:00 35.78 kg/m2 [facility] Oxygen saturation in Arterial blood by Pulse oximetry 2023-01-28 23:01:00 97 /min [facility] Systolic blood pressure 2022-12-31 14:55:00 130 mm[Hg] [facility] Diastolic blood pressure 2022-12-31 14:55:00 90 mm[Hg] [facility] Heart rate 2022-12-31 14:55:00 84 /min [facility] Body temperature 2022-12-31 14:54:00 36.83 Lata [facility] Respiratory rate 2022-12-31 14:54:00 18 /min [facility] Body height 2022-12-31 14:54:00 157.5 cm [facility] Body weight 2022-12-31 14:54:00 90.861 kg [facility] BMI 2022-12-31 14:54:00 36.64 kg/m2 [facility] Systolic blood pressure 2022-11-23 18:08:00 108 mm[Hg] [facility] Diastolic blood pressure 2022-11-23 18:08:00 76 mm[Hg] [facility] Heart rate 2022-11-23 18:08:00 99 /min [facility] Body temperature 2022-11-23 18:08:00 37.06 Lata [facility] Respiratory rate 2022-11-23 18:08:00 17 /min [facility] Body weight 2022-11-23 18:08:00 91.037 kg [facility] BMI 2022-11-23 18:08:00 36.71 kg/m2 [facility] Oxygen saturation in Arterial blood by Pulse oximetry 2022-11-23 18:08:00 97 /min [facility] Systolic blood pressure 2022-08-29 21:15:00 127 mm[Hg] [facility] Diastolic blood pressure 2022-08-29 21:15:00 73 mm[Hg] [facility] Heart rate 2022-08-29 21:15:00 84 /min [facility] Body temperature 2022-08-29 21:15:00 35.22 Lata [facility] Body height 2022-08-29 21:15:00 157.5 cm [facility] Body weight 2022-08-29 21:15:00 86.456 kg [facility] BMI 2022-08-29 21:15:00 34.86 kg/m2 [facility] Systolic blood pressure 2022-08-21 15:36:00 126 mm[Hg] [facility] Diastolic blood pressure 2022-08-21 15:36:00 84 mm[Hg] [facility] Heart rate 2022-08-21 15:36:00 83 /min [facility] Body temperature 2022-08-21 15:36:00 35.78 Lata [facility] Respiratory rate 2022-08-21 15:36:00 18 /min [facility] Body height 2022-08-21 15:36:00 157.5 cm [facility] Body weight 2022-08-21 15:36:00 85.503 kg [facility] BMI 2022-08-21 15:36:00 34.48 kg/m2 [facility] Systolic blood pressure 2022-08-12 15:30:00 132 mm[Hg] [facility] Diastolic blood pressure 2022-08-12 15:30:00 88 mm[Hg] [facility] Heart rate 2022-08-12 15:24:00 76 /min [facility] Body temperature 2022-08-12 15:24:00 36.56 Lata [facility] Respiratory rate 2022-08-12 15:24:00 18 /min [facility] Body height 2022-08-12 15:24:00 157.5 cm [facility] Body weight 2022-08-12 15:24:00 88.089 kg [facility] BMI 2022-08-12 15:24:00 35.52 kg/m2 [facility] Systolic blood pressure 2022-08-08 22:12:00 153 mm[Hg] Dr. Da Silva at bedside [facility] Diastolic blood pressure 2022-08-08 22:12:00 105 mm[Hg] Dr. Da Silva at bedside [facility] Heart rate 2022-08-08 22:12:00 84 /min [facility] Oxygen saturation in Arterial blood by Pulse oximetry 2022-08-08 22:12:00 97 /min [facility] Body temperature 2022-08-08 17:50:00 36.72 Lata [facility] Respiratory rate 2022-08-08 17:50:00 18 /min [facility] Body weight 2022-08-04 20:00:00 93.895 kg [facility] BMI 2022-08-04 20:00:00 36.68 kg/m2 [facility] Body height 2022-08-03 23:45:00 160 cm [facility] Systolic blood pressure 2022-08-05 23:15:00 124 mm[Hg] [facility] Diastolic blood pressure 2022-08-05 23:15:00 72 mm[Hg] [facility] Heart rate 2022-08-05 23:15:00 104 /min [facility] Oxygen saturation in Arterial blood by Pulse oximetry 2022-08-05 23:15:00 100 /min [facility] Body temperature 2022-08-05 23:02:00 36.28 Lata [facility] Respiratory rate 2022-08-05 23:02:00 20 /min [facility] Body weight 2022-08-04 20:00:00 93.895 kg [facility] BMI 2022-08-04 20:00:00 36.68 kg/m2 [facility] Body height 2022-08-03 23:45:00 160 cm [facility] Heart rate 2022-07-29 00:27:00 91 /min [facility] Oxygen saturation in Arterial blood by Pulse oximetry 2022-07-29 00:27:00 99 /min [facility] Systolic blood pressure 2022-07-29 00:00:00 131 mm[Hg] [facility] Diastolic blood pressure 2022-07-29 00:00:00 78 mm[Hg] [facility] Body temperature 2022-07-28 19:33:00 36.89 Lata [facility] Respiratory rate 2022-07-28 19:33:00 18 /min [facility] Body weight 2022-07-28 19:00:00 93.9 kg [facility] BMI 2022-07-28 19:00:00 36.67 kg/m2 [facility] Systolic blood pressure 2022-07-19 16:22:00 133 mm[Hg] [facility] Diastolic blood pressure 2022-07-19 16:22:00 84 mm[Hg] [facility] Heart rate 2022-07-19 16:21:00 90 /min [facility] Body temperature 2022-07-19 16:21:00 37 Lata [facility] Respiratory rate 2022-07-19 16:21:00 17 /min [facility] Body height 2022-07-19 16:21:00 160 cm [facility] Body weight 2022-07-19 16:21:00 93.94 kg [facility] BMI 2022-07-19 16:21:00 36.69 kg/m2 [facility] Oxygen saturation in Arterial blood by Pulse oximetry 2022-07-19 16:21:00 100 /min [facility] Systolic blood pressure 2022-07-18 19:43:00 120 mm[Hg] [facility] Diastolic blood pressure 2022-07-18 19:43:00 79 mm[Hg] [facility] Heart rate 2022-07-18 19:43:00 85 /min [facility] Body temperature 2022-07-18 19:43:00 36.22 Lata [facility] Body height 2022-07-18 19:43:00 160 cm [facility] Body weight 2022-07-18 19:43:00 92.897 kg [facility] BMI 2022-07-18 19:43:00 36.28 kg/m2 [facility] Heart rate 2022-07-05 18:00:00 84 /min [facility] Oxygen saturation in Arterial blood by Pulse oximetry 2022-07-05 18:00:00 100 /min [facility] Systolic blood pressure 2022-07-05 17:00:00 117 mm[Hg] b/p cuff changed to appropriate cuff [facility] Diastolic blood pressure 2022-07-05 17:00:00 64 mm[Hg] b/p cuff changed to appropriate cuff [facility] Body temperature 2022-07-05 17:00:00 36.89 Lata [facility] Respiratory rate 2022-07-05 17:00:00 17 /min [facility] Body height 2022-07-05 16:02:00 160 cm [facility] Body weight 2022-07-05 16:02:00 92.307 kg [facility] BMI 2022-07-05 16:02:00 36.05 kg/m2 [facility] Systolic blood pressure 2022-07-03 18:32:00 137 mm[Hg] [facility] Diastolic blood pressure 2022-07-03 18:32:00 88 mm[Hg] [facility] Heart rate 2022-07-03 18:32:00 89 /min [facility] Body temperature 2022-07-03 18:32:00 36.61 Lata [facility] Respiratory rate 2022-07-03 18:32:00 16 /min [facility] Body height 2022-07-03 18:32:00 160 cm [facility] Body weight 2022-07-03 18:32:00 92.352 kg [facility] BMI 2022-07-03 18:32:00 36.07 kg/m2 [facility] Systolic blood pressure 2022-06-19 19:04:00 123 mm[Hg] [facility] Diastolic blood pressure 2022-06-19 19:04:00 69 mm[Hg] [facility] Heart rate 2022-06-19 19:04:00 90 /min [facility] Body temperature 2022-06-19 19:04:00 36.17 Lata [facility] Body height 2022-06-19 19:04:00 160 cm [facility] Body weight 2022-06-19 19:04:00 91.627 kg [facility] BMI 2022-06-19 19:04:00 35.78 kg/m2 [facility] Systolic blood pressure 2022-05-20 03:15:08 130 mm[Hg] [facility] Diastolic blood pressure 2022-05-20 03:15:08 80 mm[Hg] [facility] Heart rate 2022-05-20 03:15:08 88 /min [facility] Respiratory rate 2022-05-20 03:15:08 16 /min [facility] Oxygen saturation in Arterial blood by Pulse oximetry 2022-05-20 03:15:08 100 /min [facility] Body temperature 2022-05-19 22:46:00 37.11 Lata [facility] Body height 2022-05-19 22:46:00 160 cm [facility] Body weight 2022-05-19 22:46:00 90.719 kg [facility] BMI 2022-05-19 22:46:00 35.43 kg/m2 [facility] Systolic blood pressure 2022-05-19 22:52:00 120 mm[Hg] [facility] Diastolic blood pressure 2022-05-19 22:52:00 88 mm[Hg] [facility] Heart rate 2022-05-19 22:52:00 95 /min [facility] Body temperature 2022-05-19 22:52:00 37.06 Lata [facility] Respiratory rate 2022-05-19 22:52:00 18 /min [facility] Body height 2022-05-19 22:52:00 160 cm [facility] Body weight 2022-05-19 22:52:00 90.765 kg [facility] BMI 2022-05-19 22:52:00 35.45 kg/m2 [facility] Oxygen saturation in Arterial blood by Pulse oximetry 2022-05-19 22:52:00 98 /min [facility] Systolic blood pressure 2022-05-09 14:37:00 107 mm[Hg] [facility] Diastolic blood pressure 2022-05-09 14:37:00 71 mm[Hg] [facility] Heart rate 2022-05-09 14:37:00 76 /min [facility] Body temperature 2022-05-09 14:37:00 36.89 Lata [facility] Respiratory rate 2022-05-09 14:37:00 18 /min [facility] Body height 2022-05-09 14:37:00 160 cm [facility] Body weight 2022-05-09 14:37:00 89.313 kg [facility] BMI 2022-05-09 14:37:00 34.88 kg/m2 [facility] Oxygen saturation in Arterial blood by Pulse oximetry 2022-05-09 14:37:00 99 /min [facility] Systolic blood pressure 2022-05-08 21:11:00 124 mm[Hg] [facility] Diastolic blood pressure 2022-05-08 21:11:00 84 mm[Hg] [facility] Heart rate 2022-05-08 21:11:00 77 /min [facility] Body temperature 2022-05-08 21:11:00 36.94 Lata [facility] Respiratory rate 2022-05-08 21:11:00 20 /min [facility] Body height 2022-05-08 21:11:00 160 cm [facility] Body weight 2022-05-08 21:11:00 89.858 kg [facility] BMI 2022-05-08 21:11:00 35.09 kg/m2 [facility] Oxygen saturation in Arterial blood by Pulse oximetry 2022-05-08 21:11:00 99 /min [facility] Body weight 2022-05-01 19:57:00 87.091 kg [facility] BMI 2022-05-01 19:57:00 34.01 kg/m2 [facility] Procedures Procedure Date / Time Performed Performing Clinician Source TDAP VACCINE, >11 YRS, IM 2024-09-13 14:39:33 Adum, Angie De Luna [facility] RSV, BIVALENT, PROTEIN SUBUN IT RSVPREF, DILUENT RECONSTITUTED, 0.5 ML, PF, (ABRYSVO) 2024-09-13 14:39:33 Adum, Angie De Luna [facility] POCT URINALYSIS W/O SPECIFIC GRAVITY 2024-09-13 14:28:00 Adum, Angie De Luna [facility] POCT URINALYSIS W/O SPECIFIC GRAVITY 2024-08-24 00:00:00 Raúl Orozco [facility] CT HEAD WO CONTRAST 2024-08-20 19:02:00 Adum, Angie De Luna [facility] NON-STRESS TEST 2024-08-20 18:35:47 Adum, Angie De Luna [facility] SGOT (ASPARTATE AMINO TRANSFER) 16:35:00 Adum, Angie [facility] ALANINE AMINO TRANSFERASE(SGPT 2024-08-07 4 16:35:00 Adum, Angie De Luna [facility] LACTATE DEHYDROGENASE 2024-08-20 16:35:00 Adum, Angie De Luna [facility] CREATININE 2024-08-20 14:30:00 Adum, Angie De Luna [facility] URIC ACID 2024-08-20 14:30:00 Adum, Angie De Luna [facility] CBC WITH DIFF 2024-08-20 14:30:00 Adum, Angie De Luna [facility] URINALYSIS 2024-08-20 14:30:00 Adum, Angie De Luna [facility] PROTEIN CREAT RATIO URINE RANDOM 2024-08 14:30:00 Adum, Angie De Luna [facility] SECOND AND THIRD TRIMESTER ULTRASOUND 2024-08-12 16:05:00 Mabel Cottrell [facility] POCT URINALYSIS W/O SPECIFIC GRAVITY 2024-08-12 00:00:00 Adum, Angie De Luna [facility] GLUCOSE FASTING 2024-08-08 14:51:00 Adum, Angie [facility] GLYCOSYLATED HEMOGLOBIN (A1C) 2024-08-08 14:51:00 Adum, Angie [facility] GLUCOSE 1 HOUR POST PRANDIAL 2024-07-29 15:41:00 Adum, Angie [facility] CBC WITH DIFF 2024-07-29 15:41:00 Adum, Angie De Luna [facility] POCT URINALYSIS W/O SPECIFIC GRAVITY 2024-07-21 00:00:00 Adum, Angie [facility] SECOND AND THIRD TRIMESTER ULTRASOUND 2024-07-08 20:17:00 Mabel Cottrell [facility] SECOND AND THIRD TRIMESTER ULTRASOUND 2024-07-08 20:03:00 Mabel Cottrell [facility] SECOND AND THIRD TRIMESTER ULTRASOUND 2024-07-08 19:50:00 Mabel Cottrell [facility] POCT URINALYSIS W/O SPECIFIC GRAVITY 2024-07-08 00:00:00 Adum, Angie [facility] COMP. METABOLIC PANEL (24599) 2024-07-05 13:16:00 Navya [facility] CBC WITH DIFF 2024-07-05 13:16:00 Moeller-Hurtado, [facility] SGOT (ASPARTATE AMINO TRANSFER) 00:56:00 [facility] CREATININE 2024-07-05 00:56[facility] AMINO [facility]SFERASE(SGPT 2024-06-08 9 00:56:00 [facility] LACTATE DEHYDROGENASE 2024-07-05 00:56:00 Navya [facility] URIC ACID 2024-07-05 00:56:00 [facility] CBC WITH DIFF 2024-07-05 00:56:00 Moeller[place]Hurtado, [facility] URINALYSIS 2024-07-05 00:56:00 [facility] PROTEIN CREAT RATIO URINE RANDOM 2024-06 00:56:00 MoellerBryant, [facility] POCT URINALYSIS W/O SPECIFIC GRAVITY 2024-06-24 00:00:00 Angie Barrientos [facility] POCT URINALYSIS 2024-06-10 14:25:00 Mabel Cottrell [facility] LIPASE 2024-05-22 15:51:00 Pantera Quinonez [facility] COMP. METABOLIC PANEL (67250) 2024-05-22 15:51:00 Pantera Quinonez [facility] CBC WITH DIFF 2024-05-22 15:51:00 Pantera Quinonez [facility] INFLUENZA A/B RSV COVID NAAT 2024-05-22 15:46:00 Pantera Quinonez [facility] URINALYSIS 2024-05-22 15:43:00 Pantera Quinonez [facility] RAPID STREP SCREEN FOR GROUP A 2024-05-08 5 15:43:00 Pantera Quinonez [facility] POCT URINALYSIS 2024-05-12 14:35:00 Mabel Cottrell [facility] POCT URINALYSIS 2024-04-15 14:38:00 Mabel Cottrell [facility] POCT SARS-COV-2 ANTIGEN (BIN AX NOW) 2024-04-08 00:46:00 Meg Baird [facility] POCT URINALYSIS 2024-04-08 00:43:00 Meg Baird [facility] CREATININE U 24 HR 2024-04-01 18:29:00 Mabel Cottrell [facility] PROTEIN QUANT U/24H 2024-04-01 18:29:00 Mabel Cottrell [facility] POCT URINALYSIS 2024-03-25 14:58:00 Mabel Cottrell [facility] FIRST TRIMESTER ULTRASOUND 2024-03-09 20:35:00 Mabel Cottrell [facility] POCT URINALYSIS W/O SPECIFIC GRAVITY 2024-03-04 14:53:00 Mabel Cottrell [facility] POCT TEST 2024-03-04 14:52:00 Mabel Cottrell [facility] POCT SARS-COV-2 ANTIGEN (BIN AX NOW) 2024-01-06 22:40:00 Meg Baird [facility] POCT MOLECULAR FLU 2024-01-06 22:38:00 Unknown, Attending [facility] ESOPHAGOGASTRODUODENOSCOPY 2023-11-16 17:39:00 Ivelisse Berg [facility] POCT TEST 2023-11-16 17:20:00 Lg Patterson [facility] POCT TEST 2023-11-16 17:20:00 Lg Patterson [facility] EGD (ENDO) 2023-11-16 17:14:04 Thang Ghosh [facility] EGD (ENDO) 2023-11-16 17:14:04 Thang Ghosh [facility] CONSENT/REFUSAL FOR DIAGNOSI S AND TREATMENT 2023-11-16 16:45:43 Doctor Unassigned, Labelle [facility] CONSENT/REFUSAL FOR DIAGNOSI S AND TREATMENT 2023-11-16 16:45:43 Doctor Unassigned, Labelle [facility] ASSIGNMENT OF BENEFITS 2023-11-16 16:45:14 Doctor Unassigned, Labelle [facility] ASSIGNMENT OF BENEFITS 2023-11-16 16:45:14 Doctor Unassigned, Labelle [facility] DAY SURGERY - VICTORY LAKES 2023-11-16 05:01:00 Doctor Unassigned, Labelle [facility] CT HEAD WO CONTRAST 2023-11-06 22:49:59 Kassy Shrestha [facility] FREE T4 2023-10-29 15:39:00 Kassy Shrestha [facility] THYROID STIMULATING HORMONE 2023-10-29 15:39:00 Kassy Shrestha [facility] LIPID PANEL (69401)(TOTAL CHOLESTEROL, TRIGLYCERIDES, HDL) 2023-10-29 15:39:00 Kassy Shrestha [facility] URINALYSIS 2023-10-29 15:39:00 Kassy Shrestha [facility] FREE T3 2023-10-29 15:39:00 Kassy Shrestha [facility] DISCLOSURE AND CONSENT, MEDI LEXUS AND SURGICAL PROCEDURES 2023-10-27 06:01:00 Doctor Unassigned, Labelle [facility] MEDICATION CORRESPONDENCE 2023-10-16 06:01:00 Doctor Unassigned, Labelle [facility] XR FINGERS 2 VW RIGHT 2023-10-07 04:49:26 Yuki Rivera [facility] NOTICE OF PRIVACY PRACTICES 2023-10-07 04:09:14 Doctor Unassigned, Labelle [facility] CONSENT/REFUSAL FOR DIAGNOSI S AND TREATMENT 2023-10-07 04:08:40 Doctor Unassigned, Labelle [facility] INTUBATION 2023-05-04 17:44:00 Rajinder Armendariz [facility] LAPAROSCOPIC CHOLECYSTECTOMY 2023-05-04 17:17:00 Maryellen Ricardo [facility] POCT TEST 2023-05-04 16:02:00 Frank Tuttle [facility] POCT TEST 2023-05-04 16:02:00 Frank Tuttle [facility] DAY SURGERY - ADC 2023-05-04 05:01:00 Doctor Unassigned, Labelle [facility] DISCLOSURE AND CONSENT, MEDI LEXUS AND SURGICAL PROCEDURES 2023-03-26 05:01:00 Doctor Unassigned, Labelle [facility] DISCLOSURE AND CONSENT, MEDI LEXUS AND SURGICAL PROCEDURES 2023-03-26 05:01:00 Doctor Unassigned, Labelle [facility] NM HEPATOBILIARY W INTERVENTION 18:00:00 Kassy Shrestha [facility] ASSIGNMENT OF BENEFITS 2023-01-28 22:56:18 Doctor Unassigned, Labelle [facility] AUTHORIZATION FOR RELEASE OF PHI 2022-12 05:01:00 Doctor Unassigned, Labelle [facility] POCT MOLECULAR STREP 2022-11-23 18:05:00 Unknown, Attending [facility] MEDICATION CORRESPONDENCE 2022-11-10 06:01:00 Doctor Unassigned, Labelle [facility] SGOT (ASPARTATE AMINO TRANSFER) 00:34:00 Azra Eugene [facility] CREATININE 2022-08-08 00:34:00 Azra Eugene [facility] ALANINE AMINO TRANSFERASE(SGPT 2 00:34:00 Azra Eugene [facility] LACTATE DEHYDROGENASE 2022-08-08 00:34:00 Azra Eugene [facility] URIC ACID 2022-08-08 00:34:00 Azra Eugene [facility] CBC WITH DIFF 2022-08-08 00:34:00 Azra Eugene [facility] SGOT (ASPARTATE AMINO TRANSFER) 00:34:00 Azra Eugene [facility] CREATININE 2022-08-08 00:34:00 Azra Eugene [facility] ALANINE AMINO TRANSFERASE(SGPT 2 00:34:00 Azra Eugene [facility] LACTATE DEHYDROGENASE 2022-08-08 00:34:00 Azra Eugene [facility] URIC ACID 2022-08-08 00:34:00 Azra Eugene [facility] CBC WITH DIFF 2022-08-08 00:34:00 Azra Eugene [facility] CBC WITH DIFF 2022-08-06 11:23:00 Hattie [facility] CBC WITH DIFF 2022-08-06 11:23:00 Hattie [facility] HEMOGLOBIN 2022-08-05 17:49:00 Randy Murray [facility] HEMOGLOBIN 2022-08-05 17:49:00 Randy Murray [facility] VENOUS CORD GAS 2022-08-05 15:20:00 Stacy Vergarashua [facility] VENOUS CORD GAS 2022-08-05 15:20:00 Stacy Vergarashua [facility] SECTION 2022-08-05 14:48:00 Jailene Ireland [facility] SECTION 2022-08-05 14:48:00 Jailene Ireland [facility] CREATININE 2022-08-05 14:46:00 Kylie [facility] MAGNESIUM 2022-08-05 14:46:00 Kylie [facility] CREATININE 2022-08-05 14:46:00 Kylie [facility] MAGNESIUM 2022-08-05 14:46:00 Kylie [facility] CENTRAL NEURAXIAL BLOCK 2022-08-05 13:31:57 Zuri Milligan [facility] URINALYSIS 2022-08-05 04:09:00 Jose [facility] URINALYSIS 2022-08-05 04:09:00 Jose [facility] SGOT (ASPARTATE AMINO TRANSFER) 03:05:00 Jose [facility] CREATININE 2022-08-05 03:05:00 Jose [facility] ALANINE AMINO TRANSFERASE(SGPT 2022-07-09 9 03:05:00 Jose [facility] LACTATE DEHYDROGENASE 2022-08-05 03:05:00 Jose [facility] URIC ACID 2022-08-05 03:05:00 Jose [facility] CBC WITH DIFF 2022-08-05 03:05:00 Jose [facility] HEPATITIS B SURFACE ANTIGEN 2022-08-05 03:05:00 Jose [facility] HIV 1/2 AG-AB WITH REFLEX 2022-08-05 03:05:00 Jose [facility] GALV ONLY - SYPHILIS IGG/IGM 2022-08-05 03:05:00 Jose [facility] SGOT (ASPARTATE AMINO TRANSFER) 03:05:00 Jose [facility] CREATININE 2022-08-05 03:05:00 Jose [facility] ALANINE AMINO TRANSFERASE(SGPT 2022-07-09 9 03:05:00 Jose [facility] LACTATE DEHYDROGENASE 2022-08-05 03:05:00 Jose [facility] URIC ACID 2022-08-05 03:05:00 Jose [facility] CBC WITH DIFF 2022-08-05 03:05:00 Jose [facility] HEPATITIS B SURFACE ANTIGEN 2022-08-05 03:05:00 Jose [facility] HIV 1/2 AG-AB WITH REFLEX 2022-08-05 03:05:00 Jose [facility] GALV ONLY - SYPHILIS IGG/IGM 2022-08-05 03:05:00 Jose [facility] NON-STRESS TEST 2022-08-04 19:56:30 Antonio Hearn [facility] GALV ONLY - INFLUENZA A B RSV PCR 2021-09 00:38:00 Elisa [facility] GALV ONLY - INFLUENZA A B RSV PCR 2021-09 00:38:00 Elisa [facility] SGOT (ASPARTATE AMINO TRANSFER) 00:03:[address] [facility] CREATININE 2022-08-04 00:03:[address] [facility] ALANINE AMINO TRANSFERASE(SGPT 2022-07-09 8 00:03:[address] [facility] LACTATE DEHYDROGENASE 2022-08-04 00:03:[address] [facility] URIC ACID 2022-08-04 00:03:[address] [facility] CBC WITH DIFF 2022-08-04 00:03:[address] [facility] URINALYSIS 2022-08-04 00:03:[address] [facility] PROTEIN CREAT RATIO URINE RANDOM 2022-07 00:03:[address] [facility] SGOT (ASPARTATE AMINO TRANSFER) 00:03:[address] [facility] CREATININE 2022-08-04 00:03:[address] [facility] ALANINE AMINO TRANSFERASE(SGPT 2022-07-09 8 00:03:[address] [facility] LACTATE DEHYDROGENASE 2022-08-04 00:03:[address] [facility] URIC ACID 2022-08-04 00:03:[address] [facility] CBC WITH DIFF 2022-08-04 00:03:[address] [facility] URINALYSIS 2022-08-04 00:03:[address] [facility] PROTEIN CREAT RATIO URINE RANDOM 2022-07 00:03:[address] [facility] HB ABO GROUPING 2022-08-03 23:56:[address] [facility] RHO (D) IMMUNE GLOBULIN 2022-08-03 23:56:00 Hattie [facility] HB ABO GROUPING 2022-08-03 23:56:[address] [facility] RHO (D) IMMUNE GLOBULIN 2022-08-03 [facility]:56[facility] SGOT (ASPARTATE AMINO TRANSFER) 19:45:00 Jenjessica [facility] CREATININE 2022-07-28 19:45:00 Jenusaadalgisa [facility] ALANINE AMINO TRANSFERASE(SGPT 2022-07-09 1 19:45:00 Jenjessica [facility] LACTATE DEHYDROGENASE 2022-07-28 19:45:00 Jenusaitis, [facility] URIC ACID 2022-07-28 19:45:00 Jenusaadalgisa [facility] CBC WITH DIFF 2022-07-28 19:45:00 Jenusaitis, [facility] URINALYSIS 2022-07-28 19:45:00 Avinash Roman [facility] PROTEIN CREAT RATIO URINE RANDOM 2022-07 19:45:00 Avinash Roman [facility] HB ABO GROUPING 2022-07-28 19:42:00 Abel kayli [facility] CONSENT/REFUSAL FOR DIAGNOSI S AND TREATMENT 2022-07-28 06:01:00 Doctor Unassigned, Labelle [facility] CONSENT/REFUSAL FOR DIAGNOSI S AND TREATMENT 2022-07-28 06:01:00 Doctor Unassigned, Labelle [facility] POCT MOLECULAR FLU 2022-07-19 16:31:00 Unknown, Attending [facility] POCT URINALYSIS GLUCOSE & PROTEIN 2021-09 19:45:00 Michelle Heller [facility] CONSENT/REFUSAL FOR DIAGNOSI S AND TREATMENT 2022-07-05 15:50:20 Doctor Unassigned, Labelle [facility] ASSIGNMENT OF BENEFITS 2022-07-05 15:50:07 Doctor Unassigned, Labelle [facility] TDAP VACCINE, >11 YRS, IM 2022-07-03 18:53:15 Michelle Heller [facility] POCT URINALYSIS GLUCOSE & PROTEIN 2021-09 18:36:00 Michelle Heller [facility] CONSENT/REFUSAL FOR DIAGNOSI S AND TREATMENT 2022-05-19 22:24:50 Doctor Unassigned, Labelle [facility] POCT URINALYSIS W/O SPECIFIC GRAVITY 2022-05-09 00:00:00 April Guerra [facility] L&D VISIT (NON-DELIVERED) 2022-04-07 05:01:00 Doctor Unassigned, Labelle [facility] CPS / APS / FPS 2022-01-02 05:01:00 Doctor Unassigned, Labelle [facility] Encounters Start Date/Time End Date/Time Encounter Type Admission Type Attending Clinicians Care Facility Care Department Encounter ID Source 2024-07-05 12:07:05 Outpatient X [facility] HODAN [id number] [facility] 2021-01-26 22:33:41 Inpatient HCANW HCANW [id number] [address] [place] [address] [facility] 2024-09-30 13:15:00 2024-09-30 13:15:00 Outpatient R ANGIE BARRIENTOS VIVIAN [facility] [id number] [facility] 2024-09-27 08:15:00 2024-09-27 08:15:00 Outpatient R ANGIE BARRIENTOS ANGIE [facility] [id number] [facility] 2024-09-13 00:00:00 2024-09-13 12:32:50 Abstract Mabel Cottrell [facility] DOLLY OPERATOR [facility] 1..840.114 350.1.13.10 4.2.7.2.686 [id number] [facility] 2024-09-13 08:15:00 2024-09-13 08:48:52 Outpatient R ANGIE BARRIENTOS [facility] [id number] [facility] 2024-09-13 08:15:00 2024-09-13 08:48:52 Routine Visit Angie Barrientos [facility] 1.840.114 350.1.13.10 4.2.7.2.686 [id number] [facility] 2024-09-09 09:45:00 2024-09-09 10:04:17 Outpatient R JOSH JAVED SANGEETA JAIN, SANGEETA [facility] [id number] [facility] 2024-08-26 12:45:00 2024-08-26 12:45:00 Outpatient R RAÚL OROZCO [facility] [id number] [facility] 2024-08-25 11:00:00 2024-08-25 11:15:00 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 Visit Draw, [facility] Joseph Garcia Draw, [facility] 1..840.114 350.1.13.10 4.2.7.2.686 [id number] [facility] 2024-08-25 10:00:00 2024-08-25 10:26:59 Outpatient R JOSEPH GARCIA [facility] [id number] [facility] 2024-08-25 10:00:00 2024-08-25 10:26:59 Office Visit Jose Kayleyedmund [facility] 1.2.840.114 350.1.13.10 4.2.7.2.686 [id number] [facility] 2024-08-24 11:15:00 2024-08-24 11:53:54 Outpatient R RAÚL OROZCO [facility] [id number] [facility] 2024-08-24 11:15:00 2024-08-24 11:53:54 Routine Visit Raúl Orozco [facility] 1.2.840.114 350.1.13.10 4.2.7.2.686 [id number] [facility] 2024-08-23 00:00:00 2024-08-23 13:28:57 Telephone Iliana Angie [facility] 1.2.840.114 350.1.13.10 4.2.7.2.686 [id number] 134 [id number] [facility] 2024-08-23 00:00:00 2024-08-23 12:27:38 Case Management Iliana Angie De Luna [facility] 1.2.840.114 350.1.13.10 4.2.7.2.686 [id number] 134 [id number] [facility] 2024-08-20 07:50:00 2024-08-20 19:20:00 Outpatient X ANGIE BARRIENTOS [facility] [id number] [facility] 2024-08-20 07:50:00 2024-08-20 19:20:00 Emergency AdumAngie [facility] AT [facility] 1.2.840.114 350.1.13.10 4.2.7.2.686 [id number] [facility] 2024-08-12 14:45:00 2024-08-12 15:21:29 Routine Visit Angie Barrientos [facility] 1.2.840.114 350.1.13.10 4.2.7.2.686 [id number] 134 [id number] [facility] 2024-08-12 09:30:00 2024-08-12 10:04:59 Outpatient ROSHAN GARCIA SHANNON [facility] [id number] [facility] 2024-08-12 09:30:00 2024-08-12 10:04:59 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 Visit Ultrasound, Roshan Donaldson [facility] DOLLY OPERATOR [facility] 1.2.840.114 350.1.13.10 4.2.7.2.686 [id number] [facility] 2024-08-09 13:00:00 2024-08-09 13:00:00 Outpatient R ILIANA ANGIE BARRIENTOS, [facility] [id number] [facility] 2024-08-08 08:15:00 2024-08-08 08:30:00 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 Visit 2, Adc Lab Thang Ghosh 2, Adc Lab [facility] 1.2.840.114 350.1.13.10 4.2.7.2.686 [id number] [facility] 2024-08-08 08:15:00 2024-08-08 08:15:00 Outpatient THANG GARCIA [facility] [id number] [facility] 2024-08-02 00:00:00 2024-08-02 14:33:35 Case Management AdAngie mejia [facility] 1.2.840.114 350.1.13.10 4.2.7.2.686 [id number] [facility] 2024-06-29 00:00:00 2024-07-30 18:22:16 Patient Secure Msg AdAngie mejia [facility] 1.2.840.114 350.1.13.10 4.2.7.2.686 [id number] [facility] 2024-07-29 09:45:00 2024-07-29 09:45:48 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 Visit 2, Adc Lab AdAngie mejia 2, Adc Lab [facility] 1.2.840.114 350.1.13.10 4.2.7.2.686 [id number] [facility] 2024-07-29 09:45:00 2024-07-29 09:45:00 Outpatient R ADUM, ANGIE BARRIENTOS [facility] [id number] [facility] 2024-07-21 14:00:00 2024-07-21 14:00:00 Outpatient R ADUMANGIE [facility] [id number] [facility] 2024-07-21 08:30:00 2024-07-21 09:19:39 Outpatient R ADUM, ANGIE BARRIENTOS, [facility] [id number] [facility] 2024-07-21 08:30:00 2024-07-21 09:19:39 Routine Visit Angie Barrientos [facility] 1.2.840.114 350.1.13.10 4.2.7.2.686 [id number] [facility] 2024-07-12 00:00:00 2024-07-12 07:33:29 Abstract Mabel Cottrell [facility] DOLLY OPERATOR [facility] 1.2.840.114 350.1.13.10 4.2.7.2.686 [id number] [facility] 2024-07-08 13:30:00 2024-07-08 15:24:59 Outpatient P ADROBERTOANGIEJIGARANGIE [facility] [id number] [facility] 2024-07-08 13:30:00 2024-07-08 15:24:59 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 Visit 1, [facility] Room Adroberto, Angie L 1, [facility] Room [facility] ([facility]) 1.2.840.114 350.1.13.10 4.2.7.2.686 [id number] [facility] 2024-07-08 10:30:00 2024-07-08 10:40:49 Routine Visit Iliana Angie De Luna [facility] 1.2840.114 350.1.13.10 4.2.7.2.686 [id number] [facility] 2024-07-07 10:00:00 2024-07-07 10:15:00 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 Visit Pob, Adc Lab Main BerryAngie mejia Pob, Adc Lab Main [facility] 1.2840.114 350.1.13.10 4.2.7.2.686 [id number] [facility] 2024-07-07 10:00:00 2024-07-07 10:00:00 Outpatient R BERRYANGIE MEJIA ANGIE [facility] [id number] [facility] 2024-07-05 00:00:00 2024-07-05 21:44:07 Case Management BerryAngie mejia [facility] 1.2840.114 350.1.13.10 4.2.7.2.686 [id number] [facility] 2024-07-04 18:53:00 2024-07-05 12:00:00 Outpatient X BETY-YADI S, JOYCE BHAVESH S, JOYCE [facility] HODAN [id number] [facility] 2024-07-04 18:53:00 2024-07-05 12:00:00 Emergency [place] , Annmarie Estefani Bhavesh s, Joyce [facility] AT [facility] 1.2840.114 350.1.13.10 4.2.7.2.686 [id number] [facility] 2024-06-24 10:00:00 2024-06-24 10:51:47 Outpatient R ANGIE BARRIENTOS [facility] [id number] [facility] 2024-06-24 10:00:00 2024-06-24 10:51:47 Initial Visit Angie Barrientos [facility] 1.2.840.114 350.1.13.10 4.2.7.2.686 [id number] [facility] 2024-05-18 00:00:00 2024-06-18 18:19:02 Patient Secure Mabel Prado [facility] DOLLY OPERATOR [facility] MATERNAL & [facility] 1.2840.114 350.1.13.10 4.2.7.2.686 [id number] [facility] 2024-06-13 00:00:00 2024-06-13 10:20:46 Telephone Angie Barrientos [facility] 1.2.840.114 350.1.13.10 4.2.7.2.686 [id number] [facility] 2024-06-10 09:45:00 2024-06-10 10:13:14 Outpatient R CAROLMABEL BARR [facility] [id number] [facility] 2024-06-10 09:45:00 2024-06-10 10:13:14 Routine Visit CarolMabel barr [facility] DOLLY OPERATOR [facility] MATERNAL & CHILD [facility] 1.2.840.114 350.1.13.10 4.2.7.2.686 [id number] [facility] 2024-05-22 10:32:00 2024-05-22 12:18:00 Emergency X PANTERA QUINONEZ JOSEPH [facility] ERT [id number] [facility] 2024-05-22 10:32:00 2024-05-22 12:18:00 Emergency Pantera Quinonez [facility] AT [facility] 1.2.840.114 350.1.13.10 4.2.7.2.686 [id number] [facility] 2024-04-13 00:00:00 2024-05-14 18:19:40 Patient Secure Msg Carolmatilde Mabel [facility] DOLLY OPER[facility] & CHILD [facility] 1.2.840.114 350.1.13.10 4.2.7.2.686 [id number] [facility] 2024-05-12 09:45:00 2024-05-12 10:11:43 Outpatient R SUSHMA GOMEZ [facility] [id number] [facility] 2024-05-12 09:45:00 2024-05-12 10:11:43 Routine Visit Sushma Gomez [facility] DOLLY OPERATOR [facility] & CHILD [facility] 1.2.840.114 350.1.13.10 4.2.7.2.686 [id number] [facility] 2024-05-04 00:00:00 2024-05-04 13:25:19 Telephone Edie Schmidt [facility] DOLLY OPERATOR [facility] & CHILD [facility] 1.2.840.114 350.1.13.10 4.2.7.2.686 [id number] [facility] 2024-04-19 00:00:00 2024-04-19 11:23:43 Telephone CailinlaBharati albaEdie [facility] DOLLY OPERATOR [facility] CHILD [facility] 1.2.840.114 350.1.13.10 4.2.7.2.686 [id number] [facility] 2024-04-19 00:00:00 2024-04-19 11:02:49 Telephone PadminiBharati albaEdie [facility] 1.2.840.114 350.1.13.10 4.2.7.2.686 [id number] [facility] 2024-04-15 09:30:00 2024-04-15 10:37:29 Outpatient R EDIE SCHMIDT JELISA [facility] [id number] [facility] 2024-04-15 09:30:00 2024-04-15 10:37:29 Routine Visit Provider, Edie Ceballos Provider, Caroline Gilmore [facility] DOLLY OPERATOR [facility] & CHILD [facility] 1.2.840.114 350.1.13.10 4.2.7.2.686 [id number] 107 [id number] [facility] 2024-03-07 00:00:00 2024-04-09 18:23:12 Patient Secure Mabel Prado [facility] DOLLY OPERATOR [facility] & CHILD [facility] 1.2.840.114 350.1.13.10 4.2.7.2.686 [id number] [facility] 2024-04-07 19:20:00 2024-04-07 19:40:00 Urgent Care [facility] Zeng Unknown, [facility] 1..840.114 350.1.13.10 4.2.7.2.686 [id number] [facility] 2024-04-07 19:20:00 2024-04-07 19:20:00 Outpatient MILENA BRIANIS [facility] [id number] [facility] 2024-04-05 09:00:00 2024-04-05 09:00:00 Outpatient VERNA HENSON [facility] [id number] [facility] 2024-04-01 13:15:00 2024-04-01 13:22:42 Outpatient MABEL LAU [facility] [id number] [facility] 2024-04-01 13:15:00 2024-04-01 13:22:42 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 Visit Lab, [facility] Mabel Cottrell [facility] DOLLY OPERATOR [facility] & CHILD [facility] 1..840.114 350.1.13.10 4.2.7.2.686 [id number] [facility] 2024-03-30 00:00:00 2024-03-30 16:56:09 Telephone Mabel Cottrell [facility] DOLLY OPERATOR [facility] 1..840.114 350.1.13.10 4.2.7.2.686 [id number] 107 [id number] [facility] 2024-03-25 00:00:00 2024-03-29 12:10:42 Refill Mabel Cottrell [facility] DOLLY OPERATOR [facility] 1..840.114 350.1.13.10 4.2.7.2.686 [id number] [facility] 2024-03-25 10:00:00 2024-03-25 10:29:22 Outpatient MABEL LAU [facility] [id number] [facility] 2024-03-25 10:00:00 2024-03-25 10:29:22 Routine Visit Mabel Cottrell [facility] DOLLY OPERATOR [facility] & CHILD [facility] 1.2840.114 350.1.13.10 4.2.7.2.686 [id number] 107 [id number] [facility] 2024-02-11 00:00:00 2024-03-19 18:25:24 Patient Secure Msg Doctor Unassigned, Labelle [facility] 1.840.114 350.1.13.10 4.2.7.2.686 [id number] [facility] 2024-03-18 00:00:00 2024-03-18 09:24:52 Case Management Mabel Cottrell Anabelle [facility] DOLLY OPERATOR [facility] CHILD [facility] 1.840.114 350.1.13.10 4.2.7.2.686 [id number] 107 [id number] [facility] 2024-03-09 00:00:00 2024-03-09 16:55:14 Case Management Mabel Cottrell [facility] 1.840.114 350.1.13.10 4.2.7.2.686 [id number] [facility] 2024-03-09 14:30:00 2024-03-09 15:07:23 Outpatient R ANABELL LEROY FARANAK [facility] [id number] [facility] 2024-03-09 14:30:00 2024-03-09 15:07:23 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 Visit Ultrasound, Anabell Bright [facility] DOLLY OPERATOR [facility] & CHILD [facility] 1.2.840.114 350.1.13.10 4.2.7.2.686 [id number] [facility] 2024-03-08 00:00:00 2024-03-08 12:06:46 Telephone Mabel Cottrell [facility] DOLLY OPERATOR [facility] MATERNAL & CHILD [facility] 1.2.840.114 350.1.13.10 4.2.7.2.686 [id number] [facility] 2024-03-08 08:15:00 2024-03-08 08:15:00 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 Visit Lab, Ang-Rmchp Mabel Cottrell [facility] DOLLY OPERATOR [facility] MATERNAL & CHILD [facility] 1.2.840.114 350.1.13.10 4.2.7.2.686 [id number] [facility] 2024-03-08 08:15:00 2024-03-08 08:11:33 Outpatient R MABEL COTTRELL [facility] [id number] [facility] 2024-03-05 00:00:00 2024-03-07 15:32:52 Telephone Mabel Cottrell [facility] DOLLY OPERATOR [facility] & CHILD [facility] 1.2.840.114 350.1.13.10 4.2.7.2.686 [id number] 107 [id number] [facility] 2024-03-04 00:00:00 2024-03-04 16:26:12 Telephone Mabel Cottrell [facility] DOLLY OPERATOR [facility] CHILD [facility] 1.2.840.114 350.1.13.10 4.2.7.2.686 [id number] [facility] 2024-03-04 09:30:00 2024-03-04 10:45:21 Initial Visit Mabel Cottrell [facility] DOLLY OPERATOR [facility] & CHILD [facility] 1.2.840.114 350.1.13.10 4.2.7.2.686 [id number] [facility] 2024-03-04 09:00:00 2024-03-04 09:41:59 Outpatient R CURLYMABEL [facility] [id number] [facility] 2024-03-03 13:45:00 2024-03-03 13:45:00 Outpatient MAGNOLIA BONILLA PATRICK [facility] [id number] [facility] 2024-02-25 09:00:00 2024-02-25 09:00:00 Outpatient R BHAVESH SJESSICAJOYCE BHAVESH SJESSICAJOYCE [facility] [id number] [facility] 2024-02-18 00:00:00 2024-02-18 00:00:00 Outpatient NICK GERMAIN [facility] [id number] [facility] 2024-02-16 10:45:00 2024-02-16 10:45:00 Outpatient MAGNOLIA BONILLA PATRICK [facility] [id number] [facility] 2024-02-09 00:00:00 2024-02-10 11:19:09 Telephone Magnolia Pettit [facility] 1.2.840.114 350.1.13.10 4.2.7.2.686 [id number] [facility] 2024-01-06 17:40:00 2024-01-06 18:00:00 Urgent Care Judit Jaquez Unknown, Attending [facility] 1.2.840.114 350.1.13.10 4.2.7.2.686 [id number] [facility] 2024-01-06 17:40:00 2024-01-06 17:40:00 Outpatient JUDIT HALL [facility] [id number] [facility] 2023-12-04 10:00:00 2023-12-04 10:00:00 Outpatient KASSY GARCIA [facility] [id number] [facility] 2023-11-27 09:30:00 2023-11-27 09:30:00 Outpatient R BHAVESH S, JOYCE BHAVESH S, JOYCE [facility] [id number] [facility] 2023-11-18 00:00:00 2023-11-18 00:00:00 Patient Secure Msg [facility] 1..114 350.1.13.10 4.2.7.2.686 [id number] [facility] 2023-11-17 10:45:00 2023-11-17 11:00:00 Office Visit Amanda Magnolia [facility] 1.114 350.1.13.10 4.2.7.2.686 [id number] [facility] 2023-11-17 10:45:00 2023-11-17 10:45:00 Outpatient R MAGNOLIA PETTIT PATRICK [facility] [id number] [facility] 2023-11-16 11:45:00 2023-11-16 14:05:00 [facility] [id number] [facility] 2023-11-16 11:45:00 2023-11-16 14:05:00 [facility] 1.114 350.1.13.10 4.2.7.2.686 [id number] [facility] 2023-11-16 13:00:00 2023-11-16 13:30:00 Surgery [facility] 1.114 350.1.13.10 4.2.7.2.686 [id number] [facility] 2023-11-16 00:00:00 2023-11-16 00:00:00 Orders Only Doctor Unassigned, Labelle [facility] 1.2.840.114 350.1.13.10 4.2.7.2.686 [id number] [facility] 2023-11-09 00:00:00 2023-11-09 00:00:00 Telephone [facility] 1.2.840.114 350.1.13.10 4.2.7.2.686 [id number] [facility] 2023-11-06 16:22:39 2023-11-06 23:59:00 Outpatient BHARATI [facility]ARCIA[facility]LEN [facility] [id number] [facility] 2023-11-06 16:20:00 2023-11-06 23:59:00 Hospital Encounter Kassy Shrestha [facility] 1.2.840.114 350.1.13.10 4.2.7.2.686 [id number] [facility] 2023-11-03 00:00:00 2023-11-03 00:00:00 Telephone Bharati Shresthassica [facility] 1.2.840.114 350.1.13.10 4.2.7.2.686 [id number] [facility] 2023-11-02 00:00:00 2023-11-02 00:00:00 Outpatient KASSY GARCIA [facility] [id number] [facility] 2023-11-02 00:00:00 2023-11-02 00:00:00 Patient Outreach Estefani Fink [facility] 1.2.840.114 350.1.13.10 4.2.7.2.686 [id number] [facility] 2023-10-29 10:30:00 2023-10-29 10:30:00 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 Visit 2, Adc Lab Bharati Shresthassica [facility] 1.2.840.114 350.1.13.10 4.2.7.2.686 [id number] [facility] 2023-10-29 08:30:00 2023-10-29 09:13:28 Outpatient R BHARATI SHRESTHASSICA [facility] [id number] [facility] 2023-10-29 08:30:00 2023-10-29 09:13:28 Office Visit Bharati Shresthassica [facility] 1..114 350.1.13.10 4.2.7.2.686 [id number] [facility] 2023-10-27 09:30:00 2023-10-27 11:05:55 Outpatient VERNA HENSON [facility] [id number] [facility] 2023-10-27 09:30:00 2023-10-27 11:05:55 Office Visit Kvng Moreno Gurinder K [facility] ..114 350.1.13.10 4.2.7.2.686 [id number] [facility] 2023-10-27 00:00:00 2023-10-27 00:00:00 Orders Only Doctor Unassigned, Labelle [facility] ..114 350.1.13.10 4.2.7.2.686 [id number] [facility] 2023-10-16 00:00:00 2023-10-16 00:00:00 Telephone Thang Ghosh [facility] ..114 350.1.13.10 4.2.7.2.686 [id number] [facility] 2023-10-16 00:00:00 2023-10-16 00:00:00 Orders Only Doctor Unassigned, Labelle [facility] 1..114 350.1.13.10 4.2.7.2.686 [id number] [facility] 2023-10-15 00:00:00 2023-10-15 00:00:00 Telephone Thang Ghosh [facility] 1.2.840.114 350.1.13.10 4.2.7.2.686 [id number] [facility] 2023-10-14 09:40:00 2023-10-14 09:40:00 Outpatient R THANG GHOSH [facility] [id number] [facility] 2023-10-14 00:00:00 2023-10-14 00:00:00 Telephone Thang Ghosh [facility] 1.2.840.114 350.1.13.10 4.2.7.2.686 [id number] [facility] 2023-10-10 10:40:00 2023-10-10 11:10:16 Outpatient R RADHA PEREZ [facility] [id number] [facility] 2023-10-10 10:40:00 2023-10-10 11:10:16 Urgent Care Radha Perez Unknown, Attending [facility] 1.2.840.114 350.1.13.10 4.2.7.2.686 [id number] [facility] 2023-10-06 22:25:00 2023-10-07 00:04:00 [id number] 2023-10-06 22:25:00 2023-10-07 00:04:00 Emergency Miguel Meghananick [facility] 1.2.840.114 350.1.13.10 4.2.7.2.686 [id number] [facility] 2023-09-15 14:45:00 2023-09-15 14:59:28 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 Visit 2, Adc Lab Thang Ghosh [facility] 1.2.840.114 350.1.13.10 4.2.7.2.686 [id number] [facility] 2023-09-15 13:00:00 2023-09-15 14:23:45 Outpatient R AUGIE [facility] [id number] [facility] 2023-09-15 13:00:00 2023-09-15 14:23:45 Office Visit Thang Ghosh [facility] 1.2.840.114 350.1.13.10 4.2.7.2.686 [id number] [facility] 2023-07-21 09:30:00 2023-07-21 09:30:00 Outpatient R VERNA LANDRUM [facility] [id number] [facility] 2023-05-04 10:49:00 2023-05-04 16:13:00 Outpatient R MARYELLEN RICARDO [facility] YI [id number] [facility] 2023-05-04 10:49:00 2023-05-04 16:13:00 Hospital Encounter Maryellen Ricardo [facility] 1.2.840.114 350.1.13.10 4.2.7.2.686 [id number] [facility] 2023-05-04 12:10:00 2023-05-04 14:49:00 Surgery Maryellen Ricardo [facility] 1.2.840.114 350.1.13.10 4.2.7.2.686 [id number] [facility] 2023-05-04 12:33:00 2023-05-04 14:02:00 Anesthesia Event Frank Tuttle Brian [facility] 1.84.114 350.1.13.10 4.2.7.2.686 [id number] [facility] 2023-05-04 00:00:00 2023-05-04 00:00:00 Orders Only Doctor Unassigned, Labelle [facility] 1.2840.114 350.1.13.10 4.2.7.2.686 [id number] [facility] 2023-04-21 09:30:00 2023-04-21 10:03:33 Outpatient R VERNA LANDRUM [facility] [id number] [facility] 2023-04-21 09:30:00 2023-04-21 10:03:33 Office Visit Kvng Moreno Gurinder K [facility] 1.840.114 350.1.13.10 4.2.7.2.686 [id number] [facility] 2023-03-26 10:00:00 2023-03-26 11:10:53 Outpatient R MARYELLEN RICARDO [facility] [id number] [facility] 2023-03-26 10:00:00 2023-03-26 11:10:53 Office Visit Maryellen Ricardo [facility] 1.2.840.114 350.1.13.10 4.2.7.2.686 [id number] [facility] 2023-03-17 00:00:00 2023-03-17 00:00:00 Telephone Kassy Shrestha [facility] 1..840.114 350.1.13.10 4.2.7.2.686 [id number] [facility] 2023-03-16 10:31:32 2023-03-16 23:59:00 Outpatient R KASSY SHRESTHA [facility] [id number] [facility] 2023-03-16 10:30:00 2023-03-16 23:59:00 Hospital Encounter Kassy Shrestha [facility] 1.2.840.114 350.1.13.10 4.2.7.2.686 [id number] [facility] 2023-03-05 10:30:00 2023-03-05 11:09:26 Outpatient R KASSY SHRESTHA [facility] [id number] [facility] 2023-03-05 10:30:00 2023-03-05 11:09:26 [facility] 1..840.114 350.1.13.10 4.2.7.2.686 [id number] [facility] 2023-02-28 18:15:00 2023-02-28 18:33:57 [facility] [id number] [facility] 2023-02-28 18:15:00 2023-02-28 18:33:57 Nurse Visit Nurse, [facility] Unknown, Attending [facility] 1..840.114 350.1.13.10 4.2.7.2.686 [id number] [facility] 2023-02-28 18:00:00 2023-02-28 18:20:00 Urgent Care Provider, [facility] Unknown, Attending [facility] OFF[facility] 1..840.114 350.1.13.10 4.2.7.2.686 [id number] [facility] 2023-02-28 18:00:00 2023-02-28 18:00:00 Outpatient R UNKNOWN, ATTENDING [facility] [id number] [facility] 2023-01-28 17:40:00 2023-01-28 18:33:58 Outpatient R LUCILACANDIDO [facility] [id number] [facility] 2023-01-28 17:40:00 2023-01-28 18:33:58 Urgent Care AbhayelfegoCandido jackson Unknown, Attending [facility] 1.2.840.114 350.1.13.10 4.2.7.2.686 [id number] [facility] 2023-01-28 00:00:00 2023-01-28 00:00:00 Orders Only Doctor Unassigned, Labelle [facility] 1.2.840.114 350.1.13.10 4.2.7.2.686 [id number] [facility] 2023-01-28 00:00:00 2023-01-28 00:00:00 Refill AbhayelfegoCandido jackson [facility] 1.2.840.114 350.1.13.10 4.2.7.2.686 [id number] [facility] 2023-01-05 00:00:00 2023-01-05 00:00:00 Telephone Mabel Cottrell [facility] DOLLY OPERATOR [facility] & CHILD [facility] 1.2.840.114 350.1.13.10 4.2.7.2.686 [id number] [facility] 2023-01-02 00:00:00 2023-01-02 00:00:00 Telephone Mabel Cottrell [facility] DOLLY OPERATOR [facility] & CHILD [facility] 1.2.840.114 350.1.13.10 4.2.7.2.686 [id number] [facility] 2023-01-02 00:00:00 2023-01-02 00:00:00 Orders Only Doctor Unassigned, Labelle [facility] 1.2840.114 350.1.13.10 4.2.7.2.686 [id number] [facility] 2022-12-31 09:30:00 2022-12-31 10:16:59 Outpatient R MABEL COTTRELL [facility] [id number] [facility] 2022-12-31 09:30:00 2022-12-31 10:16:59 Office Visit Mabel Cottrell [facility] DOLLY OPERATOR [facility] & CHILD [facility] 1.840.114 350.1.13.10 4.2.7.2.686 [id number] [facility] 2022-12-18 00:00:00 2022-12-18 00:00:00 Telephone [facility] 1.840.114 350.1.13.10 4.2.7.2.686 [id number] [facility] 2022-12-17 00:00:00 2022-12-17 00:00:00 Patient Secure Msg Doctor Unassigned, Labelle [facility] 1.2840.114 350.1.13.10 4.2.7.2.686 [id number] [facility] 2022-12-16 00:00:00 2022-12-16 00:00:00 Refill [facility] 1.840.114 350.1.13.10 4.2.7.2.686 [id number] [facility] 2022-12-03 00:00:00 2022-12-03 00:00:00 Telephone [facility] 1.840.114 350.1.13.10 4.2.7.2.686 [id number] [facility] 2022-11-23 13:00:00 2022-11-23 13:22:57 Outpatient R ELIZABETH SOMMER [facility] [id number] [facility] 2022-11-23 13:00:00 2022-11-23 13:22:57 Urgent Care Elizabeth Sommer Unknown, Attending [facility] 1.2840.114 350.1.13.10 4.2.7.2.686 [id number] [facility] 2022-11-10 00:00:00 2022-11-10 00:00:00 [facility] 1.20.114 350.1.13.10 4.2.7.2.686 [id number] [facility] 2022-11-10 00:00:00 2022-11-10 00:00:00 Orders Only Doctor Unassigned, Labelle [facility] 1.20.114 350.1.13.10 4.2.7.2.686 [id number] [facility] 2022-09-24 00:00:00 2022-09-24 00:00:00 Refill [facility] 1.2840.114 350.1.13.10 4.2.7.2.686 [id number] [facility] 2022-09-19 14:30:00 2022-09-19 15:03:34 Outpatient R MYRA WALTON [facility] [id number] [facility] 2022-09-02 00:00:00 2022-09-02 00:00:00 Patient Secure [facility] 1.2.114 350.1.13.10 4.2.7.2.686 [id number] [facility] 2022-08-29 15:15:00 2022-08-29 16:16:09 Outpatient MYRA RAZO [facility] [id number] [facility] [facility] 2022-08-29 15:15:00 2022-08-29 16:16:09 Routine Visit Chilo [facility] 1.20.114 350.1.13.10 4.2.7.2.686 [id number] 113 [id number] [facility] 2022-08-28 00:00:00 2022-08-28 00:00:00 Patient Secure Msg [facility] 1.0.114 350.1.13.10 4.2.7.2.686 [id number] [facility] 2022-08-21 09:45:00 2022-08-21 10:25:52 Outpatient R MICHELLE HELLER EMILY [facility] [id number] [facility] 2022-08-21 09:45:00 2022-08-21 10:25:52 Routine Visit Michelle Heller [facility] 1.840.114 350.1.13.10 4.2.7.2.686 [id number] 113 [id number] [facility] 2022-08-18 00:00:00 2022-08-18 00:00:00 Patient Secure Msg [facility] 1.84.114 350.1.13.10 4.2.7.2.686 [id number] [facility] 2022-08-15 00:00:00 2022-08-15 00:00:00 Telephone Michelle Heller [facility] 1..114 350.1.13.10 4.2.7.2.686 [id number] [facility] 2022-08-12 09:30:00 2022-08-12 10:33:47 Nurse Visit Visit/, [employer] Nurse [facility] 1.114 350.1.13.10 4.2.7.2.686 [id number] [facility] 2022-08-12 09:30:00 2022-08-12 09:30:00 [facility] [id number] 2022-08-12 00:00:00 2022-08-12 00:00:00 Patient Secure Msg Doctor Unassigned, Labelle [facility] 1..114 350.1.13.10 4.2.7.2.686 [id number] [facility] 2022-08-03 17:29:00 2022-08-08 18:17:00 Hospital Encounter Edda Nesbitt Shannon M [facility] 1.114 350.1.13.10 4.2.7.2.686 [id number] [facility] 2022-08-03 17:29:00 2022-08-08 18:17:00 [id number] 2022-08-05 15:15:00 2022-08-05 17:47:00 Surgery Jailene edgar [facility] 1.114 350.1.13.10 4.2.7.2.686 [id number] [facility] 2022-08-05 06:44:00 2022-08-05 10:00:00 Anesthesia Event Zuri Milligan Rovnat [facility] 1..114 350.1.13.10 4.2.7.2.686 [id number] [facility] 2022-07-29 14:00:00 2022-07-29 14:00:00 Outpatient MYRA RAZO [facility] [id number] [facility] 2022-07-28 13:13:00 2022-07-28 18:48:00 Outpatient X EDDA NESBITT [facility] HODAN [id number] [facility] 2022-07-28 13:13:00 2022-07-28 18:48:00 Hospital Encounter Edda Nesbitt [facility] 1.840.114 350.1.13.10 4.2.7.2.686 [id number] [facility] 2022-07-28 00:00:00 2022-07-28 00:00:00 Telephone [facility] 1.840.114 350.1.13.10 4.2.7.2.686 [id number] 113 [id number] [facility] 2022-07-28 00:00:00 2022-07-28 00:00:00 Telephone [facility] 1..114 350.1.13.10 4.2.7.2.686 [id number] [facility] 2022-07-19 10:20:00 2022-07-19 10:40:00 Urgent Care Kassy Shrestha, Attending [facility] 1.840.114 350.1.13.10 4.2.7.2.686 [id number] [facility] 2022-07-19 10:20:00 2022-07-19 10:20:00 Outpatient R KASSY SHRESTHA [facility] [id number] [facility] 2022-07-18 13:15:00 2022-07-18 14:38:09 Outpatient R MICHELLE HELLER EMILY [facility] [id number] [facility] 2022-07-18 13:15:00 2022-07-18 14:38:09 Routine Visit Michelle Heller [facility] 1..114 350.1.13.10 4.2.7.2.686 [id number] 113 [id number] [facility] 2022-07-16 00:00:00 2022-07-16 00:00:00 Telephone Michelle Heller [facility] 1..114 350.1.13.10 4.2.7.2.686 [id number] [facility] 2022-07-07 14:00:00 2022-07-07 14:30:00 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 Visit Ultrasound, [place]-Elier Mcallister [facility] DOLLY OPERATOR [facility] 1..114 350.1.13.10 4.2.7.2.686 [id number] [facility] 2022-07-07 14:00:00 2022-07-07 14:00:00 Outpatient ELIER BLANACS [facility] [id number] [facility] 2022-07-05 11:08:00 2022-07-05 13:10:00 Outpatient X APRIL GUERRA [facility] HODAN [id number] [facility] 2022-07-05 11:08:00 2022-07-05 13:10:00 Emergency April Guerra [facility] 1.114 350.1.13.10 4.2.7.2.686 [id number] [facility] 2022-07-05 00:00:00 2022-07-05 00:00:00 Orders Only Doctor Unassigned, Labelle [facility] 1..114 350.1.13.10 4.2.7.2.686 [id number] [facility] 2022-07-03 13:15:00 2022-07-03 14:03:33 Outpatient R MICHELLE HELLER EMILY [facility] [id number] [facility] 2022-07-03 13:15:00 2022-07-03 14:03:33 Routine Visit Provider, [facility] Michelle Fuentes [facility] 1.840.114 350.1.13.10 4.2.7.2.686 [id number] [facility] 2022-06-19 14:00:00 2022-06-19 14:46:46 Outpatient R CHILO [facility] [id number] [facility] 2022-06-19 14:00:00 2022-06-19 14:46:46 Routine Visit [facility] 1.840.114 350.1.13.10 4.2.7.2.686 [id number] [facility] 2022-06-18 08:30:00 2022-06-18 09:02:54 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 Visit Lab, [place] - April Peguero [facility] 1..840.114 350.1.13.10 4.2.7.2.686 [id number] [facility] 2022-06-18 08:30:00 2022-06-18 08:30:00 Outpatient R APRIL GUERRA [facility] [id number] [facility] 2022-06-09 10:30:00 2022-06-09 10:30:00 Outpatient R LYNDSAY LEE CHERYAL [facility] [id number] [facility] 2022-06-06 11:00:00 2022-06-06 11:00:00 Outpatient R [facility] [id number] [facility] 2022-06-03 00:00:00 2022-06-03 00:00:00 Patient Secure [facility] 1..840.114 350.1.13.10 4.2.7.2.686 [id number] [facility] 2022-05-19 17:48:00 2022-05-19 23:08:00 Emergency X HYACINTH ROMERO [facility] ERT [id number] [facility] 2022-05-19 17:48:00 2022-05-19 23:08:00 Emergency Hyacinth Romero [facility] 1.284.114 350.1.13.10 4.2.7.2.686 [id number] [facility] 2022-05-19 17:15:00 2022-05-19 17:35:00 Nurse Visit Nurse, [place] [facility] 1.840.114 350.1.13.10 4.2.7.2.686 [id number] [facility] 2022-05-19 17:15:00 2022-05-19 17:15:00 Outpatient [facility] [id number] [facility] 2022-05-19 16:40:00 2022-05-19 16:40:00 Outpatient JUDIT HALL [facility] [id number] [facility] 2022-05-09 09:15:00 2022-05-09 10:03:30 Outpatient APRIL LEYVA [facility] [id number] [facility] 2022-05-09 09:15:00 2022-05-09 10:03:30 Routine Visit April Guerra [facility] 1.840.114 350.1.13.10 4.2.7.2.686 [id number] [facility] 2022-05-09 09:15:00 2022-05-09 09:15:00 Outpatient APRIL LEYVA [facility] [id number] [facility] 2022-05-08 16:00:00 2022-05-08 16:52:29 Outpatient R GELACIO BHAGAT [facility] [id number] [facility] 2022-05-08 16:00:00 2022-05-08 16:52:29 Urgent Care Gelacio Bhagat [facility] 1.114 350.1.13.10 4.2.7.2.686 [id number] [facility] 2022-05-01 14:45:00 2022-05-01 15:00:00 Office Visit Preet Santiago [facility] 1..114 350.1.13.10 4.2.7.2.686 [id number] [facility] 2022-05-01 14:45:00 2022-05-01 14:45:00 Outpatient R PREET SANTIAGO [facility] [id number] [facility] 2022-04-11 13:00:00 2022-04-11 13:32:02 Outpatient R [facility]SAY [facility] [id number] [facility] 2022-04-11 13:00:00 2022-04-11 13:32:02 [facility] 1..114 350.1.13.10 4.2.7.2.686 [id number] [facility] 2022-04-11 00:00:00 2022-04-11 00:00:00 Telephone Conor [facility] 1..114 350.1.13.10 4.2.7.2.686 [id number] [facility] 2022-04-08 13:00:00 2022-04-08 14:00:00 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 Visit Ultrasound, Adc Mary Willson [facility] 1.840.114 350.1.13.10 4.2.7.2.686 [id number] [facility] 2022-04-08 13:00:00 2022-04-08 13:00:00 Outpatient P JAILENE OCASIOLUKEMARY ABARCA [facility] [id number] [facility] 2022-04-07 17:50:00 2022-04-07 20:33:00 Outpatient X CHARLIE [facility] [id number] [facility] 2022-04-07 17:50:00 2022-04-07 20:33:00 Emergency April Guerra [facility] 1.840.114 350.1.13.10 4.2.7.2.686 [id number] [facility] 2022-04-07 00:00:00 2022-04-07 00:00:00 Orders Only Doctor Unassigned, Labelle [facility] 1.840.114 350.1.13.10 4.2.7.2.686 [id number] [facility] 2022-03-28 09:30:00 2022-03-28 09:47:29 Outpatient R APRIL GUERRA [facility] [id number] [facility] 2022-03-28 09:30:00 2022-03-28 09:47:29 Routine Visit April Guerra [facility] 1.0.114 350.1.13.10 4.2.7.2.686 [id number] [facility] 2022-03-28 00:00:00 2022-03-28 00:00:00 Telephone April Guerra [facility] 1.840.114 350.1.13.10 4.2.7.2.686 [id number] 134 [id number] [facility] 2022-03-28 00:00:00 2022-03-28 00:00:00 Patient Secure Tatum Chapman [facility] 1..840.114 350.1.13.10 4.2.7.2.686 [id number] [facility] 2022-03-14 13:45:00 2022-03-14 14:00:00 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 Visit 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, Lyndsay Pereira [facility] 1..840.114 350.1.13.10 4.2.7.2.686 [id number] [facility] 2022-03-14 12:15:00 2022-03-14 13:15:17 Outpatient R CHARLIE APRIL [facility] [id number] [facility] 2022-03-14 12:15:00 2022-03-14 13:15:17 Routine Visit April Guerra [facility] 1.840.114 350.1.13.10 4.2.7.2.686 [id number] [facility] 2022-03-14 11:00:00 2022-03-14 11:00:00 Outpatient R APRIL GUERRA [facility] [id number] [facility] 2022-03-14 11:00:00 2022-03-14 11:00:00 Outpatient Gilbert GUERRA [facility] [id number] [facility] 2022-03-14 00:00:00 2022-03-14 00:00:00 Telephone Lyndsay Lee [facility] 1..840.114 350.1.13.10 4.2.7.2.686 [id number] 134 [id number] [facility] 2022-03-06 00:00:00 2022-03-06 00:00:00 Patient Secure Msg Conor [facility] 1.2840.114 350.1.13.10 4.2.7.2.686 [id number] 134 [id number] [facility] 2022-03-03 12:30:00 2022-03-03 12:45:00 Laboratory Only Only, Ang Db Test Conor [facility] HILARIO?[facility] 1.840.114 350.1.13.10 4.2.7.2.686 [id number] [facility] 2022-03-03 11:30:00 2022-03-03 12:03:49 Outpatient R LYNDSAY LEE [facility] [id number] [facility] 2022-03-03 11:30:00 2022-03-03 12:03:49 Routine Visit Lyndsay Lee [facility] 1.0.114 350.1.13.10 4.2.7.2.686 [id number] [facility] 2022-03-03 11:30:00 2022-03-03 12:03:49 Outpatient R LYNDSAY LEE [facility] [id number] [facility] 2022-03-03 00:00:00 2022-03-03 00:00:00 Patient Secure Msg Fiorella Tatum [facility] 1.0.114 350.1.13.10 4.2.7.2.686 [id number] 134 [id number] [facility] 2022-02-28 00:00:00 2022-02-28 00:00:00 Patient Secure Msg CharlieApril Mikey [facility] 1.2840.114 350.1.13.10 4.2.7.2.686 [id number] [facility] 2022-02-25 10:45:00 2022-02-25 11:00:00 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 Visit Lab, April Simms [facility] 1.840.114 350.1.13.10 4.2.7.2.686 [id number] [facility] 2022-02-25 10:45:00 2022-02-25 10:45:00 Outpatient R APRIL GUERRA [facility] [id number] [facility] 2022-02-25 10:30:00 2022-02-25 10:30:00 Outpatient R [facility] [id number] [facility] 2022-02-25 00:00:00 2022-02-25 00:00:00 Orders Only Doctor Unassigned, Labelle [facility] 1.114 350.1.13.10 4.2.7.2.686 [id number] [facility] 2022-02-24 09:30:00 2022-02-24 09:45:00 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 Visit Lab, [place] Ceron [facility] 1.84.114 350.1.13.10 4.2.7.2.686 [id number] [facility] 2022-02-24 09:30:00 2022-02-24 09:30:00 Outpatient R [facility] [id number] [facility] 2022-02-24 00:00:00 2022-02-24 00:00:00 Telephone April Guerra [facility] 1.114 350.1.13.10 4.2.7.2.686 [id number] 134 [id number] [facility] 2022-02-22 20:20:00 2022-02-22 20:56:22 Outpatient R ELIZABETH REEVES [facility] [id number] [facility] 2022-02-22 20:20:00 2022-02-22 20:56:22 Urgent Care Elizabeth Reeves, [facility] 1.114 350.1.13.10 4.2.7.2.686 [id number] 370 [id number] [facility] 2022-02-07 13:30:00 2022-02-07 13:59:23 Routine Visit Lyndsay Lee [facility] 1.114 350.1.13.10 4.2.7.2.686 [id number] [facility] 2022-02-07 13:30:00 2022-02-07 13:59:23 Outpatient R [facility]SAY [facility]EE [facility] [id number] [facility] 2022-02-07 13:30:00 2022-02-07 13:30:00 Outpatient R LYNDSAY LEE [facility] [id number] [facility] 2022-01-19 20:34:00 2022-01-19 23:51:00 Emergency X MADELIN CORTES [facility] ERT [id number] [facility] 2022-01-19 20:34:00 2022-01-19 23:51:00 Emergency Marquise Stone S Madelin Cortes [facility] 1..114 350.1.13.10 4.2.7.2.686 [id number] [facility] 2022-01-14 11:59:00 2022-01-14 14:57:00 Emergency Meghna Bose [facility] 1..114 350.1.13.10 4.2.7.2.686 [id number] [facility] 2022-01-14 11:59:00 2022-01-14 14:57:00 Emergency X MEGHNA BOSE [facility] ERT [id number] [facility] 2022-01-14 09:00:00 2022-01-14 10:21:55 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 Visit Lab, Ang - Db April Guerra [facility] KIANNA RICH?[facility] 1..840.114 350.1.13.10 4.2.7.2.686 [id number] [facility] 2022-01-14 09:00:00 2022-01-14 09:00:00 Outpatient R [facility] [id number] [facility] 2022-01-14 09:00:00 2022-01-14 09:00:00 Outpatient APRIL LEYVA [facility] [id number] [facility] 2022-01-14 00:00:00 2022-01-14 00:00:00 Telephone April Guerra [facility] 1..840.114 350.1.13.10 4.2.7.2.686 [id number] 134 [id number] [facility] 2022-01-12 00:00:00 2022-01-12 00:00:00 Case Management Candido [facility] 1..840.114 350.1.13.10 4.2.7.2.686 [id number] [facility] 2022-01-10 11:00:00 2022-01-10 12:14:47 Outpatient APRIL LEYVA [facility] [id number] [facility] 2022-01-10 11:00:00 2022-01-10 12:14:47 Outpatient APRIL LEYVA [facility] [id number] [facility] 2022-01-10 11:00:00 2022-01-10 12:14:47 Initial Visit April Guerra [facility] 1.2.840.114 350.1.13.10 4.2.7.2.686 [id number] 134 [id number] [facility] 2022-01-10 00:00:00 2022-01-10 00:00:00 Orders Only Doctor Unassigned, Labelle [facility] 1.2.840.114 350.1.13.10 4.2.7.2.686 [id number] [facility] 2022-01-02 00:00:00 2022-01-02 00:00:00 Orders Only Doctor Unassigned, Labelle [facility] 1.2.840.114 350.1.13.10 4.2.7.2.686 [id number] [facility] Results Test Description Test Time Test Comments Results Result Co mments Source [facility] Ur[facility] w/o Specific [id number] 17:32:00* Test Item Value Reference Range Interpretation Comme nts POCT PH U (test code = 3254) n/a 5-8 POCT U LEUK EST (test code = 3263) n/a Negative - Negative POCT U NIT (test code = 3262) n/a Negative - Negati ve POCT U PROT (test code = 3259) negative Negative - Negat toby POCT U GLU (test code = 3256) normal Negative - Negati ve POCT U KETONE (test code = 3258) n/a Negative - Neg ative POCT U BLD (test code = 3257) n/a Negative - Negati ve [facility] Head wo [id number] 22:45:03EXAM: CT HEAD WO CONTRAST HISTORY: Headache, new or worsening, neuro deficit (Age 18- 48y) TECHNIQUE: CT of the head was performed without intravenous contrast.Sagittal and coronal reformats were generated. COMPARISON: CT head dated 11/05/2021. FINDINGS: The ventricles and sulci are normal in caliber and configuration. Nohydrocephalus, midline shift or pathological extra-axial fluid collectionis present. The basal cisterns are unremarkable. 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 There is no acute intracranial hemorrhage or significant mass effect. Noparenchymal attenuation abnormality. The johnson-white matter dif ferentiationis preserved. The mastoid air cells and paranasal air sinuses are clear. The calvariumand central skull base are unremarkable.[facility]ervilleAlanine Amino Transferase (SGPT)2024-08-20 17:07:05* Test Item Value Reference Range Interpretation Comme [facility] ALTv (test code = 1742-6) 12 U/L 5-35 Lab Interpretation (test cod e = 22495-6) Normal [facility] (Asparate Amino Transfer)2024-08-20 17:06:45* Test Item Value Reference Range Interpretation Comme [facility] AST(SGOT) (test code = 1236315104) 19 U/L 13-40 Lab Interpretation (test cod e = 33065-9) Normal [facility]ervilleLactate Ghywhgnnjqlem2157-24-95 17:06:44* Test Item Value Reference Range Interpretation Comme [facility] LDH (test code = 4175257910) 190 U/L 120-246 Lab Interpretation (test cod e = 24440-6) Normal [facility]ervilleUric Acid Zmkxy7381-01-17 15:08:35* Test Item Value Reference Range Interpretation Comme [facility] URIC ACID (test code = 1796701852) 2.7 mg/dL 2.9-6.0 L Lab Interpretation (test cod e = 67899-4) Abnormal [facility] Cypzkimwao8729-17-62 15:08:20* Test Item Value Reference Range Interpretation Comme [facility] CREATININE (test code = 2160-0) 0.46 mg/dL 0.50-1.04 L eGFR (test code = 77218-2) 132.2 mL/min/1.73m2 CKD-EPI eGFR (2020). Assuming creatinine has been stable day-to-day for at least three months, the eGFR indicates Category G1 (>= 90 mL/min/1.73 m2) Lab Interpretation (test code = 93491-5) Abnormal [facility] with Hcfrbpenuuti6611-55-35 14:49:37* Test Item Value Reference Range Interpretation Comme nts WBC (test code = 6690-2) 6.12 4.30-11.10 RBC (test code = 789-8) 3.96 3.93-5.25 HGB (test code = 718-7) 12.3 g/dL 11.6-15.0 HCT (test code = 4544-3) 35.7 % 35.7-45.2 MCV (test code = 787-2) 90.2 fL 80.6-95.5 MCH (test code = 785-6) 31.1 pg 25.9-32.8 MCHC (test code = 786-4) 34.5 g/dL 31.6-35.1 RDW-SD (test code = 09564-2) 41.6 fL 39.0-49.9 RDW-CV (test code = 788-0) 12.8 % 12.0-15.5 PLT (test code = 777-3) 259 166-358 MPV (test code = 20085-7) 9.5 fL 9.5-12.9 NRBC/100 WBC (test code = 4155979172) 0.0 0.0-10.0 NRBC x10^3 (test code = 0534156770) See_Comment [Automated messa ge] The system which generated this result transmitted reference range: 10*3/?L. The reference range was not used to interpret this result as normal/abnormal. GRAN MAT (NEUT) % (test code = 770-8) 67.3 % IMM GRAN % (test code = 3094348621) 0.50 % LYMPH % (test code = 736-9) 27.8 % MONO % (test code = 5905-5) 3.8 % EOS % (test code = 713-8) 0.3 % BASO % (test code = 706-2) 0.3 % GRAN MAT x10^3(ANC) (test code = 3439596040) 4.12 10*3/uL 1.88-7.09 IMM GRAN x10^3 (test code = 3478633207) 0.03 10*3/uL 0.00-0.06 LYMPH x10^3 (test code = 731-0) 1.70 10*3/uL 1.32-3.29 MONO x10^3 (test code = 742-7) 0.23 10*3/uL 0.33-0.92 L EOS x10^3 (test code = 711-2) 0.03-0.39 L BASO x10^3 (test code = 704-7) 0.01-0.07 Lab Interpretation (test code = 78634-9) Abnormal [facility] Urinalysis w/o Specific [id number] 21:47:00* Test Item Value Reference Range Interpretation Comme nts POCT PH U (test code = 3254) n/a 5-8 POCT U LEUK EST (test code = 3263) n/a Negative - N egative POCT U NIT (test code = 3262) n/a Negative - Negati ve POCT U PROT (test code = 3259) neg Negative - Negat toby POCT U GLU (test code = 3256) neg Negative - Negati ve POCT U KETONE (test code = 3258) n/a Negative - Neg ative POCT U BLD (test code = 3257) n/a Negative - Negati ve [facility] [id number] 16:00:26* Test Item Value Reference Range Interpretation Comme nts GLU FASTNG (test code = 1639892312) 85 mg/dL 70-110 Lab Interpretation (test cod e = 45825-1) Normal [facility] [place]cosylated Hemoglobin (A1C)2024-08-08 15:54:12* Test Item Value Reference Range Interpretation Comme nts HGB A1C (test code = 4548-4) 4.8 % 4.0-5.7 REBECCA (test code = REBECCA) Reference RangesNormal: <5.7%Prediabetes: 5.7 - 6.4%Diabetes: > 6.5% Lab Interpretation (test code = 67897-7) Normal [facility] Urinalysis w/o Specific [id number] 14:35:00* Test Item Value Reference Range Interpretation Comme nts POCT PH U (test code = 3254) n/a 5-8 POCT U LEUK EST (test code = 3263) n/a Negative - N egative POCT U NIT (test code = 3262) n/a Negative - Negati ve POCT U PROT (test code = 3259) neg Negative - Negat toby POCT U GLU (test code = 3256) neg Negative - Negati ve POCT U KETONE (test code = 3258) n/a Negative - Neg ative POCT U BLD (test code = 3257) n/a Negative - Negati ve [facility] [place] Ur[facility] w/o Specific [id number] 15:29:00* Test Item Value Reference Range Interpretation Comme nts POCT PH U (test code = 3254) n/a 5-8 POCT U LEUK EST (test code = 3263) n/a Negative - N egative POCT U NIT (test code = 3262) n/a Negative - Negati ve POCT U PROT (test code = 3259) neg Negative - Negat toby POCT U GLU (test code = 3256) neg Negative - Negati ve POCT U KETONE (test code = 3258) n/a Negative - Neg ative POCT U BLD (test code = 3257) n/a Negative - Negati ve [facility]. Metabolic Panel (43783)2024-07-05 14:48:28* Test Item Value Reference Range Interpretation Comme nts NA (test code = 1515282648) 134 mmol/L 135-145 L K (test code = 0520828102) 3.7 mmol/L 3.5-5.0 CL (test code = 1852901876) 105 mmol/L 98-108 CO2 TOTAL (test code = 7734768945) 20 mmol/L 23-31 L AGAP (test code = 7778996296) 9 2-16 BUN (test code = 9083466901) 4 mg/dL 7-23 L GLUCOSE (test code = 9891355269) 83 mg/dL 70-110 CREATININE (test code = 2160-0) 0.45 mg/dL 0.50-1.04 L TOTAL BILI (test code = 6605439095) 0.4 mg/dL 0.1-1.1 CALCIUM (test code = 9334163014) 8.5 mg/dL 8.6-10.6 L T PROTEIN (test code = 1935153042) 7.1 g/dL 6.3-8.2 ALBUMIN (test code = 0823778796) 3.9 g/dL 3.5-5.0 ALK PHOS (test code = 8308359427) 28 U/L 34-122 L ALTv (test code = 1742-6) 12 U/L 5-35 AST(SGOT) (test code = 8822592825) 17 U/L 13-40 eGFR (test code = 87574-5) 132.9 mL/min/1.73m2 CKD-EPI eGFR (2020). Assuming creatinine has been stable day-to-day for at least three months, the eGFR indicates Category G1 (>= 90 mL/min/1.73 m2) Lab Interpretation (test code = 56785-2) Abnormal [facility] with Nmam5970-27-97 14:11:46* Test Item Value Reference Range Interpretation Comme nts WBC (test code = 6690-2) 6.73 4.30-11.10 RBC (test code = 789-8) 3.96 3.93-5.25 HGB (test code = 718-7) 12.3 g/dL 11.6-15.0 HCT (test code = 4544-3) 35.9 % 35.7-45.2 MCV (test code = 787-2) 90.7 fL 80.6-95.5 MCH (test code = 785-6) 31.1 pg 25.9-32.8 MCHC (test code = 786-4) 34.3 g/dL 31.6-35.1 RDW-SD (test code = 91116-1) 41.4 fL 39.0-49.9 RDW-CV (test code = 788-0) 12.6 % 12.0-15.5 PLT (test code = 777-3) 269 166-358 MPV (test code = 14535-7) 9.2 fL 9.5-12.9 L NRBC/100 WBC (test code = 3248352107) 0.0 0.0-10.0 NRBC x10^3 (test code = 7488904183) See_Comment [Automated messa ge] The system which generated this result transmitted reference range: 10*3/?L. The reference range was not used to interpret this result as normal/abnormal. GRAN MAT (NEUT) % (test code = 770-8) 63.8 % IMM GRAN % (test code = 8778265681) 0.30 % LYMPH % (test code = 736-9) 31.2 % MONO % (test code = 5905-5) 4.0 % EOS % (test code = 713-8) 0.4 % BASO % (test code = 706-2) 0.3 % GRAN MAT x10^3(ANC) (test code = 1771042408) 4.29 10*3/uL 1.88-7.09 IMM GRAN x10^3 (test code = 7820577747) 0.00-0.06 LYMPH x10^3 (test code = 731-0) 2.10 10*3/uL 1.32-3.29 MONO x10^3 (test code = 742-7) 0.27 10*3/uL 0.33-0.92 L EOS x10^3 (test code = 711-2) 0.03 10*3/uL 0.03-0.39 BASO x10^3 (test code = 704-7) 0.01-0.07 Lab Interpretation (test code = 71097-3) Abnormal [facility] with Kosfpktpbilv9608-44-34 01:44:34* Test Item Value Reference Range Interpretation Comme nts WBC (test code = 6690-2) 6.58 4.30-11.10 RBC (test code = 789-8) 3.85 3.93-5.25 L HGB (test code = 718-7) 12.0 g/dL 11.6-15.0 HCT (test code = 4544-3) 34.8 % 35.7-45.2 L MCV (test code = 787-2) 90.4 fL 80.6-95.5 MCH (test code = 785-6) 31.2 pg 25.9-32.8 MCHC (test code = 786-4) 34.5 g/dL 31.6-35.1 RDW-SD (test code = 10969-1) 41.1 fL 39.0-49.9 RDW-CV (test code = 788-0) 12.7 % 12.0-15.5 PLT (test code = 777-3) 274 166-358 MPV (test code = 85288-3) 9.2 fL 9.5-12.9 L NRBC/100 WBC (test code = 0559478046) 0.0 0.0-10.0 NRBC x10^3 (test code = 1121734939) See_Comment [Automated messa ge] The system which generated this result transmitted reference range: 10*3/?L. The reference range was not used to interpret this result as normal/abnormal. GRAN MAT (NEUT) % (test code = 770-8) 62.5 % IMM GRAN % (test code = 4414910264) 0.50 % LYMPH % (test code = 736-9) 32.2 % MONO % (test code = 5905-5) 4.0 % EOS % (test code = 713-8) 0.5 % BASO % (test code = 706-2) 0.3 % GRAN MAT x10^3(ANC) (test code = 0265098719) 4.12 10*3/uL 1.88-7.09 IMM GRAN x10^3 (test code = 1584417640) 0.03 10*3/uL 0.00-0.06 LYMPH x10^3 (test code = 731-0) 2.12 10*3/uL 1.32-3.29 MONO x10^3 (test code = 742-7) 0.26 10*3/uL 0.33-0.92 L EOS x10^3 (test code = 711-2) 0.03 10*3/uL 0.03-0.39 BASO x10^3 (test code = 704-7) 0.01-0.07 Lab Interpretation (test code = 43776-6) [facility] Eycjo5800-09-48 01:41:32* Test Item Value Reference Range Interpretation Comme nts URIC ACID (test code = 4216463171) 2.2 mg/dL 2.9-6.0 L Lab Interpretation (test cod e = 34902-0) [facility]normal [facility] Transferase (SGPT)2024-07-05 01:41:32* Test Item Value Reference Range Interpretation Comme nts ALTv (test code = 1742-6) 12 U/L 5-35 Lab Interpretation (test cod e = 76623-4) Normal [facility]act[facility] Njbuxgluyuuyc6413-91-93 01:41:32* Test Item Value Reference Range Interpretation Comme nts LDH (test code = 8863627213) 136 U/L 120-246 Lab Interpretation (test cod e = 35656-1) Normal [facility]um Fwhtnzbjyq4637-66-43 01:41:11* Test Item Value Reference Range Interpretation Comme nts CREATININE (test code = 2160-0) 0.53 mg/dL 0.50-1.04 eGFR (test code = 98815-6) 127.8 mL/min/1.73m2 CKD-EPI eGFR (20 21). Assuming creatinine has been stable day-to-day for at least three months, the eGFR indicates Category G1 (>= 90 mL/min/1.73 m2) [facility] (Asparate Amino Transfer)2024-07-05 01:41:11* Test Item Value Reference Range Interpretation Comme nts AST(SGOT) (test code = 4788766809) 16 U/L 13-40 Lab Interpretation (test cod e = 36409-9) Normal [facility] Urinalysis w/o Specific Gfecbtp0560-39-62 15:20:00* Test Item Value Reference Range Interpretation Comme nts POCT PH U (test code = 3254) n/a 5-8 POCT U LEUK EST (test code = 3263) n/a Negative - Negative POCT U NIT (test code = 3262) n/a Negative - Negati ve POCT U PROT (test code = 3259) Negative Negative - Negat toby POCT U GLU (test code = 3256) Negative Negative - Negati ve POCT U KETONE (test code = 3258) n/a Negative - Neg ative POCT U BLD (test code = 3257) n/a Negative - Negati ve [facility] URINALYSIS W SPECIFIC WXCIADQ2065-84-54 14:25:00* Test Item Value Reference Range Interpretation Comme nts POCT U SP GRAV (test code = 3255) . 1.005-1.025 POCT PH U (test code = 3254) 6 mg/dl 5-8 POCT U LEUK EST (test code = 3263) Trace Negative - Negative POCT U NIT (test code = 3262) Neg Negative - Negati ve POCT U PROT (test code = 3259) Trace Negative - Negat toby POCT U GLU (test code = 3256) Nml Negative - Negati ve POCT U KETONE (test code = 3258) None Negative - Neg ative POCT U UROBILI (test code = 3260) . 0.2-1 POCT U BILI (test code = 3261) . Negative - Negat toby POCT U BLD (test code = 3257) Trace Negative - Negati ve POCT U COLOR (test code = 3266) . POCT U APPEAR (test code = 3267) .. [facility]. Metabolic Panel (97991)2024-05-22 16:19:00* Test Item Value Reference Range Interpretation Comme nts NA (test code = 7830585757) 133 mmol/L 135-145 L K (test code = 8338138919) 3.7 mmol/L 3.5-5.0 CL (test code = 5215886848) 103 mmol/L 98-108 CO2 TOTAL (test code = 6619234832) 21 mmol/L 23-31 L AGAP (test code = 6211159079) 9 2-16 BUN (test code = 0184811231) 5 mg/dL 7-23 L GLUCOSE (test code = 3476519467) 97 mg/dL 70-110 CREATININE (test code = 2160-0) 0.51 mg/dL 0.50-1.04 TOTAL BILI (test code = 5006479419) 0.6 mg/dL 0.1-1.1 CALCIUM (test code = 7606618104) 8.9 mg/dL 8.6-10.6 T PROTEIN (test code = 5621318084) 7.6 g/dL 6.3-8.2 ALBUMIN (test code = 5777798704) 4.3 g/dL 3.5-5.0 ALK PHOS (test code = 0041771213) 25 U/L 34-122 L ALTv (test code = 1742-6) 14 U/L 5-35 AST(SGOT) (test code = 4560008627) 17 U/L 13-40 eGFR (test code = 05719-8) 129.0 mL/min/1.73m2 CKD-EPI eGFR (2020). Assuming creatinine has been stable day-to-day for at least three months, the eGFR indicates Category G1 (>= 90 mL/min/1.73 m2) Lab Interpretation (test code = 78979-8) [facility]normal [facility]2024-09-15 16:18:40* Test Item Value Reference Range Interpretation Comme nts LIPASE (test code = 9758789722) 98 U/L 0-220 Lab Interpretation (test cod e = 64525-2) Normal [facility] with Njnn7970-39-81 16:05:40* Test Item Value Reference Range Interpretation Comme nts WBC (test code = 6690-2) 8.14 4.30-11.10 RBC (test code = 789-8) 4.22 3.93-5.25 HGB (test code = 718-7) 13.2 g/dL 11.6-15.0 HCT (test code = 4544-3) 38.2 % 35.7-45.2 MCV (test code = 787-2) 90.5 fL 80.6-95.5 MCH (test code = 785-6) 31.3 pg 25.9-32.8 MCHC (test code = 786-4) 34.6 g/dL 31.6-35.1 RDW-SD (test code = 21875-0) 39.9 fL 39.0-49.9 RDW-CV (test code = 788-0) 12.2 % 12.0-15.5 PLT (test code = 777-3) 267 166-358 MPV (test code = 42624-9) 8.9 fL 9.5-12.9 L NRBC/100 WBC (test code = 5855079363) 0.0 0.0-10.0 NRBC x10^3 (test code = 6249526067) See_Comment [Automated messa ge] The system which generated this result transmitted reference range: 10*3/?L. The reference range was not used to interpret this result as normal/abnormal. GRAN MAT (NEUT) % (test code = 770-8) 85.6 % IMM GRAN % (test code = 8243711790) 0.50 % LYMPH % (test code = 736-9) 10.6 % MONO % (test code = 5905-5) 3.1 % EOS % (test code = 713-8) 0.0 % BASO % (test code = 706-2) 0.2 % GRAN MAT x10^3(ANC) (test code = 2376124179) 6.97 10*3/uL 1.88-7.09 IMM GRAN x10^3 (test code = 3955240594) 0.04 10*3/uL 0.00-0.06 LYMPH x10^3 (test code = 731-0) 0.86 10*3/uL 1.32-3.29 L MONO x10^3 (test code = 742-7) 0.25 10*3/uL 0.33-0.92 L EOS x10^3 (test code = 711-2) 0.03-0.39 L BASO x10^3 (test code = 704-7) 0.01-0.07 Lab Interpretation (test code = 19726-3) Abnormal [facility] URINALYSIS W SPECIFIC DTOSJNE6035-17-19 14:35:00* Test Item Value Reference Range Interpretation Comme nts POCT U SP GRAV (test code = 3255) . 1.005-1.025 POCT PH U (test code = 3254) . 5-8 POCT U LEUK EST (test code = 3263) . Negative - N egative POCT U NIT (test code = 3262) . Negative - Negati ve POCT U PROT (test code = 3259) trace Negative - Negat toby POCT U GLU (test code = 3256) neg Negative - Negati ve POCT U KETONE (test code = 3258) . Negative - Neg ative POCT U UROBILI (test code = 3260) . 0.2-1 POCT U BILI (test code = 3261) . Negative - Negat toby POCT U BLD (test code = 3257) . Negative - Negati ve POCT U COLOR (test code = 3266) POCT U APPEAR (test code = 3267) [facility] URINALYSIS W SPECIFIC NKQCEHJ6197-89-75 14:38:00* Test Item Value Reference Range Interpretation Comme nts POCT U SP GRAV (test code = 3255) . 1.005-1.025 POCT PH U (test code = 3254) 7 mg/dl 5-8 POCT U LEUK EST (test code = 3263) Trace Negative - Negative POCT U NIT (test code = 3262) Neg Negative - Negati ve POCT U PROT (test code = 3259) Trace Negative - Negat toby POCT U GLU (test code = 3256) Nml Negative - Negati ve POCT U KETONE (test code = 3258) None Negative - Neg ative POCT U UROBILI (test code = 3260) . 0.2-1 POCT U BILI (test code = 3261) . Negative - Negat toby POCT U BLD (test code = 3257) Trace Negative - Negati ve POCT U COLOR (test code = 3266) . POCT U APPEAR (test code = 3267) .. [facility] SARS-COV-2 ANTIGEN (BINAX NOW)2024-04-08 01:01:00* Test Item Value Reference Range Interpretation Comme nts POCT SARS-COV-2 ANTIGEN (test code = 39413-4) Not Detected Not Detected, See Comment On board controls acceptable with C Line (test code = 3574) Yes Lab Interpretation (test code = 90669-6) Normal [facility] URINALYSIS W SPECIFIC [id number] 00:59:00* Test Item Value Reference Range Interpretation Comme nts POCT U SP GRAV (test code = 3255) 1.010 mg/dl 1.005-1.025 POCT PH U (test code = 3254) 6 mg/dl 5-8 POCT U LEUK EST (test code = 3263) negative Negative - Negative POCT U NIT (test code = 3262) negative Negative - Negative POCT U PROT (test code = 3259) trace Negative - Negative POCT U GLU (test code = 3256) negative Negative - Negative POCT U KETONE (test code = 3258) negative Negative - Negative POCT U UROBILI (test code = 3260) normal 0.2-1 POCT U BILI (test code = 3261) negative Negative - Negative POCT U BLD (test code = 3257) negative Negative - Negative POCT U COLOR (test code = 3266) light yellow POCT U APPEAR (test code = 3267) clear REBECCA (test code = REBECCA) accurate developme nt and interpretation of all internal controls Lab Interpretation (test code = 44238-1) Normal [facility] URINALYSIS W SPECIFIC BYOSGBR1523-32-47 14:58:00* Test Item Value Reference Range Interpretation Comme nts POCT U SP GRAV (test code = 3255) . 1.005-1.025 POCT PH U (test code = 3254) 6 mg/dl 5-8 POCT U LEUK EST (test code = 3263) Trace Negative - Negative POCT U NIT (test code = 3262) Neg Negative - Negati ve POCT U PROT (test code = 3259) Trace Negative - Negat toby POCT U GLU (test code = 3256) Nml Negative - Negati ve POCT U KETONE (test code = 3258) None Negative - Neg ative POCT U UROBILI (test code = 3260) . 0.2-1 POCT U BILI (test code = 3261) . Negative - Negat toby POCT U BLD (test code = 3257) Trace Negative - Negati ve POCT U COLOR (test code = 3266) . POCT U APPEAR (test code = 3267) .. [facility] Urinalysis w/o Specific Wbnclws5651-72-81 14:53:00* Test Item Value Reference Range Interpretation Comme nts POCT PH U (test code = 3254) 7 mg/dl 5-8 POCT U LEUK EST (test code = 3263) Trace Negative - Negative POCT U NIT (test code = 3262) Neg Negative - Negati ve POCT U PROT (test code = 3259) Trace Negative - Negat toby POCT U GLU (test code = 3256) Nml Negative - Negati ve POCT U KETONE (test code = 3258) None Negative - Neg ative POCT U BLD (test code = 3257) Trace Negative - Negati ve [facility] Ymmv1522-15-50 14:52:00* Test Item Value Reference Range Interpretation Comme nts POCT PREG (test code = 1605) Positive On board controls acceptable with C Line (test code = 3574) Yes POCT PREG LOT # (test code = 3575) POCT PREG TEST DATE ( test code = 3576) [facility] Molecular Zjd0921-41-71 22:50:29* Test Item Value Reference Range Interpretation Comme nts POCT Molecular FluA (test co de = 76424-1) Negative Negative POCT Molecular FluB (test co de = 84230-2) Negative Negative Lab Interpretation (test cod e = 24206-4) Normal [facility] SARS-COV-2 ANTIGEN (BINAX NOW)2024-01-06 22:40:00* Test Item Value Reference Range Interpretation Comme nts POCT SARS-COV-2 ANTIGEN (test code = 85374-9) Positive Not Detected A On board controls acceptable with C Line (test code = 3574) Yes REBECCA (test code = REBECCA) accurate developme nt and interpretation of all internal controls Lab Interpretation (test code = 59824-8) Abnormal [facility] Tiqa6312-21-09 17:24:00* Test Item Value Reference Range Interpretation Comme nts POCT PREG (test code = 1605) Negative On board controls acceptable with C Line (test code = 3574) Yes POCT PREG LOT # (test code = 3575) POCT PREG TEST DATE ( test code = 3576) [facility] Ryud9709-40-32 17:24:00* Test Item Value Reference Range Interpretation Comme nts POCT PREG (test code = 1605) Negative On board controls acceptable with C Line (test code = 3574) Yes POCT PREG LOT # (test code = 3575) POCT PREG TEST DATE ( test code = 3576) [facility] HEAD WO [id number] 23:03:44EXAM: CT HEAD WO CONTRAST HISTORY: Headaches and known history of arachnoid cyst. TECHNIQUE: Axial CT of the head was performed and reconstructed at 5 mmintervals. Coronal and sagittal reformatted images were generated. COMPARISON: None FINDINGS: The ventricles and cerebral sulci are normal in caliber and configuration.No midline shift is present. There is a CSF density collection measuring2.8 x 1.8 x 2.1 cm in the supracerebellar posterior fossa causing mild masseffect upon the bilateral cerebellar lobes. The basal cisterns areunremarkable. No acute intracranial hemorrhage or significant mass effect is visualized.No parenchymal attenuation abnormality is seen. The johnson-white matterdifferentiation is preserved. The mastoid air cells and visualized paranasal air sinuses are clear. Thecalvarium and central skull base are unremarkable.[facility]XR FINGERS 2 VW KZRBN4775-07-30 05:28:55Ordering physician:YUKI RIVERA CLINICAL HISTORY: ? ?Laceration TECHNIQUE: 2 views of the right second digit. COMPARISON: ?None FINDINGS: No acute fracture. Bony alignment is maintained. Visualized joints arepreserved. No radiopaque foreign body.[facility] Test 2023-05-04 16:02:00* Test Item Value Reference Range Interpretation Comme nts POCT PREG (test code = 1605) Negative On board controls acceptable with C Line (test code = 3574) Yes POCT PREG LOT # (test code = 3575) POCT PREG TEST DATE ( test code = 3576) [facility] Rmbg6339-29-11 16:02:00* Test Item Value Reference Range Interpretation Comme nts POCT PREG (test code = 1605) Negative On board controls acceptable with C Line (test code = 3574) Yes POCT PREG LOT # (test code = 3575) POCT PREG TEST DATE ( test code = 3576) [facility] MOLECULAR [id number] 18:12:21* Test Item Value Reference Range Interpretation Comme [facility] POCT Molecular Strep (test c ode = 73681-7) Negative Negative Lab Interpretation (test cod e = 03047-1) [facility] Niulnjpqcpurl7735-64-98 01:28:17* Test Item Value Reference Range Interpretation Comme nts LDH (test code = 7700722817) 252 U/L 120-246 H Lab Interpretation (test cod e = 91906-8) Abnormal [facility] Garjvnqxkqunj7485-85-12 01:28:17* Test Item Value Reference Range Interpretation Comme nts LDH (test code = 9809066419) 252 U/L 120-246 H Lab Interpretation (test cod e = 92231-5) [facility]normal [facility] Fukkp0232-27-82 01:27:37* Test Item Value Reference Range Interpretation Comme nts URIC ACID (test code = 7266287346) 3.7 mg/dL 2.9-6.0 Lab Interpretation (test cod e = 32335-2) Normal [facility] (Asparate Amino Transfer)2022-08-08 01:27:37* Test Item Value Reference Range Interpretation Comme nts AST(SGOT) (test code = 2923757552) 34 U/L 13-40 Lab Interpretation (test cod e = 31092-8) Normal [facility] Qqewb4177-85-83 01:27:37* Test Item Value Reference Range Interpretation Comme nts URIC ACID (test code = 3809977828) 3.7 mg/dL 2.9-6.0 Lab Interpretation (test cod e = 45064-0) Normal [facility] (Asparate Amino Transfer)2022-08-08 01:27:37* Test Item Value Reference Range Interpretation Comme nts AST(SGOT) (test code = 2820963507) 34 U/L 13-40 Lab Interpretation (test cod e = 72338-0) Normal [facility] Oqgymhebzx5926-57-18 01:27:36* Test Item Value Reference Range Interpretation Comme nts CREATININE (test code = 6895903167) 0.56 mg/dL 0.50-1.04 eGFR (test code = 6872837909) mL/min/1.73m2 REBECCA (test code = REBECCA) Association of [...] or urine or abnormalities in imaging tests). [facility]anine Amino Transferase (SGPT)2022-08-08 01:27:36* Test Item Value Reference Range Interpretation Comme [facility] ALTv (test code = 1742-6) 20 U/L 5-35 Lab Interpretation (test cod e = 57172-5) Normal [facility] Srcdtkmqtz0251-48-83 01:27:36* Test Item Value Reference Range Interpretation Comme [facility] CREATININE (test code = 7016943445) 0.56 mg/dL 0.50-1.04 eGFR (test code = 2443120152) mL/min/1.73m2 REBECCA (test code = REBECCA) Association of [...] or urine or abnormalities in imaging tests). [facility] (SGPT)2022-08-08 01:27:36* Test Item Value Reference Range Interpretation Comme nts ALTv (test code = 1742-6) 20 U/L 5-35 Lab Interpretation (test cod e = 55445-3) Normal [facility] with Frlnwlpzcfek5484-54-48 01:16:35* Test Item Value Reference Range Interpretation Comme nts WBC (test code = 6690-2) See_Comment [Automated [employer]] The system which generated this result transmitted reference range: 4.30 - 11.10 10*3/?L. The reference range was not used to interpret this result as normal/abnormal. RBC (test code = 789-8) See_Comment L [Automated [employer]] The system which generated this result transmitted reference range: 3.93 - 5.25 10*6/?L. The reference range was not used to interpret this result as normal/abnormal. HGB (test code = 718-7) 10.8 g/dL 11.6-15.0 L HCT (test code = 4544-3) 31.2 % 35.7-45.2 L MCV (test code = 787-2) 87.9 fL 80.6-95.5 MCH (test code = 785-6) 30.4 pg 25.9-32.8 MCHC (test code = 786-4) 34.6 g/dL 31.6-35.1 RDW-SD (test code = 58353-2) 41.1 fL 39.0-49.9 RDW-CV (test code = 788-0) 13.0 % 12.0-15.5 PLT (test code = 777-3) See_Comment [Automated [employer] ge] The system which generated this result transmitted reference range: 166 - 358 10*3/?L. The reference range was not used to interpret this result as normal/abnormal. MPV (test code = 85694-3) 9.2 fL 9.5-12.9 L NRBC/100 WBC (test code = 0828382858) See_Comment [Automated [employer] ssage] The system which generated this result transmitted reference range: 0.0 - 10.0 /100 WBCs. The reference range was not used to interpret this result as normal/abnormal. NRBC x10^3 (test code = 9408190562) See_Comment [Automated [employer] ge] The system which generated this result transmitted reference range: 10*3/?L. The reference range was not used to interpret this result as normal/abnormal. GRAN MAT (NEUT) % (test code = 770-8) 62.6 % IMM GRAN % (test code = 4195209330) 0.40 % LYMPH % (test code = 736-9) 31.2 % MONO % (test code = 5905-5) 4.5 % EOS % (test code = 713-8) 0.9 % BASO % (test code = 706-2) 0.4 % GRAN MAT x10^3(ANC) (test code = 6833542043) 4.85 10*3/uL 1.88-7.09 IMM GRAN x10^3 (test code = 0044337451) 0.03 10*3/uL 0.00-0.06 LYMPH x10^3 (test code = 731-0) 2.42 10*3/uL 1.32-3.29 MONO x10^3 (test code = 742-7) 0.35 10*3/uL 0.33-0.92 EOS x10^3 (test code = 711-2) 0.07 10*3/uL 0.03-0.39 BASO x10^3 (test code = 704-7) 0.03 10*3/uL 0.01-0.07 Lab Interpretation (test code = 17096-7) Abnormal [facility] with Jonykeinzxjk6879-39-68 01:16:35* Test Item Value Reference Range Interpretation Comme nts WBC (test code = 6690-2) See_Comment [Automated messa ge] The system which generated this result transmitted reference range: 4.30 - 11.10 10*3/?L. The reference range was not used to interpret this result as normal/abnormal. RBC (test code = 789-8) See_Comment L [Automated messa ge] The system which generated this result transmitted reference range: 3.93 - 5.25 10*6/?L. The reference range was not used to interpret this result as normal/abnormal. HGB (test code = 718-7) 10.8 g/dL 11.6-15.0 L HCT (test code = 4544-3) 31.2 % 35.7-45.2 L MCV (test code = 787-2) 87.9 fL 80.6-95.5 MCH (test code = 785-6) 30.4 pg 25.9-32.8 MCHC (test code = 786-4) 34.6 g/dL 31.6-35.1 RDW-SD (test code = 26182-1) 41.1 fL 39.0-49.9 RDW-CV (test code = 788-0) 13.0 % 12.0-15.5 PLT (test code = 777-3) See_Comment [Automated messa ge] The system which generated this result transmitted reference range: 166 - 358 10*3/?L. The reference range was not used to interpret this result as normal/abnormal. MPV (test code = 41500-8) 9.2 fL 9.5-12.9 L NRBC/100 WBC (test code = 7529089035) See_Comment [Automated [employer] ssage] The system which generated this result transmitted reference range: 0.0 - 10.0 /100 WBCs. The reference range was not used to interpret this result as normal/abnormal. NRBC x10^3 (test code = 1411229801) See_Comment [Automated messa ge] The system which generated this result transmitted reference range: 10*3/?L. The reference range was not used to interpret this result as normal/abnormal. GRAN MAT (NEUT) % (test code = 770-8) 62.6 % IMM GRAN % (test code = 8051539273) 0.40 % LYMPH % (test code = 736-9) 31.2 % MONO % (test code = 5905-5) 4.5 % EOS % (test code = 713-8) 0.9 % BASO % (test code = 706-2) 0.4 % GRAN MAT x10^3(ANC) (test code = 8244914530) 4.85 10*3/uL 1.88-7.09 IMM GRAN x10^3 (test code = 7078591862) 0.03 10*3/uL 0.00-0.06 LYMPH x10^3 (test code = 731-0) 2.42 10*3/uL 1.32-3.29 MONO x10^3 (test code = 742-7) 0.35 10*3/uL 0.33-0.92 EOS x10^3 (test code = 711-2) 0.07 10*3/uL 0.03-0.39 BASO x10^3 (test code = 704-7) 0.03 10*3/uL 0.01-0.07 Lab Interpretation (test code = 17346-8) Abnormal [facility] (D) IMMUNE [id number] 18:04:09* Test Item Value Reference Range Interpretation Comme nts RHIG CANDIDATE? (test code = 5055) No- see comment Patient is not a candidate for RhIg- Patient is Rh Positive.Performed at [facility] Laboratory Services [facility] Blood 24 [address] [address]Igvq Free: [phone] No. [id number] [facility] (D) IMMUNE BMXFQCPZ7069-49-83 18:04:09* Test Item Value Reference Range Interpretation Comme nts RHIG CANDIDATE? (test code = 5055) No- see comment Patient is not a candidate for RhIg- Patient is Rh Positive.Performed at [facility] Laboratory Services - [facility] Blood [address] [address]Adhk Free: [phone] No. [id number] [facility]2022-[facility] 18:01:13* Test Item Value Reference Range Interpretation Comme nts HGB (test code = 718-7) 10.9 g/dL 11.6-15.0 L Lab Interpretation (test cod e = 91018-5) Abnormal [facility]2022-[facility]-29 18:01:13* Test Item Value Reference Range Interpretation Comme nts HGB (test code = 718-7) 10.9 g/dL 11.6-15.0 L Lab Interpretation (test cod e = 43821-6) Abnormal [facility] Cord [id number] 15:39:58* Test Item Value Reference Range Interpretation Comme nts VENOUS BASE EXCESS, CORD (test code = 8829066194) mEq/L VENOUS PH, CORD (test code = 8236863073) 7.25-7.45 VENOUS PC02, CORD (test code = 9067184043) See_Comment [Automated me ssage] The system which generated this result transmitted reference range: 27 - 49 mmHg. The reference range was not used to interpret this result as normal/abnormal. VENOUS PO2, CORD (test code = 0616036498) See_Comment L [Automated me ssage] The system which generated this result transmitted reference range: 17 - 41 mmHg. The reference range was not used to interpret this result as normal/abnormal. VENOUS BICARBONATE, CORD (test code = 9956303941) See_Comment [Automa abhi message] The system which generated this result transmitted reference range: 12 - 29 mEq/L. The reference range was not used to interpret this result as normal/abnormal. Lab Interpretation (test code = 74872-0) Abnormal [facility] Cord Vgj2544-44-23 15:39:58* Test Item Value Reference Range Interpretation Comme nts VENOUS BASE EXCESS, CORD (test code = 0469270948) mEq/L VENOUS PH, CORD (test code = 9996759952) 7.25-7.45 VENOUS PC02, CORD (test code = 3578729663) See_Comment [Automated me ssage] The system which generated this result transmitted reference range: 27 - 49 mmHg. The reference range was not used to interpret this result as normal/abnormal. VENOUS PO2, CORD (test code = 9162118798) See_Comment L [Automated me ssage] The system which generated this result transmitted reference range: 17 - 41 mmHg. The reference range was not used to interpret this result as normal/abnormal. VENOUS BICARBONATE, CORD (test code = 3187288913) See_Comment [Automa abhi message] The system which generated this result transmitted reference range: 12 - 29 mEq/L. The reference range was not used to interpret this result as normal/abnormal. Lab Interpretation (test code = 00111-4) [facility]normal [facility]2022-[facility]-29 15:39:43* Test Item Value Reference Range Interpretation Comme nts MAGNESIUM (test code = 7728519780) 7.2 mg/dL 1.7-2.4 H Slight hemolysis Lab Interpretation (test code = 02053-3) [facility] Test Item Value Reference Range Interpretation Comme nts MAGNESIUM (test code = 0356592286) 7.2 mg/dL 1.7-2.4 H Slight hemolysis Lab Interpretation (test code = 77108-8) Abnormal [facility] ONLY - SYPHILIS IGG/UMM4454-78-86 15:38:51* Test Item Value Reference Range Interpretation [facility]me [facility]/IgM (test code = 44966-3) Non-reactive Non-reactive REBECCA (test code = REBECCA) Non-reactive - No serologic evidence of T. pallidum infection. Cannot exclude incubating or early syphilis. Submit a second specimen in 2-4 weeks if syphilis is clinically suspected. Equivocal - Further testing to follow. Reactive - Further testing to follow. Lab Interpretation (test code = 92026-1) Normal [facility] ONLY - SYPHILIS IGG/[id number] 15:38:51* Test Item Value Reference Range Interpretation Comme [facility] Syphilis IgG/IgM (test code = 35829-2) Non-reactive Non-reactive REBECCA (test code = REBECCA) Non-reactive - No serologic evidence of T. pallidum infection. Cannot exclude incubating or early syphilis. Submit a second specimen in 2-4 weeks if syphilis is clinically suspected. Equivocal - Further testing to follow. Reactive - Further testing to follow. Lab Interpretation (test code = 26489-8) Normal [facility] Cord Goh4487-35-21 15:37:29* Test Item Value Reference Range Interpretation Comme nts BASE EXCESS, CORD (test code = 7921449453) mEq/L AC PH, CORD (BEAKER) (test code = 5688145402) 7.18-7.38 PC02, CORD (test code = 0176749083) See_Comment [Automated messa ge] The system which generated this result transmitted reference range: 32 - 66 mmHg. The reference range was not used to interpret this result as normal/abnormal. PO2, CORD (test code = 2054991039) See_Comment [Automated messa ge] The system which generated this result transmitted reference range: 10 - 30 mmHg. The reference range was not used to interpret this result as normal/abnormal. BICARBONATE, CORD (test code = 3147888406) See_Comment [Automated messa ge] The system which generated this result transmitted reference range: 17 - 27 mEq/L. The reference range was not used to interpret this result as normal/abnormal. [facility] Cord Pfg1791-01-34 15:37:29* Test Item Value Reference Range Interpretation Comme nts BASE EXCESS, CORD (test code = 1636690956) mEq/L AC PH, CORD (BEAKER) (test code = 2012202101) 7.18-7.38 PC02, CORD (test code = 8991723137) See_Comment [Automated messa ge] The system which generated this result transmitted reference range: 32 - 66 mmHg. The reference range was not used to interpret this result as normal/abnormal. PO2, CORD (test code = 6582225241) See_Comment [Automated messa ge] The system which generated this result transmitted reference range: 10 - 30 mmHg. The reference range was not used to interpret this result as normal/abnormal. BICARBONATE, CORD (test code = 8447551786) See_Comment [Automated messa ge] The system which generated this result transmitted reference range: 17 - 27 mEq/L. The reference range was not used to interpret this result as normal/abnormal. [facility]AT[facility]INE2022-11-29 15:21:07* Test Item Value Reference Range Interpretation Comme nts CREATININE (test code = 0458202834) 0.60 mg/dL 0.50-1.04 eGFR (test code = 7137598263) mL/min/1.73m2 REBECCA (test code = REBECCA) Association of [...] or urine or abnormalities in imaging tests). [facility]2022-11-29 15:21:07* Test Item Value Reference Range Interpretation Comme nts CREATININE (test code = 1980795615) 0.60 mg/dL 0.50-1.04 eGFR (test code = 3686808842) mL/min/1.73m2 REBECCA (test code = REBECCA) Association of [...] or urine or abnormalities in imaging tests). [facility] 1/2 AG-AB WITH QBVJMB6075-77-57 05:44:06* Test Item Value Reference Range Interpretation Comme [facility] HIV Semi-quantitative (test code = 75764-5) Negative Negative REBECCA (test code = REBECCA) Non-reactive for HIV-1 antigen and HIV-1/HIV-2 antibodies. ?No laboratory evidence of HIV infection. ?Repeat in 2-4 weeks if acute HIV infection is suspected. [facility] WITH QISFRR5106-05-33 05:44:06* Test Item Value Reference Range Interpretation Comme [facility] HIV Semi-quantitative (test code = 70040-3) Negative Negative REBECCA (test code = REBECCA) Non-reactive for HIV-1 antigen and HIV-1/HIV-2 antibodies. ?No laboratory evidence of HIV infection. ?Repeat in 2-4 weeks if acute HIV infection is suspected. [facility]AT[facility] B SURFACE BNLGFHF0958-22-03 04:32:36 * Test Item Value Reference Range Interpretation Comme [facility] HBsAg Semi-Quantitative (elena t code = 5195-3) Negative Negative [facility] B SURFACE LIWFQNZ2454-87-65 04:32:36 * Test Item Value Reference Range Interpretation Comme [facility] HBsAg Semi-Quantitative (elena t code = 5195-3) Negative Negative [facility]Lactate Dehydrogenase (LDH)2022-08-05 04:00:53 * Test Item Value Reference Range Interpretation Comme nts LDH (test code = 3612712326) 181 U/L 120-246 Lab Interpretation (test cod e = 99705-7) [facility]2022-[facility]-05 04:00:53 * Test Item Value Reference Range Interpretation Comme nts LDH (test code = 0013712131) 181 U/L 120-246 Lab Interpretation (test cod e = 75521-2) Normal [facility] Acid Qgjat2979-76-92 03:57:36* Test Item Value Reference Range Interpretation Comme [facility] URIC ACID (test code = 9380609782) 3.2 mg/dL 2.9-6.0 Lab Interpretation (test cod e = 28916-0) Normal [facility]inine Mzgmf1074-57-91 03:57:36* Test Item Value Reference Range Interpretation Comme [facility] CREATININE (test code = 0400310158) 0.58 mg/dL 0.50-1.04 eGFR (test code = 5627488972) mL/min/1.73m2 REBECCA (test code = REBECCA) Association of [...] or urine or abnormalities in imaging tests). [facility]OT (Asparate Amino Transfer)2022-08-05 03:57:36* Test Item Value Reference Range Interpretation Comme [facility] AST(SGOT) (test code = 8731783131) 24 U/L 13-40 Lab Interpretation (test cod e = 06951-6) Normal [facility] Acid Kpivp1345-51-89 03:57:36* Test Item Value Reference Range Interpretation Comme [facility] URIC ACID (test code = 3744785459) 3.2 mg/dL 2.9-6.0 Lab Interpretation (test cod e = 75739-9) Normal [facility]ervilleCreatinine Tuefd7458-58-97 03:57:36* Test Item Value Reference Range Interpretation Comme nts CREATININE (test code = 3304835138) 0.58 mg/dL 0.50-1.04 eGFR (test code = 1679390112) mL/min/1.73m2 REBECCA (test code = REBECCA) Association of [...] or urine or abnormalities in imaging tests). [facility] (Asparate Amino Transfer)2022-08-05 03:57:36* Test Item Value Reference Range Interpretation Comme nts AST(SGOT) (test code = 2018318874) 24 U/L 13-40 Lab Interpretation (test cod e = 44869-8) Normal [facility]anine Amino Transferase (SGPT)2022-08-05 03:57:35* Test Item Value Reference Range Interpretation Comme nts ALTv (test code = 1742-6) 19 U/L 5-35 Lab Interpretation (test cod e = 93920-1) Normal [facility]anine Amino Transferase (SGPT)2022-08-05 03:57:35* Test Item Value Reference Range Interpretation Comme nts ALTv (test code = 1742-6) 19 U/L 5-35 Lab Interpretation (test cod e = 42045-1) Normal [facility] with Vvmkoldfqlbq1656-65-97 03:29:13* Test Item Value Reference Range Interpretation Comme nts WBC (test code = 6690-2) See_Comment [Automated [employer]] The system which generated this result transmitted reference range: 4.30 - 11.10 10*3/?L. The reference range was not used to interpret this result as normal/abnormal. RBC (test code = 789-8) See_Comment [Automated [employer]] The system which generated this result transmitted reference range: 3.93 - 5.25 10*6/?L. The reference range was not used to interpret this result as normal/abnormal. HGB (test code = 718-7) 12.4 g/dL 11.6-15.0 HCT (test code = 4544-3) 35.8 % 35.7-45.2 MCV (test code = 787-2) 88.0 fL 80.6-95.5 MCH (test code = 785-6) 30.5 pg 25.9-32.8 MCHC (test code = 786-4) 34.6 g/dL 31.6-35.1 RDW-SD (test code = 14064-4) 41.1 fL 39.0-49.9 RDW-CV (test code = 788-0) 12.9 % 12.0-15.5 PLT (test code = 777-3) See_Comment [Automated Social Shopa ge] The system which generated this result transmitted reference range: 166 - 358 10*3/?L. The reference range was not used to interpret this result as normal/abnormal. MPV (test code = 83401-0) 9.6 fL 9.5-12.9 NRBC/100 WBC (test code = 8886766905) See_Comment [Automated Voxbone ssage] The system which generated this result transmitted reference range: 0.0 - 10.0 /100 WBCs. The reference range was not used to interpret this result as normal/abnormal. NRBC x10^3 (test code = 2420682492) See_Comment [Automated Social Shopa ge] The system which generated this result transmitted reference range: 10*3/?L. The reference range was not used to interpret this result as normal/abnormal. GRAN MAT (NEUT) % (test code = 770-8) 60.5 % IMM GRAN % (test code = 1113920630) 0.30 % LYMPH % (test code = 736-9) 33.6 % MONO % (test code = 5905-5) 5.0 % EOS % (test code = 713-8) 0.3 % BASO % (test code = 706-2) 0.3 % GRAN MAT x10^3(ANC) (test code = 6017402277) 4.46 10*3/uL 1.88-7.09 IMM GRAN x10^3 (test code = 5897281492) 0.00-0.06 LYMPH x10^3 (test code = 731-0) 2.48 10*3/uL 1.32-3.29 MONO x10^3 (test code = 742-7) 0.37 10*3/uL 0.33-0.92 EOS x10^3 (test code = 711-2) 0.03-0.39 L BASO x10^3 (test code = 704-7) 0.01-0.07 Lab Interpretation (test code = 96754-3) Abnormal [facility] with Yyvyptvudjkj7134-86-01 03:29:13* Test Item Value Reference Range Interpretation Comme nts WBC (test code = 6690-2) See_Comment [Automated messa ge] The system which generated this result transmitted reference range: 4.30 - 11.10 10*3/?L. The reference range was not used to interpret this result as normal/abnormal. RBC (test code = 789-8) See_Comment [Automated messa ge] The system which generated this result transmitted reference range: 3.93 - 5.25 10*6/?L. The reference range was not used to interpret this result as normal/abnormal. HGB (test code = 718-7) 12.4 g/dL 11.6-15.0 HCT (test code = 4544-3) 35.8 % 35.7-45.2 MCV (test code = 787-2) 88.0 fL 80.6-95.5 MCH (test code = 785-6) 30.5 pg 25.9-32.8 MCHC (test code = 786-4) 34.6 g/dL 31.6-35.1 RDW-SD (test code = 38109-8) 41.1 fL 39.0-49.9 RDW-CV (test code = 788-0) 12.9 % 12.0-15.5 PLT (test code = 777-3) See_Comment [Automated messa ge] The system which generated this result transmitted reference range: 166 - 358 10*3/?L. The reference range was not used to interpret this result as normal/abnormal. MPV (test code = 21871-6) 9.6 fL 9.5-12.9 NRBC/100 WBC (test code = 1817924495) See_Comment [Automated me ssage] The system which generated this result transmitted reference range: 0.0 - 10.0 /100 WBCs. The reference range was not used to interpret this result as normal/abnormal. NRBC x10^3 (test code = 8680578401) See_Comment [Automated messa ge] The system which generated this result transmitted reference range: 10*3/?L. The reference range was not used to interpret this result as normal/abnormal. GRAN MAT (NEUT) % (test code = 770-8) 60.5 % IMM GRAN % (test code = 4216044319) 0.30 % LYMPH % (test code = 736-9) 33.6 % MONO % (test code = 5905-5) 5.0 % EOS % (test code = 713-8) 0.3 % BASO % (test code = 706-2) 0.3 % GRAN MAT x10^3(ANC) (test code = 2613098765) 4.46 10*3/uL 1.88-7.09 IMM GRAN x10^3 (test code = 7957750632) 0.00-0.06 LYMPH x10^3 (test code = 731-0) 2.48 10*3/uL 1.32-3.29 MONO x10^3 (test code = 742-7) 0.37 10*3/uL 0.33-0.92 EOS x10^3 (test code = 711-2) 0.03-0.39 L BASO x10^3 (test code = 704-7) 0.01-0.07 Lab Interpretation (test code = 93991-1) Abnormal [facility] Acid Iyreh7448-65-49 00:56:23* Test Item Value Reference Range Interpretation Comme [facility] URIC ACID (test code = 9306177886) 2.8 mg/dL 2.9-6.0 L Lab Interpretation (test cod e = 74776-1) Abnormal [facility] Igvhaexwpe1867-58-52 00:56:23* Test Item Value Reference Range Interpretation Comme [facility] CREATININE (test code = 3701088042) 0.47 mg/dL 0.50-1.04 L eGFR (test code = 9811939290) mL/min/1.73m2 REBECCA (test code = REBECCA) Association of [...] or abnormalities in imaging tests). Lab Interpretation (test code = 38201-1) Abnormal [facility] (Asparate Amino Transfer)2022-08-04 00:56:23* Test Item Value Reference Range Interpretation Comme [facility] AST(SGOT) (test code = 2795075590) 25 U/L 13-40 Lab Interpretation (test cod e = 77020-4) Normal [facility]Alanine Amino Transferase (SGPT)2022-08-04 00:56:23* Test Item Value Reference Range Interpretation Comme nts ALTv (test code = 1742-6) 19 U/L 5-35 Lab Interpretation (test cod e = 08826-4) Normal [facility]Lactate Ffqffwttgiwyo1158-78-08 00:56:23* Test Item Value Reference Range Interpretation Comme [facility] LDH (test code = 5271181688) 298 U/L 120-246 H Slight hemolysis Lab Interpretation (test code = 14570-3) Abnormal [facility]erville[facility] Acid Xbvbm9986-63-02 00:56:23* Test Item Value Reference Range Interpretation Comme [facility] URIC ACID (test code = 6432623853) 2.8 mg/dL 2.9-6.0 L Lab Interpretation (test cod e = 75465-4) Abnormal [facility] Svzpfczzoj2308-81-05 00:56:23* Test Item Value Reference Range Interpretation Comme nts CREATININE (test code = 4317978206) 0.47 mg/dL 0.50-1.04 L eGFR (test code = 5384879427) mL/min/1.73m2 REBECCA (test code = REBECCA) Association of [...] or abnormalities in imaging tests). Lab Interpretation (test code = 93515-7) Abnormal [facility] (Asparate Amino Transfer)2022-08-04 00:56:23* Test Item Value Reference Range Interpretation Comme nts AST(SGOT) (test code = 6064541780) 25 U/L 13-40 Lab Interpretation (test cod e = 01645-8) Normal [facility] Amino Transferase (SGPT)2022-08-04 00:56:23* Test Item Value Reference Range Interpretation Comme nts ALTv (test code = 1742-6) 19 U/L 5-35 Lab Interpretation (test cod e = 26954-9) Normal [facility]Lactate Avlpqvowgctcj0486-37-40 00:56:23* Test Item Value Reference Range Interpretation Comme nts LDH (test code = 0594389550) 298 U/L 120-246 H Slight hemolysis Lab Interpretation (test code = 88485-5) Abnormal [facility]Type and Screen - ONCE LTLA2925-38-55 00:46:44 * Test Item Value Reference Range Interpretation Comme nts ABO & RH (test code = 20) B POSITIVE Performed at [facility] Laboratory Services - [address] Free: [phone] No. [id number] IAT (test code = 1185) Negative Performed at [facility] Laboratory [address] Free: [phone] No. [id number] [facility]Type and Screen - ONCE LILH7258-43-36 00:46:44 * Test Item Value Reference Range Interpretation Comme nts ABO & RH (test code = 20) B POSITIVE Performed at [facility] Laboratory [address] Free: [phone] No. [id number] IAT (test code = 1185) Negative Performed at [facility] Laboratory [address] Free: [phone] No. [id number] [facility]ervilleCBC with Atmniqqcxvgu9978-51-79 00:30:21* Test Item Value Reference Range Interpretation Comme nts WBC (test code = 6690-2) See_Comment [Automated messa ge] The system which generated this result transmitted reference range: 4.30 - 11.10 10*3/?L. The reference range was not used to interpret this result as normal/abnormal. RBC (test code = 789-8) See_Comment [Automated messa ge] The system which generated this result transmitted reference range: 3.93 - 5.25 10*6/?L. The reference range was not used to interpret this result as normal/abnormal. HGB (test code = 718-7) 13.4 g/dL 11.6-15.0 HCT (test code = 4544-3) 39.6 % 35.7-45.2 MCV (test code = 787-2) 88.6 fL 80.6-95.5 MCH (test code = 785-6) 30.0 pg 25.9-32.8 MCHC (test code = 786-4) 33.8 g/dL 31.6-35.1 RDW-SD (test code = 10859-5) 41.1 fL 39.0-49.9 RDW-CV (test code = 788-0) 12.9 % 12.0-15.5 PLT (test code = 777-3) See_Comment [Automated Social [employer] ge] The system which generated this result transmitted reference range: 166 - 358 10*3/?L. The reference range was not used to interpret this result as normal/abnormal. MPV (test code = 37663-7) 9.6 fL 9.5-12.9 NRBC/100 WBC (test code = 6190347390) See_Comment [Automated [employer] ssage] The system which generated this result transmitted reference range: 0.0 - 10.0 /100 WBCs. The reference range was not used to interpret this result as normal/abnormal. NRBC x10^3 (test code = 0354813139) See_Comment [Automated Social [employer] ge] The system which generated this result transmitted reference range: 10*3/?L. The reference range was not used to interpret this result as normal/abnormal. GRAN MAT (NEUT) % (test code = 770-8) 67.8 % IMM GRAN % (test code = 5135507546) 0.50 % LYMPH % (test code = 736-9) 27.5 % MONO % (test code = 5905-5) 3.9 % EOS % (test code = 713-8) 0.1 % BASO % (test code = 706-2) 0.2 % GRAN MAT x10^3(ANC) (test code = 0706244495) 5.62 10*3/uL 1.88-7.09 IMM GRAN x10^3 (test code = 6237265472) 0.04 10*3/uL 0.00-0.06 LYMPH x10^3 (test code = 731-0) 2.28 10*3/uL 1.32-3.29 MONO x10^3 (test code = 742-7) 0.32 10*3/uL 0.33-0.92 L EOS x10^3 (test code = 711-2) 0.03-0.39 L BASO x10^3 (test code = 704-7) 0.01-0.07 Lab Interpretation (test code = 30832-4) Abnormal [facility] with Bzleonwsxogw8448-02-05 00:30:21* Test Item Value Reference Range Interpretation Comme nts WBC (test code = 6690-2) See_Comment [Automated Social [employer] ge] The system which generated this result transmitted reference range: 4.30 - 11.10 10*3/?L. The reference range was not used to interpret this result as normal/abnormal. RBC (test code = 789-8) See_Comment [Automated messa ge] The system which generated this result transmitted reference range: 3.93 - 5.25 10*6/?L. The reference range was not used to interpret this result as normal/abnormal. HGB (test code = 718-7) 13.4 g/dL 11.6-15.0 HCT (test code = 4544-3) 39.6 % 35.7-45.2 MCV (test code = 787-2) 88.6 fL 80.6-95.5 MCH (test code = 785-6) 30.0 pg 25.9-32.8 MCHC (test code = 786-4) 33.8 g/dL 31.6-35.1 RDW-SD (test code = 29985-6) 41.1 fL 39.0-49.9 RDW-CV (test code = 788-0) 12.9 % 12.0-15.5 PLT (test code = 777-3) See_Comment [Automated Social [employer] ge] The system which generated this result transmitted reference range: 166 - 358 10*3/?L. The reference range was not used to interpret this result as normal/abnormal. MPV (test code = 81974-3) 9.6 fL 9.5-12.9 NRBC/100 WBC (test code = 1577554256) See_Comment [Automated me ssage] The system which generated this result transmitted reference range: 0.0 - 10.0 /100 WBCs. The reference range was not used to interpret this result as normal/abnormal. NRBC x10^3 (test code = 8963381777) See_Comment [Automated messa ge] The system which generated this result transmitted reference range: 10*3/?L. The reference range was not used to interpret this result as normal/abnormal. GRAN MAT (NEUT) % (test code = 770-8) 67.8 % IMM GRAN % (test code = 0952195244) 0.50 % LYMPH % (test code = 736-9) 27.5 % MONO % (test code = 5905-5) 3.9 % EOS % (test code = 713-8) 0.1 % BASO % (test code = 706-2) 0.2 % GRAN MAT x10^3(ANC) (test code = 4776714195) 5.62 10*3/uL 1.88-7.09 IMM GRAN x10^3 (test code = 1014467079) 0.04 10*3/uL 0.00-0.06 LYMPH x10^3 (test code = 731-0) 2.28 10*3/uL 1.32-3.29 MONO x10^3 (test code = 742-7) 0.32 10*3/uL 0.33-0.92 L EOS x10^3 (test code = 711-2) 0.03-0.39 L BASO x10^3 (test code = 704-7) 0.01-0.07 Lab Interpretation (test code = 03593-8) Abnormal [facility] - ONCE JQLW3657-88-30 20:31:10 * Test Item Value Reference Range Interpretation Comme nts ABO & RH (test code = 20) B POSITIVE Performed at [facility] B Laboratory Services - [facility] Blood [address] [address]Dgtn Free: [phone] No. [id number] IAT (test code = 1185) Negative Performed at [facility] Laboratory Services - [facility] Blood [address] [address]Mqnd Free: [phone] No. [id number] [facility] Acid [id number] 20:29:13* Test Item Value Reference Range Interpretation Comme nts URIC ACID (test code = 0844008000) 3.2 mg/dL 2.9-6.0 Lab Interpretation (test cod e = 74039-2) Normal [facility]Serum [id number] 20:29:13* Test Item Value Reference Range Interpretation Comme [facility] CREATININE (test code = 1146986698) 0.53 mg/dL 0.50-1.04 eGFR (test code = 9914484440) mL/min/1.73m2 REBECCA (test code = REBECCA) Association of [...] or urine or abnormalities in imaging tests). [facility]SG[facility] (Asparate Amino Transfer)2022-07-28 20:29:13* Test Item Value Reference Range Interpretation Comme nts AST(SGOT) (test code = 5404581484) 17 U/L 13-40 Lab Interpretation (test cod e = 09797-0) Normal [facility]Alanine Amino Transferase (SGPT)2022-07-28 20:29:13* Test Item Value Reference Range Interpretation Comme nts ALTv (test code = 1742-6) 15 U/L 5-35 Lab Interpretation (test cod e = 31314-5) Normal [facility]Lactate [id number] 20:28:32* Test Item Value Reference Range Interpretation Comme nts LDH (test code = 2522216224) 175 U/L 120-246 Lab Interpretation (test cod e = 45722-6) Normal [facility]CBC with [id number] 20:13:32* Test Item Value Reference Range Interpretation Comme nts WBC (test code = 6690-2) See_Comment [Automated Social [employer] App] The system which generated this result transmitted reference range: 4.30 - 11.10 10*3/?L. The reference range was not used to interpret this result as normal/abnormal. RBC (test code = 789-8) See_Comment [Automated [employer] App] The system which generated this result transmitted reference range: 3.93 - 5.25 10*6/?L. The reference range was not used to interpret this result as normal/abnormal. HGB (test code = 718-7) 12.3 g/dL 11.6-15.0 HCT (test code = 4544-3) 35.9 % 35.7-45.2 MCV (test code = 787-2) 89.3 fL 80.6-95.5 MCH (test code = 785-6) 30.6 pg 25.9-32.8 MCHC (test code = 786-4) 34.3 g/dL 31.6-35.1 RDW-SD (test code = 18755-6) 41.1 fL 39.0-49.9 RDW-CV (test code = 788-0) 12.6 % 12.0-15.5 PLT (test code = 777-3) See_Comment [Automated messa ge] The system which generated this result transmitted reference range: 166 - 358 10*3/?L. The reference range was not used to interpret this result as normal/abnormal. MPV (test code = 61472-3) 9.5 fL 9.5-12.9 NRBC/100 WBC (test code = 9873405600) See_Comment [Automated [employer] ssage] The system which generated this result transmitted reference range: 0.0 - 10.0 /100 WBCs. The reference range was not used to interpret this result as normal/abnormal. NRBC x10^3 (test code = 9616887083) See_Comment [Automated messa ge] The system which generated this result transmitted reference range: 10*3/?L. The reference range was not used to interpret this result as normal/abnormal. GRAN MAT (NEUT) % (test code = 770-8) 70.6 % IMM GRAN % (test code = 4309382132) 0.60 % LYMPH % (test code = 736-9) 25.2 % MONO % (test code = 5905-5) 3.5 % EOS % (test code = 713-8) 0.0 % BASO % (test code = 706-2) 0.1 % GRAN MAT x10^3(ANC) (test code = 7103188744) 4.84 10*3/uL 1.88-7.09 IMM GRAN x10^3 (test code = 9338810725) 0.04 10*3/uL 0.00-0.06 LYMPH x10^3 (test code = 731-0) 1.73 10*3/uL 1.32-3.29 MONO x10^3 (test code = 742-7) 0.24 10*3/uL 0.33-0.92 L EOS x10^3 (test code = 711-2) 0.03-0.39 L BASO x10^3 (test code = 704-7) 0.01-0.07 Lab Interpretation (test code = 49894-8) Abnormal [facility] MOLECULAR [id number] 16:43:05* Test Item Value Reference Range Interpretation Comme nts POCT Molecular FluA (test co de = 85570-8) Negative Negative POCT Molecular FluB (test co de = 83355-1) Negative Negative Lab Interpretation (test cod e = 95580-4) Normal [facility] URINALYSIS GLUCOSE & [id number] 19:45:00* Test Item Value Reference Range Interpretation Comme nts POCT U PROT (test code = 3259) trace Negative - Negat toby POCT U GLU (test code = 3256) negative Negative - Negati ve Lab Interpretation (test cod e = 22236-9) Abnormal [facility] URINALYSIS GLUCOSE & [id number] 18:36:00* Test Item Value Reference Range Interpretation Comme nts POCT U PROT (test code = 3259) trace Negative - Negat toby POCT U GLU (test code = 3256) negative Negative - Negati ve Lab Interpretation (test cod e = 22217-4) Abnormal [facility] URINALYSIS W/O SPECIFIC [id number] 14:44:00* Test Item Value Reference Range Interpretation Comme nts POCT PH U (test code = 3254) n/a 5-8 POCT U LEUK EST (test code = 3263) n/a Negative - Negative POCT U NIT (test code = 3262) n/a Negative - Negati ve POCT U PROT (test code = 3259) negative Negative - Negat toby POCT U GLU (test code = 3256) negative Negative - Negati ve POCT U KETONE (test code = 3258) n/a Negative - Neg ative POCT U BLD (test code = 3257) n/a Negative - Negati ve [facility]Coronavirus 2019 nCoV [id number] 03:56:00* Test Item Value Reference Range Interpretation Comme nts Coronavirus 2019 nCoV Bedside (test code = [id number]) Negative Negative This test h as been authorized by FDA under an EUA for use byauthorized laboratories. This test has been authorized only for the detection ofnucleic acid from SARS-CoV-2, not for any other viruses orpathogens. This test is only authorized for the duration of thedeclaration that circumstances exist justifying theauthorization of emergency use of in vitro diagnostic testsfor the detection and/or diagnosis of COVID-19 under Wwnyfvb058(b)(1) of the Act, 21 U.S.C 360bbb-3(b)(1), unless theauthorization is terminated or revoked sooner. Specimen Source: Nasopharyngeal (ADVERTISING AGENT) Swab This test has been authorized by FDA under an EUA for use byauthorized laboratories. This test has been authorized only for the detection ofnucleic acid (PCR) from SARS-CoV-2, not from any other viruses or pathogens. This test is only authorized for the duration of thedeclaration that circumstances exist justifying theauthorization of emergency use of in vitro diagnostic testsfor the detection and/or diagnosis of COVID-19 under Rleugpm495(b)(1) of the Act, 21 U.S.C 360bbb-3(b)(1), unless theauthorization is terminated or revoked sooner. Spec Comments: UBASIC METABOLIC [id number] 02:17:00* Test Item Value Reference Range Interpretation Comme nts SODIUM (test code = NA) 135 mmol/L 135-145 N POTASSIUM (test code = K) 3.5 mmol/L 3.6-5.0 L CHLORIDE (test code = CL) 103 mmol/L 101-111 N CARBON DIOXIDE (test code = CO2) 23 mmol/L 21-31 N GLUCOSE (test code = GLU) 96 mg/dl 70-100 N BLOOD UREA NITROGEN (test code = BUN) 13 mg/dl 6-20 N GLOMERULAR FILTRATION RATE (test code = GFR) >=60 max estimate >60 The estimated glomerular filtration rate is computed usingpatient race, age (>18), sex, and serum creatinine. If anyof the needed data elements are missing the Laboratory cannot compute an estimation of the glomerular filtration rate. CREATININE (test code = CREAT) 0.73 mg/dL 0.44-1.03 N CALCIUM (test code = CA) 8.7 mg/dL 8.5-10.5 N LIVER FUNCTION [id number] 02:17:00* Test Item Value Reference Range Interpretation Comme nts TOTAL PROTEIN (test code = PROT) 7.8 g/dL 6.7-8.2 N ALBUMIN (test code = ALB) 4.6 g/dL 3.2-5.5 N BILIRUBIN TOTAL (test code = BILT) 0.70 mg/dL 0.2-1.3 N BILIRUBIN DIRECT (test code = BILD) < 0.1 mg/dL 0.00-0.20 N SGOT/AST (test code = AST) 21 U/L 10-42 N SGPT/ALT (test code = ALT) 24 U/L 10-60 N ALKALINE PHOSPHATASE (test c ode = ALKP) 32 U/L 42-121 L [id number] 02:17:00* Test Item Value Reference Range Interpretation Comme nts LIPASE (test code = LIP) 34 IU/L 22-51 N HCG [id number] 02:17:00* Test Item Value Reference Range Interpretation Comme nts HCG SERUM (test code = HCG) < 0.5 mIU/ml Interpretive Jesse a:HCG Quant BhCG Reference Ranges <5.0 mIU/ml Non- Approx. Gestational Age Reference Range (hCG in mIU/mL) 0.2-1.0 weeks 5-50 1-2 weeks 50-500 2-3 weeks 100-5,000 3-4 weeks 500-10,000 4-5 weeks 1,000-50,000 5-6 weeks 10,000-100,000 6-8 weeks 15,000-200,000 8-12 weeks 10,000-100,000 A test result that is inconsistent with the clinical pictureand patient history should be interpreted with caution. This test is not intended for use as a surrogate marker foraiding in the diagnosis of monitoring the treatment ofcancer patients UA RFLX MICR CULT IF [id number] 02:12:00* Test Item Value Reference Range Interpretation Comme nts UA COLOR (test code = COLU) YELLOW YELLOW UA APPEARANCE (test code = APPU) HAZY CLEAR UA GLUCOSE DIPSTICK (test code = DGLUU) NEGATIVE NEGATIVE UA BILIRUBIN DIPSTICK (test code = BILU) NEGATIVE NEGATIVE UA KETONE DIPSTICK (test code = KETU) NEGATIVE NEGATIVE UA SPECIFIC GRAVITY (test code = SGU) 1.013 1.001-1.030 UA BLOOD DIPSTICK (test code = KIP) 2+ NEGATIVE UA PH DIPSTICK (test code = KENN) 7.0 5.0-9.0 UA PROTEIN DIPSTICK (test code = PROU) NEGATIVE NEGATIVE UA UROBILINOGEN DIPSTICK (test code = URO) 2.0 See_Comment A [Automated [employer] App] The system which generated this result transmitted reference range: <=1.0. The reference range was not used to interpret this result as normal/abnormal. UA NITRITE DIPSTICK (test code = BARRY) NEGATIVE NEGATIVE UA ASCORBIC ACID DIPSTICK (test code = AAU) NEGATIVE UA LEUKOCYTE ESTERASE DIPSTICK (test code = LEUU) 1+ NEGATIVE A UA WBC (test code = WBCUR) 0-5 /HPF 0-5 UA RBC (test code = RBCU) 0-5 /HPF 0-5 UA EPITHELIAL CELLS (test code = EPIU) FEW /LPF NONE-FEW UA BACTERIA (test code = BACU) None /HPF NONE SEEN UA MUCUS (test code = MUCU) 1+ /LPF NONE SEEN UA AMORPHOUS SEDIMENT (test code = AMORU) FEW /HPF NONE SEEN Indication for culture: Suprapubic PainSpecimen Description: CLEAN CATCHBASIC METABOLIC [id number] 02:06:00* Test Item Value Reference Range Interpretation Comme nts SODIUM (test code = NA) 135 mmol/L 135-145 N POTASSIUM (test code = K) 3.5 mmol/L 3.6-5.0 L CHLORIDE (test code = CL) 103 mmol/L 101-111 N CARBON DIOXIDE (test code = CO2) 23 mmol/L 21-31 N GLUCOSE (test code = GLU) 96 mg/dl 70-100 N BLOOD UREA NITROGEN (test code = BUN) 13 mg/dl 6-20 N GLOMERULAR FILTRATION RATE (test code = GFR) >=60 max estimate >60 The estimated glomerular filtration rate is computed usingpatient race, age (>18), sex, and serum creatinine. If anyof the needed data elements are missing the Laboratory cannot compute an estimation of the glomerular filtration rate. CREATININE (test code = CREAT) 0.73 mg/dL 0.44-1.03 N CALCIUM (test code = CA) 8.7 mg/dL 8.5-10.5 N LIVER FUNCTION [id number] 02:06:00* Test Item Value Reference Range Interpretation Comme nts TOTAL PROTEIN (test code = PROT) 7.8 g/dL 6.7-8.2 N ALBUMIN (test code = ALB) 4.6 g/dL 3.2-5.5 N BILIRUBIN TOTAL (test code = BILT) mg/dL 0.2-1.3 BILIRUBIN DIRECT (test code = BILD) mg/dL 0.00-0.20 SGOT/AST (test code = AST) U/L 10-42 SGPT/ALT (test code = ALT) U/L 10-60 ALKALINE PHOSPHATASE (test c ode = ALKP) U/L 42-121 [id number] 02:06:00* Test Item Value Reference Range Interpretation Comme nts LIPASE (test code = LIP) 34 IU/L 22-51 N BASIC METABOLIC [id number] 02:05:00* Test Item Value Reference Range Interpretation Comme nts SODIUM (test code = NA) 135 mmol/L 135-145 N POTASSIUM (test code = K) 3.5 mmol/L 3.6-5.0 L CHLORIDE (test code = CL) 103 mmol/L 101-111 N CARBON DIOXIDE (test code = CO2) 23 mmol/L 21-31 N GLUCOSE (test code = GLU) 96 mg/dl 70-100 N BLOOD UREA NITROGEN (test code = BUN) 13 mg/dl 6-20 N GLOMERULAR FILTRATION RATE (test code = GFR) >=60 max estimate >60 The estimated glomerular filtration rate is computed usingpatient race, age (>18), sex, and serum creatinine. If anyof the needed data elements are missing the Laboratory cannot compute an estimation of the glomerular filtration rate. CREATININE (test code = CREAT) 0.73 mg/dL 0.44-1.03 N CALCIUM (test code = CA) 8.7 mg/dL 8.5-10.5 N LIVER FUNCTION [id number] 02:05:00* Test Item Value Reference Range Interpretation Comme nts TOTAL PROTEIN (test code = PROT) g/dL 6.7-8.2 ALBUMIN (test code = ALB) g/dL 3.2-5.5 BILIRUBIN TOTAL (test code = BILT) mg/dL 0.2-1.3 BILIRUBIN DIRECT (test code = BILD) mg/dL 0.00-0.20 SGOT/AST (test code = AST) U/L 10-42 SGPT/ALT (test code = ALT) U/L 10-60 ALKALINE PHOSPHATASE (test code = ALKP) U/L 42-121 [id number] 02:05:00* Test Item Value Reference Range Interpretation Comme nts LIPASE (test code = LIP) IU/L 22-51 HCG SERUM [id number] 02:05:00* Test Item Value Reference Range Interpretation Comme nts HCG SERUM QUAL (test code = HCGQL) NEGATIVE NEGATIVE This is a qu alitative screening test.The quantitative Bhcg may be helpful.Weakly positive results should be repeated in 48 hours. CBC W/AUTO [id number] 02:00:00* Test Item Value Reference Range Interpretation Comme nts WHITE BLOOD CELL (test code = WBC) 10.5 x10 3/uL 3.2-11.5 N RED BLOOD CELL (test code = RBC) 4.58 x10(6)/m 3.70-5.10 N HEMOGLOBIN (test code = HGB) 13.9 g/dL 12.0-15.0 N HEMATOCRIT (test code = HCT) 42.8 % 35.7-44.8 N MEAN CELL VOLUME (test code = MCV) 93 fL 80-100 N MEAN CELL HGB (test code = MCH) 30.3 pg 26.2-33.8 N MEAN CELL HGB CONCENTRATION (test code = MCHC) 32.5 g/dL 30.0-34.0 N RED CELL DISTRIBUTION WIDTH (test code = RDW) 11.4 % 11.3-14.5 N PLATELET COUNT (test code = PLT) 312 x10 3/uL 130-408 N MEAN PLATELET VOLUME (test c ode = MPV) 9.1 fL 8.6-12.6 N NEUTROPHIL % (test code = NT%) 62.4 % 40.0-70.0 N IMMATURE GRANULOCYTE % (test code = IG%) 0.3 % 0.0-2.0 N LYMPHOCYTE % (test code = LY%) 31.6 % 20-40 N MONOCYTE % (test code = MO%) 4.9 % 1-10 N EOSINOPHIL % (test code = EO%) 0.4 % 0.0-5.0 N BASOPHIL % (test code = BA%) 0.4 % 0.0-1.0 N NUCLEATED RBC % (test code = NRBC%) 0.0 % 0.0-0.9 N NEUTROPHIL # (test code = NT#) 6.6 x10 3/uL 1.6-7.2 N LYMPHOCYTE # (test code = LY#) 3.33 x10 3/uL 1.1-2.7 H MONOCYTE # (test code = MO#) 0.5 x10 3/uL 0.3-0.8 N EOSINOPHIL # (test code = EO#) 0.0 x10 3/uL 0.0-0.5 N BASOPHIL # (test code = BA#) 0.0 x10 3/uL 0.0-0.1 N - XR CHEST 1 [id number] 01:57:00 [facility] : 1995 Sex: FPatient Name: ISAMAR SAHW Unit No: [id number] EXAMS: CPT: [id number] XR CHEST 1 V 16961 PA CHEST, 01/27/2021. Comparison: None. CLINICAL: Dizziness. COMMENT: The heart, mediastinum, hilar regions and pulmonary vasculature appear within normal limits. The lungs are free of active disease. The bonythorax is intact. IMPRESSION: No evidence to suggest active cardiopulmonary disease. at 0157 Reported and signed by: Javon Noel MD CC: Technologist: Mel Subramanian Time: DAP (Gy m2): Air Kerma (mGy): Trscr Dt/Tm: 01/27/2021 (0157) by:[email or web address] Orig Print D/T: S: 01/27/2021 (0200) BATCH NO: N/A Name: ISAMAR SHAW [facility] Phys: Annita Vela ADVERTISING AGENT [address] : 1995 Age: 26 Sex: F [place] [address] Loc: N.ERS Exam Date: 01/27/2021 Status: REG ER PH: FAX: PAGE 1 Signed ReportCBC W/AUTO [id number] 01:53:00* Test Item Value Reference Range Interpretation Comme nts WHITE BLOOD CELL (test code = WBC) 10.5 x10 3/uL 3.2-11.5 N RED BLOOD CELL (test code = RBC) 4.58 x10(6)/m 3.70-5.10 N HEMOGLOBIN (test code = HGB) 13.9 g/dL 12.0-15.0 N HEMATOCRIT (test code = HCT) 42.8 % 35.7-44.8 N MEAN CELL VOLUME (test code = MCV) 93 fL 80-100 N MEAN CELL HGB (test code = MCH) 30.3 pg 26.2-33.8 N MEAN CELL HGB CONCENTRATION (test code = MCHC) 32.5 g/dL 30.0-34.0 N RED CELL DISTRIBUTION WIDTH (test code = RDW) % 11.3-14.5 PLATELET COUNT (test code = PLT) x10 3/uL 130-408 MEAN PLATELET VOLUME (test c ode = MPV) 9.1 fL 8.6-12.6 N NEUTROPHIL % (test code = NT%) % 40.0-70.0 LYMPHOCYTE % (test code = LY%) % 20-40 MONOCYTE % (test code = MO%) % 1-10 EOSINOPHIL % (test code = EO%) % 0.0-5.0 BASOPHIL % (test code = BA%) % 0.0-1.0 NUCLEATED RBC % (test code = NRBC%) % 0.0-0.9 NEUTROPHIL # (test code = NT#) x10 3/uL 1.6-7.2 LYMPHOCYTE # (test code = LY#) x10 3/uL 1.1-2.7 MONOCYTE # (test code = MO#) x10 3/uL 0.3-0.8 EOSINOPHIL # (test code = EO#) x10 3/uL 0.0-0.5 History and Physical Notes Date/Time Note Provider Source 2024-08-20 10:51:44 TRIAGE HISTORY & PHYSICAL IDENTIFYING DATA Isamar Shaw is 29 year old, /White, 29w5d, female with RICHARD 10/31/2024, by Ultrasound. : 1995 Primary Care Physician: Thang Ghosh CHIEF COMPLAINT Headaches Left sided facial numbness HISTORY OF PRESENT ILLNESS Isamar Shaw is a 29 year old female presents with left sided headaches accompanied unilateral blurry vision. She noted her BP was elevated last night(140's/90/s) and she had a small headache,she went bed and woke at 3am with very bad headache, blurry vision and numbness on the left side of her face and upper arm. Her BP at time was 160/100's, she took a baby aspirin and presented to the hospital She denies nausea/vomiting or epigastric/RUQ pain Patient is known to have a history of migraines/headaches prior to , an arachnoid cyst was seen on CT scan in February and was might to see get an MRI and Neurology consult which were cancelled when she found she was Reported DFM but now feels +FM. No VB, LOF, or CTX. She has a hx of ? CTHN and prior pregnancies have been complicated with preeclampsia CARE: Pvt patient of Dr Barrientos See OB summary for details PAST OBSTETRIC HISTORY OB History Para Term AB Living 8 5 3 2 2 4 SAB IAB Ectopic Multiple Live Births 2 0 4 # Outcome Date GA Lbr Kevyn/2nd Weight Sex Type Anes PTL Lv 8 Current 7 08/05/22 36w0d 2505 g F , L EPI TRUONG Complications: Non Reassuring Status 6 Term 09/12/17 38w0d 3175 g Vag-Spont TRUONG 5 Term 06/12/16 38w0d 3430 g F Vag-Spont TRUONG Complications: Pre-eclampsia, Mild pre-eclampsia, 4 Term 06/04/13 38w0d 3033 g F Vag-Spont TRUONG 3 06/11/12 27w0d F NORMAL SPONT FD Complications: Abnormal stillborn 2 SAB 1 SAB PAST MEDICAL HISTORY Problem list: Patient Active Problem List Diagnosis Date Noted 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 29 weeks gestation of 07/05/2024 Elevated blood-pressure reading without diagnosis of hypertension 07/05/2024 Flu vaccine refused 06/10/2024 Heartburn during 06/10/2024 Obesity in 05/12/2024 Nausea and vomiting during 03/31/2024 Previous delivery affecting , antepartum 03/04/2024 Desires (vaginal after ) trial 03/04/2024 History of stillbirth in currently patient 03/04/2024 History of pre-eclampsia in prior , currently 03/04/2024 Irritable bowel syndrome with both constipation and diarrhea 09/15/2023 Generalized anxiety disorder 09/15/2023 Adjustment insomnia 09/15/2023 ADHD (attention deficit hyperactivity disorder), combined type 09/15/2023 Arachnoid cyst 2023 Headache in , antepartum, third trimester 07/28/2022 Operations: Past Surgical History: Procedure Laterality Date SECTION N/A 08/05/2022 Surgeon: Mary Klein MD; [facility] ([facility]) ESOPHAGOGASTRODUODENOSCOPY N/A 11/16/2023 Surgeon: Ivelisse Berg MD; Location: [facility] LAPAROSCOPIC CHOLECYSTECTOMY N/A 05/04/2023 Surgeon: Maryellen Ricardo MD; Location: [facility] OR LOCATION Past Medical History: Diagnosis Date Anxiety 2023 not on meds Arachnoid cyst 2023 Followed by [facility] Neuro Hypertension 2021 Denies at this time not,on meds Migraine 2013 not on meds Mild depression 09/15/2023 not on meds STD (sexually transmitted disease) CURRENT HEALTH STATUS Medications: No current facility-administered medications for this encounter. Allergies and drug reactions: Adhesive tape-silicones and Morphine HOME MEDICATIONS Medications Prior to Admission Medication Sig Dispense Refill Last Dose aspirin 81 mg EC tablet Take 1 tablet by mouth in the morning. 30 tablet 6 08/19/2024 famotidine (PEPCID) 20 mg tablet Take 1 tablet by mouth in the morning and 1 tablet in the evening. 60 tablet 11 cetirizine (ZYRTEC) 10 mg tablet Take 1 tablet by mouth in the morning. 14 tablet 0 prn fluticasone propionate (FLONASE ALLERGY RELIEF) 50 mcg/actuation nasal spray Use 2 Sprays in each nostril in the morning. 1 g 0 prn PNV 67-iron ps-folate no.1-dha (VITAFOL ULTRA) 29 mg iron- 1 mg-200 mg Cap Take 1 capsule by mouth in the morning. 60 capsule 6 08/19/2024 SOCIAL HISTORY Tobacco History: Social History Tobacco Use Smoking Status Former Passive exposure: Past Smokeless Tobacco Never Tobacco Comments quit 6y ago Drug History: Social History Substance and Sexual Activity Drug Use Never Alcohol History: Social History Substance and Sexual Activity Alcohol Use Not Currently Comment: quit when found out was FAMILY HISTORY Family History Problem Relation Age of Onset Heart Mother Hypertension Mother Heart Father Hypertension Father Macular degeneration Maternal Grandfather Heart Maternal Grandfather Hypertension Maternal Grandfather Cataracts NoFHx Glaucoma NoFHx REVIEW OF SYSTEMS General: negative Constitutional: negative Eyes: negative ENT/Mouth: negative Cardiovascular: negative Respiratory: negative Gastrointestinal:negative Genitourinary: As above Musculoskeletal: negative Skin/breast: negative Neurological:As above Psychiatric: negative Endocrine: negative Hemat/Lymph: negative Allergic/Immuno:none VITAL SIGNS BP: (131-151)/(79-104) Temp: [36.7 ?C (98.1 ?F)] Temp source: Oral (08/20 0740) Pulse: [79-99] Resp: [18] SpO2: [98 %-100 %] Height: [160 cm (5' 2.99")-160 cm (5' 3")] Weight: [92.5 kg (204 lb)] BMI (calculated): [36.14-36.15] PHYSICAL EXAMINATIONS Gen: alert and oriented, well appearing, no distress CV: RRR Resp: normal work of breathing Abd: gravid, soft, NTTP Ext: no calf tenderness or edema VE: Deferred - Mode: [place]: Contractions (number / 10 minute): 0 Neuro: mild ptosis of the left upper eye lip with slight tearing noted CN II-IV- normal Power in upper and lower limbs /5 REVIEW OF LABORATORY, PATHOLOGY, AND RADIOLOGY DATA Lab results: Type & Screen HIV Hep B Syphilis Chlamydia ABO & RH Date Value Ref Range Status 07/29/2024 B POSITIVE Final No results found for: "HIVMULTIPLEX" No components found for: "HBSHBSAG" Syphilis IgG/IgM Date Value Ref Range Status 03/04/2024 Non-reactive Non-reactive Final C. trachomatis Nucleic Acid Date Value Ref Range Status 03/04/2024 Negative Negative Final IAT Date Value Ref Range Status 07/29/2024 Negative Final Varicella Rubella Glucose Group B Strep CBC VZV IgG antibody Date Value Ref Range Status 03/04/2024 Positive Negative Final Rubella screen IgG Date Value Ref Range Status 03/04/2024 Positive Negative Final GLUC 1 HR Date Value Ref Range Status 08/08/2024 171 (H) 120 - 170 mg/dL Final No results found for: "CGBS" HGB Date Value Ref Range Status 08/20/2024 12.3 11.6 - 15.0 g/dL Final HCT Date Value Ref Range Status 08/20/2024 35.7 35.7 - 45.2 % Final PLT Date Value Ref Range Status 08/20/2024 259 166 - 358 10*3/?L Final Placenta Accreta Screening Prior ? : Yes Prior Uterine Surgery?: Yes Placenta low lying/previa in current ? : No Screening outcome: A positive screening outcome indicates a history of prior delivery or prior uterine surgery, AND the presence of either a placenta low lying/previa or ultrasound suspicion of PASD in the current . Negative screening. Active Hospital Problems Diagnosis Date Noted 29 weeks gestation of 07/05/2024 Headache in , antepartum, third trimester 07/28/2022 Resolved Hospital Problems No resolved problems to display. Present on Admission: Headache in , antepartum, third trimester 29 weeks gestation of ASSESSMENT AND PLAN Isamar Shaw is a 29 year old at 29w5d who presents with headaches. Headaches - Headaches, left side visual changes and numbness has resolved s/p a dose of Esgic, followed by Reglan/Benadryl combo -Symptoms consistent with possible atypical migraine - Will get CT head - [facility] Labs normal with gideon random ur/pr - If CT scan with no acute features - will discharge home with Egsic but will need neurology follow up. I will place an order for it GTHN/CTHN - BP on the floor persistently mild range 140/80-90's which rules her in for GTHN but based n her history and trend of BP in the office she is most likely has CTHN - Continue LDA Fetus Reactive NST Angie Barrientos MD [facility] 2024-07-05 07:42:40 ANTEPARTUM HISTORY & PHYSICAL IDENTIFYING DATA Isamar Shaw is 29 year old, /White, 23w1d, female with RICHARD 10/31/2024, by Ultrasound. : 1995 Primary Care Physician: [facility] Day: 2 CHIEF COMPLAINT headaches HISTORY OF PRESENT ILLNESS 29 year old @23w1d presents with headache and RUQ pain pain. Good FM, denies contractions or vaginal bleeding OB care complicated by ? CHTN, h/o preeclampsia. PAST OBSTETRIC HISTORY OB History Para Term AB Living 8 5 3 2 2 4 SAB IAB Ectopic Multiple Live Births 2 0 4 # Outcome Date GA Lbr Kevyn/2nd Weight Sex Type Anes PTL Lv 8 Current 7 08/05/22 36w0d 2505 g F , L EPI TRUONG Complications: Non Reassuring Status 6 Term 09/12/17 38w0d 3175 g Vag-Spont TRUONG 5 Term 06/12/16 38w0d 3430 g F Vag-Spont TRUONG Complications: Pre-eclampsia, Mild pre-eclampsia, 4 Term 06/04/13 38w0d 3033 g F Vag-Spont TRUONG 3 06/11/12 27w0d F NORMAL SPONT FD Complications: Abnormal stillborn 2 SAB 1 SAB PAST MEDICAL HISTORY Problem list: Patient Active Problem List Diagnosis Date Noted Flu vaccine refused 06/10/2024 Heartburn during 06/10/2024 Obesity in 05/12/2024 Nausea and vomiting during 03/31/2024 Previous delivery affecting , antepartum 03/04/2024 Desires (vaginal after ) trial 03/04/2024 History of stillbirth in currently patient 03/04/2024 History of pre-eclampsia in prior , currently 03/04/2024 Irritable bowel syndrome with both constipation and diarrhea 09/15/2023 Generalized anxiety disorder 09/15/2023 Adjustment insomnia 09/15/2023 ADHD (attention deficit hyperactivity disorder), combined type 09/15/2023 Arachnoid cyst 2023 Other headache syndrome 07/28/2022 Operations: Past Surgical History: Procedure Laterality Date SECTION N/A 08/05/2022 Surgeon: Mary Klein MD; [facility] ESOPHAGOGASTRODUODENOSCOPY N/A 11/16/2023 Surgeon: Ivelisse Berg MD; Location: [facility] OR LOCATION LAPAROSCOPIC CHOLECYSTECTOMY N/A 05/04/2023 Surgeon: Maryellen Ricardo MD; Location: [facility] OR [facility] Prior surgeries at outside hospitals: none Past Medical History: Diagnosis Date Anxiety 2023 not on meds Arachnoid cyst 2023 Followed by [facility] Neuro Hypertension 2021 Denies at this time not,on meds Migraine 2013 not on meds Mild depression 09/15/2023 not on meds STD (sexually transmitted disease) CURRENT HEALTH STATUS Medications: Current Facility-Administered Medications Medication Dose Route Frequency Last Rate Last Admin metoclopramide HCl (REGLAN) 10 mg in NaCl 0.9% (NS) piggyback 10 mg IV Piggyback Q6H acetaminophen (TYLENOL) tablet 1,000 mg 1,000 mg Oral Q6HPRN 1,000 mg at 07/04/242035 Allergies and drug reactions: Adhesive tape-silicones and Morphine HOME MEDICATIONS Medications Prior to Admission Medication Sig Dispense Refill Last Dose aspirin 81 mg EC tablet Take 1 tablet by mouth in the morning. 30 tablet 6 Taking famotidine (PEPCID) 20 mg tablet Take 1 tablet by mouth in the morning and 1 tablet in the evening. 60 tablet 11 Taking cetirizine (ZYRTEC) 10 mg tablet Take 1 tablet by mouth in the morning. 14 tablet 0 fluticasone propionate (FLONASE ALLERGY RELIEF) 50 mcg/actuation nasal spray Use 2 Sprays in each nostril in the morning. 1 g 0 PNV 67-iron ps-folate no.1-dha (VITAFOL ULTRA) 29 mg iron- 1 mg-200 mg Cap Take 1 capsule by mouth in the morning. 60 capsule 6 Taking Last taken: yesterday SOCIAL HISTORY Tobacco History: Social History Tobacco Use Smoking Status Former Passive exposure: Past Smokeless Tobacco Never Tobacco Comments quit 6y ago Drug History: Social History Substance and Sexual Activity Drug Use Never Alcohol History: Social History Substance and Sexual Activity Alcohol Use Not Currently Comment: quit when found out was FAMILY HISTORY Family History Problem Relation Age of Onset Heart Mother Hypertension Mother Heart Father Hypertension Father Macular degeneration Maternal Grandfather Heart Maternal Grandfather Hypertension Maternal Grandfather Cataracts NoFHx Glaucoma NoFHx REVIEW OF SYSTEMS General: negative Constitutional: negative Eyes: negative ENT/Mouth: headaches Cardiovascular: negative Respiratory: negative Gastrointestinal:pain Genitourinary: negative Musculoskeletal: negative Skin/breast: negative Neurological: negative Psychiatric: negative Endocrine: negative Hemat/Lymph: negative Allergic/Immuno:none VITAL SIGNS BP: (98-155)/(48-86) Temp: [36.6 ?C (97.9 ?F)] Temp source: Oral (07/04 1848) Pulse: [68-88] Resp: [16] SpO2: [96 %-100 %] Height: [160 cm (5' 3")] Weight: [91.9 kg (202 lb 11.2 oz)] BMI (calculated): [35.91] PHYSICAL EXAMINATIONS General: well-developed, well-nourished Lungs: non labored Abdomen: tenderness - normal Extremities: no clubbing, cyanosis, or edema Neuro: cranial nerves II through XII grossly intact; sensation grossly intact; muscle strength 5 out of 5 in all four extremities REVIEW OF LABORATORY, PATHOLOGY, AND RADIOLOGY DATA Lab results: CBC BMP PT/INR WBC (10*3/?L) Date Value 07/04/2024 6.58 NA (mmol/L) Date Value 05/22/2024 133 (L) No results found for: "PT" RBC (10*6/?L) Date Value 07/04/2024 3.85 (L) K (mmol/L) Date Value 05/22/2024 3.7 No results found for: "PTINR" PLT (10*3/?L) Date Value 07/04/2024 274 CALCIUM (mg/dL) Date Value 05/22/2024 8.9 HGB (g/dL) Date Value 07/04/2024 12.0 CL (mmol/L) Date Value 05/22/2024 103 aPTT HCT (%) Date Value 07/04/2024 34.8 (L) BUN (mg/dL) Date Value 05/22/2024 5 (L) No results found for: "APTTPAT" CREATININE (mg/dL) Date Value 07/04/2024 0.53 GLUCOSE (mg/dL) Date Value 05/22/2024 97 CO2 TOTAL (mmol/L) Date Value 05/22/2024 21 (L) Type & Screen Rubella Varicella ABO & RH (no units) Date Value 03/04/2024 B POSITIVE Rubella screen IgG (no units) Date Value 03/04/2024 Positive No results found for: "VZVG" No results found for: "TSABINT" Hep B HIV Syphilis No results found for: "HBS" No results found for: "HIV" No results found for: "SYPG" Group B Strep Chlamydia No results found for: "CGBS" C. trachomatis Nucleic Acid (no units) Date Value 03/04/2024 Negative Placenta Accreta Screening Screening outcome: A positive screening outcome indicates a history of prior delivery or prior uterine surgery, AND the presence of either a placenta low lying/previa or ultrasound suspicion of PASD in the current . Negative screening. HEART RATE 145 ASSESSMENT AND PLAN 29 year old @23w1d presents with KERR and RUQ pain. This morning feels better states only a mild KERR and no further abdominal pain. Reglan ordered Repeat CBC and CMP Blood pressures much improved overnight 24 hr urine protein collection since elevated protein/creatinine ratio. Reassuring status no active issues. Joyce Mendosa MD [facility] [employer] 2023-11-16 12:33:45 Endoscopy H & P Age: [age] year old Sex: female ASA Class: II Indication: epigastric pain, poor appetite Past Medical History: Diagnosis Date Anxiety Hypertension Migraine Mild depression 09/15/2023 STD (sexually transmitted disease) Family history of Colon Cancer/Polyps: NA Current Facility-Administered Medications Medication Dose Route Frequency Last Rate Last Admin lactated ringers IV infusion 1,000 mL 1,000 mL IV Infusion ONCE Allergies Allergen Reactions Adhesive Tape-Silicones Rash Skin peels Morphine Itching Social History Socioeconomic History Marital status: Single Tobacco Use Smoking status: Former Passive exposure: Past Smokeless tobacco: Never Tobacco comments: quit 6y ago Vaping Use Vaping Use: Former Start date: 11/05/2020 Quit date: 01/05/2022 Substances: Nicotine, Flavoring Devices: Disposable, Pre-filled pod Substance and Sexual Activity Alcohol use: Not Currently Comment: quit when found out was Drug use: Never Sexual activity: Yes Partners: Male Mental Status: alert, oriented x3 Chest: clear to auscultation Cardiovascular: regular rate and rythmn Abdomen: bowel sounds present Spleen Tip: non-palpable Hepatomegaly: no Mass: not present Tenderness: no Impression and Plan: 28 year old woman undergoing EGD for evaluation of epigastric pain, reflux, poor appetite. Consent for procedure done in clinic,verified today Benefits, risks, alternatives, and likelihood of achieving patient's goals of care discussed. Risks discussed including but not limited to aspiration, infection, bleeding, perforation, missed polyps/lesions, failure to obtain a diagnosis, failure to complete the procedure, cardiovascular complications such as PR, stroke, arrhythmia, and . Informed consent obtained/verified. Education provided to the patient and family about the procedure. Ivelisse Berg MD [facility] Division of Gastroenterology and Hepatology [facility] 2023-05-04 12:26:11 Formatting of this n ote is different from the original. GENERAL SURGERY PREOP NOTE Date of Service: 05/02/2023 HISTORY OF PRESENT ILLNESS: Isamar Shaw is a 28 year old year old female patient with a medical history significant for hypertension and anxiety who presents for evaluation of epigastric pain that started several years ago. The patient describes the pain as a constant dull pain in the epigastric region that worsens when she eats and the pain radiates to her RUQ and her shoulders. The pain is sharp and stabbing and will last 10-20 minutes. She admits to nausea, vomiting, and fatigue and denies fever or chills. She describes her bowel movement to change between being constipated and having diarrhea and described her stools as mucous and yellow. She had been evaluated earlier this year for similar pain and an US was obtained which was negative for gallstones. She went to the Urgent Care on 02/28/2023 reporting the same complaints and was advised to go to the ER. She then met with her Family Medicine Provider on 03/05/2023 and had a HIDA scan done which demonstrated depressed gallbladder ejection fraction. She was prescribed Zofran and Pepcid for symptoms, these medications did not improve her pain. She was seen before in [place] about 5-6 years ago where she was worked up for her abdominal pain. She underwent EGD and colonoscopy and stated these were unremarkable. She had a hegative US and a HIDA scan with decreased ejection fraction but was told it was "not decreased enough for surgery". Sh has no interval changes since her last evaluation. REVIEW OF SYSTEMS: Constitutional: + fatigue, + loss of appetite, - fever, - chills Neuro: negative per HPI HEENT: negative per HPI CV: negative per HPI Resp: negative per HPI GI: + nausea, + vomiting, + constipation, + diarrhea : negative per HPI MSK: negative per HPI Skin: negative per HPI Endo: negative per HPI PAST MEDICAL HISTORY: Past Medical History: Diagnosis Date Anxiety Hypertension Migraine STD (sexually transmitted disease) MEDICATIONS: Current Outpatient Medications Medication Instructions vitamin w/FA tablet 1 tablet, Oral, DAILY ALLERGIES: Allergies Allergen Reactions Morphine Itching PAST SURGICAL HISTORY: Past Surgical History: Procedure Laterality Date SECTION N/A 08/05/2022 Surgeon: Mary Klein MD; Location: LABOR AND DELIVERY OR LOCATION-[facility] DILATION AND CURETTAGE (SHX) SOCIAL HISTORY: Social History Tobacco Use Smoking status: Former Passive exposure: Past Smokeless tobacco: Never Tobacco comments: quit 6y ago Substance Use Topics Alcohol use: Not Currently Comment: quit when found out was FAMILY HISTORY: Family Status Relation Name Status Mo (Not Specified) Fa (Not Specified) MGFa (Not Specified) NoFHx (Not Specified) Physical Exam: BP 126/82 | Pulse 75 | Temp 36.7 ?C (98 ?F) (Temporal Artery) | Resp 19 | Ht 1.6 m (5' 3") | Wt 91.6 kg (202 lb) | SpO2 97% | BMI 35.78 kg/m? Constitutional: no acute distress, alert and oriented x3 Respiratory: breathing unlabored on room air Cardio: RRR Abdomen: soft, symmetrical, non-distended, tenderness on epigastric and RUQ without guarding/rebound Sensory Function: within normal limits Neuro: NFD, CNII-XII grossly intact Extremities/MSK: Normal tone and strength, normal range of motion Skin: Warm and dry, capillary refill <2 seconds, no jaundice, rashes, lesions, or erythema Psych: appropriate insight, affect and judgment Labs/Imaging: Latest Reference Range & Units 09/19/22 14:54 WBC x10^3 4.30 - 11.10 10*3/?L 7.13 RBC x10^6 3.93 - 5.25 10*6/?L 4.27 HGB 11.6 - 15.0 g/dL 12.8 HCT 35.7 - 45.2 % 38.3 MCV 80.6 - 95.5 fL 89.7 MCH 25.9 - 32.8 pg 30.0 MCHC 31.6 - 35.1 g/dL 33.4 RDW-SD 39.0 - 49.9 fL 40.4 RDW-CV 12.0 - 15.5 % 12.3 PLT x10^3 166 - 358 10*3/?L 353 MPV 9.5 - 12.9 fL 8.7 (L) NRBC /100 WBC 0.0 - 10.0 /100 WBCs 0.0 NRBC x10^3 10*3/?L <0.01 GRAN MAT (NEUT) % % 52.8 IMM GRAN % % 0.30 LYMPH% % 40.4 MONO % % 4.8 EOS % % 1.3 BASO % % 0.4 GRAN MAT x10^3(ANC) 1.88 - 7.09 10*3/uL 3.77 IMM GRAN x10^3 0.00 - 0.06 10*3/uL <0.03 LYMPH x10^3 1.32 - 3.29 10*3/uL 2.88 MONO x10^3 0.33 - 0.92 10*3/uL 0.34 EOS x10^3 0.03 - 0.39 10*3/uL 0.09 BASO x10^3 0.01 - 0.07 10*3/uL 0.03 (L): Data is abnormally low HISTORY: RUQ abdominal pain r/o cholecystitis TECHNIQUE: Grayscale ultrasound and Doppler imaging was obtained from the abdomen. COMPARISON EXAMINATIONS: none available FINDINGS: Liver: The liver does not appear enlarged. No evidence for intrahepatic ductal dilatation or focal mass. The parenchymal echogenicity is within normal limits. Common bile duct: 0.4 cm. No CBD stones are definitely identified. Gallbladder: Gallbladder wall is not thickened. No evidence for gallstones. Sonographic Subramanian's sign is reportedly negative. Pancreas: Visualized portion of the pancreas appear within normal limits. Main portal vein: Main portal vein demonstrates antegrade flow. IMPRESSION 1. No evidence for gallstones or gallbladder wall thickening. EXAM DESCRIPTION: HEPATOBILIARY SCAN CLINICAL HISTORY: 28-year-old female Biliary colic, recurrent, gallbladder dyskinesia suspected . COMPARISON: Gallbladder ultrasound dated 01/19/2022 TECHNIQUE: The patient received an intravenous injection of technetium 99m mebrofenin and sequential images of the abdomen were obtained over one hour. Then she received a fatty meal challenge and additional imaging was gathered for 30 minutes. FINDINGS: Tracer appears from background and has normal hepatic uptake. Excretion into the biliary radicals and CBD is prompt. Gallbladder is visualized normally with filling noted at 18 minutes. Activity seen in the small bowel by 20 minutes. There is normal biliary to bowel transit. Gallbladder ejection fraction was 9% at 30 minutes. Normal values are more than 35%. IMPRESSION Low gallbladder ejection fraction, suggestive of biliary dyskinesia or chronic cholecystitis.. Assessment Isamar Shaw is a 28 year old female with: biliary dyskinesia presents with recurrent epigastric and RUQ pain. She has had biliary colic symptoms since 5-6 years ago. US was negative for gallstones however HIDA with EF demonstrated biliary dyskinesia with EF of 9%. Plan Proceed with laparoscopic cholecystectomy Risks (pain, bleeding, infection, scar, injury to surrounding structures, bile leak, retained stone, need for further procedures), benefits, alternatives of laparoscopic cholecystectomy were discussed with the patient; all questions answered; informed consent obtained and signed on chart. Maryellen Ricardo M.D. 05/04/2023 12:26 Critical access hospital Procedure Notes Date/Time Note Provider Source 2023-05-04 13:04:06 Associated Order(s): Intubation Intubation Date/Time: 05/04/2023 12:44 PM Urgency: elective Airway not difficult General Information and Staff Patient location during procedure: OR Performed: resident/INDUSTRIAL WASTE INSPECTOR Performed by: Rajinder Armendariz CRNA Authorized by: Aries Lopez MD Indications and Patient Condition Indications for airway management: anesthesia and airway protection Spontaneous Ventilation: absent Sedation level: deep Preoxygenated: yes Patient position: sniffing MILS maintained throughout Mask difficulty assessment: 1 - vent by mask No planned trial extubation Final Airway Details Final airway type: endotracheal airway Successful airway: ETT Cuffed: yes Successful intubation technique: direct laryngoscopy Facilitating devices/methods: intubating stylet Endotracheal tube insertion site: oral Blade: Mohini Blade size: #3 ETT size (mm): 7.5 Cormack-Lehane Classification: grade I - full view of glottis Placement verified by: chest auscultation, capnometry and palpation of cuff Cuff volume (mL): 7 Measured from: lips ETT to lips (cm): 22 Number of attempts at approach: 1 Ventilation between attempts: none Number of other approaches attempted: 0 Additional Comments Eyes taped prior to placement, smooth, atraumatic, dentition and lips unchanged from pre-op. NACR-NURSE CASE FINISHING MACHINE ADJUSTER,CERTIFIED REGISTERED NURSE CASE FINISHING MACHINE ADJUSTER [facility]
[2024-09-21 22:31] LABS: Specific Gravity 1.007 (1.005-1.030); Sqamous Epithelial <5 /HPF (None Seen); Urine Bacteria None Seen /HPF (<20); Urine Bilirubin NEGATIVE (Negative); Urine Blood Negative (Negative); Urine Clarity Clear (Clear); Urine Color Colorless (Yellow); Urine Culture Reflex Order NOT NEEDED; Urine Glucose NEGATIVE (Negative); Urine Ketones NEGATIVE (Negative); Urine Micro Reflex YN NO BILL MICROSCOPIC; Urine Mucus Slight /HPF (None Seen); Urine Nitrite NEGATIVE (Negative); Urine Protein NEGATIVE (Negative); Urine RBC <5 /HPF (None Seen); Urine Urobilinogen Normal (Normal); Urine WBC <5 /HPF (<5); Urine pH 6.5 (5.0-7.0)
[2024-09-21 22:48] LABS: Thyroid Stimulating Hormone 4.03 uIU/mL (0.358-3.740)
--- NOTE | 2024-09-21 22:56 | RAD REPORT ---
EXAM: OB Limited HISTORY: eval COMPARISON: None TECHNIQUE: Multiple grayscale and color Doppler images were obtained in a transabdominal pelvic ultra sound. Spectral analysis of the Doppler waveforms of the ovaries were performed. FINDINGS: Single IUP identified with positive heart tones. heart rate measured at 132 bpm. The plac enta is anterior. The fetus is in cephalic position. The humerus measures 5.9 cm which is consistent with 34 week 2 day. The cervix was not visualized. Neither ovary visualized. IMPRESSION: Single cephalic presenting gestation with positive heart tones measuring 34 week 2 day. CHANO: 9.5 cm which is lower limits of normal.
[2024-09-21 22:59] LABS: PT Prothrombin Time 10.6 SECONDS (9.4-12.5); Protime INR 1.01
[2024-09-21 23:00] LABS: Absolute Lymphocytes (CBC) 2.5 K/uL (0.7-4.9); Absolute Monocytes 0.3 K/uL (0.1-1.3); Absolute Neutrophil 4.5 K/uL (1.8-8.0); Basophils % 0.3 % (0-1.3); Eosinophils % 0.5 % (0-4.4); Hematocrit 34.8 % (36.0-45.0); Hemoglobin 11.9 g/dL (12.0-15.0); Lymphocytes % 33.9 % (15.3-44.8); MCH 30.1 pg (27.0-35.0); MCHC 34.1 g/dL (32.0-36.0); MCV 88.2 fL (80-100); MPV 7.4 fL (7.6-11.3); Monocytes % 4.2 % (3.3-12.3); Neutrophils % 61.1 % (41.7-73.7); Platelets 275 thou/uL (152-406); RBC Red Blood Cell Count 3.94 M/uL (3.86-4.86); Red Cell Distribution Width 13.4 % (12.1-15.2)
[2024-09-21] MEDS ORDERED: LABETALOL 20 MG/4ML SYRINGE IV ONE (23:06)
[2024-09-21] MEDS ORDERED: Magnesium Sulfate 2gm IVPB 6 G/150 ML BAG IV ONE (23:07)
[2024-09-21 23:09] LABS: ALT/SGPT 18 U/L (13-56); AST/SGOT 15 U/L (15-37); Albumin 2.9 g/dL (3.4-5.0); Albumin/Globulin Ratio 0.7 (1.1-1.8); Alkaline Phosphatase 90 U/L (45-117); Anion Gap 8.4 mEq/L (5.0-15.0); BUN Blood Urea Nitrogen 7 mg/dL (7-18); Bicarbonate 23 mEq/L (21-32); Bilirubin Total 0.3 mg/dL (0.2-1.0); Globulin 4.2 g/dL (2.3-3.5); Glomerular Filtration Rate 124 ml/min (=/>90); Glucose Level 80 mg/dL (74-106); NT PRO-BNP 30 pg/mL (<125); Potassium 3.4 mEq/L (3.5-5.1); Protein, Total 7.1 g/dL (6.4-8.2); Sodium Level 137 mEq/L (136-145); Troponin High Sensitivity 3.9 pg/mL (<58.9)
[2024-09-21 23:21] LABS: Bilirubin Direct < 0.2 mg/dL (0-0.2); Bilirubin Indirect, Calculated 0.1 mg/dL (0.2-0.8)
[2024-09-22] MEDS ORDERED: ACETAMINOPHEN 500 MG TAB ONE (00:10)
--- NOTE | 2024-09-22 00:26 | EDPHYS ---
Physician Documentation [facility] Name: Nicole Zamora Age: 29 yrs Sex: Female : 1995 Arrival Date: 09/21/2024 Time: 21:08 Bed 6 Private MD: ED Physician Umesh Styles HPI: 09/21 21:25 This 29 yrs old Female presents to ER via Unassigned with complaints of High sp4 Blood Pressure, 34 WEEKS PREG. 21:38 Patient is at 34 weeks 2 days EGA with history of prior preeclampsia presents sp4 with headache, reportedly seeing spots, and elevated blood pressure at home. On arrival pressure 157/108. Patient reports her last delivery was early secondary to preeclampsia. . Patient denied pelvic contractions denied fluid leak and denied vaginal bleeding.. 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 - Infectious Disease History:: Denies. - Family history:: not pertinent. - Social history:: Smoking status: Patient denies any tobacco usage or history of. Patient/guardian denies using alcohol, street drugs. ROS: 21:38 Constitutional: Negative for fever, chills, and weight loss, positive for headache, sp4 elevated blood pressure, and positive for seeing spots. 21:38 All other systems are negative, Exam: 21:38 Constitutional: This is a well developed, well nourished patient who is awake, alert, sp4 and in no acute distress. Head/Face: Normocephalic, atraumatic. Eyes: Pupils equal round and reactive to light, extra-ocular motions intact. Lids and lashes normal. Conjunctiva and sclera are not injected. Cornea within normal limits. Periorbital areas with no swelling, redness, or edema. ENT: Nares patent. No nasal discharge, no septal abnormalities noted. Tympanic membranes are normal and external auditory canals are clear. Oropharynx with no redness, swelling, or masses, exudates, or evidence of obstruction, uvula midline. Mucous membranes moist. Neck: Trachea midline, no thyromegaly or masses palpated, and no cervical lymphadenopathy. Supple, full range of motion without nuchal rigidity, or vertebral point tenderness. Chest/axilla: Normal chest wall appearance and motion. Nontender with no deformity. No lesions are appreciated. Cardiovascular: Regular rate and rhythm with a normal S1 and S2. No gallops, murmurs, or rubs. Normal PMI, no JVD. No pulse deficits. Respiratory: Lungs have equal breath sounds bilaterally, clear to auscultation and percussion. No rales, rhonchi or wheezes noted. No increased work of breathing, no retractions or nasal flaring. Abdomen/GI: Soft, with normal bowel sounds. No distension or tympany. No guarding or rebound. No evidence of tenderness throughout. Gravid uterus Back: No spinal tenderness. No costovertebral tenderness. Skin: Warm, dry with normal turgor. Normal color with no rashes, no lesions, and no evidence of cellulitis. MS/ Extremity: Pulses equal, no cyanosis. Neurovascular intact. Full, normal range of motion. Neuro: Awake and alert, GCS 15, oriented to person, place, time, and situation. Cranial nerves II-XII grossly intact. Motor strength 5/5 in all extremities. Sensory grossly intact. Psych: Awake, alert, with orientation to person, place and time. Behavior, mood, and affect are within normal limits Vital Signs: 21:42 BP 153 / 98; Pulse 82; Resp 18; Temp 98.1; Pulse Ox 99% ; Weight 92.53 kg; Height 5 ft. bm8 3 in. ; Pain 1/10; 22:15 BP 147 / 102; Pulse 84; Resp 16; Pulse Ox 100% on R/A; dd2 22:30 BP 148 / 107; Pulse 83; Resp 16; Pulse Ox 97% on R/A; dd2 23:19 BP 151 / 111; Pulse 87; Resp 16; Temp 98.1; Pulse Ox 97% on R/A; Pain 0/10; bm8 23:35 BP 126 / 87; Pulse 85; Resp 17; Temp 98.1; Pulse Ox 97% ; Pain 0/10; bm8 09/22 00:13 BP 133 / 101; Pulse 84; Resp 14; Temp 98.1; Pulse Ox 97% ; Pain 3/10; bm8 09/21 21:42 Body Mass Index 36.14 (92.53 kg, 160.02 cm) 8 09/21 21:42 Pain Scale: Adult bm8 23:19 Pain Scale: Adult bm8 23:35 Pain Scale: Adult bm8 09/22 00:13 Pain Scale: Adult bm8 Bowlegs Coma Score: 09/21 21:42 Eye Response: spontaneous(4). Motor Response: obeys commands(6). Verbal Response: sp4 oriented(5). Total: 15. 21:57 Eye Response: spontaneous(4). Motor Response: obeys commands(6). Verbal Response: bm8 oriented(5). Total: 15. 23:19 Eye Response: spontaneous(4). Motor Response: obeys commands(6). Verbal Response: bm8 oriented(5). Total: 15. 23:35 Eye Response: spontaneous(4). Motor Response: obeys commands(6). Verbal Response: bm8 oriented(5). Total: 15. 09/22 00:13 Eye Response: spontaneous(4). Motor Response: obeys commands(6). Verbal Response: bm8 oriented(5). Total: 15. MDM: 09/21 21:27 Medical Screening Exam initiated sp4 09/22 00:23 Differential diagnosis: hypertensive crisis, Malignant HTN, Preeclampsia, sp4 -induced hypertension. Data reviewed: vital signs, nurses notes. ED course: EXAM: OB Limited HISTORY: eval COMPARISON: None TECHNIQUE: Multiple grayscale and color Doppler images were obtained in a transabdominal pelvic ultrasound. Spectral analysis of the Doppler waveforms of the ovaries were performed. FINDINGS: Single IUP identified with positive heart tones. heart rate measured at 132 bpm. The placenta is anterior. The fetus is in cephalic position. The humerus measures 5.9 cm which is consistent with 34 week 2 day. The cervix was not visualized. Neither ovary visualized. IMPRESSION: Single cephalic presenting gestation with positive heart tones measuring 34 week 2 day. CHANO: 9.5 cm which is lower limits of normal. . 09/21 21:26 Order name: Basic Metabolic Panel; Complete Time: 00:06 sp4 09/21 21:26 Order name: CBC with Diff; Complete Time: 23:05 sp4 09/21 21:26 Order name: LFT's; Complete Time: 00:06 sp4 09/21 21:26 Order name: Magnesium; Complete Time: 00:06 sp4 09/21 21:26 Order name: NT PRO-BNP; Complete Time: 00:06 sp4 09/21 21:26 Order name: PT-INR; Complete Time: 23:01 sp4 09/21 21:26 Order name: Troponin HS; Complete Time: 00:06 sp4 09/21 21:37 Order name: TSH; Complete Time: 23:05 sp4 09/21 21:37 Order name: Urinalysis W/Microscopic; Complete Time: 22:37 sp4 09/21 22:50 Order name: T4 Free; Complete Time: 23:05 EDMS 09/21 22:28 Order name: OB Limited; Complete Time: 22:58 EDMS 09/21 21:26 Order name: EKG; Complete Time: 21:27 sp4 09/21 21:26 Order name: Cardiac monitoring; Complete Time: 23:19 sp4 09/21 21:26 Order name: EKG - Nurse/Tech; Complete Time: 23:19 sp4 09/21 21:26 Order name: IV Saline Lock; Complete Time: 23:14 sp4 09/21 21:26 Order name: Labs collected and sent; Complete Time: 23:14 09/21 21:26 Order name: O2 Per Protocol; Complete Time: 23:14 sp4 09/21 21:26 Order name: O2 Sat Monitoring; Complete Time: 23:14 sp4 09/21 22:24 Order name: Misc. Order: RECOLLECT ALL LABS; Complete Time: 23:14 rv1 Administered Medications: 09/21 23:18 Drug: Magnesium Sulfate IVPB 4 grams IVPB once over 30 mins Route: IVPB; Infused Over: bm8 30 mins; Site: left antecubital; 09/22 00:16 Follow up: Response: No adverse reaction; IV Status: Completed infusion; IV Intake: bm8 100ml 09/21 23:18 Drug: Labetalol IV 20 mg IV at bolus once; administer at a rate of 2 mg /min Route: IV; bm8 Rate: bolus; Site: left antecubital; 09/22 00:16 Follow up: Response: No adverse reaction; IV Status: Completed infusion; IV Intake: 5ml bm8 09/21 23:18 Drug: Magnesium Sulfate IVPB 2 grams IVPB once over 1 hrs Route: IVPB; Infused Over: 1 bm8 hrs; Site: left antecubital; 09/22 00:16 Follow up: Response: No adverse reaction; IV Status: Infusion continued upon transfer bm8 00:14 Drug: Tylenol 1000 mg PO once Route: PO; bm8 00:14 Follow up: Response: No adverse reaction bm8 Disposition Summary: 09/22/24 00:26 Transfer Ordered Notes: Transfer Location: [facility] sp4 Reason: Higher level of care sp4 Condition: Stable sp4 Problem: new sp4 Symptoms: have improved sp4 Accepting Physician: [facility] umbrella supervisor (09/22/24 00:51) bm8 Diagnosis - associated hypertension, Preeclampsia sp4 Discharge Instructions: - Discharge Summary Sheet rv1 Forms: - SBAR form rv1 - Medication Reconciliation Form sp4 Addendum: 09/23/2024 06:16 Addendum: EKG at 2312 09/21/2024 normal sinus rhythm rate 79, otherwise normal EKG, no s p4 ST elevation or depression, normal intervals, normal axis. Ventricular rate 79.. Signatures: Dispatcher [employer] EDSindy Thompson rv1 Umesh Styles MD MD sp4 Micheal Mullen RN RN bm8 Corrections: (The following items were deleted from the chart) 09/21 22:28 21:27 OB Complete+US.RAD.BRZ ordered. EDMS EDMS 09/22 00:51 00:26 [facility] umbrella supervisor sp4 bm8
--- NOTE | 2024-09-22 00:26 | ER ---
Nurse's Notes [facility] Name: Nicole Zamora Age: 29 yrs Sex: Female : 1995 Arrival Date: 09/21/2024 Time: 21:08 Bed 6 Private MD: Diagnosis: associated hypertension, Preeclampsia Presentation: 09/21 21:42 Chief complaint: Patient states: I have been feeling off today and my blood pressure bm8 was high. I am 34 weeks . 21:42 Coronavirus screen: Vaccine status: At this time, the client does not indicate any bm8 symptoms associated with coronavirus-19. Ebola Screen: Patient negative for fever greater than or equal to 101.5 degrees Fahrenheit, and additional compatible Ebola Virus Disease symptoms Patient denies exposure to infectious person. Patient denies travel to an Ebola-affected area in the 21 days before illness onset. No symptoms or risks identified at this time. Initial Sepsis Screen: Does the patient meet any 2 criteria? No. Patient's initial sepsis screen is negative. Does the patient have a suspected source of infection? No. Patient's initial sepsis screen is negative. Risk Assessment: Do you want to hurt yourself or someone else? Patient reports no desire to harm self or others. Onset of symptoms was September 21, 2024 at 08:00. 21:42 Method Of Arrival: Ambulatory bm8 21:42 Acuity: ULISES 3 bm8 Triage Assessment: 21:42 General: Appears in no apparent distress. comfortable, Behavior is calm, cooperative, bm8 appropriate for age. 21:42 Pain: Denies pain. EENT: No deficits noted. No signs and/or symptoms were reported bm8 regarding the EENT system. Neuro: No deficits noted. Level of Consciousness is awake, alert, obeys commands, Oriented to person, place, time, situation, Appropriate for age. Cardiovascular: Denies chest pain, Heart tones S1 S2 present Capillary refill < 3 seconds in bilateral fingers. Cardiovascular: Reports high blood pressure Rhythm is sinus rhythm. Respiratory: Airway is patent Trachea midline Respiratory effort is even, unlabored, Respiratory pattern is regular, symmetrical, Breath sounds are clear bilaterally. GI: No signs and/or symptoms were reported involving the gastrointestinal system. : No signs and/or symptoms were reported regarding the genitourinary system. Derm: No signs and/or symptoms reported regarding the dermatologic system. Musculoskeletal: No signs and/or symptoms reported regarding the musculoskeletal system. 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 - Infectious Disease History:: Denies. - Family history:: not pertinent. - Social history:: Smoking status: Patient denies any tobacco usage or history of. Patient/guardian denies using alcohol, street drugs. Screenin:57 [facility] ED Fall Risk Assessment (Adult) History of falling in the last 3 months, bm8 including since admission No falls in past 3 months (0 pts) Confusion or Disorientation No (0 pts) Intoxicated or Sedated No (0 pts) Impaired Gait No (0 pts) Mobility Assist Device Used No (0 pt) Altered Elimination No (0 pt) Score/Fall Risk Level 0 - 2 = Low Risk Oriented to surroundings, Maintained a safe environment, Educated pt \T\ family on fall prevention, incl call for assistance when getting out of bed, Assessed \T\ reinforced patient's understanding of fall precautions, Hourly rounding (assess needs \T\ fall precautionary measures) done, Used ambulatory aids as needed (educated on \T\ assisted with), Used gait belt as appropriate. Abuse screen: Denies threats or abuse. Nutritional screening: No deficits noted. Tuberculosis screening: No symptoms or risk factors identified. Assessment: 21:57 Reassessment: see triage note. bm8 23:19 Reassessment: Patient appears in no apparent distress at this time. Patient and/or bm8 family updated on plan of care and expected duration. Pain level reassessed. Patient is alert, oriented x 3, equal unlabored respirations, skin warm/dry/pink. Patient denies pain at this time. 23:41 Reassessment: report to PAYTON Shelton at [facility]. bm8 09/22 00:13 Reassessment: Patient appears in no apparent distress at this time. Patient and/or bm8 family updated on plan of care and expected duration. Pain level reassessed. Patient is alert, oriented x 3, equal unlabored respirations, skin warm/dry/pink. reports mild headache. Vital Signs: 09/21 21:42 BP 153 / 98; Pulse 82; Resp 18; Temp 98.1; Pulse Ox 99% ; Weight 92.53 kg; Height 5 ft. bm8 3 in. ; Pain 1/10; 22:15 BP 147 / 102; Pulse 84; Resp 16; Pulse Ox 100% on R/A; dd2 22:30 BP 148 / 107; Pulse 83; Resp 16; Pulse Ox 97% on R/A; dd2 23:19 BP 151 / 111; Pulse 87; Resp 16; Temp 98.1; Pulse Ox 97% on R/A; Pain 0/10; bm8 23:35 BP 126 / 87; Pulse 85; Resp 17; Temp 98.1; Pulse Ox 97% ; Pain 0/10; bm8 09/22 00:13 BP 133 / 101; Pulse 84; Resp 14; Temp 98.1; Pulse Ox 97% ; Pain 3/10; bm8 09/21 21:42 Body Mass Index 36.14 (92.53 kg, 160.02 cm) bm8 09/21 21:42 Pain Scale: Adult bm8 23:19 Pain Scale: Adult bm8 23:35 Pain Scale: Adult bm8 09/22 00:13 Pain Scale: Adult bm8 Elisabet Coma Score: 09/21 21:42 Eye Response: spontaneous(4). Motor Response: obeys commands(6). Verbal Response: sp4 oriented(5). Total: 15. 21:57 Eye Response: spontaneous(4). Motor Response: obeys commands(6). Verbal Response: bm8 oriented(5). Total: 15. 23:19 Eye Response: spontaneous(4). Motor Response: obeys commands(6). Verbal Response: bm8 oriented(5). Total: 15. 23:35 Eye Response: spontaneous(4). Motor Response: obeys commands(6). Verbal Response: bm8 oriented(5). Total: 15. 09/22 00:13 Eye Response: spontaneous(4). Motor Response: obeys commands(6). Verbal Response: bm8 oriented(5). Total: 15. ED Course: 09/21 21:13 Patient arrived in ED. gm2 21:25 Umesh Styles MD is Attending Physician. sp4 21:42 Arm band placed on right wrist. bm8 21:52 Micheal Mullen, RN is Primary Nurse. bm8 21:54 Triage completed. bm8 21:57 Patient has correct armband on for positive identification. Placed in gown. Bed in low bm8 position. Call light in reach. Side rails up X 1. Client placed on continuous cardiac and pulse oximetry monitoring. NIBP monitoring applied. Pulse ox on. NIBP on. Door closed. Noise minimized. Warm blanket given. Pillow given. Verbal reassurance given. Head of bed elevated. 21:57 No provider procedures requiring assistance completed. Inserted saline lock: 20 gauge bm8 in right antecubital area, using aseptic technique. Blood collected. Flushed with 10 mL NS. Patient maintains SpO2 saturation greater than 95% on room air. 22:28 OB Limited In Process Unspecified. EDMS 22:38 Initiated transfer with Bryce at [facility]. rv1 23:[address] Tamez to [facility] [place] L\T\D Triage. rv1 23:20 Patient transferred, IV remains in place. bm8 09/22 00:15 Provided Education on: need for transfer. bm8 Administered Medications: 09/21 23:18 Drug: Magnesium Sulfate IVPB 4 grams IVPB once over 30 mins Route: IVPB; Infused Over: bm8 30 mins; Site: left antecubital; 09/22 00:16 Follow up: Response: No adverse reaction; IV Status: Completed infusion; IV Intake: bm8 100ml 09/21 23:18 Drug: Labetalol IV 20 mg IV at bolus once; administer at a rate of 2 mg /min Route: IV; bm8 Rate: bolus; Site: left antecubital; 09/22 00:16 Follow up: Response: No adverse reaction; IV Status: Completed infusion; IV Intake: 5ml bm8 09/21 23:18 Drug: Magnesium Sulfate IVPB 2 grams IVPB once over 1 hrs Route: IVPB; Infused Over: 1 bm8 hrs; Site: left antecubital; 09/22 00:16 Follow up: Response: No adverse reaction; IV Status: Infusion continued upon transfer bm8 00:14 Drug: Tylenol 1000 mg PO once Route: PO; bm8 00:14 Follow up: Response: No adverse reaction bm8 Medication: 09/21 21:57 VIS not applicable for this client. bm8 Intake: 09/22 00:16 IV: 5ml; Total: 5ml. bm8 00:16 IV: 100ml; Total: 105ml. bm8 Outcome: 00:15 Discharged to home ambulatory, bm8 00:15 Condition: stable 00:15 Instructed on follow up and referral plans. no drinking with medication, no driving heavy equipment, medication usage, Demonstrated understanding of follow-up care, medications, 00:26 ER care complete, transfer ordered by . [email or web address] 00:51 Patient left the ED. bm8 Signatures: Dispatcher [employer] Sindy Faye rvUmesh Javier MD MD sp4 Patricia Chavez gm2 Micheal Mullen RN RN bm8 NICOLA GAINES RN RN dd2
--- NOTE | 2024-09-22 11:43 | EKG ---
Test Date: 2024-09-21 Test Time: 23:12:29 Restaurant Area Manager: PRUDENCE MEASUREMENT RESULTS: Intervals: Rate: 79 MI: 172 QRSD: 86 QT: 398 QTc: 456 [place]: P: 34 MI: 172 QRS: -9 T: 15 INTERPRETIVE STATEMENTS: Normal sinus rhythm Voltage criteria for left ventricular hypertrophy Abnormal ECG No previous ECG available for comparison Electronically Signed On 09-22-24 11:42:56 SIGHT MOUNTER by Stephen Malik
[2024-09-23 02:36] VITALS: BP 133/101; TEMP 98.1; O2SAT 97
== END 2024-09-22 00:51 | disposition short-term general hospital (02) ==
LOC: ER 21:08
DX: O14.93 Unspecified pre-eclampsia, third trimester (principal); Z3A.34 34 weeks gestation of pregnancy
CPT/HCPCS: 96365; 96368; 93005; 85025; 81001; 80048; 36415; 83735; 85610; 80076; 84443; 84484; 84439; 83880; 76815; 99284; J3475